=== PATIENT | male | born 1935 | race Caucasian/White ===

== ENCOUNTER 2022-02-05 14:50 | Outpatient (CLI) | payer MEDICARE, SELFPAY ==
--- NOTE | 2022-02-05 16:00 | CRLHL7_ITS ---
For Patients: As a result of the Century Cures Act, medical imaging exams and procedure reports are released immediately into your electronic medical record. You may view this report before your referring provider. If you have questions, please contact your health care provider. INDICATION: Right leg pain. History of DVT. TECHNIQUE: Ultrasound venous duplex lower right extremity. Compression venous exam was performed using tay-scale, color Doppler, and spectral Doppler analysis. COMPARISON: None. FINDINGS: Deep veins: Sonographic imaging demonstrates the right common femoral, deep femoral, superficial femoral, popliteal, posterior tibial and the contralateral right common femoral veins to be fully compressible with normal color Doppler blood flow. Superficial veins: Greater saphenous vein is fully compressible. No popliteal cyst. IMPRESSION: Normal right lower extremity venous ultrasound, no sign of deep venous thrombosis. Dictated by Luis Harvey MD @ 02/05/2022 4:26:30 PM (Electronically Signed)
== END 2022-02-05 14:51 | disposition home or self-care (01) ==
PROVIDERS: PCP Internal Medicine; Visit Provider Family Medicine
DX: M79.651 Pain in right thigh (principal); Z86.718 Personal history of other venous thrombosis and embolism
CPT/HCPCS: 93971

== ENCOUNTER 2022-08-06 09:07 | Outpatient (CLI) | payer MEDICARE, SELFPAY ==
[2022-08-06 10:35] LABS: Albumin* 3.8 g/dL (3.3-5.0); Chloride* 109 mmol/L (96-114)
[2022-08-06 10:36] LABS: Potassium* 4.6 mmol/L (3.6-5.1); Sodium* 141 mmol/L (135-149)
[2022-08-06 10:38] LABS: Alkaline Phosphatase* 66 U/L (40-150); Aspartate Amino Transferase* 21 U/L (12-35); Bilirubin Total* 0.6 mg/dL (0.1-1.5); Blood Urea Nitrogen* 20 mg/dL (7-30); Carbon Dioxide* 29 mmol/L (20-32); Cholesterol* 146 mg/dL (90-199); Estimated Glomerular Filt Rate 74 ml/min; Glucose* 99 mg/dL (60-115); Total Protein* 6.4 g/dL (6.0-8.3); Triglycerides* 72 mg/dL (40-149)
[2022-08-06 10:39] LABS: Alanine Aminotransferase* 16 U/L (4-50); Calcium* 8.8 mg/dL (8.4-10.6); HDL Cholesterol* 65 mg/dL (>=40); LDL Cholesterol Calculated 67 mg/dL (<100)
[2022-08-06 11:09] LABS: PSA Screen* 1.13 ng/mL (0.10-4.00)
== END 2022-08-06 09:08 | disposition home or self-care (01) ==
LOC: NFLDREF 09:08
PROVIDERS: PCP Internal Medicine; Visit Provider Internal Medicine
DX: Z00.00 Encounter for general adult medical examination without abnormal findings (principal); E78.5 Hyperlipidemia, unspecified; N40.0 Benign prostatic hyperplasia without lower urinary tract symptoms; Z12.5 Encounter for screening for malignant neoplasm of prostate
CPT/HCPCS: 80053; 80061; 84153

== ENCOUNTER 2022-10-06 11:00 | Outpatient (RCR) | payer MEDICARE, SELFPAY ==
--- NOTE | 2022-08-18 15:22 | PT.OPEX ---
PT [facility] PT [facility] Outpatient Eval Start: 08/18/22 09:54 Freq: Status: Active Protocol: Document 08/18/22 09:55 ENM (Rec: 08/18/22 15:14 ENM [id number]) E-signed By Florence Holman, DPT Physical Therapy Outpatient Evaluation Insurance Information Recert Due Date 11/10/22 Insurance Name Medicare B Medical Diagnosis degenerative scoliosis other secondary scoliosis, site unspecified Treating Diagnosis deconditioning, decreased core strength, decreased glute strength, impaired gait, impaired balance Referring MD Cecilia RIVERA Subjective Subjective Patient presents to PT for complaint of difficulty walking. 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 Underwent left femur CRPP via cannulated screws. Did have acupuncture and ultrasound at home, tried chiropractor which was not helpful. Used a bone stimulator as well. Has a history for chronic scoliosis with interlaminar injections. For the past 5 years he has not been able to stand very long >5 mins, he then has to find something to lean on. Patient states that he can't walk due to weakness and feels very insecure walking without his cane. Notices burning pain with moping or vacuuming. He has no pain in the knees just discomfort. He feels like he walks well with his 4WW at home, used to use walker at baseline before the fall. Does have a complaint of right thigh pain as well that he notices with hip flexion. His goal is to improve his walking ability. Xray: severe lumbar degenerative disc disease and significant degenerative scoliosis with apex right curvature centered at L3. severe lateral compartment [id number] joint space loss that is slightly more significant on the left than the right knee but both are severe Past exercises: heel cord stretch, heel raises, knee bends, standing marches, hip abduction, backwards kicks, standing HS curls, SLS, mini squats, seated marches, LAQ, HS stretch and hip add iso PMHx: left hip fx closed reduction with percutaneous pinning, arthritis, Pain Comments at its worse: 2-08/28 easing: sitting aggravating: mopping, vacuuming, walking Current Work Status Retired Objective Other/Pertinent Objective ROM: FF mid roland with notable curvature in lumbar spine EXT limited 50% pt flexed forward at baseline hip AROM flexion + for pain on R side IR WFL ER WFL no pain with passive hip flexion strength: 5x STS 28.38s with heavy use of arms and poor eccentric control, flexed posture throughout hip extensors functional weakness with sit to stands, is able to perform a fair supine bridge hip flexors L 3+/5 R 4/5 knee extensors L limited due to pain in the anterior thigh R 4+/5 DF 4/5 B palpation/joint mobility: no significant tenderness to palpation of right proximal adductors or hip flexors gait/balance: Patient ambulating with SEC, moderate limp with right trunk lean, proper sequencing of cane, decreased stance time LLE. SOB after ambulation ~50' Posture: Patient with significant flexed posture, scoliotic curve noted special tests: LLD: L ASIS to med malleolus 94.8 cm R ASIS to inf med malleolus 96 cm navel to L med malleolus 100.4 cm navel to R med malleolus 100.5 cm Functional Test Performed & Score 5x STS 28.38s with heavy use of arms and poor eccentric control, flexed posture throughout Assessment Assessment/Impression Patient is an 87 year old male presenting with difficulties ambulating. They have a complex medical history for chronic significant degenerative scoliosis and left femur fracture April 2021. Since then he has felt off balance and limited in his walking. Primary pains are in right thigh and lower back. Upon assessment patient displays significant flexed posture with ability to achieve neutral posture but unable to hold. Global LE functional weakness noted with MMT and 5x STS. Patient ambulates with antalgic gait pattern and slight right trunk lean using SEC, visibly SOB after ~50'. Noted 1.2 cm LLD with measures which is also likely impacting his ability to ambulate, per imaging patient has a 24 mm difference leg length shortening after fracture. Patient would greatly benefit from skilled PT to address impairments stated above in order to perform all functional mobility with improved stability and household duties without significant discomfort. Primary Functional Limitations walking, mopping, vacuuming Plan of Care Rehabilitation Potential Fair Physical Therapy Goals In 8-10 visits: 1. Patient will be IND with HEP and self management of symptoms 2. Patient will ambulate 100' with LRAD with improved upright posture at least 50% of the time to progress tolerance for community mobility 3. Patient will improve 5x STS from 28.38s with or without use of hands to less than 24. 38s (MDC 4s) to demonstrate improvements in LE functional strength/endurance 4. Patient will perform mopping or vacuuming with 2/10 or less back pain following in order to perform household duties without as much difficulty or discomfort Coordination/Communication With Referral Source Treatment Plan/Direct Interventions Gait Training,Joint Mobilization,Manual Therapy, Neuromuscular Re-ed,Self-Care/ Home Management,Therapeutic Activities,Therapeutic Exercises Frequency/Duration 1x a week for 8 visits, as needed for 3-4 visits Patient Will Be Discharged From Therapy Completion of LTG(s), Independent w/HEP Evaluation Billing Untimed Code Treatment Minutes 41 Complexity Moderate Certification Information Initial Certification Date 08/18/22 Ending Certification Date 11/10/22 Provider Signature Shows Agreement With POC & Medical Necessity Physician Signature & Date Requested Please Sign/Date Here Physician Comment/Change : Physician NPI Number #
== END 2022-12-07 09:18 | disposition home or self-care (01) ==
PROVIDERS: PCP Internal Medicine; Visit Provider Physician Assistant Surgical
DX: M41.50 Other secondary scoliosis, site unspecified (principal); M54.50 Low back pain, unspecified; R53.1 Weakness; R26.9 Unspecified abnormalities of gait and mobility; R26.81 Unsteadiness on feet; Z51.89 Encounter for other specified aftercare
CPT/HCPCS: 97110; 97140; 97162; 97530

== ENCOUNTER 2023-03-29 12:52 | Outpatient (CLI) | payer MEDICARE, SELFPAY | END 2023-03-29 12:53 | disposition home or self-care (01) | LOC: NFLDREF 03-31 09:04 | PROVIDERS: PCP Internal Medicine; Referring Provider Internal Medicine; Visit Provider Internal Medicine | DX: N39.0 Urinary tract infection, site not specified (principal) | CPT/HCPCS: 87086; 87186 ==

== ENCOUNTER 2023-04-05 12:57 | Outpatient (CLI) | payer MEDICARE, SELFPAY | END 2023-04-05 12:58 | disposition home or self-care (01) | LOC: NFLDREF 04-08 11:17 | PROVIDERS: PCP Internal Medicine; Referring Provider Internal Medicine; Visit Provider Internal Medicine | DX: N39.0 Urinary tract infection, site not specified (principal) | CPT/HCPCS: 87086 ==

== ENCOUNTER 2023-09-28 14:41 | Outpatient (CLI) | payer MEDICARE, SELFPAY ==
--- OUTSIDE RECORDS SUMMARY | 2023-09-28 14:44 | XMS_ITS | Clinical Summary ---
Author Name Unknown Organization [facility] Address [place], [place] [address] Care Team Providers Care Canine Service Instructor Trainer Name Role Phone Henok Weller MD Primary Care Provider Allergies No known active allergies Medications Medication Sig Dispensed Refills Start Date End Date Status AZMACORT 100 MCG/ACTUATION AEROSOL INHALER inhale four puffs twice daily 20 0 05/30/2007 Active doxazosin (CARDURA) 8 mg tablet Take 1 tablet by mouth at bedtime. 0 10/12/2011 Active CPAP autoCPAP, heated humidifier, mask, headgear, filters and tubing. Pressure: 4-15cm/H2O Length of Need: 99 1 unit 0 10/12/2011 Active Additional Information Patient not taking.Reported on 09/16/2023 zolpidem (AMBIEN) 10 mg tablet Take 1 tablet by mouth at bedtime if needed for Sleep. 30 tablet 1 10/19/2011 Active Additional Information Patient not taking.Reported on 09/16/2023 Calcium carbonate (OYSTERSHELL CALCIUM) 500 mg tablet Take 1 tablet by mouth 2 times daily with meals. 0 01/11/2012 Active fluorouracil 5% topical (EFUDEX) 5 % cream Apply 1 Applicator topically to affected area(s) 2 times daily. 08/06/2016 Active simvastatin (ZOCOR) 20 mg tablet Take 20 mg by mouth once daily. 07/31/2016 Active ADVAIR DISKUS 250-50 mcg/dose diskus inhaler Take 1 Inhaler by mouth once daily. 08/12/2016 Active diphenhydrAMINE-ac etaminophen 25-500 mg (TYLENOL PM EXTRA STRENGTH) 25-500 mg tablet Take 2 tablets by mouth at bedtime if needed. Max acetaminophen dose: 4000mg in 24 hrs. 0 04/02/2017 Active VENTOLIN HFA 90 mcg/actuation inhaler 1 09/20/2018 Active diclofenac topical (VOLTAREN) 1 % gelIndications:Art hritis of finger of right hand Apply 2 g topically to affected area(s) 4 times daily. As needed 50 g 3 03/08/2020 Active finasteride (PROSCAR) 5 mg tabletIndications: Weak urine stream Take 1 Tablet (5 mg) by mouth every morning. 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 ) 09/16/2023 Travel from Last 3 Months Immunizations Name Administration Dates Next Due COVID-19 Vaccine Spikevax (M oderna 50mcg/0.5mL) 12YO+ 3514-7637 Formula PF 04/09/2023 COVID-19 vaccine (Hipbone-Bio NTech 30mcg/0.3mL) 12YO+ BIVALENT PF, MDV 10/15/2022,03/19/2022 COVID-19 vaccine (Pfizer-Bio NTech 30mcg/0.3mL) 12YO+ VICENTA-SUCROSE PF, MDV 10/08/2021 COVID-19 vaccine (Hipbone-Bio NTech 30mcg/0.3mL) PF, MDV 07/27/2020 Influenza A (H1N1), Inactivated 05/10/2009 Influenza, High-dose Inactivated 018,04/01/2017,04/16/2016,2014,03/21/2014 Influenza, High-dose Quadriv alent Inactivated 03/18/2021 Influenza, IIV3 (Age 6-35 mos) 04/10/2010 Influenza, IIV3 (Age >=3 years) 03/31/20 13,03/24/2012,04/09/2011,2004,04/19/2004 Influenza, IIV4 05/10/2009 Influenza, Inactivated AIIV4 (Age 65+ Years) Preserv Free 04/09/2023,04/10/2020 Influenza, Inactivated IIV3 (Age 65+ Years) Preserv Free 03/09/2019 Pneumococcal Poly,23-Valent (Pneumovax) 04/21/2006 Pneumococcal conj 13-Valent (Prevnar 13) 11/22/2014,07/12/2014 Tdap 06/16/2012 Zoster (Shingrix-RZV, recombinant) 11/30/2018, Zoster (Zostavax-ZVL, live) 06/01/2006 Social History Tobacco Use Types Packs/Day Years Used Date Smoking Tobacco: Never Smokeless Tobacco: Current Chew Tobacco Cessation:Ready to Q uit: No; Counseling Given: Yes Comments:occasional use of chew Alcohol Use Standard Drinks/Week Comments Yes 0 (1 standard drink = 0.6 oz pur e alcohol) 2-3 beers per week Social Connections Answer Date Recorded Frequency of Communication with Friends and Fami ly Not on file 09/16/2023 Financial Resource Strain Answer Date R ecorded Difficulty of Paying Living Expenses Not on file 06/21/2021 Difficulty of Paying Living Expenses Not on file 06/21/2021 Sex and Gender Information Value Date Recorded Sex Assigned at Not on file Gender Identity Not on file Sexual Orientation Not on file Obstetrics History Last Filed Vital Signs Vital Sign Reading Time Taken Comments Blood Pressure 168/87 09/16/2023 9:10 AM CDT recheck blood pressure Pulse 79 09/16/2023 9:10 AM CDT Temperature 36.3 ??C (97.4 ??F) 08/01/2020 1 0:52 AM 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 [address] [place] [phone] Anmol Sorto MD [address] [place] [address] Arrived Health Maintenance Due Date Last Done Comments Depression screening for age 12+ 1949 BMI (ht and wt on same day) for age 18+ 1955 Medicare Wellness for age 65+ 2002 Tetanus booster 06/16/2022 06/16/2012 Influenza for age 65+ 02/20/2024 04/09/2023 , 03/18/2021, 04/10/2020, Additional history exists Tdap Completed 06/16/2012 Pneumococcal series for age 65+ Completed 11/22/2014, 07/12/2014, 04/21/2006 Zoster (shingles) series for age 50+ Completed 11/30/2018, 09/15/2018, 06/01/2006 COVID-19 vaccine series Completed 04/09/20, 10/15/2022, 03/19/2022, Additional history exists Care Teams Canine Service Instructor Trainer Relationship Specialty Start Date End Date Henok Weller MD [address] [place] [address] PCP - General 11/16/12
== END 2023-09-28 14:42 | disposition home or self-care (01) ==
LOC: INJ CL 14:42
PROVIDERS: PCP Internal Medicine; Visit Provider Family Medicine
DX: M17.12 Unilateral primary osteoarthritis, left knee (principal); M25.562 Pain in left knee
CPT/HCPCS: 64454

== ENCOUNTER 2023-10-05 13:10 | Outpatient (CLI) | payer MEDICARE, SELFPAY ==
--- OUTSIDE RECORDS SUMMARY | 2023-10-05 13:12 | XMS_ITS | Clinical Summary ---
Author Name Unknown Organization [facility] Address [place], [place] [address] Care Team Providers Care Clinical Services Professional Name Role Phone Henok Weller MD Primary [...] Encounters Date Type Department Care Team Description 10/01/2023 Orders Only [facility] [address] [place] [address] Anmol Sorto MD <No scans attached> 09/30/2023 Telephone [facility] [address] [place] [address] Anmol Sorto MD Error-please disregard 09/28/2023 3:20 PM CDT Procedure Only [facility] [address] [place] [address] Anmol Sorto MD Procedure (Left knee genicular nerve block ) 09/28/2023 Orders Only [facility] Scanner 1 scan: (1-Ord) [facility], SUPERIOR MEDIAL, SUPERIOR LATERAL AND INFERIOR MEDIAL GENICULAR NERVE BLOCKS UNDER FLUOROS, 09/28/2023 09/16/2023 9:00 AM CDT Office Visit [facility] [address] [place] [address] Anmol Sorto MD Musculoskeletal Problem (Consultation for Bilateral Knee pain and Low Back Pain//Did have a fall in 2020 and fractured LEFT Femur. 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 Respiratory Rate - - Oxygen Saturation 97% 09/16/2023 9:0 7 AM CDT Inhaled Oxygen Concentration - - Weight 99.8 kg (220 lb) 09/16/2023 9:07 AM CDT Height - - Body Mass Index - - Plan of Treatment Upcoming Encounters Date Type Department Care Team (Late st Contact Info) Description 10/05/2023 2:00 PM CDT Procedure Only [facility] [address] [place] [phone] Anmol Sorto MD [address] [place] [address] Arrived Health Maintenance Due Date Last Done [...] 11/30/2018, 09/15/2018, 06/01/2006 COVID-19 vaccine series Completed 04/09/20 23, 10/15/2022, 03/19/2022, Additional history exists Procedures Procedure Name Priority Date/Time Associated Diagnosis Comments SCAN-OPERATIVE/PROC EDURE REPORT 09/28/2023 12:00 AM CDT from Last 3 Months Results * SCAN-OPERATIVE/PROCEDURE REPORT (09/28/2023 12:00 AM CDT) Scanner OTHER from Last 3 Months Care Teams Clinical Services Professional Relationship Specialty Start Date End Date Henok Weller MD [address] [place] [address] PCP - General 11/16/12
== END 2023-10-05 13:11 | disposition home or self-care (01) ==
LOC: INJ CL 13:11
PROVIDERS: PCP Internal Medicine; Visit Provider Family Medicine
DX: M17.12 Unilateral primary osteoarthritis, left knee (principal); M25.562 Pain in left knee
CPT/HCPCS: 64624; J2250; J3010

== ENCOUNTER 2023-10-25 09:12 | Outpatient (CLI) | payer MEDICARE, SELFPAY ==
--- OUTSIDE RECORDS SUMMARY | 2023-10-27 09:41 | XMS_ITS | Clinical Summary ---
Author Name Unknown Organization [facility] Address [place], [place] [address] Care Team Providers Care Electric Razor Mechanic Name Role Phone Henok Weller MD Primary [...] Encounters Date Type Department Care Team Description 10/05/2023 2:00 PM CDT Procedure Only [facility] [address] [place] [address] Anmol Sorto MD Procedure (Left knee Coolief RFA) 10/01/2023 Orders Only [facility] [address] [place] [address] Anmol Sorto MD 1 scan: (1-Ord) [facility], LEFT GENICULAR NERVE RADIOFREQUENCY W/ IMAGING GUIDANCE , 10/05/2023 09/30/2023 Telephone [facility] [address] [place] [address] Anmol Sorto MD Error-please disregard 09/28/2023 3:20 PM CDT Procedure Only [facility] [address] [place] [address] Anmol Sorto MD Procedure (Left knee genicular nerve block ) 09/28/2023 Orders Only [facility] Scanner 1 scan: (1-Ord) [facility], LT SUPERIOR MEDIAL, SUPERIOR LATERAL AND INFERIOR MEDIAL GENICULAR NERVE BLOCKS UNDER FLUOROS, 09/28/2023 09/16/2023 9:00 AM CDT Office Visit [facility] [address] [place] [address] Anmol Sorto MD Musculoskeletal Problem (Consultation for Bilateral Knee pain and Low Back Pain//Did have a fall in 2020 and fractured LEFT Femur. 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 Respiratory Rate - - Oxygen Saturation 97% 09/16/2023 9:0 7 AM CDT Inhaled Oxygen Concentration - - Weight 99.8 kg (220 lb) 09/16/2023 9:07 AM CDT Height - - Body Mass Index - - Plan of Treatment Health Maintenance Due Date Last Done Comments [...] Procedure Name Priority Date/Time Associated Diagnosis Comments AMB CONSULT FOR INJECTION Routine 10/05/2023 12:00 AM CDT Primary osteoarthritis of left knee Chronic pain of left knee SCAN-OPERATIVE/PRO CEDURE REPORT 09/28/2023 12:00 AM CDT from Last 3 Months Results * AMB CONSULT FOR INJECTION (10/05/2023 12:00 AM CDT) Anmol Sorto MD AMB REFERRAL/CONSU LT ORD * SCAN-OPERATIVE/PROCEDURE REPORT (09/28/2023 12:00 AM CDT) Scanner OTHER from Last 3 Months Care Teams Electric Razor Mechanic Relationship Specialty Start Date End Date Henok Weller MD [address] [place], [place] [phone] PCP - General 11/16/12
== END 2023-10-25 09:13 | disposition home or self-care (01) ==
LOC: NFLDREF 10-27 09:40
PROVIDERS: PCP Internal Medicine; Referring Provider Internal Medicine; Visit Provider Internal Medicine
DX: E78.5 Hyperlipidemia, unspecified (principal); N40.0 Benign prostatic hyperplasia without lower urinary tract symptoms; Z13.228 Encounter for screening for other metabolic disorders; Z12.5 Encounter for screening for malignant neoplasm of prostate
CPT/HCPCS: 80053; 80061; G0103

== ENCOUNTER 2023-12-06 19:08 | Outpatient (CLI) | payer MEDICARE, SELFPAY ==
--- OUTSIDE RECORDS SUMMARY | 2023-12-08 00:45 | XMS_ITS | Clinical Summary ---
Author Organization [employer] [facility] Address [place], [place] [address] Care Team Providers Care Assistant County Engineer Name Role Phone Henok Weller MD Primary Care Provider [phone] Allergies No known active allergies Medications Medication [...] Description 10/05/2023 2:00 PM CDT Procedure Only [facility] [address] [place] [address] Anmol Sorto MD Procedure (Left knee Coolief RFA) 10/01/2023 Orders Only [facility] [address] [place] [address] Anmol Sorto MD 1 scan: (1-Ord) [facility], LEFT GENICULAR NERVE RADIOFREQUENCY W/ IMAGING GUIDANCE , 10/05/2023 09/30/2023 Telephone [facility] [address] [place] [address] Anmol Sorto MD Error-please disregard 09/28/2023 3:20 PM CDT Procedure Only [facility] [address] [place] [address] Anmol Sorto MD Procedure (Left knee genicular nerve block ) 09/28/[address] [facility] Scanner 1 scan: (1-Ord) [facility], LT SUPERIOR MEDIAL, SUPERIOR LATERAL AND INFERIOR MEDIAL GENICULAR NERVE BLOCKS UNDER FLUOROS, 09/28/2023 09/16/2023 9:00 AM CDT Office Visit [facility] [address] [place] [address] Anmol Sorto MD Musculoskeletal Problem (Consultation for Bilateral Knee pain and Low Back Pain//Did have a fall in 2020 and fractured LEFT Femur. ) 09/16/2023 Travel from Last 3 Months Immunizations Name Administration Dates Next Due COVID-19 Vaccine Spikevax (M oderna 50mcg/0.5mL) 12YO+ 3134-5941 Formula PF 04/09/2023 COVID-19 vaccine ([employer] 30mcg/0.3mL) 12YO+ BIVALENT PF, MDV 10/15/2022,03/19/2022 [...] ??C (97.4 ??F) 08/01/2020 1 0:52 AM EDGE DYER Respiratory Rate - - Oxygen Saturation 97% 09/16/2023 9:0 7 AM CDT Inhaled Oxygen Concentration - - Weight 99.8 kg (220 lb) 09/16/2023 9:07 AM CDT Height - - Body Mass Index - - Plan of Treatment Upcoming Encounters Date Type Department Care Team (Late st Contact Info) Description 12/08/2023 11:00 AM CDT Ancillary Procedure [facility] [address] [place] [address] Health Maintenance Due Date Last Done Comments [...] OTHER from Last 3 Months Care Teams Assistant County Engineer Relationship Specialty Start Date End Date Henok Weller MD [address] [place] [address] PCP - General 11/16/12
== END 2023-12-06 19:09 | disposition home or self-care (01) ==
LOC: AMB 12-08 00:43
PROVIDERS: PCP Internal Medicine; Visit Provider Student in an Organized Health Care Education/Training Program
DX: R53.1 Weakness (principal)
CPT/HCPCS: A0425; A0427

== ENCOUNTER 2023-12-06 19:47 | Inpatient (IN) | payer MEDICARE, SELFPAY ==
[2023-12-06 19:52] VITALS: BP 143/84; PULSE 120; RESP 18; TEMP 38.1; O2SAT 96; BMI 21.7
[2023-12-06] MEDS: ACETAMINOPHEN 325 MG TABLET 650 MG PO (20:12)
--- NOTE | 2023-12-06 20:14 | CRLHL7_ITS ---
For Patients: As a result of the Century Cures Act, medical imaging exams and procedure reports are released immediately into your electronic medical record. You may view this report before your referring provider. If you have questions, please contact your health care provider. Indication : Altered mental status. Technique : CT of the brain without intravenous contrast. Comparison: None relevant available at the time of interpretation. Findings: No acute blurring of the tay-white differentiation. There is no intracranial hemorrhage. The ventricles are proportionate to the cerebral sulci. The 4th ventricle is midline. Basal cisterns appear patent. No abnormal extra-axial fluid collection identified. Mild parenchymal volume loss. There is mild patchy periventricular hypodensity, favored to represent chronic ischemic microvascular disease. There is no intracranial mass, mass effect or midline shift identified. No depressed calvarial fracture. Moderate sphenoid sinusitis. Impression: 1. No acute intracranial process. 2. Mild chronic ischemic microvascular disease. Please note that all CT scans at this facility use dose modulation, iterative reconstruction, and/or weight-based dosing when appropriate to reduce radiation dose to as low as reasonably achievable. Dictated by Juan Victor MD @ 12/06/2023 9:04:28 PM (Electronically Signed)
[2023-12-06] MEDS: LACTATED RINGERS 1000 ML 1,000 ML IV ×2 (20:18→22:22)
--- NOTE | 2023-12-06 20:22 | ED_ITS ---
HPI - General Adult General Date Seen: 12/06/23 Chief complaint: Fever Stated complaint: Weakness Time Seen by Provider: 12/06/23 19:48 Source: patient, family and EMS Mode of arrival: EMS Limitations: no limitations History of Present Illness HPI narrative: Patient is an 88-year-old male presenting to emergency department via EMS for fever and weakness. Per EMS patient was too weak to get off his toilet so his son's called EMS. He typically lives alone. For EMS he had a fever, tachycardia and they heard some wheezing on exam. I spoke to the patient and I asked him why he is here he states he is not sure why asking about the weakness he does states he is feeling little bit weaker than normal. Does know where he is and the date. Speaking to him he will initially start answering questions appropriately and then start a stutter and seem like he is unable to finish a sentence. I spoke to his son on the phone who states his dad was sounded normal this morning but was complaining about feeling tired. The patient's other son was with him most of the day and he has been progressively getting weaker and having difficulty getting out of chairs until he was unable to get off the toilet. His son also noticed the patient seemed to be slightly more confused than his baseline. As baseline he does live home alone. Was complaining about back pain today also. Denies chest pain, shortness of breath, headache, vision changes, diarrhea, constipation, dysuria. No other concerns noted at this time. Related Data Home Medications ?Medication ?Instructions ?Recorded ?Confirmed acetaminophen 650 mg 650 mg PO Q12H 04/10/22 10/27/23 tablet,extended release (Tylenol Arthritis Pain) finasteride 5 mg PO DAILY 11/19/22 10/27/23 glucosamine 500 cap PO QDAY 10/27/23 10/27/23 lg-[id number] comp 400 mg-D3 667 unit-C-Mn cap Previous Rx's ?Medication ?Instructions ?Recorded albuterol sulfate 90 mcg/actuation 2 puff inhalation Q4H PRN 08/11/22 aerosol inhaler shortness of breath or wheezing #8.5 grams Walker- 4 Wheels #1 ea 09/14/22 ciprofloxacin HCl 250 mg tablet 250 mg PO BID UTI #28 tabs 04/05/23 meloxicam 7.5 mg tablet 7.5 mg PO QDAY Osteoarthritis #20 05/04/23 tabs hydrocodone 5 mg-acetaminophen 325 2 tab PO Q6H PRN pain #30 tabs 07/19/23 mg tablet doxazosin 8 mg tablet 8 mg PO .HS #90 tabs 09/13/23 simvastatin 20 mg tablet 20 mg PO QPM #90 tabs 09/13/23 Allergies Allergy/AdvReac Type Severity Reaction Status Date / Time No Known Drug Allergies Allergy Verified 10/27/23 10:05 Review of Systems Status of ROS: Reports: 10 or more systems reviewed and unremarkable except as noted in History and below [facility] Medical History Sleep apnea, obstructive ?G47.33 - Obstructive sleep apnea (adult) (pediatric) (ICD-10) Skin cancer (06/10/09) ?C44.90 - Unspecified malignant neoplasm of skin, unspecified (ICD-10) Obesity with body mass index greater than 30 ?E66.9 - Obesity, unspecified (ICD-10) Deep vein thrombosis (DVT) of left lower extremity ?I82.402 - Acute embolism and thrombosis of unspecified deep veins of left lower extremity (ICD-10) Asthma (06/10/09) ?J45.909 - Unspecified asthma, uncomplicated (ICD-10) Hyperlipidemia ?E78.5 - Hyperlipidemia, unspecified (ICD-10) Surgical History History of hip surgery (04/21/21) ?Z98.890 - Other specified postprocedural states (ICD-10) Hx of tonsillectomy ?Z90.89 - Acquired absence of other organs (ICD-10) Family History Mother Breast cancer Coronary artery disease Father No problems noted. Paternal Grandfather Coronary artery disease Social History What is your current living situation?: I presently have a place to live Problems where you live: no known problems In the past 12 months, utilities in danger of being shut off: no In past 12 months, lack of transportation kept you from medical appts, meetings, work, or getting things needed for daily living: no In the past 12 mos, have been you worried that your food would run out before you had money to buy more?: never true In the past 12 mos, the food you bought just didn't last and you didn't have money to buy more?: never true Smoking Status: Never smoker Do you use any of these nicotine containing products: None Second hand tobacco smoke exposure: No How often do you have a drink containing alcohol: never How often do you have six or more drinks on one occasion: Never AUDIT-C Alcohol total score: 0 Non-prescribed substance use: denies use How often does anyone, including family, friends and others, physically hurt you : never How often does anyone, including family, friends and others, insult or talk down to you: never How often does anyone, including family, friends and others, threaten you with harm: never How often does anyone, including family, friends and others, scream or curse at you: never Little interest or pleasure in doing things: not at all Feeling down, depressed, or hopeless: not at all service: No Exam Narrative: Exam Narrative: Const: Well-nourished, Well-developed, in mild distress Eyes: PERRL, no conjunctival injection, and symmetrical lids HENT: Atraumatic external nose and ears. Moist mucous membranes. Neck: Symmetric, trachea midline, No thyromegaly. CVS: Tachycardia, No murmurs or gallops. Peripheral pulses 2+ and equal in all extremities RESP: Unlabored respiratory effort. Clear to auscultation bilaterally. GI: Nontender/Nondistended, No rebound or guarding. MSK:Extremities w/o deformity, Normal Active ROM Skin: Warm, Dry. No rashes or lesions. Neuro: Normal Muscle tone, No focal neurological deficits. Psych: Awake, Alert, & Oriented x3 but does seem to trail off when speaking.. Appropriate mood and affect. Const: Vital Signs, click to edit/add: Vital Signs - 24 hr 12/06/23 19:52 12/06/23 20:37 12/06/23 21:20 Temperature 100.5 F H 100.5 F H 99.8 F H Pulse Rate [Pulse Oximeter] 120 H 118 H 104 H Respiratory Rate 18 22 18 Blood Pressure [Ri ght Arm] 142/80 H Blood Pressure [Ri ght Upper Arm] 143/84 H 118/68 Pulse Oximetry 96 95 95 Oxygen Delivery Me thod Room Air Room Air Room Air 12/06/23 23:52 12/06/23 23:52 Temperature 100.8 F H 100.8 F H Pulse Rate [Pulse Oximeter] 128 H Respiratory Rate 26 H Blood Pressure [Ri ght Arm] Blood Pressure [Ri ght Upper Arm] 169/88 H Pulse Oximetry 95 Oxygen Delivery Me thod Room Air Course Vital Signs Vital signs: Initial Vital Signs Temperature 100.5 F H 12/06/23 19:52 Temperature Source Temporal Artery Scan 12/06/23 19:52 Pulse Rate 120 H 12/06/23 19:52 Respiratory Rate 18 12/06/23 19:52 Blood Pressure 143/84 H 12/06/23 19:52 Blood Pressure Mean 103 12/06/23 19:52 Blood Pressure Position Sitting 12/06/23 19:52 Pulse Oximetry 96 12/06/23 19:52 Oxygen Delivery Method Room Air 12/06/23 19:52 Vital Signs Temperature 100.5 F H 12/06/23 19:52 Pulse Rate 120 H 12/06/23 19:52 Respiratory Rate 18 12/06/23 19:52 Blood Pressure 143/84 H 12/06/23 19:52 Pulse Oximetry 96 12/06/23 19:52 Oxygen Delivery Method Room Air 12/06/23 19:52 Temperature 100.8 F H 12/06/23 23:52 Pulse Rate 128 H 12/06/23 23:52 Respiratory Rate 26 H 12/06/23 23:52 Blood Pressure 169/88 H 12/06/23 23:52 Pulse Oximetry 95 12/06/23 23:52 Oxygen Delivery Method Room Air 12/06/23 23:52 Medications Administered Medications: Generic Name Dose Route Start Last Admin Trade Name Freq PRN Reason Stop Dose Admin Acetaminophen 650 mg 12/06/23 20:10 12/06/23 20:12 Acetaminophen 325 Mg Tablet PO 12/06/23 20:11 650 mg ONCE ONE Administration Lactated Ringer's 1,000 mls @ 1,000 mls/hr 12/06/23 20:10 12/06/23 20:18 Lactated Ringers 1000 Ml IV 12/06/23 21:09 1,000 mls/hr .Q1H ONE Administration Lactated Ringer's 1,000 mls @ 1,000 mls/hr 12/06/23 22:16 12/06/23 22:22 Lactated Ringers 1000 Ml IV 12/06/23 23:15 1,000 mls/hr .Q1H ONE Administration Ibuprofen 600 mg 12/06/23 23:39 12/06/23 23:52 Ibuprofen 200 Mg Tablet PO 12/06/23 23:40 600 mg ONCE ONE Administration Medical Decision Making MDM Narrative Medical decision making narrative: Patient is a 8-year-old male presenting to emergency department for weakness, fevers, altered mental status. He is tachycardic and does have a fever so a septic workup will be ordered. Tylenol given for his fever. When I speak to him he seems to be able to understand what him sane and reply appropriately but then started stuttering and trails off. I spoke to his son and this is abnormal for him so head CT will be ordered. Unsure why he has fever and tachycardia but I will give him a L of fluid at this time. Also ordered CBC, CMP, lactate, blood cultures, magnesium, troponin, BNP, EKG, urinalysis, COVID/flu/RSV. Lactate within normal limits. CBC shows no concerning abnormalities. CMP shows no concerning abnormalities. Magnesium within normal limits. BNP slightly elevated at 1060. Urinalysis shows no obvious signs of a UTI. COVID/flu/RSV is negative. After the 1 L of fluid his heart rate came down to roughly 98-104. His fever has also resolved any seems cognitively improved. His son who is at the bedside still states he seems a little bit off compared to baseline but not much. Patient is no longer actively shivering. Initial EKG shows sinus tachycardia with no concerning abnormalities. Lab drawn troponin was 0.05. Likely a demand ischemia from his tachycardia and possible infection. I am unsure where this infection is so I will do a avila scan of his chest, abdomen, pelvis. A 2nd L of fluids was given. Repeat troponin within normal limits. CT scan of the chest abdomen pelvis showed no acute abnormalities. I am still not sure exactly what is causing his symptoms it seems very likely to be viral. I do not believe antibiotics are indicated at this time but we will admit the patient to the hospitalist service. Patient is agreeable to this plan. Lab Data Labs: Lab Results 12/06/23 12/06/23 12/06/23 Range/Units 20:10 20:10 20:37 WBC (4.50-11.00) K/uL RBC (4.30-5.90) m/uL Hgb (13.5-17.5) gm/dL Hct (37.0-53.0) % MCV (80-100) fL MCH (26-34) pg MCHC (32-36) gm/dL RDW Coeff of Mica (11.5-15.5) % Plt Count (140-440) K/uL Neut % (Auto) (42.0-72.0) % Lymph % (Auto) (20-44) % Parke % (Auto) (0.0-11.0) % Eos % (Auto) (0.0-7.0) % Baso % (Auto) (0.0-3.0) % Neut # (Auto) (1.7-7.0) K/uL Lymph # (Auto) (0.90-2.90) K/uL Parke # (Auto) (0.00-0.90) K/UL Eos # (Auto) (0.00-0.50) K/uL Baso # (Auto) (0.00-0.30) K/uL Abs Immat Gran (auto) (0.00-0.30) K/uL Imm/Tot Granulo (auto) % Sodium (135-149) mmol/L Potassium (3.6-5.1) mmol/L Chloride (96-114) mmol/L Carbon Dioxide (20-32) mmol/L Anion Gap (7-15) mEq/L BUN (7-30) mg/dL Creatinine (0.5-1.5) mg/dL Estimated Creat Clear Estimated GFR ml/min Glucose (60-115) mg/dL Lactate (0.5-1.9) mmol/L Calcium (8.4-10.6) mg/dL Magnesium (1.5-2.6) mg/dL Total Bilirubin (0.1-1.5) mg/dL AST (12-35) U/L ALT (4-50) U/L Alkaline Phosphatase (40-150) U/L Troponin I (0.01-0.04) ng/mL NT-Pro-B Natriuret Pep pg/mL Total Protein (6.0-8.3) g/dL Albumin (3.3-5.0) g/dL Urine Color Dark yellow (Yellow) Urine Appearance Clear (Clear) Urine pH 5.5 (5.0-8.5) Ur Specific E[place]on 1.025 (1.000-1.030) Urine Protein Negative (Negative) Urine Glucose (UA) Negative (Negative) Urine Ketones Trace A (Negative) Urine Blood Trace-intact A (Negative) Urine Nitrite Negative (Negative) Urine Bilirubin Negative (Negative) Urine Urobilinogen 0.2 (0.2-1.0) Ur Leukocyte Esterase Negative (Negative) Urine RBC 0-2 (0-2) Urine WBC 0-2 (0-5) Ur Squamous Epith Cells None (None-Few) Urine Bacteria Few A (None) SARS-CoV-2 (PCR) (Negative) Influenza Type A (PCR) (Negative) Influenza Type B (PCR) (Negative) RSV (PCR) (Negative) POC Creatinine 1.4 H (0.6-1.3) mg/dl POC Troponin I Cancelled 0.01 12/06/23 12/06/23 Range/Units 20:38 22:43 WBC 7.25 (4.50-11.00) K/uL RBC 4.03 L (4.30-5.90) m/uL Hgb 12.1 L (13.5-17.5) gm/dL Hct 38.0 (37.0-53.0) % MCV 94 (80-100) fL MCH 30 (26-34) pg MCHC 32 (32-36) gm/dL RDW Coeff of Mica 13.8 (11.5-15.5) % Plt Count 129 L (140-440) K/uL Neut % (Auto) 92.5 H (42.0-72.0) % Lymph % (Auto) 3.2 L (20-44) % Parke % (Auto) 4.1 (0.0-11.0) % Eos % (Auto) 0.0 (0.0-7.0) % Baso % (Auto) 0.1 (0.0-3.0) % Neut # (Auto) 6.70 (1.7-7.0) K/uL Lymph # (Auto) 0.20 L (0.90-2.90) K/uL Parke # (Auto) 0.30 (0.00-0.90) K/UL Eos # (Auto) 0.00 (0.00-0.50) K/uL Baso # (Auto) 0.01 (0.00-0.30) K/uL Abs Immat Gran (auto) 0.01 (0.00-0.30) K/uL Imm/Tot Granulo (auto) 0.1 % Sodium 136 (135-149) mmol/L Potassium 4.4 (3.6-5.1) mmol/L Chloride 108 (96-114) mmol/L Carbon Dioxide 19 L (20-32) mmol/L Anion Gap 9 (7-15) mEq/L BUN 24 (7-30) mg/dL Creatinine 1.1 (0.5-1.5) mg/dL Estimated Creat Clear 49.48 Estimated GFR 65 ml/min Glucose 137 H (60-115) mg/dL Lactate 1.6 (0.5-1.9) mmol/L Calcium 8.7 (8.4-10.6) mg/dL Magnesium 2.0 (1.5-2.6) mg/dL Total Bilirubin 1.0 (0.1-1.5) mg/dL AST 28 (12-35) U/L ALT 15 (4-50) U/L Alkaline Phosphatase 61 (40-150) U/L Troponin I 0.05 H 0.04 (0.01-0.04) ng/mL NT-Pro-B Natriuret Pep 1060 pg/mL Total Protein 7.0 (6.0-8.3) g/dL Albumin 4.4 (3.3-5.0) g/dL Urine Color (Yellow) Urine Appearance (Clear) Urine pH (5.0-8.5) Ur Specific Eglon (1.000-1.030) Urine Protein (Negative) Urine Glucose (UA) (Negative) Urine Ketones (Negative) Urine Blood (Negative) Urine Nitrite (Negative) Urine Bilirubin (Negative) Urine Urobilinogen (0.2-1.0) Ur Leukocyte Esterase (Negative) Urine RBC (0-2) Urine WBC (0-5) Ur Squamous Epith Cells (None-Few) Urine Bacteria (None) SARS-CoV-2 (PCR) Negative SARS-CoV-2 (Negative) Influenza Type A (PCR) Negative PCR FLU A (Negative) Influenza Type B (PCR) Negative PCR FLU B (Negative) RSV (PCR) Negative PCR RSV (Negative) POC Creatinine (0.6-1.3) mg/dl POC Troponin I Imaging Data CT scan - head: Attestation: I have reviewed the pertinent imaging results. Radiologist's impression: 1. No acute intracranial process. 2. Mild chronic ischemic microvascular disease. Please note that all CT scans at this facility use dose modulation, iterative reconstruction, and/or weight-based dosing when appropriate to reduce radiation dose to as low as reasonably achievable. Dictated by Juan Victor MD @ 12/06/2023 9:04:[address] scan chest abdomen pelvis: Attestation: I have reviewed the pertinent imaging results. Radiologist's impression: 1. No acute findings in the chest, abdomen, or pelvis. 2. Few ancillary, nonacute findings, as above. Please note that all CT scans at this facility use dose modulation, iterative reconstruction, and/or weight-based dosing when appropriate to reduce radiation dose to as low as reasonably achievable. Dictated by Pb Duran MD @ 12/06/2023 11:02:20 PM ECG Data Attestation: I personally reviewed and interpreted this ECG as follows: Prior ECG tracings: not available for review Interpretation: Sinus tachycardia at a rate of 113 beats per minute, first-degree AV block, normal QRS and QTC, normal axis, no ST or T-wave abnormalities Discharge Plan Discharge Clinical Impression: Weakness, Fever of unknown origin, SIRS (systemic inflammatory response syndrome) Patient Disposition: Admitted As Observation Condition: Improved
--- OUTSIDE RECORDS SUMMARY | 2023-12-06 20:26 | XMS_ITS | Clinical Summary ---
Author Organization [facility] Address [place], [place] [address] Care Team Providers Care Aluminizer Name Role Phone Henok Weller MD Primary [...] Description 10/05/2023 2:00 PM CDT Procedure Only [facility] [address] [place] [address] Anmol Sorto MD Procedure (Left knee Coolief RFA) 10/01/2023 Orders Only [facility] [address] [place] [address] Anmol Sorto MD 1 scan: (1-Ord) [facility], LEFT GENICULAR NERVE RADIOFREQUENCY W/ IMAGING GUIDANCE , 10/05/2023 09/30/2023 Telephone [facility] [address] [place] [address] Anmol Sorto MD Error-please disregard 09/28/2023 3:20 PM CDT Procedure Only [facility] [address] [facility] [place] [address] Anmol Sorto MD Procedure (Left knee genicular nerve block ) 09/28/2023 Orders Only [facility] Scanner 1 scan: (1-Ord) [facility], LT SUPERIOR MEDIAL, SUPERIOR LATERAL AND INFERIOR MEDIAL GENICULAR NERVE BLOCKS UNDER FLUOROS, 09/28/2023 09/16/2023 9:00 AM CDT Office Visit [facility] [address] [place] [address] Anmol Sorto MD Musculoskeletal Problem (Consultation for Bilateral Knee pain and Low Back Pain//Did have a fall in 2020 and fractured LEFT Femur. 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 Respiratory Rate - - Oxygen Saturation 97% [...] age 65+ 2002 Tetanus booster 06/16/2022 06/16/2012 COVID-19 vaccine series ( season) 2023 04/09/2023, 10/15/2022, 03/19/2022, Additional history exists Influenza for age 65+ 02/20/2024 04/09/2023 , 03/18/2021, 04/10/2020, Additional history exists Tdap Completed 06/16/2012 Pneumococcal series for age 65+ Completed 11/22/2014, 07/12/2014, 04/21/2006 Zoster (shingles) series for age 50+ Completed 11/30/2018, 09/15/2018, 06/01/2006 Procedures Procedure Name Priority Date/Time Associated Diagnosis [...] OTHER from Last 3 Months Care Teams Aluminizer Relationship Specialty Start Date End Date Henok Weller MD [address] [place] [address] PCP - General 11/16/12
[2023-12-06 20:37] VITALS: BP 142/80; PULSE 118; RESP 22; TEMP 38.1; O2SAT 95
--- NOTE | 2023-12-06 20:42 | PC.NURSE ---
Pt presents from home via EMS, states he started running fever today. took tylenol this morning at home. States he feels weak and unsteady, denies pain or discomfort. Pt does state he feels like he is urinating more today than usual. Pt lives alone at home, is living in assisted. Pt states his children were at his home today with him.
[2023-12-06 20:45] LABS: Basophils Absolute Auto 0.01 K/uL (0.00-0.30); Basophils Percent Auto 0.1 % (0.0-3.0); Hemoglobin* 12.1 gm/dL (13.5-17.5); Immature Granulocytes Abs Auto 0.01 K/uL (0.00-0.30); Immature Granulocytes Pct Auto 0.1 %; Lymphocytes Percent Auto 3.2 % (20-44); Mean Corpuscular HGB Conc 32 gm/dL (32-36); Mean Corpuscular Hemoglobin 30 pg (26-34); Mean Corpuscular Volume 94 fL (80-100); Monocytes Percent Auto 4.1 % (0.0-11.0); Neutrophils Percent Auto 92.5 % (42.0-72.0); Platelet Count* 129 K/uL (140-440); RDW Coefficient of Variation % 13.8 % (11.5-15.5); Red Blood Count 4.03 m/uL (4.30-5.90); White Blood Count* 7.25 K/uL (4.50-11.00)
[2023-12-06 20:46] LABS: Lactate Sepsis w/Reflex* 1.6 mmol/L (0.5-1.9)
[2023-12-06 20:56] LABS: Troponin, Point-of-Care* 0.01 ng/ml (0.01-0.04)
[2023-12-06 20:56] LABS: Slide Review Reflex No
[2023-12-06 20:59] LABS: Creatinine, Point-of-Care* 1.4 mg/dl (0.6-1.3)
[2023-12-06 20:59] LABS: Albumin* 4.4 g/dL (3.3-5.0); Chloride* 108 mmol/L (96-114); Potassium* 4.4 mmol/L (3.6-5.1); Sodium* 136 mmol/L (135-149)
[2023-12-06 21:01] LABS: Creatinine* 1.1 mg/dL (0.5-1.5); Est. Creatinine Clearance* 49.48; Estimated Glomerular Filt Rate 65 ml/min
[2023-12-06 21:02] LABS: Alanine Aminotransferase* 15 U/L (4-50); Alkaline Phosphatase* 61 U/L (40-150); Anion Gap 9 mEq/L (7-15); Aspartate Amino Transferase* 28 U/L (12-35); Blood Urea Nitrogen* 24 mg/dL (7-30); Calcium* 8.7 mg/dL (8.4-10.6); Carbon Dioxide* 19 mmol/L (20-32); Glucose* 137 mg/dL (60-115)
[2023-12-06 21:04] LABS: Appearance Urine Clear (Clear); Bilirubin Urine Negative (Negative); Blood Urine Trace-intact (Negative); Color Urine Dark yellow (Yellow); Glucose Urine Negative (Negative); Ketones Urine Trace (Negative); Leukocyte Esterase Urine Negative (Negative); Nitrite Urine Negative (Negative); Protein Urine Negative (Negative); Specific Gravity Urine 1.025 (1.000-1.030); Urobilinogen Urine 0.2 (0.2-1.0); pH Urine 5.5 (5.0-8.5)
[2023-12-06 21:14] LABS: NT Pro B Type NatriureticPept* 1060 pg/mL; Troponin I* 0.05 ng/mL (0.01-0.04)
[2023-12-06 21:20] VITALS: BP 118/68; PULSE 104; RESP 18; TEMP 37.7; O2SAT 95
[2023-12-06 21:25] LABS: PCR FLU A Negative PCR FLU A (Negative); PCR FLU B Negative PCR FLU B (Negative); PCR RSV Negative PCR RSV (Negative); SARS PCR* Negative SARS-CoV-2 (Negative)
--- NOTE | 2023-12-06 21:27 | PC.NURSE ---
Pts son here, in speaking with the physician. Pt seems more alert, no shaking. Just reviewing history with son. Pt lives alone, uses walker to ambulate around his home.
[2023-12-06 21:42] LABS: RBC Urine 0-2 (0-2); WBC Urine 0-2 (0-5)
[2023-12-06 21:43] LABS: Bacteria Urine Few
--- NOTE | 2023-12-06 21:48 | CRLHL7_ITS ---
For Patients: As a result of the Century Cures Act, medical imaging exams and procedure reports are released immediately into your electronic medical record. You may view this report before your referring provider. If you have questions, please contact your health care provider. INDICATION: Fever of unknown origin, tachycardia TECHNIQUE: CT chest, abdomen and pelvis acquired with 79 cc of Omnipaque 350 IV contrast. COMPARISON: None. FINDINGS: CHEST: Cardiovascular structures: Heart size is normal. Thoracic aorta and main pulmonary artery are normal in caliber. Coronary artery calcification. No pericardial effusion. Mediastinum and susan: No mass or adenopathy. Lungs and pleura: Lungs and pleural spaces are clear. No suspicious nodules, infiltrates, or effusions. Chest wall and axilla: No mass or adenopathy. Bones: No suspicious bone lesions. Unremarkable for age. ABDOMEN AND PELVIS: Liver: Unremarkable. Gallbladder and bile ducts: Unremarkable. Pancreas: Unremarkable. Spleen: Unremarkable. Adrenal glands: Unremarkable. Kidneys: 9 cm bilobed left simple renal cyst. No hydronephrosis, stone, or suspicious mass bilaterally. GI tract: Small hiatal hernia. Diverticulosis without pericolonic inflammation. No obstruction. The appendix is not clearly visualized; however, there are no inflammatory changes in the right lower quadrant. Vascular structures: Normal caliber abdominal aorta with moderate atherosclerotic calcification. Lymph nodes: Unremarkable. Miscellaneous: Unremarkable. No free air or significant free fluid. Pelvic Organs: Few small bladder diverticula. No mural thickening or surrounding inflammatory changes Bones: Left femoral neck fixation hardware. Otherwise, unremarkable for age. IMPRESSION: 1. No acute findings in the chest, abdomen, or pelvis. 2. Few ancillary, nonacute findings, as above. Please note that all CT scans at this facility use dose modulation, iterative reconstruction, and/or weight-based dosing when appropriate to reduce radiation dose to as low as reasonably achievable. Dictated by Pb Duran MD @ 12/06/2023 11:02:20 PM (Electronically Signed)
--- NOTE | 2023-12-06 22:43 | PC.NURSE ---
Pt resting, c/o low back pain lying in bed. Readjusted and blankets given.
[2023-12-06 23:18] LABS: Troponin I* 0.04 ng/mL (0.01-0.04)
[2023-12-06 23:52] VITALS: BP 169/88; PULSE 128; RESP 26; TEMP 38.2; O2SAT 95
[2023-12-06] MEDS: IBUPROFEN 200 MG TABLET 600 MG PO (23:52)
--- NOTE | 2023-12-06 23:53 | PC.NURSE ---
Pt up to use urinal, very unsteady and weak. Stank by assist of two, pt incontinent of urine. Bedding changed and settled back for rest. Wheezing increasing with activity.
[2023-12-07] VITALS (13 sets, daily range): BP systolic 95–160; BP diastolic 55–107; PULSE 88–134; RESP 20–28; TEMP 36.5–38.4; O2SAT 91–98; BMI 29.6
--- NOTE | 2023-12-07 01:51 | W.PM.TELEH&P ---
Telehealth- H&P: HPI History of Present Illness Date Seen: 12/07/23 Chief complaint: Weakness with Fever Narrative: Sergio Nichols is seen as an Interactive Telehealth visit. Sergio Nichols is a 88 year old male who presented to the emergency room with increasing weakness and a fever. Sergio has a significant past medical history of reactive airway disease, osteoarthritis, benign prostatic hypertrophy, hypertension and hyperlipidemia. Sergio apparently started having a fever earlier today, but he does not recall having a fever. He does state that he has been feeling weaker throughout the day and eventually was not even able to get up off the toilet. With his increasing weakness and ongoing fever, he was brought into the emergency room where he was evaluated quite extensively without any source of infection being noted, but he was noted to have an elevated temperature as well as tachycardia. He was given some IV fluids and even though his tachycardia did improve, he continued to have a fever and also had some confusion consistent with acute encephalopathy. With his ongoing fever, mild tachycardia and acute encephalopathy, he is currently being admitted to the medical service for further evaluation and treatment. At the time I am seeing Sergio, he does confirm the above history. He denies any shortness of breath or cough. He denies any recent diarrhea or constipation. He denies any abdominal pain or discomfort. He does have some difficulty urinating but this is chronic and has not felt any burning or urgency with urination. He does have some obvious word finding difficulties which is consistent with his acute encephalopathy. He otherwise denies any weakness or numbness in his extremities. He is awake, alert and is oriented x 3 at the time that I am speaking with him. He otherwise denies any other acute complaints or problems currently. Review of Systems Status of ROS: Reports: 10 or more systems reviewed and unremarkable except as noted in History and below Narrative: Please see HPI for full details. Otherwise, extensive review of systems is unremarkable per patient. [facility] Medical History Sleep apnea, obstructive ?G47.33 - Obstructive sleep apnea (adult) (pediatric) (ICD-10) Skin cancer (06/10/09) ?C44.90 - Unspecified malignant neoplasm of skin, unspecified (ICD-10) Obesity with body mass index greater than 30 ?E66.9 - Obesity, unspecified (ICD-10) Deep vein thrombosis (DVT) of left lower extremity ?I82.402 - Acute embolism and thrombosis of unspecified deep veins of left lower extremity (ICD-10) Asthma (06/10/09) ?J45.909 - Unspecified asthma, uncomplicated (ICD-10) Hyperlipidemia ?E78.5 - Hyperlipidemia, unspecified (ICD-10) Surgical History History of hip surgery (04/21/21) ?Z98.890 - Other specified postprocedural states (ICD-10) Hx of tonsillectomy ?Z90.89 - Acquired absence of other organs (ICD-10) Family History Mother Breast cancer Coronary artery disease Father No problems noted. Paternal Grandfather Coronary artery disease Social History What is your current living situation?: I presently have a place to live Problems where you live: no known problems In the past 12 months, utilities in danger of being shut off: no In past 12 months, lack of transportation kept you from medical appts, meetings, work, or getting things needed for daily living: no In the past 12 mos, have been you worried that your food would run out before you had money to buy more?: never true In the past 12 mos, the food you bought just didn't last and you didn't have money to buy more?: never true Smoking Status: Never smoker Do you use any of these nicotine containing products: None Second hand tobacco smoke exposure: No How often do you have a drink containing alcohol: never How often do you have six or more drinks on one occasion: Never AUDIT-C Alcohol total score: 0 Non-prescribed substance use: denies use How often does anyone, including family, friends and others, physically hurt you: never How often does anyone, including family, friends and others, insult or talk down to you: never How often does anyone, including family, friends and others, threaten you with harm: never How often does anyone, including family, friends and others, scream or curse at you: never Little interest or pleasure in doing things: not at all Feeling down, depressed, or hopeless: not at all service: No Meds Home Medications and Allergies Home Medications ?Medication ?Instructions ?Recorded ?Confirmed ?Type acetaminophen 650 mg 650 mg PO Q12H 04/10/22 10/27/23 History tablet,extended release (Tylenol Arthritis Pain) finasteride 5 mg PO DAILY 11/19/22 10/27/23 History glucosamine 500 cap PO QDAY 10/27/23 10/27/23 History yh-gofanhyth-giwzelpd comp 400 mg-D3 667 unit-C-Mn cap Allergies Allergy/AdvReac Type Severity Reaction Status Date / Time No Known Drug Allergies Allergy Verified 10/27/23 10:05 Exam Narrative Exam Narrative: Physical Exam GENERAL: vital signs reviewed, well developed and nourished, in no distress HEENT: pupils are equal round and reactive to light, extraocular movements are grossly within normal limits and oral mucosa is moist. NECK: Supple without lymphadenopathy or thyromegaly according to nursing staff examination observation HEART: Regular rate and rhythm without any rubs, murmurs or gallops. LUNGS: Clear to auscultation bilaterally with good air movement throughout ABDOMEN: Observation from nurse assisted exam, abdomen appears soft with minimal tenderness in the right lower quadrant. His abdomen is otherwise nondistended with Positive bowel sounds noted. EXTREMITIES: Strength seems to be slightly diminished in bilateral lower extremities but is symmetric in the upper and lower extremities. No focal strength deficit is observed. Trace edema is noted. SKIN: Observed warm and dry with color normal NEURO: Alert, awake and oriented ?3. Answers all questions appropriately. He does have some word finding difficulties but eventually does find what he wants to say, otherwise no focal neuro deficits are noted. PSYCH: Affect normal Const Vital Signs, click to edit/add: Vital Signs - 24 hr 12/06/23 19:52 12/06/23 20:37 12/06/23 21:20 Temperature 100.5 F H 100.5 F H 99.8 F H Pulse Rate [Pulse Oximeter] 120 H 118 H 104 H Respiratory Rate 18 22 18 Blood Pressure [Right Arm] 142/80 H Blood Pressure [Right Upper Arm] 143/84 H 118/68 Pulse Oximetry 96 95 95 Oxygen Delivery Method Room Air Room Air Room Air 12/06/23 23:52 12/06/23 23:52 12/07/23 00:11 Temperature 100.8 F H 100.8 F H Pulse Rate [Pulse Oximeter] 128 H 105 H Respiratory Rate 26 H 26 H Blood Pressure [Right Arm] Blood Pressure [Right Upper Arm] 169/88 H 140/70 H Pulse Oximetry 95 94 Oxygen Delivery Method Room Air Room Air 12/07/23 00:51 Temperature 99.5 F Pulse Rate [Pulse Oximeter] 103 H Respiratory Rate 26 H Blood Pressure [Right Arm] 114/67 Blood Pressure [Right Upper Arm] Pulse Oximetry 94 Oxygen Delivery Method Room Air Documenting provider has reviewed patient's vital signs: yes Hospitalist - H&P: Result Labs Labs: Short CBC 12/06/23 Range/Units 20:38 WBC 7.25 (4.50-11.00) K/uL Hgb 12.1 L (13.5-17.5) gm/dL Hct 38.0 (37.0-53.0) % Plt Count 129 L (140-440) K/uL BMP 12/06/23 20:38 Sodium 136 Potassium 4.4 Chloride 108 Carbon Dioxide 19 L BUN 24 Creatinine 1.1 Glucose 137 H Calcium 8.7 Cardiac Enzymes 12/06/23 12/06/23 Range/Units 20:38 22:43 Troponin I 0.05 H 0.04 (0.01-0.04) ng/mL Liver Function 12/06/23 Range/Units 20:38 Total Bilirubin 1.0 (0.1-1.5) mg/dL AST 28 (12-35) U/L ALT 15 (4-50) U/L Alkaline Phosphatase 61 (40-150) U/L Albumin 4.4 (3.3-5.0) g/dL Urine 12/06/23 Range/Units 20:37 Urine Color Dark yellow (Yellow) Urine Appearance Clear (Clear) Urine pH 5.5 (5.0-8.5) Ur Specific [place] 1.025 (1.000-1.030) Urine Protein Negative (Negative) Urine Glucose (UA) Negative (Negative) Imaging CT Chest/Ab/Pelvis: Attestation: I have reviewed the pertinent imaging results. CT scan - head: Attestation: I have reviewed the pertinent imaging results. Assessment and Plan Assessment and plan (1) SIRS (systemic inflammatory response syndrome): Status: Acute (2) Fever of unknown origin: Status: Acute (3) Weakness: Status: Acute Plan Assessment: 1. Fever with tachycardia and progressive weakness 2. Acute metabolic encephalopathy likely from #1 above 3. Reactive airway disease currently quiescent 4. Osteoarthritis 5. BPH 6. Hyperlipidemia Plan: At this time Sergio will be admitted to the medical service. With his worsening weakness and inability to do his ADLs, he will be admitted for ongoing evaluation for possible infection. I will ask for physical therapy and Occupational Therapy to work with Sergio to improve his weakness. I will continue to look for any signs or symptoms of infection. He does have a tachycardia and a fever which is highly suspicious for an underlying infection, but no signs of respiratory infection or urinary tract infection are noted. He may have an early viral illness and I will hold on administering antibiotics until I can identify any bacterial infection. We have drawn blood cultures and will continue to evaluate with chemistries and hematology labs in the a.m. I will ask for some gentle hydration overnight with some IV fluids and will watch his mental status closely with neurochecks. I do believe that his current encephalopathy is likely a combination of the late hour as well as his possible infection. He does not have any meningeal signs or symptoms and I do not believe that this is indicative of a cerebral infection. I have discussed this plan with Sergio and he is agreeable to proceed. Will continue to follow closely from medical standpoint looking for any further signs or symptoms of infectious or neurologic process. I did discuss CODE STATUS with Sergio and he does wish to be a full code. This will be ordered in his chart. Telehealth: Statement Statement Telehealth Visit: Today's History and Physical is provided via interactive telehealth by Wilder Wenistein MD.? Patient is located at [facility].? Provider is located at [facility].? Nursing staff assisted with the patient's exam. The visit being done today meets criteria for a telehealth visit and the patient or patient?s parent/guardian is aware the visit is a telehealth visit. Camera Start Time: 01:15 Camera End Time: 01:31
[2023-12-07] MEDS: 0.9 % SODIUM CHLORIDE 1000 ml 1,000 ML 100 ML IV ×2 (02:35→15:37)
--- NOTE | 2023-12-07 05:27 | PC.NURSE ---
Shift note: Pt arrived at the unit at 0045 on a stretcher. Pt was conscious and alert but confused on arrival. He had difficulty finding words. Temp was 99.5 and denied any pain. Pt complained of weakness and unable steadily stand upright without assistance and tolerated transfer with A2. Patient's confusion got better about an hour after admission and was able to answer simple questions about himself, environment, and situation. IV N/S set up to run at 100ml/hr. Vitally stable. Pt had adequate sleep.
[2023-12-07 06:48] LABS: Basophils Absolute Auto 0.02 K/uL (0.00-0.30); Basophils Percent Auto 0.2 % (0.0-3.0); Hematocrit 33.7 % (37.0-53.0); Hemoglobin* 10.7 gm/dL (13.5-17.5); Immature Granulocytes Abs Auto 0.02 K/uL (0.00-0.30); Immature Granulocytes Pct Auto 0.2 %; Lymphocytes Percent Auto 2.6 % (20-44); Mean Corpuscular HGB Conc 32 gm/dL (32-36); Mean Corpuscular Hemoglobin 30 pg (26-34); Mean Corpuscular Volume 95 fL (80-100); Monocytes Percent Auto 2.9 % (0.0-11.0); Neutrophils Percent Auto 94.1 % (42.0-72.0); Platelet Count* 112 K/uL (140-440); RDW Coefficient of Variation % 14.2 % (11.5-15.5); Red Blood Count 3.56 m/uL (4.30-5.90); White Blood Count* 8.69 K/uL (4.50-11.00)
[2023-12-07 06:50] LABS: Slide Review Reflex No
[2023-12-07 07:05] LABS: Albumin* 3.3 g/dL (3.3-5.0); Chloride* 105 mmol/L (96-114); Sodium* 135 mmol/L (135-149)
[2023-12-07 07:06] LABS: Potassium* 3.6 mmol/L (3.6-5.1)
[2023-12-07 07:08] LABS: Anion Gap 6 mEq/L (7-15); Aspartate Amino Transferase* 27 U/L (12-35); Bilirubin Total* 0.9 mg/dL (0.1-1.5); Carbon Dioxide* 24 mmol/L (20-32); Creatinine* 1.2 mg/dL (0.5-1.5); Estimated Glomerular Filt Rate 59 ml/min
[2023-12-07 07:09] LABS: Alanine Aminotransferase* 16 U/L (4-50); Alkaline Phosphatase* 56 U/L (40-150); Blood Urea Nitrogen* 24 mg/dL (7-30); Calcium* 8.1 mg/dL (8.4-10.6); Glucose* 100 mg/dL (60-115); Total Protein* 5.8 g/dL (6.0-8.3)
[2023-12-07] MEDS: ACETAMINOPHEN 650 MG TABLET ER PO ×2 (09:00→14:21)
--- NOTE | 2023-12-07 10:02 | CRLHL7_ITS ---
For Patients: As a result of the Century Cures Act, medical imaging exams and procedure reports are released immediately into your electronic medical record. You may view this report before your referring provider. If you have questions, please contact your health care provider. INDICATION: Fever. TECHNIQUE: CT thoracic spine without contrast. COMPARISON: CT chest, abdomen, and pelvis 12/06/2023. FINDINGS: Vertebrae: Alignment is normal. No osseous erosions to suggest osteomyelitis. No acute fracture. Diffuse osteopenia. Discs and facet joints: Moderate multilevel degenerative changes of the this with scattered vacuum disc phenomenon. Mild multilevel facet arthropathy. No significant spinal canal narrowing or high grade foraminal stenosis. Extraspinal findings: Prevertebral soft tissues, visualized airway, and visualized lungs are unremarkable. IMPRESSION: 1. No acute fracture of the thoracic spine. 2. No osseous erosions to suggest osteomyelitis. Please note that all CT scans at this facility use dose modulation, iterative reconstruction, and/or weight-based dosing when appropriate to reduce radiation dose to as low as reasonably achievable. Dictated by Jc Rick MD @ 12/07/2023 1:33:19 PM (Electronically Signed)
--- NOTE | 2023-12-07 10:02 | CRLHL7_ITS ---
For Patients: As a result of the Century Cures Act, medical imaging exams and procedure reports are released immediately into your electronic medical record. You may view this report before your referring provider. If you have questions, please contact your health care provider. INDICATION: Fever. TECHNIQUE: CT lumbar spine without contrast. COMPARISON: CT chest, abdomen, and pelvis 12/06/2023. FINDINGS: Vertebrae: Transitional lumbosacral anatomy with lumbarization of S1. Dextroconvex curvature of the lumbar spine. No significant spondylolisthesis. No osseous erosions to suggest osteomyelitis. No acute fracture. Diffuse osteopenia. Discs and facet joints: Severe multilevel degenerative changes of the discs with scattered vacuum disc phenomenon. Associated endplate sclerosis. Moderate multilevel facet arthropathy. Severe spinal canal narrowing at L4-L5. Multilevel foraminal narrowing most prominent at left L4-L5 and right L5-S1 with moderately severe stenosis. Extraspinal findings: Left renal cyst. Scattered colonic diverticula without evidence of diverticulitis. Scattered atherosclerotic calcifications. IMPRESSION: 1. No acute fracture of the lumbar spine. 2. No osseous erosions to suggest osteomyelitis. 3. Severe multilevel lumbar spondylosis with severe spinal canal narrowing at L4-L5. Please note that all CT scans at this facility use dose modulation, iterative reconstruction, and/or weight-based dosing when appropriate to reduce radiation dose to as low as reasonably achievable. Dictated by Jc Rick MD @ 12/07/2023 1:40:01 PM (Electronically Signed)
--- NOTE | 2023-12-07 10:07 | P.IMPN_ITS ---
Progress Note: A&P Assessment and plan (1) Sepsis: Problem details: - as evidenced by T of 100.8, tachycardia, tachypnea, + blood cultures - on Vancomycin and Cefepime (12/06) Status: Acute (2) Fever of unknown origin: Problem details: - source unclear, + blood cultures on 12/06 - Cefepime and Vancomycin (12/06) Status: Acute (3) Weakness: Problem details: - therapies ordered, currently unable to stand unassisted - pending clinical course, may require SNF upon discharge Status: Acute (4) Bacteremia: Problem details: - positive blood culture on 12/06 - Vancomycin and Cefepime (12/06), TTE, CT L and T spine given back pain, TTE Status: Acute Plan - per above - son Karthikeyan updated by phone, questions answered Subjective Date Seen: 12/07/23 Interval history: Sergio was admitted last night for weakness, noted to have a fever in the emergency room. Antibiotics deferred given no source of infection identified on head CT, C/A/P CT. Negative Flu/RSV/COVID swab in ED. This morning, he is still feeling quite weak and endorses some back pain. Blood cultures + for GPC in clusters this morning. Exam Narrative: Exam Narrative: GEN: Alert and sitting in bedside chair HEENT: EOMIs bilaterally, no scleral icterus CV: RRR, distant heart sounds R: LCTA bilaterally without concerning wheezing Back: normal contours, no skin abnormalities Ext: wwp, no concerning edema Skin: No concerning skin lesions or rashes on exposed skin Neuro: No focal deficits, + generalized weakness Psych: Appropriate, seems to have MCI Const: Vital Signs, click to edit/add: Vital Signs - 24 hr 12/06/23 19:52 12/06/23 20:37 12/06/23 21:20 Temperature 100.5 F H 100.5 F H 99.8 F H Pulse Rate [Pulse Oximeter] 120 H 118 H 104 H Respiratory Rate 18 22 18 Blood Pressure [Ri ght Arm] 142/80 H Blood Pressure [Ri ght Upper Arm] 143/84 H 118/68 Pulse Oximetry 96 95 95 Oxygen Delivery Me thod Room Air Room Air Room Air 12/06/23 23:52 12/06/23 23:52 12/07/23 00:11 Temperature 100.8 F H 100.8 F H Pulse Rate [Pulse Oximeter] 128 H 105 H Respiratory Rate 26 H 26 H Blood Pressure [Ri ght Arm] Blood Pressure [Ri ght Upper Arm] 169/88 H 140/70 H Pulse Oximetry 95 94 Oxygen Delivery Me thod Room Air Room Air 12/07/23 00:51 12/07/23 00:51 12/07/23 01:48 Temperature 99.5 F Pulse Rate [Pulse Oximeter] 103 H 105 H Respiratory Rate 26 H 20 Blood Pressure [Ri ght Arm] 114/67 Blood Pressure [Ri ght Upper Arm] Pulse Oximetry 94 98 Oxygen Delivery Me thod Room Air Room Air 12/07/23 03:00 12/07/23 07:00 12/07/23 07:00 Temperature 99 F 97.7 F Pulse Rate [Pulse Oximeter] 105 H 121 H 105 H Respiratory Rate 20 24 20 Blood Pressure [Ri ght Arm] 119/68 116/78 Blood Pressure [Ri ght Upper Arm] Pulse Oximetry 98 96 Oxygen Delivery Me thod Room Air Room Air Labs Labs: Laboratory Results - last 24 hr 12/06/23 12/06/23 12/06/23 20:10 20:10 20:37 WBC RBC Hgb Hct MCV MCH MCHC RDW Coeff of Mica Plt Count Neut % (Auto) Lymph % (Auto) [place] % (Auto) Eos % (Auto) Baso % (Auto) Neut # (Auto) Lymph # (Auto) [place] # (Auto) Eos # (Auto) Baso # (Auto) Abs Immat Gran (auto) Imm/Tot Granulo (auto) Sodium Potassium Chloride Carbon Dioxide Anion Gap BUN Creatinine Estimated Creat Clear Estimated GFR Glucose Lactate Calcium Magnesium Total Bilirubin AST ALT Alkaline Phosphatase Troponin I NT-Pro-B Natriuret Pep Total Protein Albumin Urine Color Dark yellow Urine Appearance Clear Urine pH 5.5 Ur Specific [place] 1.025 Urine Protein Negative Urine Glucose (UA) Negative Urine Ketones Trace A Urine Blood Trace-intact A Urine Nitrite Negative Urine Bilirubin Negative Urine Urobilinogen 0.2 Ur Leukocyte Esterase Negative Urine RBC 0-2 Urine WBC 0-2 Ur Squamous Epith Cells None Urine Bacteria Few A SARS-CoV-2 (PCR) Influenza Type A (PCR) Influenza Type B (PCR) RSV (PCR) POC Creatinine 1.4 H POC Troponin I Cancelled 0.01 12/06/23 12/06/2312/06/24 20:38 22:43 05:56 WBC 7.25 8.69 RBC 4.03 L 3.56 L Hgb 12.1 L 10.7 L Hct 38.0 33.7 L MCV 94 95 MCH 30 30 MCHC 32 32 RDW Coeff of Mica 13.8 14.2 Plt Count 129 L 112 L Neut % (Auto) 92.5 H 94.1 H Lymph % (Auto) 3.2 L 2.6 L [place] % (Auto) 4.1 2.9 Eos % (Auto) 0.0 0.0 Baso % (Auto) 0.1 0.2 Neut # (Auto) 6.70 8.20 H Lymph # (Auto) 0.20 L 0.20 L [place] # (Auto) 0.30 0.30 Eos # (Auto) 0.00 0.00 Baso # (Auto) 0.01 0.02 Abs Immat Gran (auto) 0.01 0.02 Imm/Tot Granulo (auto) 0.1 0.2 Sodium 136 135 Potassium 4.4 3.6 Chloride 108 105 Carbon Dioxide 19 L 24 Anion Gap 9 6 L BUN 24 24 Creatinine 1.1 1.2 Estimated Creat Clear 49.48 48.50 Estimated GFR 65 59 Glucose 137 H 100 Lactate 1.6 Calcium 8.7 8.1 L Magnesium 2.0 Total Bilirubin 1.0 0.9 AST 28 27 ALT 15 16 Alkaline Phosphatase 61 56 Troponin I 0.05 H 0.04 NT-Pro-B Natriuret Pep 1060 Total Protein 7.0 5.8 L Albumin 4.4 3.3 Urine Color Urine Appearance Urine pH Ur Specific [place] Urine Protein Urine Glucose (UA) Urine Ketones Urine Blood Urine Nitrite Urine Bilirubin Urine Urobilinogen Ur Leukocyte Esterase Urine RBC Urine WBC Ur Squamous Epith Cells Urine Bacteria SARS-CoV-2 (PCR) Negative SARS-CoV-2 Influenza Type A (PCR) Negative PCR FLU A Influenza Type B (PCR) Negative PCR FLU B RSV (PCR) Negative PCR RSV POC Creatinine POC Troponin I
[2023-12-07] MEDS: CEFEPIME HCL 2 GM in 0.9 % SODIUM CHLORIDE Mini-bag 100 ML IVPB ×2 (12:16→22:19)
[2023-12-07] MEDS: LIDOCAINE 5% PATCH 1 PATCH TRANSDERMA (12:17)
--- NOTE | 2023-12-07 14:46 | REH.PT ---
Order recieved for PT. PT Evaluation held due to medical status after checking with nursing. Will check on patient readiness tomorrow.
--- NOTE | 2023-12-07 14:58 | W.PM.CROSSCO ---
Subjective Subjective Time Seen by Provider: 14:30 Date Seen: 12/07/23 Principal diagnosis: Fever, bactremia with gram positive cocci in clusters Interval history: Spiking another fever this afternoon, T 100.2 degrees fahrenheit. Salient point about recent history: He had dental work done yesterday... Objective Objective Data Details: Appears comfortable Tachypneic, RR 22, stridor T 100.2 degrees HR 102's, sinus tachycardia. Oliguria with 13 ml post void bladder residual volume. Responds to questions, but speaking in word salad intermittently. Flushed cheeks, very warm back. Skin is assessed without any acute lesions or rashes or wounds, including back, buttock, perineum. TMs not visualized due to dry wax, but what is visualized of external auditory canal appears normal. Dentition in fair repair. Dry buccal mucosa. Neck is supple. Lung sounds difficult to hear due to ronchi - no rales or wheezing. Heart tones distant. Moves all 4 extremities. No focal motor deficits. ECG sinus tachycardia. No evidence of infarct or ischemia. Assessment and Plan Assessment and plan (1) Sepsis: Problem comment: - as evidenced by T of 100.8, tachycardia, tachypnea, + blood cultures - on Vancomycin and Cefepime (12/06) Status: Acute (2) Bacteremia: Problem comment: - positive blood culture on 12/06 - Vancomycin and Cefepime (12/06), TTE, CT L and T spine given back pain, TTE Status: Acute (3) Fever of unknown origin: Problem comment: - source unclear, + blood cultures on 12/06 - Cefepime and Vancomycin (12/06) Status: Acute (4) Delirium: Problem comment: - likely due to fever - continue to treat underlying conditions Status: Acute Plan 1. recheck various labs: CBC, lactate, venous blood gas, trop i, NT pro BNP, blood cultures 2. consider IVF bolus after obtaining lab results 3. continue with cefepime and vancomycin IV 4. antipyretic measures as needed Total Time Spent Total Time Spent: 35 inutes
[2023-12-07 15:12] LABS: HCO3 VBG 22 mmol/L (21-28); Lactate* 1.2 mmol/L (0.5-1.9); PCO2 VBG 36 mmHG (40-50); PO2 VBG 41.9 mmHG (25-47); pH VBG 7.392 (7.32-7.43)
[2023-12-07 15:18] LABS: Hematocrit 34.2 % (37.0-53.0); Hemoglobin* 10.9 gm/dL (13.5-17.5); Mean Corpuscular HGB Conc 32 gm/dL (32-36); Mean Corpuscular Hemoglobin 30 pg (26-34); Mean Corpuscular Volume 95 fL (80-100); Platelet Count* 98 K/uL (140-440); Red Blood Count 3.59 m/uL (4.30-5.90); White Blood Count* 10.71 K/uL (4.50-11.00)
[2023-12-07 15:22] LABS: Slide Review Reflex No
[2023-12-07] MEDS: ACETAMINOPHEN 325 MG TABLET 650 MG PO ×2 (15:35→20:50)
[2023-12-07 16:00] LABS: C Reactive Protein* 17.7 mg/dL (0.5-1.0); NT Pro B Type NatriureticPept* 7860 pg/mL; Troponin I* 2.58 ng/mL (0.01-0.04)
[2023-12-07 16:56] LABS: Troponin I* 0.42 ng/mL (0.01-0.04)
--- NOTE | 2023-12-07 17:05 | PM.EN ---
Chart Event Note Date Seen: 12/07/23 Chart Event Note: Trop I returns elevated at 2..58, was 0.04 in ED yesterday. Add-on from blood draw this AM returns elevated at 0.42. ECG continues to not demonstrated ischemia or infarct pattern. NT pro BNP is nearly 8000, was 1000 in ED. [place] 18[place] [address]. Hg stable at 10.7. WBC 10.7. Likely had NSTEMI due to sepsis. Start metoprolol 12.5 bid, atorvastatin 40 qd, ASA 81 qd, clopidogrel 300 mg once then 75 qd. Check Lipid panel tomorrow. ECHO already ordered. Continue with telemetry. Continue treatment of sepsis.
[2023-12-07] MEDS: ASPIRIN 81 MG TAB.CHEW PO (17:25)
[2023-12-07] MEDS: CLOPIDOGREL 75 MG TABLET 300 MG PO (17:25)
[2023-12-07] MEDS: ATORVASTATIN CALCIUM 40 MG TABLET PO (17:26)
[2023-12-07] MEDS: METOPROLOL TARTRATE 25 MG TABLET 12.5 MG PO (17:26)
[2023-12-07 18:45] LABS: Troponin I* 3.19 ng/mL (0.01-0.04)
[2023-12-07] MEDS: ENOXAPARIN 40 MG/0.4 ML INJ SUBCUT (20:51)
[2023-12-07 21:59] LABS: Troponin I* 3.05 ng/mL (0.01-0.04)
--- NOTE | 2023-12-07 22:12 | PM.EN ---
Chart Event Note Time Seen by Provider: 22:05 Date Seen: 12/07/23 Chart Event Note: He denies chest heaviness, pressure, tightness, or pain. Acknowledges a sense of wheezing which he sometimes feels at home, which he usually treats with BEATRIZ MURRELL. No other symptoms. More coherent now than earlier this afternoon when he was delirious - no longer delirious. Able to carry on meaningful conversation. Able to help with repositioning. CN III-XII in tact. Lungs CTA, except intermittent minimal occasional inspiratory wheeze on right lung field. Heart tones regular. No murmur, gallop, or rub. PMI not laterally displaced. Telemetry demonstrates HR about 100 BPM. Abdomen with active bowel sounds. No focal motor deficits. No tremor or asterixis. No edema in LE's. Trop I @ 2100:3.05. Trop I max was 3.2 at 1800 today. Still no ECG changes. Likely had a NSTEMI/acute myocardial infarction type 2, due to sepsis. Troponin I values have started to plateau. He has no apparent symptoms. Nevertheless this does increase his mortality risk in the setting of sepsis. Acute HF in association with NSTEMI. Stable at this time. Continue to monitor. Will continue to monitor him clinically, on telemetry, repeat Trop i in AM, await ECHO. ECG and CXR in AM. Continue to treat underlying sepsis with IV cefepime and vancomycin - most likely bacteremia due to his dental work on Wednesday. I called and discussed above with his son, Tai Nichols, . I updated him on his father's status and the seriousness of his condition, including increased risk of . He plans on coming in to see his father tomorrow morning, and certainly sooner if warranted.
[2023-12-07] MEDS: ALBUTEROL SULFATE 2.5 MG/3 ML VIAL.NEB NEB (22:24)
[2023-12-08] MEDS: 0.9 % SODIUM CHLORIDE 1000 ml 1,000 ML 100 ML IV ×2 (00:36→17:24)
[2023-12-08 03:00] VITALS: BP 120/64; PULSE 98; RESP 20; TEMP 36.9; O2SAT 91
[2023-12-08] MEDS: ACETAMINOPHEN 325 MG TABLET 650 MG PO ×4 (03:00→20:55)
[2023-12-08 05:25] VITALS: BP 111/69; PULSE 85
[2023-12-08] MEDS: METOPROLOL TARTRATE 25 MG TABLET 12.5 MG PO ×2 (05:28→19:00)
[2023-12-08 06:32] LABS: HCO3 VBG 21 mmol/L (21-28); Lactate* 0.9 mmol/L (0.5-1.9); PCO2 VBG 38 mmHG (40-50); PO2 VBG 49.2 mmHG (25-47); pH VBG 7.363 (7.32-7.43)
[2023-12-08 06:42] LABS: Basophils Absolute Auto 0.02 K/uL (0.00-0.30); Basophils Percent Auto 0.2 % (0.0-3.0); Hematocrit 32.8 % (37.0-53.0); Hemoglobin* 10.5 gm/dL (13.5-17.5); Immature Granulocytes Abs Auto 0.02 K/uL (0.00-0.30); Immature Granulocytes Pct Auto 0.2 %; Lymphocytes Percent Auto 3.2 % (20-44); Mean Corpuscular HGB Conc 32 gm/dL (32-36); Mean Corpuscular Hemoglobin 31 pg (26-34); Mean Corpuscular Volume 96 fL (80-100); Monocytes Percent Auto 2.7 % (0.0-11.0); Neutrophils Percent Auto 93.7 % (42.0-72.0); Platelet Count* 92 K/uL (140-440); RDW Coefficient of Variation % 14.4 % (11.5-15.5); Red Blood Count 3.43 m/uL (4.30-5.90); White Blood Count* 9.83 K/uL (4.50-11.00)
[2023-12-08 06:44] LABS: Slide Review Reflex No
--- NOTE | 2023-12-08 06:51 | PC.NURSE ---
End of shift note [id number]: Pt noted to be alert & oriented to person, place and time though does have intermittent confusion noted. Bed alarm utilized as pt has not been using call light when wanting to get up despite education and reminders. He is noted to be both continent and incontinent of bladder. B/P noted to be 95/55 with 2300 VS. Conduit Helper updated MD regarding B/P and requested parameters be given for pt?s Metoprolol. IV to L upper arm patent with NS running at 100 mL/hr per order. Pt has been afebrile throughout the shift with scheduled Tylenol administered. Pt on telemetry with NSR with first degree AV block noted. Pt started on 1 LPM of oxygen at HS due to wheezing and O2 sat dropping to low 80s (82%) on RA and sustain at 90% despite deep breathing. Evening charge entry clerk updated MD Jacobs. then gave order for PRN Albuterol nebulizer treatment. Pt now on RA with O2 sat 95-96%. Pt requires assist of 2 with EZ stand for transferring in and out of bed.
[2023-12-08 06:54] LABS: Albumin* 2.8 g/dL (3.3-5.0); Chloride* 109 mmol/L (96-114)
[2023-12-08 06:55] LABS: Potassium* 3.7 mmol/L (3.6-5.1); Sodium* 134 mmol/L (135-149)
[2023-12-08 06:57] LABS: Alkaline Phosphatase* 50 U/L (40-150); Anion Gap 5 mEq/L (7-15); Aspartate Amino Transferase* 51 U/L (12-35); Bilirubin Total* 0.5 mg/dL (0.1-1.5); Blood Urea Nitrogen* 30 mg/dL (7-30); Carbon Dioxide* 20 mmol/L (20-32); Cholesterol* 89 mg/dL (90-199); Creatinine* 1.1 mg/dL (0.5-1.5); Est. Creatinine Clearance* 52.91; Estimated Glomerular Filt Rate 65 ml/min; Total Protein* 5.3 g/dL (6.0-8.3)
[2023-12-08 06:58] LABS: Alanine Aminotransferase* 23 U/L (4-50); Calcium* 7.4 mg/dL (8.4-10.6); Glucose* 106 mg/dL (60-115); HDL Cholesterol* 33 mg/dL (>=40); LDL Cholesterol Calculated 39 mg/dL (<100); Magnesium* 1.9 mg/dL (1.5-2.6); Phosphorus* 3.2 mg/dL (2.5-4.5); Triglycerides* 83 mg/dL (40-149)
[2023-12-08 07:00] VITALS: BP 107/65; PULSE 67; PULSE 75; RESP 20; TEMP 36.9; O2SAT 97
--- NOTE | 2023-12-08 07:00 | CRLHL7_ITS ---
For Patients: As a result of the Cures Act, medical imaging exams and procedure reports are released immediately into your electronic medical record. You may view this report before your referring provider. If you have questions, please contact your health care provider. INDICATION: Non STEMI. TECHNIQUE: Chest 1 portable view. COMPARISON: None. FINDINGS: No pneumothorax or pleural effusion. Lungs are clear. Aortic atherosclerosis. Cardiac and mediastinal contours are within normal limits. Upper abdomen and osseous structures as imaged show no acute abnormality. IMPRESSION: No evidence of acute cardiopulmonary disease. Dictated by Bo Toure MD @ 12/08/2023 8:41:51 AM (Electronically Signed)
[2023-12-08 07:19] LABS: C Reactive Protein* 21.9 mg/dL (0.5-1.0); Troponin I* 2.62 ng/mL (0.01-0.04)
[2023-12-08 07:27] LABS: Thyroid Stimulating Hormone* 0.902 uIU/mL (0.270-4.20)
[2023-12-08 08:07] LABS: Procalcitonin* 8.41 ng/mL (<0.50)
[2023-12-08] MEDS: PERFLUTREN LIPID MICROSPHERES 2 ML VIAL IV (08:54)
[2023-12-08] MEDS: SODIUM CHLORIDE 0.9 % (FLUSH) 10 ML SYRINGE 5 ML IVF ×2 (09:13→20:55)
[2023-12-08] MEDS: CLOPIDOGREL 75 MG TABLET PO (09:13)
[2023-12-08] MEDS: ASPIRIN 81 MG TABLET EC PO (09:13)
--- NOTE | 2023-12-08 09:30 | P.IMPN_ITS ---
Progress Note: A&P Assessment and plan (1) Sepsis: Problem details: - as evidenced by T of 100.8, tachycardia, tachypnea, + blood cultures - on Vancomycin and Cefepime (12/06) Status: Acute (2) Bacteremia: Problem details: - positive blood culture on 12/06 - source unclear (negative ct C/A/P, negative L and T spine), reassuring TTE - notable dental visit (routine cleaning) on 12/05 - Vancomycin and Cefepime (12/06) Status: Acute (3) Fever of unknown origin: Problem details: - source unclear, + blood cultures on 12/06 - Cefepime and Vancomycin (12/06) Status: Acute (4) Delirium: Problem details: - likely due to fever/acute illness - continue to treat underlying conditions Status: Acute (5) NSTEMI (non-ST elevated myocardial infarction): Problem details: - tachypnea and confusion on 12/06, no chest pain - continue home dose of statin, added Metoprolol, ASA/Plavix on 12/07 - troponin peak at 3.19 - TTE obtained 12/07 with reassuring?results below: Final Impressions: 1. Technically limited exam. 2. Normal left ventricular size, normal wall thickness, normal global systolic function, calculated EF of 67 %. 3. Echo contrast was administered to enhance visualization of all left ventricular segments. 4. Right ventricular cavity size is normal, global systolic RV function is normal. 5. Moderately enlarged left atrium. 6. The aortic valve is calcified, mild stenosis and trivial regurgitation. 7. The mitral valve is sclerotic, mild mitral regurgitation. 8. Tricuspid valve is not well visualized. 9. Normal estimated pulmonary pressures by tricuspid regurgitation velocity and right atrial pressure (17 mmHg plus RAP). 10. No pericardial effusion. Status: Acute Plan - per above - son updated at bedside, questions answered Subjective Date Seen: 12/08/23 Interval history: Sergio was admitted on 12/05 for weakness, noted to have a fever in the emergency room. Upon admission, antibiotics deferred given no source of infection identified on exam, head CT, or C/A/P CT. Negative Flu/RSV/COVID swab in ED. On hospital day 1, blood cultures noted to be positive for GPC, Vancomycin and Cefepime initiated. Urine culture remains negative. CT L-spine and T-spine obtained, negative for acute findings. Yesterday afternoon, patient noted to be more confused and tachypneic, troponin obtained in elevated. No acute changes on EKG noted. Troponin peaked at 3.19. Patient did not have any chest pain. Echocardiogram obtained this morning and overall reassuring. Telemetry remains normal. Beta-peng, aspirin and Plavix have been initiated. Patient is on his home dose of statin. This morning, Sergio is feeling significantly better. He is no longer confused. He does not remember much of yesterday. Tmax 101.8 yesterday morning. No fevers today. He is tolerating IV antibiotics, p.o. intake, and working with therapy teams. Exam Narrative: Exam Narrative: GEN: Alert and oriented, nontoxic in appearance, sitting comfortably in bedside chair and speaking in full sentences HEENT: EOMIs bilaterally, no scleral icterus CV: RRR, No concerning murmurs R: LCTA bilaterally without concerning wheezing, air movement adequate Ext: wwp, no concerning edema Skin: No concerning skin lesions or rashes on exposed skin Neuro: Nonfocal Psych: Appropriate Const: Vital Signs, click to edit/add: Vital Signs - 24 hr 12/07/23 11:00 12/07/23 13:51 12/07/23 14:08 Temperature 101.2 F H 100.7 F H 100.7 F H Pulse Rate Pulse Rate [Pulse Oximeter] 100 127 H 127 H Respiratory Rate 24 20 28 H Blood Pressure [Ri ght Arm] 116/72 160/98 H 122/107 H Pulse Oximetry 95 91 95 Oxygen Delivery Me thod Room Air Oxygen Flow Rate 12/07/23 14:44 12/07/23 15:00 12/07/23 15:00 Temperature 100.7 F H Pulse Rate 134 H Pulse Rate [Pulse Oximeter] 127 H 127 H Respiratory Rate 20 28 H Blood Pressure [Ri ght Arm] 122/107 H Pulse Oximetry 95 Oxygen Delivery Me thod Room Air Oxygen Flow Rate 12/07/23 19:55 12/07/23 23:00 12/07/23 23:00 Temperature 99.1 F 98.2 F Pulse Rate Pulse Rate [Pulse Oximeter] 88 89 89 Respiratory Rate 20 20 20 Blood Pressure [Ri ght Arm] 112/63 95/55 L Pulse Oximetry 92 94 Oxygen Delivery Me thod Room Air Nasal Cannula Oxygen Flow Rate 1 12/07/23 23:06 12/08/23 03:00 12/08/23 05:25 Temperature 98.4 F Pulse Rate 99 Pulse Rate [Pulse Oximeter] 98 85 Respiratory Rate 20 Blood Pressure [Ri ght Arm] 120/64 111/69 Pulse Oximetry 91 Oxygen Delivery Me thod Nasal Cannula Oxygen Flow Rate 1 12/08/23 07:00 12/08/23 07:00 12/08/23 07:00 Temperature 98.4 F Pulse Rate 75 Pulse Rate [Pulse Oximeter] 67 67 Respiratory Rate 20 20 Blood Pressure [Ri ght Arm] 107/65 Pulse Oximetry 97 Oxygen Delivery Me thod Room Air Oxygen Flow Rate Labs Labs: Laboratory Results - last 24 hr 12/07/23 12/07/23 12/07/23 05:56 15:00 15:00 WBC 10.71 RBC 3.59 L Hgb 10.9 L Hct 34.2 L MCV 95 MCH 30 MCHC 32 RDW Coeff of Mica Plt Count 98 L Neut % (Auto) Lymph % (Auto) [place] % (Auto) Eos % (Auto) Baso % (Auto) Neut # (Auto) Lymph # (Auto) [place] # (Auto) Eos # (Auto) Baso # (Auto) Abs Immat Gran (auto) Imm/Tot Granulo (auto) VBG pH 7.392 VBG pCO2 36 L VBG pO2 41.9 VBG HCO3 22 Sodium Potassium Chloride Carbon Dioxide Anion Gap BUN Creatinine Estimated Creat Clear Estimated GFR Glucose Lactate 1.2 Calcium Phosphorus Magnesium Total Bilirubin AST ALT Alkaline Phosphatase Troponin I 0.42 H* 2.58 H* C-Reactive Protein 17.7 H Cancelled NT-Pro-B Natriuret Pep 7860 Total Protein Albumin Triglycerides Cholesterol LDL Cholesterol, Calc HDL Cholesterol Procalcitonin TSH Lab Acknowledgement 12/07/23 12/07/23 12/07/23 16:14 18:05 21:01 WBC RBC Hgb Hct MCV MCH MCHC RDW Coeff of Mica Plt Count Neut % (Auto) Lymph % (Auto) [place] % (Auto) Eos % (Auto) Baso % (Auto) Neut # (Auto) Lymph # (Auto) [place] # (Auto) Eos # (Auto) Baso # (Auto) Abs Immat Gran (auto) Imm/Tot Granulo (auto) VBG pH VBG pCO2 VBG pO2 VBG HCO3 Sodium Potassium Chloride Carbon Dioxide Anion Gap BUN Creatinine Estimated Creat Clear Estimated GFR Glucose Lactate Calcium Phosphorus Magnesium Total Bilirubin AST ALT Alkaline Phosphatase Troponin I 3.19 H* 3.05 H* C-Reactive Protein NT-Pro-B Natriuret Pep Total Protein Albumin Triglycerides Cholesterol LDL Cholesterol, Calc HDL Cholesterol Procalcitonin TSH Lab Acknowledgement Test Added 12/08/23 05:48 WBC 9.83 RBC 3.43 L Hgb 10.5 L Hct 32.8 L MCV 96 MCH 31 MCHC 32 RDW Coeff of Mica 14.4 Plt Count 92 L Neut % (Auto) 93.7 H Lymph % (Auto) 3.2 L [place] % (Auto) 2.7 Eos % (Auto) 0.0 Baso % (Auto) 0.2 Neut # (Auto) 9.20 H Lymph # (Auto) 0.30 L [place] # (Auto) 0.30 Eos # (Auto) 0.00 Baso # (Auto) 0.02 Abs Immat Gran (auto) 0.02 Imm/Tot Granulo (auto) 0.2 VBG pH 7.363 VBG pCO2 38 L VBG pO2 49.2 H VBG HCO3 21 Sodium 134 L Potassium 3.7 Chloride 109 Carbon Dioxide 20 Anion Gap 5 L BUN 30 Creatinine 1.1 Estimated Creat Clear 52.91 Estimated GFR 65 Glucose 106 Lactate 0.9 Calcium 7.4 L Phosphorus 3.2 Magnesium 1.9 Total Bilirubin 0.5 AST 51 H ALT 23 Alkaline Phosphatase 50 Troponin I 2.62 H* C-Reactive Protein 21.9 H NT-Pro-B Natriuret Pep Total Protein 5.3 L Albumin 2.8 L Triglycerides 83 Cholesterol 89 L LDL Cholesterol, Calc 39 HDL Cholesterol 33 L Procalcitonin 8.41 H TSH 0.902 Lab Acknowledgement
[2023-12-08] MEDS: LIDOCAINE 5% PATCH 1 PATCH TRANSDERMA (10:50)
[2023-12-08 11:00] VITALS: BP 118/71; PULSE 74; RESP 18; TEMP 37.2; O2SAT 97
[2023-12-08] MEDS: CEFEPIME HCL 2 GM in 0.9 % SODIUM CHLORIDE Mini-bag 100 ML IVPB ×2 (11:01→22:26)
--- NOTE | 2023-12-08 12:05 | CRLHL7_ITS ---
For Patients: As a result of the Cures Act, medical imaging exams and procedure reports are released immediately into your electronic medical record. You may view this report before your referring provider. If you have questions, please contact your health care provider. Indication: Pain, bacteremia Technique: Three views left wrist Comparison: None Findings: Soft tissue swelling about the carpus with possible joint effusion. Vascular calcifications. Narrowing and spurring at the 1st carpometacarpal joint. The lunate may be absent although there does appear to be some chronic osseous structures located dorsal to the midcarpal row which could be associated with remote lunate pathology. Ulnar minus variance. Impression: Soft tissue swelling about the wrist with possible joint effusion. Chronic changes associated with the lunate. Dictated by Wagner Weiner MD @ 12/09/2023 11:10:25 AM (Electronically Signed)
[2023-12-08 15:00] VITALS: BP 110/82; PULSE 85; PULSE 87; RESP 20; TEMP 36.7; O2SAT 97
--- NOTE | 2023-12-08 15:04 | PC.SOCIAL ---
Addendum entered by CLIFFORD Jesus 12/08/23 15:19: Received an e-mail from Shobha Moran at [facility] stating they may have a male shared room bed available for Wednesday. Secure e-mailed referral for review. Original Note: Discharge planning- Per therapy, patient will need a SNF rehab stay upon discharge from hospital. Met with patient and patient's sons Ajay and Karthikeyan to discuss discharge plans. Reviewed recommendations and provided family with a SNF area list. Family is aware that patient will likely be placed outside of [place] due to [facility] having limited openings. Patient was initially hesitant to go to SNF, but has decided to think about it and informs he will try it. Per MD, patient will likely be ready to discharge on Wednesday (earliest date) pending progress. Contacted the following SNF's for possible placement. 1. [facility]- Phone call to Shobha Moran in admissions. There are no openings this week. 2. [facility]- Phone call to Merari Mendez in admissions. There are no openings this week. 3. [facility]- Phone call to admissions, left voicemail. Faxed referral to [phone]. 4. [facility]- Faxed referral to [phone] for review. 5. [facility]- faxed referral to [phone] for review. 6. [facility]- Faxed referral for review to [phone]. 7. [facility]- E-mail to Christiana Vieira to inquire on openings. Faxed referral to [phone]. Social Work will continue to follow up as needed.
[2023-12-08] MEDS: ALBUTEROL SULFATE 2.5 MG/3 ML VIAL.NEB NEB (15:39)
--- NOTE | 2023-12-08 16:06 | PC.NURSE ---
End of shift: patient alert and oriented, up with 1-2 assist with walker and GB. Patient tolerating a reg. diet. PRN albuterol administered x1 per pt. request. Patient's VSS, denies N/V/SOB. Patient afebrile this shift. New IV in right FA SL and patent. Patients family at bedside most of the morning.
--- NOTE | 2023-12-08 17:50 | PM.ORCN ---
History of Present Illness HPI Time Seen by Provider: 15:15 Date Seen: 12/08/23 Consult date: 12/08/23 Requesting physician: Sonal Muñiz Chief complaint: Left wrist pain Narrative: Orthopedic consult requested by Sonal Muñiz. Sergio is resting comfortably in bed. He c/o left wrist pain, worse with active wrist range of motion. Pain is mostly localized over his volar wrist. Denies acute injury. Denies: fever. Associated symptoms include: increased warmth, swelling, erythema, fatigue. Denies open wounds near left wrist. Patient has a known history of bilateral wrist osteoarthritis. [facility] Medical History Sleep apnea, obstructive ?G47.33 - Obstructive sleep apnea (adult) (pediatric) (ICD-10) Skin cancer (06/10/09) ?C44.90 - Unspecified malignant neoplasm of skin, unspecified (ICD-10) Obesity with body mass index greater than 30 ?E66.9 - Obesity, unspecified (ICD-10) Deep vein thrombosis (DVT) of left lower extremity ?I82.402 - Acute embolism and thrombosis of unspecified deep veins of left lower extremity (ICD-10) Asthma (06/10/09) ?J45.909 - Unspecified asthma, uncomplicated (ICD-10) Hyperlipidemia ?E78.5 - Hyperlipidemia, unspecified (ICD-10) Surgical History History of hip surgery (04/21/21) ?Z98.890 - Other specified postprocedural states (ICD-10) Hx of tonsillectomy ?Z90.89 - Acquired absence of other organs (ICD-10) Family History Mother Breast cancer Coronary artery disease Father No problems noted. Paternal Grandfather Coronary artery disease Social History What is your current living situation?: I presently have a place to live Problems where you live: no known problems Problems where you live details: N/A In the past 12 months, utilities in danger of being shut off: no In past 12 months, lack of transportation kept you from medical appts, meetings, work, or getting things needed for daily living: no In the past 12 mos, have been you worried that your food would run out before you had money to buy more?: never true In the past 12 mos, the food you bought just didn't last and you didn't have money to buy more?: never true Smoking Status: Never smoker Do you use any of these nicotine containing products: None Second hand tobacco smoke exposure: No How often do you have a drink containing alcohol: never How often do you have six or more drinks on one occasion: Never AUDIT-C Alcohol total score: 0 Non-prescribed substance use: denies use Caffeine: Yes How often does anyone, including family, friends and others, physically hurt you: never How often does anyone, including family, friends and others, insult or talk down to you: never How often does anyone, including family, friends and others, threaten you with harm: never How often does anyone, including family, friends and others, scream or curse at you: never Little interest or pleasure in doing things: not at all Feeling down, depressed, or hopeless: not at all service: No Meds Home Medications and Allergies Home Medications ?Medication ?Instructions ?Recorded ?Confirmed ?Type acetaminophen 650 mg 650 mg PO Q12H 04/10/22 12/07/23 History tablet,extended release (Tylenol Arthritis Pain) finasteride 5 mg PO DAILY 11/19/22 10/27/23 History glucosamine 500 cap PO QDAY 10/27/23 10/27/23 History sd-[id number]-[id number] comp 400 mg-D3 667 unit-C-Mn cap doxazosin 8 mg tablet 8 mg PO HS 12/07/23 12/07/23 History simvastatin 20 mg tablet 20 mg PO HS 12/07/23 12/07/23 History Allergies Allergy/AdvReac Type Severity Reaction Status Date / Time No Known Drug Allergies Allergy Verified 10/27/23 10:05 Ortho Exam Narrative Exam Narrative: Patient is alert and oriented x3. No acute distress. Converses with nonlabored breathing. Patient is resting comfortably in his bed. Left wrist exam: Increased warmth throughout left wrist with moderate effusion. (Right wrist no effusion, appropriate warmth and no erythematous). Mildly erythematous over volar and radial wrist. Severe tenderness to palpation radiocarpal joint. Moderate tenderness with active wrist extension and flexion. Mild pain with passive wrist range of motion. CMS intact with 2+ radial pulse. [place], warm digits with brisk capillary refill. Sensation confirmed distally. Const Vital Signs, click to edit/add: Vital Signs - 24 hr 12/07/23 19:55 12/07/23 23:00 12/07/23 23:00 Temperature 99.1 F 98.2 F Pulse Rate Pulse Rate [Pulse Oximeter] 88 89 89 Respiratory Rate 20 20 20 Blood Pressure [Right Arm] 112/63 95/55 L Pulse Oximetry 92 94 Oxygen Delivery Method Room Air Nasal Cannula Oxygen Flow Rate 1 12/07/23 23:06 12/08/23 03:00 12/08/23 05:25 Temperature 98.4 F Pulse Rate 99 Pulse Rate [Pulse Oximeter] 98 85 Respiratory Rate 20 Blood Pressure [Right Arm] 120/64 111/69 Pulse Oximetry 91 Oxygen Delivery Method Nasal Cannula Oxygen Flow Rate 1 12/08/23 07:00 12/08/23 07:00 12/08/23 07:00 Temperature 98.4 F Pulse Rate 75 Pulse Rate [Pulse Oximeter] 67 67 Respiratory Rate 20 20 Blood Pressure [Right Arm] 107/65 Pulse Oximetry 97 Oxygen Delivery Method Room Air Oxygen Flow Rate 12/08/23 11:00 12/08/23 15:00 12/08/23 15:00 Temperature 98.9 F 98.1 F Pulse Rate Pulse Rate [Pulse Oximeter] 74 87 87 Respiratory Rate 18 20 20 Blood Pressure [Right Arm] 118/71 110/82 Pulse Oximetry 97 97 Oxygen Delivery Method Room Air Room Air Oxygen Flow Rate 12/08/23 15:00 Temperature Pulse Rate 85 Pulse Rate [Pulse Oximeter] Respiratory Rate Blood Pressure [Right Arm] Pulse Oximetry Oxygen Delivery Method Oxygen Flow Rate Results Labs Labs: Laboratory Results - last 48 hr 12/06/23 12/06/23 12/06/23 20:10 20:10 20:37 WBC RBC Hgb Hct MCV MCH MCHC RDW Coeff of Mica Plt Count Neut % (Auto) Lymph % (Auto) [place] % (Auto) Eos % (Auto) Baso % (Auto) Neut # (Auto) Lymph # (Auto) [place] # (Auto) Eos # (Auto) Baso # (Auto) Abs Immat Gran (auto) Imm/Tot Granulo (auto) VBG pH VBG pCO2 VBG pO2 VBG HCO3 Sodium Potassium Chloride Carbon Dioxide Anion Gap BUN Creatinine Estimated Creat Clear Estimated GFR Glucose Lactate Calcium Phosphorus Magnesium Total Bilirubin AST ALT Alkaline Phosphatase Troponin I C-Reactive Protein NT-Pro-B Natriuret Pep Total Protein Albumin Triglycerides Cholesterol LDL Cholesterol, Calc HDL Cholesterol Procalcitonin TSH Urine Color Dark yellow Urine Appearance Clear Urine pH 5.5 Ur Specific Walsh 1.025 Urine Protein Negative Urine Glucose (UA) Negative Urine Ketones Trace A Urine Blood Trace-intact A Urine Nitrite Negative Urine Bilirubin Negative Urine Urobilinogen 0.2 Ur Leukocyte Esterase Negative Urine RBC 0-2 Urine WBC 0-2 Ur Squamous Epith Cells None Urine Bacteria Few A Fluid Volume Fluid Color Fluid Appearance Fluid WBC Fluid RBC Fluid Polynuclear WBCs Fluid Mononuclear WBCs SARS-CoV-2 (PCR) Influenza Type A (PCR) Influenza Type B (PCR) RSV (PCR) Lab Acknowledgement POC Creatinine 1.4 H POC Troponin I Cancelled 0.01 12/06/23 12/06/23 12/07/23 20:38 22:43 05:56 WBC 7.25 8.69 RBC 4.03 L 3.56 L Hgb 12.1 L 10.7 L Hct 38.0 33.7 L MCV 94 95 MCH 30 30 MCHC 32 32 RDW Coeff of Mica 13.8 14.2 Plt Count 129 L 112 L Neut % (Auto) 92.5 H 94.1 H Lymph % (Auto) 3.2 L 2.6 L [place] % (Auto) 4.1 2.9 Eos % (Auto) 0.0 0.0 Baso % (Auto) 0.1 0.2 Neut # (Auto) 6.70 8.20 H Lymph # (Auto) 0.20 L 0.20 L [place] # (Auto) 0.30 0.30 Eos # (Auto) 0.00 0.00 Baso # (Auto) 0.01 0.02 Abs Immat Gran (auto) 0.01 0.02 Imm/Tot Granulo (auto) 0.1 0.2 VBG pH VBG pCO2 VBG pO2 VBG HCO3 Sodium 136 135 Potassium 4.4 3.6 Chloride 108 105 Carbon Dioxide 19 L 24 Anion Gap 9 6 L BUN 24 24 Creatinine 1.1 1.2 Estimated Creat Clear 49.48 48.50 Estimated GFR 65 59 Glucose 137 H 100 Lactate 1.6 Calcium 8.7 8.1 L Phosphorus Magnesium 2.0 Total Bilirubin 1.0 0.9 AST 28 27 ALT 15 16 Alkaline Phosphatase 61 56 Troponin I 0.05 H 0.04 0.42 H* C-Reactive Protein NT-Pro-B Natriuret Pep 1060 Total Protein 7.0 5.8 L Albumin 4.4 3.3 Triglycerides Cholesterol LDL Cholesterol, Calc HDL Cholesterol Procalcitonin TSH Urine Color Urine Appearance Urine pH Ur Specific Walsh Urine Protein Urine Glucose (UA) Urine Ketones Urine Blood Urine Nitrite Urine Bilirubin Urine Urobilinogen Ur Leukocyte Esterase Urine RBC Urine WBC Ur Squamous Epith Cells Urine Bacteria Fluid Volume Fluid Color Fluid Appearance Fluid WBC Fluid RBC Fluid Polynuclear WBCs Fluid Mononuclear WBCs SARS-CoV-2 (PCR) Negative SARS-CoV-2 Influenza Type A (PCR) Negative PCR FLU A Influenza Type B (PCR) Negative PCR FLU B RSV (PCR) Negative PCR RSV Lab Acknowledgement POC Creatinine POC Troponin I 12/07/23 12/07/23 12/07/23 15:00 15:00 16:14 WBC 10.71 RBC 3.59 L Hgb 10.9 L Hct 34.2 L MCV 95 MCH 30 MCHC 32 RDW Coeff of Mica Plt Count 98 L Neut % (Auto) Lymph % (Auto) [place] % (Auto) Eos % (Auto) Baso % (Auto) Neut # (Auto) Lymph # (Auto) [place] # (Auto) Eos # (Auto) Baso # (Auto) Abs Immat Gran (auto) Imm/Tot Granulo (auto) VBG pH 7.392 VBG pCO2 36 L VBG pO2 41.9 VBG HCO3 22 Sodium Potassium Chloride Carbon Dioxide Anion Gap BUN Creatinine Estimated Creat Clear Estimated GFR Glucose Lactate 1.2 Calcium Phosphorus Magnesium Total Bilirubin AST ALT Alkaline Phosphatase Troponin I 2.58 H* C-Reactive Protein 17.7 H Cancelled NT-Pro-B Natriuret Pep 7860 Total Protein Albumin Triglycerides Cholesterol LDL Cholesterol, Calc HDL Cholesterol Procalcitonin TSH Urine Color Urine Appearance Urine pH Ur Specific Walsh Urine Protein Urine Glucose (UA) Urine Ketones Urine Blood Urine Nitrite Urine Bilirubin Urine Urobilinogen Ur Leukocyte Esterase Urine RBC Urine WBC Ur Squamous Epith Cells Urine Bacteria Fluid Volume Fluid Color Fluid Appearance Fluid WBC Fluid RBC Fluid Polynuclear WBCs Fluid Mononuclear WBCs SARS-CoV-2 (PCR) Influenza Type A (PCR) Influenza Type B (PCR) RSV (PCR) Lab Acknowledgement Test Added POC Creatinine POC Troponin I 12/07/23 12/07/23 12/08/23 18:05 21:01 05:48 WBC 9.83 RBC 3.43 L Hgb 10.5 L Hct 32.8 L MCV 96 MCH 31 MCHC 32 RDW Coeff of Mica 14.4 Plt Count 92 L Neut % (Auto) 93.7 H Lymph % (Auto) 3.2 L [place] % (Auto) 2.7 Eos % (Auto) 0.0 Baso % (Auto) 0.2 Neut # (Auto) 9.20 H Lymph # (Auto) 0.30 L [place] # (Auto) 0.30 Eos # (Auto) 0.00 Baso # (Auto) 0.02 Abs Immat Gran (auto) 0.02 Imm/Tot Granulo (auto) 0.2 VBG pH 7.363 VBG pCO2 38 L VBG pO2 49.2 H VBG HCO3 21 Sodium 134 L Potassium 3.7 Chloride 109 Carbon Dioxide 20 Anion Gap 5 L BUN 30 Creatinine 1.1 Estimated Creat Clear 52.91 Estimated GFR 65 Glucose 106 Lactate 0.9 Calcium 7.4 L Phosphorus 3.2 Magnesium 1.9 Total Bilirubin 0.5 AST 51 H ALT 23 Alkaline Phosphatase 50 Troponin I 3.19 H* 3.05 H* 2.62 H* C-Reactive Protein 21.9 H NT-Pro-B Natriuret Pep Total Protein 5.3 L Albumin 2.8 L Triglycerides 83 Cholesterol 89 L LDL Cholesterol, Calc 39 HDL Cholesterol 33 L Procalcitonin 8.41 H TSH 0.902 Urine Color Urine Appearance Urine pH Ur Specific Walsh Urine Protein Urine Glucose (UA) Urine Ketones Urine Blood Urine Nitrite Urine Bilirubin Urine Urobilinogen Ur Leukocyte Esterase Urine RBC Urine WBC Ur Squamous Epith Cells Urine Bacteria Fluid Volume Fluid Color Fluid Appearance Fluid WBC Fluid RBC Fluid Polynuclear WBCs Fluid Mononuclear WBCs SARS-CoV-2 (PCR) Influenza Type A (PCR) Influenza Type B (PCR) RSV (PCR) Lab Acknowledgement POC Creatinine POC Troponin I 12/08/23 14:57 WBC RBC Hgb Hct MCV MCH MCHC RDW Coeff of Mica Plt Count Neut % (Auto) Lymph % (Auto) [place] % (Auto) Eos % (Auto) Baso % (Auto) Neut # (Auto) Lymph # (Auto) [place] # (Auto) Eos # (Auto) Baso # (Auto) Abs Immat Gran (auto) Imm/Tot Granulo (auto) VBG pH VBG pCO2 VBG pO2 VBG HCO3 Sodium Potassium Chloride Carbon Dioxide Anion Gap BUN Creatinine Estimated Creat Clear Estimated GFR Glucose Lactate Calcium Phosphorus Magnesium Total Bilirubin AST ALT Alkaline Phosphatase Troponin I C-Reactive Protein NT-Pro-B Natriuret Pep Total Protein Albumin Triglycerides Cholesterol LDL Cholesterol, Calc HDL Cholesterol Procalcitonin TSH Urine Color Urine Appearance Urine pH Ur Specific Walsh Urine Protein Urine Glucose (UA) Urine Ketones Urine Blood Urine Nitrite Urine Bilirubin Urine Urobilinogen Ur Leukocyte Esterase Urine RBC Urine WBC Ur Squamous Epith Cells Urine Bacteria Fluid Volume Cancelled Fluid Color Cancelled Fluid Appearance Cancelled Fluid WBC Cancelled Fluid RBC Cancelled Fluid Polynuclear WBCs Cancelled Fluid Mononuclear WBCs Cancelled SARS-CoV-2 (PCR) Influenza Type A (PCR) Influenza Type B (PCR) RSV (PCR) Lab Acknowledgement POC Creatinine POC Troponin I Diagnostic results Wrist/Hand MRI: image reviewed (3-view left wrist images were reviewed from [facility] dated 12/08/23. These show: advanced CMC osteoarthrosis with [id number] joint space loss, subchondral sclerosis, osteophyte formation. Subluxation of the base of the first metacarpal radially noted.) and other (Continued: abnormal appearance and positioning of the lunate with scapholunate widening. ) Procedures Joint Aspiration/Injection Joint Asp./Inject. 1: Time out performed: Yes Side of body: left Joint aspirated: wrist/hand Ultrasound guidance: No Skin prep: Chlorhexidine Needle size used: 20G Fluid obtained: purulent (and cloudy) Total fluid obtained (ml): 1 Patient tolerated procedure: well (Moderate pain during procedure) Additional comments: 1/2 cc fluid obtained Assessment and Plan Assessment and plan (1) Acute pain of left wrist: Problem comment: Suspicion for septic arthritis of the radiocarpal joint Status: Acute Assessment and Plan: Based on Sergio's H&P, I have a high suspicion for septic arthritis of the radiocarpal joint. Sergio and I discussed an arthrocentesis to evaluate for an infection within this joint. Sergio is in agreement with this plan. Risks and benefits of this procedure were verbally discussed, which includes: pain at the injection site, injury to blood vessel, nerve, tendon, infection, blood loss. Patient stated understanding. Using sterile technique, left wrist arthrocentesis was performed. Sergio's wrist was cleansed with a Chloraprep. A 20 gauge needle was inserted distal to Harvinder's tubercle avoiding the EPL tendon. Approximately 1/2 cc of purulent, cloudy synovial fluid was aspirated. This procedure was quite painful for Sergio. Band-aid was applied. I recommend he ice near the injection site. This synovial fluid was sent to lab for: cell count with diff, culture and sensitivity, gram stain and crystal analysis. I discussed my suspicion for septic arthritis with Sonal Muñiz and also Dr. Lopez and Dr. Irwin. If this returns positive, our recommendation will be to send Sergio to a hand surgeon for arthroscopic irrigation and drainage. May also consider an MRI to evaluate for osteomyelitis. Total time spent: 30 minutes (2) Sepsis: Problem comment: - as evidenced by T of 100.8, tachycardia, tachypnea, + blood cultures - on Vancomycin and Cefepime (12/06) Status: Acute Total time spent: Total time spent is greater than 50% in coordination of care (as documented) at patient's floor/unit and/or counseling patient: (3) Bacteremia: Problem comment: - positive blood culture on 12/06 - source unclear (negative ct C/A/P, negative L and T spine), reassuring TTE - notable dental visit (routine cleaning) on 12/05 - Vancomycin and Cefepime (12/06) Status: Acute Total time spent: Total time spent is greater than 50% in coordination of care (as documented) at patient's floor/unit and/or counseling patient: (4) Fever of unknown origin: Problem comment: - source unclear, + blood cultures on 12/06 - Cefepime and Vancomycin (12/06) Status: Acute Total time spent: Total time spent is greater than 50% in coordination of care (as documented) at patient's floor/unit and/or counseling patient: (5) Delirium: Problem comment: - likely due to fever/acute illness - continue to treat underlying conditions Status: Acute Total time spent: Total time spent is greater than 50% in coordination of care (as documented) at patient's floor/unit and/or counseling patient: (6) NSTEMI (non-ST elevated myocardial infarction): Problem comment: - tachypnea and confusion on 12/06, no chest pain - continue home dose of statin, added Metoprolol, ASA/Plavix on 12/07 - troponin peak at 3.19 - TTE obtained 12/07 with reassuring?results below: Final Impressions: 1. Technically limited exam. 2. Normal left ventricular size, normal wall thickness, normal global systolic function, calculated EF of 67 %. 3. Echo contrast was administered to enhance visualization of all left ventricular segments. 4. Right ventricular cavity size is normal, global systolic RV function is normal. 5. Moderately enlarged left atrium. 6. The aortic valve is calcified, mild stenosis and trivial regurgitation. 7. The mitral valve is sclerotic, mild mitral regurgitation. 8. Tricuspid valve is not well visualized. 9. Normal estimated pulmonary pressures by tricuspid regurgitation velocity and right atrial pressure (17 mmHg plus RAP). 10. No pericardial effusion. Status: Acute Total time spent: Total time spent is greater than 50% in coordination of care (as documented) at patient's floor/unit and/or counseling patient:
[2023-12-08 19:46] VITALS: BP 109/64; PULSE 86; RESP 20; TEMP 37.2; O2SAT 93
[2023-12-08] MEDS: SIMVASTATIN 20 MG TABLET PO (20:55)
[2023-12-08] MEDS: DOCUSATE SODIUM 100 MG CAPSULE PO (22:07)
--- NOTE | 2023-12-08 23:02 | PC.NURSE ---
End of shift note [id number]: Pt alert & oriented to person, place and time. He is transferring/ambulating in room with assist of 1 using FWW and gait belt. Pt has been denying pain when asked. VSS and pt has been afebrile. IV to posterior R forearm patent with NS running at 100 mL/hr. Bed alarm continues to be utilized as pt does not use his call light when needing assistance. Lungs CTA though also slightly diminished throughout upon auscultation. PRN Colace given to promote BM. Pt remains continent and incontinent of bladder with wrap around brief worn. Pt has been on RA this shift with no complaints of shortness of breath.
[2023-12-09 00:05] VITALS: BP 103/74; PULSE 78; PULSE 81; RESP 18; TEMP 37.1; O2SAT 95
[2023-12-09 02:36] VITALS: BP 136/68; PULSE 82; RESP 18; TEMP 37.2; O2SAT 94
[2023-12-09] MEDS: 0.9 % SODIUM CHLORIDE 1000 ml 1,000 ML 100 ML IV (02:41)
[2023-12-09] MEDS: ACETAMINOPHEN 325 MG TABLET 650 MG PO ×2 (02:45→13:01)
[2023-12-09] MEDS: METOPROLOL TARTRATE 25 MG TABLET 12.5 MG PO (05:43)
[2023-12-09] MEDS: DOCUSATE SODIUM 100 MG CAPSULE PO (05:44)
--- NOTE | 2023-12-09 06:29 | PC.NURSE ---
Pt alert and oriented x3 but forgetful with call light, bed alarm on. Afebrile. Pt is very DIOMEDE. Pt reports 4/10 pain in lower back, pain managed with scheduled Tylenol. Pt is up A1/2 with walker and gait belt, tolerating regular diet and voiding. Pt reports I think it has been 3 days sine I last had a bowel movement but I am not sure. Pt attempted to have one this morning but did not succeed. Gave PRN Colace. ?
[2023-12-09 06:53] LABS: Basophils Absolute Auto 0.01 K/uL (0.00-0.30); Basophils Percent Auto 0.1 % (0.0-3.0); Eosinophils Absolute Auto 0.01 K/uL (0.00-0.50); Eosinophils Percent Auto 0.1 % (0.0-7.0); Hematocrit 31.7 % (37.0-53.0); Hemoglobin* 10.3 gm/dL (13.5-17.5); Immature Granulocytes Abs Auto 0.02 K/uL (0.00-0.30); Immature Granulocytes Pct Auto 0.2 %; Lymphocytes Percent Auto 5.4 % (20-44); Mean Corpuscular HGB Conc 33 gm/dL (32-36); Mean Corpuscular Hemoglobin 31 pg (26-34); Mean Corpuscular Volume 95 fL (80-100); Monocytes Percent Auto 4.4 % (0.0-11.0); Neutrophils Percent Auto 89.8 % (42.0-72.0); Platelet Count* 97 K/uL (140-440); RDW Coefficient of Variation % 14.5 % (11.5-15.5); Red Blood Count 3.35 m/uL (4.30-5.90); White Blood Count* 8.37 K/uL (4.50-11.00)
[2023-12-09 06:56] LABS: Slide Review Reflex No
[2023-12-09 07:00] VITALS: BP 131/73; PULSE 69; PULSE 73; RESP 18; TEMP 36.7; O2SAT 95
[2023-12-09 07:03] LABS: Albumin* 2.9 g/dL (3.3-5.0); Chloride* 111 mmol/L (96-114); Sodium* 136 mmol/L (135-149)
[2023-12-09 07:04] LABS: Potassium* 3.6 mmol/L (3.6-5.1)
[2023-12-09 07:06] LABS: Alanine Aminotransferase* 23 U/L (4-50); Alkaline Phosphatase* 62 U/L (40-150); Anion Gap 8 mEq/L (7-15); Aspartate Amino Transferase* 45 U/L (12-35); Bilirubin Total* 0.4 mg/dL (0.1-1.5); Blood Urea Nitrogen* 29 mg/dL (7-30); Calcium* 7.5 mg/dL (8.4-10.6); Carbon Dioxide* 17 mmol/L (20-32); Creatinine* 1.1 mg/dL (0.5-1.5); Est. Creatinine Clearance* 52.91; Estimated Glomerular Filt Rate 65 ml/min; Glucose* 108 mg/dL (60-115); Total Protein* 5.5 g/dL (6.0-8.3)
[2023-12-09 07:23] LABS: Procalcitonin* 6.04 ng/mL (<0.50)
[2023-12-09 07:28] LABS: Troponin I* 1.57 ng/mL (0.01-0.04)
[2023-12-09 11:00] VITALS: BP 132/92; PULSE 85; RESP 20; TEMP 36.7; O2SAT 96
--- NOTE | 2023-12-09 11:17 | PM.ORPN ---
Subjective Subjective Date Seen: 12/09/23 Principal diagnosis: Fever, bactremia with gram positive cocci in clusters Interval history: Sergio is doing well this morning. Some mild left wrist discomfort with active motion. Feeling coherent and alert. He would like to go home today. Reports that he has a lot of things to do. Denies any fevers or chills. Ortho Exam Narrative Exam Narrative: Left Wrist: Radiocarpal effusion, moderate when compared to contralateral No digit swelling; no mid or proximal forearm swelling. No erythema, or ecchymosis Small scab noted over the volar radial hand 2nd MCP region Notably tender to palpation along the volar aspect of the radioscaphoid joint; moderately tender through the dorsal aspect of the radioscaphoid region, and scapholunate region. Mild discomfort palpation over the ulnar aspect of his wrist. His pain appears to be more focused to the radiocarpal joint verses carpal joints with palpation. Nontender to percussion or palpation over the distal ulna or radius. Wrist motion is overall decreased, with an approximate 45 degree arc AROM. Mild discomfort with this. PROM does not produce any discomfort. 2+ radial pulse, pink, warm, appropriate capillary refill digits; intact dermatomes and myotomes distally (radial, ulnar, and median nerve distributions) Const Vital Signs, click to edit/add: Vital Signs - 24 hr 12/08/23 15:00 12/08/23 15:00 12/08/23 15:00 Temperature 98.1 F Pulse Rate 85 Pulse Rate [Pulse Oximeter] 87 87 Respiratory Rate 20 20 Blood Pressure [Left Arm] Blood Pressure [Right Arm] 110/82 Pulse Oximetry 97 Oxygen Delivery Method Room Air 12/08/23 19:46 12/09/23 00:05 12/09/23 00:05 Temperature 98.9 F 98.7 F Pulse Rate 81 Pulse Rate [Pulse Oximeter] 86 78 Respiratory Rate 20 18 Blood Pressure [Left Arm] 109/64 103/74 Blood Pressure [Right Arm] Pulse Oximetry 93 95 Oxygen Delivery Method Room Air Room Air 12/09/23 02:36 12/09/23 07:00 12/09/23 07:00 Temperature 98.9 F 98.0 F Pulse Rate Pulse Rate [Pulse Oximeter] 82 69 69 Respiratory Rate 18 18 18 Blood Pressure [Left Arm] 136/68 Blood Pressure [Right Arm] 131/73 Pulse Oximetry 94 95 Oxygen Delivery Method Room Air Room Air 12/09/23 07:00 Temperature Pulse Rate 73 Pulse Rate [Pulse Oximeter] Respiratory Rate Blood Pressure [Left Arm] Blood Pressure [Right Arm] Pulse Oximetry Oxygen Delivery Method Assessment and Plan Assessment and plan (1) Acute pain of left wrist: Problem details: Suspicion for septic arthritis of the radiocarpal joint; gram stain showing few gram positive cocci, and many WBCs Status: Acute (2) Sepsis: Problem details: - as evidenced by T of 100.8, tachycardia, tachypnea, + blood cultures - on Vancomycin and Cefepime (12/06) Status: Acute (3) Bacteremia: Problem details: - positive blood culture on 12/06 - source unclear (negative ct C/A/P, negative L and T spine), reassuring TTE - notable dental visit (routine cleaning) on 12/05 - Vancomycin and Cefepime (12/06) Status: Acute (4) Fever of unknown origin: Problem details: - source unclear, + blood cultures on 12/06 - Cefepime and Vancomycin (12/06) Status: Acute (5) Delirium: Problem details: - noted on 12/06, likely due to fever/acute illness - continue to treat underlying conditions - RESOLVED 12/07 Status: Acute (6) NSTEMI (non-ST elevated myocardial infarction): Problem details: - type II - elevated troponin obtained in the setting of fever, tachycardia, tachypnea and confusion on 12/06, no chest pain or EKG changes - continued home dose of statin: added Metoprolol, ASA/Plavix on 12/07 - troponin peaked at 3.19 on 12/06 - reviewed with Cardiology on 12/08 - TTE obtained 12/07 with reassuring?results below: Final Impressions: 1. Technically limited exam. 2. Normal left ventricular size, normal wall thickness, normal global systolic function, calculated EF of 67 %. 3. Echo contrast was administered to enhance visualization of all left ventricular segments. 4. Right ventricular cavity size is normal, global systolic RV function is normal. 5. Moderately enlarged left atrium. 6. The aortic valve is calcified, mild stenosis and trivial regurgitation. 7. The mitral valve is sclerotic, mild mitral regurgitation. 8. Tricuspid valve is not well visualized. 9. Normal estimated pulmonary pressures by tricuspid regurgitation velocity and right atrial pressure (17 mmHg plus RAP). 10. No pericardial effusion. Status: Acute Plan At this point, his Gram stain that showed concern for infection of his left radiocarpal joint. Culture still pending. With this positive Gram stain, treatment should include continued IV antibiotics as well as left wrist arthroscopic I&D. Would recommend hand surgeon to perform the surgery, with infectious disease consult as well. The hospital team will work on scheduling this transfer, likely [facility] via ambulance transportation due to IV antibiotics. Furthermore, we discussed consideration for MRI of the left wrist to rule out osteomyelitis. With pending transfer, we will postpone left wrist MRI at this time. Patient is a course upset by this news. He would like to return home today. I do see him eventually returning home once his infection is under control. In the meantime, gentle wrist motion is okay. No splinting. Ice/heat as needed. Oral medications as needed for pain. Platform walker for ambulation assistance. We are happy to see patient in [place] for follow-up. *of note, on review of patient's left wrist x-ray from 12/08/2023, noted absence of the lunate. 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 Patient has no history of surgery to the left wrist. There are no previous x-rays available to us at this time for comparison.
--- NOTE | 2023-12-09 11:20 | PM.DST ---
Transfer Discharge Sum: Prov Provider Date Seen: 12/22/23 Date of admission: 12/07/23 10:06 Primary care physician: Henok Weller MD Attending physician on admission: Dilma Cheung Consults: OT, PT, Orthopedic Surgery Attending physician on discharge: Dilma Cheung Anticipated date of transfer: 12/09/23 Receiving physician/facility: [facility] DS: Diagnosis Discharge Diagnosis (1) Sepsis: Status: Acute Problem details: - as evidenced by T of 100.8, tachycardia, tachypnea, + blood cultures - LEFT wrist septic arthritis likely source - on Vancomycin and Cefepime (12/06) (2) Bacteremia: Status: Acute Problem details: - first positive blood culture on 12/06, avila-sensitive MSSA - negative ct C/A/P, negative L and T spine, reassuring TTE - notable dental visit (routine cleaning) on 12/05 - L wrist pain and effusion noted 12/07, initial aspirate + for GPCs, likely source of bacteremia - Vancomycin and Cefepime (12/06) (3) Acute pain of left wrist: Status: Acute Problem details: - Suspicion for septic arthritis of the radiocarpal joint - initial gram stain from aspirate 12/07: GPC, many WBCs - Blood cultures + for MSSA (4) NSTEMI (non-ST elevated myocardial infarction): Status: Acute Problem details: - type II - elevated troponin obtained in the setting of fever, tachycardia, tachypnea and confusion on 12/06, no chest pain or EKG changes - continued home dose of statin: added Metoprolol, ASA/Plavix on 12/07 - troponin peaked at 3.19 on 12/06 - reviewed with Cardiology on 12/08 - TTE obtained 12/07 with reassuring?results below: Final Impressions: 1. Technically limited exam. 2. Normal left ventricular size, normal wall thickness, normal global systolic function, calculated EF of 67 %. 3. Echo contrast was administered to enhance visualization of all left ventricular segments. 4. Right ventricular cavity size is normal, global systolic RV function is normal. 5. Moderately enlarged left atrium. 6. The aortic valve is calcified, mild stenosis and trivial regurgitation. 7. The mitral valve is sclerotic, mild mitral regurgitation. 8. Tricuspid valve is not well visualized. 9. Normal estimated pulmonary pressures by tricuspid regurgitation velocity and right atrial pressure (17 mmHg plus RAP). 10. No pericardial effusion. (5) Delirium: Status: Acute Problem details: - noted on 12/06, likely due to fever/acute illness - continue to treat underlying conditions - RESOLVED 12/07 Transfer Discharge Sum: Med Medications Active and Home Medications: Home Medications acetaminophen 650 mg tablet,extended release (Tylenol Arthritis Pain) 650 mg PO Q12H 04/10/22 [History Confirmed 12/07/23] albuterol sulfate 90 mcg/actuation aerosol inhaler 2 puff inhalation Q4H PRN shortness of breath or wheezing #8.5 grams 08/11/22 [Rx Confirmed 12/07/23] Walker- 4 Wheels #1 ea 09/14/22 [Rx Confirmed 10/27/23] finasteride 5 mg PO DAILY 11/19/22 [History Confirmed 10/27/23] glucosamine 500 [id number] comp 400 mg-D3 667 unit-C-Mn cap cap PO QDAY 10/27/23 [History Confirmed 10/27/23] doxazosin 8 mg tablet 8 mg PO HS 12/07/23 [History Confirmed 12/07/23] simvastatin 20 mg tablet 20 mg PO HS 12/07/23 [History Confirmed 12/07/23] Active Medications Acetaminophen (Acetaminophen 325 Mg Tablet) 650 mg PO Q6H GLENDY Stop: 12/09/23 15:14 Last Admin: 12/09/23 02:45 Dose: 650 mg Albuterol (Albuterol Inhaler) 2 puff IH Q4H PRN PRN Reason: shortness of breath or wheezing Albuterol (Albuterol Sulfate 2.5 Mg/3 Ml Vial.Neb) 2.5 mg NEB Q4H PRN Last Admin: 12/08/23 15:39 Dose: 2.5 mg Docusate Sodium (Docusate Sodium 100 Mg Capsule) 100 mg PO BID PRN PRN Reason: Constipation Last Admin: 12/09/23 05:44 Dose: 100 mg Sodium Chloride (0.9 % Sodium Chloride 1000 Ml) 1,000 mls @ 100 mls/hr IV .Q10H GLENDY Last Admin: 12/09/23 02:41 Dose: 100 mls/hr Cefepime HCl 2 gm/ Sodium (Chloride) 100 mls @ 200 mls/hr IVPB Q12H GLENDY Last Infusion: 12/08/23 23:00 Dose: Infused Vancomycin HCl 1,000 mg/ (Sodium Chloride) 260 mls @ 173.333 mls/hr IVPB Q24H [facility] Last Infusion: 12/08/23 17:27 Dose: Infused Lidocaine (Lidocaine 5% Patch) 1 patch TRANSDERMA Q24H [facility]; Protocol Last Admin: 12/08/23 10:50 Dose: 1 patch Metoprolol Tartrate (Metoprolol Tartrate 25 Mg Tablet) 12.5 mg PO Q12H [facility] Last Admin: 12/09/23 05:43 Dose: 12.5 mg Morphine Sulfate (Morphine 2 Mg/Ml Inj) 2 mg IVP Q2H PRN Oxycodone HCl (Oxycodone 5 Mg Tablet) 2.5 - 5 mg PO Q4H PRN PRN Reason: Pain Simvastatin (Simvastatin 20 Mg Tablet) 20 mg PO HS [facility] Last Admin: 12/08/23 20:55 Dose: 20 mg Sodium Chloride (Sodium Chloride 0.9 % (Flush) 10 Ml Syringe) 5 ml IVF .FLUSH PRN Sodium Chloride (Sodium Chloride 0.9 % (Flush) 10 Ml Syringe) 5 ml IVF BID [facility] Last Admin: 12/08/23 20:55 Dose: 5 ml Transfer Discharge Sum: Hosp Hospital Course Hospital course: Sergio Nichols is a 88 year old male who was admitted to the hospital on 12/05 for weakness, noted to have a temperature of 100.8 in the ED Upon admission, antibiotics deferred given no source of infection identified on exam, head CT, or C/A/P CT. Negative Flu/RSV/COVID swab in ED. On hospital day 1 (12/06), blood cultures noted to be positive for GPC, Vancomycin and Cefepime initiated at that time. CT L-spine and T-spine obtained, negative for acute findings. Late afternoon on 12/06, patient had recurrent fever, confusion, tachycardia and tachypnea. Troponin noted to be elevated at >2.5, no associated chest pain or EKG changes. Troponin peaked at 3.19 on 12/06 pm. TTE obtained 12/07 and reassuring, telemetry remained normal. Beta-peng, aspirin and Plavix initiated on 12/06 and patient continued on his home statin dose. On hospital day 2 (12/07), Sergio endorsed some L wrist pain, small effusion noted. Orthopedic Surgery consulted and aspirated joint, GPC noted on initial gram stain. Blood cultures have resulted as MSSA, L wrist concerning for primary source. Patient has been on Vancomycin and Cefepime since 12/06. Reviewed with Dr. De Los Santos of hand surgery at [facility], who agrees that patient needs transfer for definitive surgical care. Hospitalist accepts, Cardiology also consulted and felt that elevated troponin was most likely result of NSTEMI type II/demand ischemia from acute illness. ASA and Plavix were initiated on 12/07, last dose given 0900 on 12/09/23. 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, no other concerning skin lesions noted Neuro: No focal deficits, no resting tremor Psych: Appropriate Const: Vital Signs, click to edit/add: Vital Signs - 24 hr 12/08/23 15:00 12/08/23 15:00 12/08/23 15:00 Temperature 98.1 F Pulse Rate 85 Pulse Rate [Pulse Oximeter] 87 87 Respiratory Rate 20 20 Blood Pressure [Le ft Arm] Blood Pressure [Ri ght Arm] 110/82 Pulse Oximetry 97 Oxygen Delivery Me thod Room Air 12/08/23 19:46 12/09/23 00:05 12/09/23 00:05 Temperature 98.9 F 98.7 F Pulse Rate 81 Pulse Rate [Pulse Oximeter] 86 78 Respiratory Rate 20 18 Blood Pressure [Le ft Arm] 109/64 103/74 Blood Pressure [Ri ght Arm] Pulse Oximetry 93 95 Oxygen Delivery Me thod Room Air Room Air 12/09/23 02:36 12/09/23 07:00 12/09/23 07:00 Temperature 98.9 F 98.0 F Pulse Rate Pulse Rate [Pulse Oximeter] 82 69 69 Respiratory Rate 18 18 18 Blood Pressure [Le ft Arm] 136/68 Blood Pressure [Ri ght Arm] 131/73 Pulse Oximetry 94 95 Oxygen Delivery Me thod Room Air Room Air 12/09/23 07:00 Temperature Pulse Rate 73 Pulse Rate [Pulse Oximeter] Respiratory Rate Blood Pressure [Le ft Arm] Blood Pressure [Ri ght Arm] Pulse Oximetry Oxygen Delivery Me thod Discharge Plan Discharge Disposition: [facility] Date of Admission: 12/07/23 10:06 Attending Provider on Discharge: Dilma Cheung Primary Care Provider: Henok Weller Condition: Stable Discharge Orders: Transfer of Care to Other Hospital (ORDER); Ordered 12/09/23 Ordered By: Dilma Cheung Oxygen: No Urinary Catheter: No Services not available here: Hand surgery, ID
--- NOTE | 2023-12-09 12:23 | PC.SOCIAL ---
Discharge planning- Received a phone call from Karthikeyan at [facility] informing they do not have an available bed for patient. Received a phone call from Diane at [facility] ([facility]) in [place] ([phone]) informing they could accept patient for admission. Per MD, patient is transferring to [facility] for a higher level of care due to medical status. Phone call to Diane at [facility] in [place] to provide update that patient is transferring, left voicemail. Phone call to patient's son Karthikeyan and provided update on acceptance to [facility] in [place]. Informed patient's son that he could provide the information to [facility] when discussing discharge planning, if patient is still requiring a SNF. Informed patient's son if they have any further questions they may reach out to social work at any time.
[2023-12-09] MEDS: LIDOCAINE 5% PATCH 1 PATCH TRANSDERMA (13:09)
[2023-12-09] MEDS: CEFEPIME HCL 2 GM in 0.9 % SODIUM CHLORIDE Mini-bag 100 ML IVPB (13:54)
--- NOTE | 2023-12-09 15:15 | PC.NURSE ---
Patient transferred to [facility] via non emergent transport at 1500. Patient's IV patent and intact. Vanco running, sent with Ambulance personnel. Nurse to Nurse given to LEVI Delarosa at [facility]. Patient will be going to room 3312. Patient's VSS. RA, Alert and oriented. Afebrile this shift. Family notified of transfer.
--- NOTE | 2023-12-10 11:52 | PC.NURSE ---
Critical Value-- Notified by lab of positive blood culture post transfer to [facility]. Notified Lida at [facility] in unit patient was transferred to via telephone. No further questions asked.
== END 2023-12-09 15:00 | disposition short-term general hospital (02) | DRG 871 ==
LOC: ED 23:26 → MEDSURG 12-07 00:38
PROVIDERS: Internal Medicine; Physician Assistant Surgical; Admitting Provider Family Medicine; Emergency Provider Student in an Organized Health Care Education/Training Program; PCP Internal Medicine; Visit Provider Student in an Organized Health Care Education/Training Program
DX: A41.89 Other specified sepsis (principal); G93.41 Metabolic encephalopathy; I21.A1 Myocardial infarction type 2; M00.832 Arthritis due to other bacteria, left wrist; M25.532 Pain in left wrist; R53.1 Weakness; J45.909 Unspecified asthma, uncomplicated; R00.0 Tachycardia, unspecified; I10 Essential (primary) hypertension; B96.89 Other specified bacterial agents as the cause of diseases classified elsewhere; B95.61 Methicillin susceptible Staphylococcus aureus infection as the cause of diseases classified elsewhere; G47.33 Obstructive sleep apnea (adult) (pediatric); E66.9 Obesity, unspecified; I44.0 Atrioventricular block, first degree; N40.0 Benign prostatic hyperplasia without lower urinary tract symptoms; E78.5 Hyperlipidemia, unspecified
CPT/HCPCS: 20605; 36415; 70450; 71045; 71260; 72128; 72131; 73110; 74177; 80053; 80061; 81001; 82565; 82803; 83605; 83735; 83880; 84100; 84145; 84443; 84484; 85025; 85027; 86140; 87040; 87070; 87086; 87186; 87205; 87631; 89051; 89060; 93005; 93306; 94640; 97110; 97116; 97162; 97165; 97530; 97535; 99283; 99285; A9270; G0378; J0692; J1650; J3370; J7030; J7050; J7120; Q9957; Q9967

== ENCOUNTER 2023-12-09 14:53 | Outpatient (CLI) | payer MEDICARE, SELFPAY ==
--- OUTSIDE RECORDS SUMMARY | 2023-12-11 06:29 | XMS_ITS | Clinical Summary ---
Author Organization [facility] Address [place], [place] [address] Care Team Providers Care Production Worker Name Role Phone Henok Weller MD Primary Care Provider Allergies No known active allergies Medications Medication Sig Dispensed Refills Start Date End Date Status AZMACORT 100 MCG/ACTUATION AEROSOL INHALER inhale four puffs twice daily 20 0 05/30/2007 12/09/19 24 Discontinued(P harmacist change per medication history (E-cancel not sent)) doxazosin (CARDURA) 8 mg tablet Take 1 tablet by mouth at bedtime. 0 10/12/2011 Suspended CPAP autoCPAP, heated humidifier, mask, headgear, filters and tubing. Pressure: 4-15cm/H2O Length of Need: 99 1 unit 0 10/12/2011 Suspended Additional Information Patient not taking.Reported on 09/16/2023 zolpidem (AMBIEN) 10 mg tablet Take 1 tablet by mouth at bedtime if needed for Sleep. 30 tablet 1 10/19/2011 12/09/19 24 Discontinued(P harmacist change per medication history (E-cancel not sent)) Calcium carbonate (OYSTERSHELL CALCIUM) 500 mg tablet Take 1 tablet by mouth 2 times daily with meals. 0 01/11/2012 12/09/19 24 Discontinued(P harmacist change per medication history (E-cancel not sent)) fluorouracil 5% topical (EFUDEX) 5 % cream Apply 1 Applicator topically to affected area(s) 2 times daily. 08/06/2016 12/09/19 24 Discontinued(P harmacist change per medication history (E-cancel not sent)) simvastatin (ZOCOR) 20 mg tablet Take 20 mg by mouth once daily. 07/31/2016 Suspended ADVAIR DISKUS 250-50 mcg/dose diskus inhaler Take 1 Inhaler by mouth once daily. 08/12/2016 12/09/19 24 Discontinued(P harmacist change per medication history (E-cancel not sent)) diphenhydrAMINE -acetaminophen 25-500 mg (TYLENOL PM EXTRA STRENGTH) 25-500 mg tablet Take 2 tablets by mouth at bedtime if needed. Max acetaminophen dose: 4000mg in 24 hrs. 0 04/02/2017 12/09/19 24 Discontinued(P harmacist change per medication history (E-cancel not sent)) VENTOLIN HFA 90 mcg/actuation inhaler 1 09/20/2018 12/09/19 24 Discontinued(P harmacist change per medication history (E-cancel not sent)) diclofenac topical (VOLTAREN) 1 % gelIndications: Arthritis of finger of right hand Apply 2 g topically to affected area(s) 4 times daily. As needed 50 g 3 03/08/2020 12/09/19 24 Discontinued(P harmacist change per medication history (E-cancel not sent)) finasteride (PROSCAR) 5 mg tabletIndicatio ns:Weak urine stream Take 1 Tablet (5 mg) by mouth every morning. 30 Tablet 11 12/17/2021 12/09/19 24 Discontinued(P harmacist change per medication history (E-cancel not sent)) albuterol HFA (PRO-AIR; VENTOLIN; PROVENTIL) 90 mcg/actuation inhaler Inhale 2 Puffs by mouth every 6 hours if needed for Shortness Of Breath. Suspended acetaminophen (Tylenol Extra Strength) 500 mg tablet Take 1,000 mg by mouth once daily in the morning. Max acetaminophen dose: 4000mg in 24 hrs. 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 Lumbar facet arthropathy 11/16/2012 ARCELIA 06/30/2010 AHI-27.5 07/27/2011 Spinal stenosis, lumbar 04/20/2011 Moderate persistent asthma without complication Obesity Pure hypercholesterolemia Sleep apnea Encounters Date Type Department Care Team Description 12/10/2023 9:26 AM CDT Anesthesia Event [address] [address] Porsha Tijerina MD Mohammed, Semira Abdulkadir, SANGEETHA 12/10/2023 9:04 AM CDT - 12/10/2023 10:36 AM CDT Surgery [address] [address] Tai De Los Santos MD LEFT WRIST IRRIGATION AND DEBRIDEMENT 12/09/2023 4:43 PM CDT - Present Hospital Encounter [address] [address] [facility] Hospitalist jimmie David, MD Barrington Borja, Naveed Higgins MD Pyogenic arthritis of left wrist, due to unspecified organism (HC) (Primary Dx) 12/09/2023 Travel 12/08/2023 11:00 AM CDT [facility] [address] [place] [address] Arrived 12/08/2023 Lab Requisition [facility] [phone] Dwight Philippe, 10/05/2023 2:00 PM CDT Procedure Only [address] [address] Anmol Sorto MD Procedure (Left knee Coolief RFA) 10/01/2023 Orders Only [facility] [address] [place] [address] Anmol Sorto MD 1 scan: (1-Ord) [facility], LEFT GENICULAR NERVE RADIOFREQUENCY W/ IMAGING GUIDANCE , 10/05/2023 09/30/2023 Telephone [facility] [address] [place] [address] Anmol Sorto MD Error-please disregard 09/28/2023 3:20 PM CDT Procedure Only [address] [address] Anmol Sorto MD Procedure (Left knee genicular nerve block ) 09/28/2023 Orders Only [facility] Scanner 1 scan: (1-Ord) [facility], LT SUPERIOR MEDIAL, SUPERIOR LATERAL AND INFERIOR MEDIAL GENICULAR NERVE BLOCKS UNDER FLUOROS, 09/28/2023 09/16/2023 9:00 AM CDT Office Visit [facility] [address] [place] [address] Anmol Sorto MD Musculoskeletal Problem (Consultation for Bilateral Knee pain and Low Back Pain//Did have a fall in 2020 and fractured LEFT Femur. ) 09/16/2023 Travel from Last 3 Months Immunizations Name Administration Dates Next Due COVID-19 Vaccine Spikevax (M oderna 50mcg/0.5mL) 12YO+ 4536-4056 Formula PF 04/09/2023 COVID-19 vaccine (Pfizer-Bio NTech 30mcg/0.3mL) 12YO+ BIVALENT PF, MDV 10/15/2022,03/19/2022 [...] Used Date Smoking Tobacco: Never Smokeless Tobacco: Never Tobacco Cessation:Counseling Given: Not Answered Comments:occasional use of chew Alcohol Use Standard Drinks/Week Comments Never 0 (1 standard drink = 0.6 oz pur e alcohol) 2-3 beers per week Social Connections Answer Date Recorded Frequency of Communication with Friends and Fami ly 0 12/09/2023 Financial Resource Strain Answer Date R ecorded Difficulty of Paying Living Expenses 3 12/09/2023 Difficulty of Paying Living Expenses Not on file 12/09/2023 Food Insecurity Answer Date Recorded Worried About Running Out of Food in the Last Ye ar 1 12/09/2023 Transportation Needs Answer Date Record ed Lack of Transportation (Medical) 1 12/09/2023 Housing Stability Answer Date Recorded Unable to Pay for Housing in the Last Year 1 12/09/2023 Sex and Gender Information Value Date Recorded Sex Assigned at Not on file Gender Identity Not on file Sexual Orientation Not on file Obstetrics History Last Filed Vital Signs Vital Sign Reading Time Taken Comments Blood Pressure 133/72 12/11/2023 4:05 AM CDT Pulse 64 12/11/2023 4:05 AM CDT Temperature 36.6 ??C (97.9 ??F) 12/10/2023 11:52 PM C DT Respiratory Rate 16 12/10/2023 11:52 PM CDT Oxygen Saturation 96% 12/10/2023 11:52 PM CDT Inhaled Oxygen Concentration - - Weight 96.2 kg (212 lb) 12/10/2023 9:17 AM CDT Height 175.3 cm (5' 9) 12/10/2023 9:17 AM CDT Body Mass Index 31.31 12/10/2023 9:17 AM CDT Plan of Treatment Health Maintenance Due Date [...] age 50+ Completed 11/30/2018, 09/15/2018, 06/01/2006 Procedures The patient is currently admitted. The information in this section might not be complete until the patient is discharged. Procedure Name Priority Date/Time Associated Diagnosis Comments SCAN-CARDIAC STRIP 12/11/2023 12 :32 AM CDT BLOOD CULTURE Today 12/10/2023 5:24 PM CDT SCAN-CARDIAC STRIP 12/10/2023 3: 44 PM CDT XR CHEST 1 VIEW PORTABLE Routine 12/10/2023 1:50 PM CDT EKG 12 LEAD Routine 12/10/2023 11:37 AM CDT AEROBIC BACTERIAL CULTURE, STAIN Today 12/10/2023 10:02 AM CDT AEROBIC BACTERIAL CULTURE, STAIN Today 12/10/2023 10:02 AM CDT PERIPHERAL BLOCK Routine 12/10/2023 9:50 AM CDT BEDSIDE US STUDY ARCHIVE Routine 12/10/2023 9:17 AM CDT BASIC METABOLIC PANEL Today 12/10/2023 8:13 AM CDT CBC W PLT NO DIFF Today 12/10/2023 8:1 3 AM CDT SCAN-CARDIAC STRIP 12/10/2023 4: 26 AM CDT PLATELET COUNT MEGAN 12/09/2023 6:05 PM CDT SCAN-CARDIAC STRIP 12/09/2023 5: 20 PM CDT CRYSTAL ID BODY FLUID NO URINE Routine 12/08/2023 3:00 PM CDT ECHO TTE COMPLETE W CONTRAST Routine 12/08/2023 9:03 AM CDT Bacteremia Fever AMB CONSULT FOR INJECTION Routine 10/05/2023 12:00 AM CDT Primary osteoarthritis of left knee Chronic pain of left knee SCAN-OPERATIVE/PROC EDURE REPORT 09/28/2023 12:00 AM CDT from Last 3 Months Results * SCAN-CARDIAC STRIP (12/11/2023 12:32 AM CDT) Scanner OTHER * SCAN-CARDIAC STRIP (12/10/2023 3:44 PM CDT) Scanner OTHER * XR CHEST 1 VIEW PORTABLE (12/10/2023 1:50 PM CDT) Anatomical Region Laterality Modality HEART, THORAX, CHEST Computed Ra diography 12/10/2023 1:50 PM CDT Impressions 12/10/2023 1:52 PM CDT Normal heart size. Pulmonary venous congestion. Increase in interstitial markings in the lower lungs either some atelectasis or interstitial edema. Upper lungs clear. Narrative 12/10/2023 1:52 PM CDT For Patients: As a result of the Cures Act, medical imaging exams and procedure reports are released immediately into your electronic medical record. You may view this report before your referring provider. If you have questions, please contact your health care provider. EXAM: XR CHEST 1 VIEW PORTABLE LOCATION: [facility] MEDICAL IMAGING DATE: 12/10/2023 INDICATION: SOB COMPARISON: None. Procedure Note Sridhar Low MD - 12/10/2023 For Patients: As a result of the Cures Act, medical imagingexams and procedure reports are released immediately into your electronicmedical record. You may view this report before your referring provider.If you have questions, please contact your health care provider. EXAM: XR CHEST 1 VIEW PORTABLE LOCATION: [facility] MEDICAL IMAGING DATE: 12/10/2023 INDICATION: SOB COMPARISON: None. IMPRESSION: Normal heart size. Pulmonary venous congestion. Increase in interstitialmarkings in the lower lungs either some atelectasis or interstitial edema.Upper lungs clear. Naveed Ferris MD GENERAL IMAGING * EKG 12 LEAD (12/10/2023 11:37 AM CDT) Interpretation Sinus rhythm with 1st degree A-V block Otherwise normal ECG No previous ECGs available [facility] NOW Ventricular Rate 77 BPM [facility] NOW Atrial Rate 77 BPM [facility]OND NOW P-R Interval 222 ms [facility]OND NOW QRS Duration 102 ms [facility] NOW QT 380 ms [facility] NOW QTc 430 ms BEYOND NOW P [place] 49 degrees BEYOND NOW R [place] 50 degrees BEYOND NOW T [place] 42 degrees BEYOND NOW 12/10/2023 11:3 7 AM CDT 12/10/2023 3:48 PM CDT Naveed Ferris MD EKG ORD Performing Organization Address City/State/[facility] Co de Phone Number [facility] NOW [place], [place] * Peripheral Block (12/10/2023 9:50 AM CDT) Narrative Porsha Tijerina MD - 12/10/2023 9:50 AM CDT Porsha Tijerina MD ? 12/10/2023 ??9:51 AM Peripheral Block Patient location during procedure: OR Start time: 12/10/2023 9:35 AM End time: 12/10/2023 9:39 AM Reason for block: at surgeon's request and post-op pain Requesting provider: Tai De Los Santos MD PreProcedure Checklist Completed: patient identified, site marked, risks and benefits discussed, surgical consent, timeout performed and hand hygiene performed. Peripheral Block Patient position: supine Prep: chloraprep Patient monitoring: continuous pulse oximetry, ECG and blood pressure Supplemental O2: yes Neuro Status: mild sedation Block type: infraclavicular and upper extremity , regional analgesia techniques Upper extremity block type: infraclavicular, regional analgesia techniques Laterality: left Injection technique: single injection Injection assessment: incremental Needle Needle type: Stimuplex ?? Needle Details: echogenic Needle gauge: 21 G Needle length: 4 in Unilateral needle localization (ultrasound): live ultrasound guidance, needle and nerve visualized, no pathologic findings, local anesthetic visualized surrounding nerve, nerve appears normal and permanent images obtained. Catheter Catheter used:no Events: no complications. Additional Notes Facile placement, single attempt, single pass. Patient tolerated well [place] [id number] Porsha Tijerina MD ANESTHESIA PX NOTE ORDERABLES * (ABNORMAL) CBC W PLT NO DIFF (12/10/2023 8:13 AM [facility]) WHITE BLOOD COUNT 9.1 4.5 - 11.0 thou/cu mm 12/10/2023 8:22 AM [facility] RED BLOOD COUNT 3.41(L) 4.30 - 5.90 mil/cu mm 12/10/2023 8:22 AM [facility] HEMOGLOBIN 10.5(L) 13.5 - 17.5 g/dL 12/10/2023 8:22 AM [facility] HEMATOCRIT 31.2(L) 37.0 - 53.0 % 12/10/2023 8:22 AM [facility] MCV 92 80 - 100 fL 12/10/2023 8:22 AM [facility] MCH 30.8 26.0 - 34.0 pg 12/10/2023 8:22 AM [facility] MCHC 33.7 32.0 - 36.0 g/dL 12/10/2023 8:22 AM [facility] RDW 14.8 11.5 - 15.5 % 12/10/2023 8:22 AM [facility] PLATELET COUNT 107(L) 140 - 440 thou/cu mm 12/10/2023 8:22 AM [facility] MPV 10.2 6.5 - 11.0 fL 12/10/2023 8:22 AM [facility] NRBC 0.0 % 12/10/2023 8:22 AM [facility] ABS NRBC 0.0 thou /cu mm 12/10/2023 8:22 AM [facility] Blood BLOOD SPECIMEN / Unknown Venipuncture / Unknown 12/10/2023 8:13 AM CDT 12/10/2023 8:17 AM CDT Naveed Ferris MD HEMATOLOGY [facility] SENDOUT INTERNAL ZIP [phone] [place] [address] * (ABNORMAL) BASIC METABOLIC PANEL (12/10/2023 8:13 AM CDT) SODIUM 141 136 - 145 mmol/L 12/10/2023 8:41 AM [facility] POTASSIUM 3.7 3.5 - 5.1 mmol/L 12/10/2023 8:41 AM [facility] CHLORIDE 110(H) 98 - 107 mmol/L 12/10/2023 8:41 AM [facility] CO2,TOTAL 20(L) 22 - 29 mmol/L 12/10/2023 8:41 AM [facility] ANION GAP 11 5 - 18 12/10/2023 8:41 AM [facility] GLUCOSE 115(H) 70 - 99 mg/dL 12/10/2023 8:41 AM [facility] CALCIUM 8.1(L) 8.8 - 10.2 mg/dL 12/10/2023 8:41 AM [facility] BUN 24(H) 8 - 23 mg/dL 12/10/2023 8:41 AM [facility] CREATININE 1.11 0.70 - 1.20 mg/dL 12/10/2023 8:41 AM [facility] BUN/CREAT RATIO 22(H) 10 - 20 8:41 AM [facility] eGFR 65(L) >90 mL/min/1.7 3m2 12/10/2023 8:41 AM [facility] Comment:As of 2021, eG FR is calculated by the CKD-EPI creatinine equation without race adjustment. ??eGFR can be influenced by muscle mass, exercise, and diet. ??The reported eGFR is an estimation only and is only applicable if the renal function is stable. Blood BLOOD SPECIMEN / Unknown Venipuncture / Unknown 12/10/2023 8:13 AM CDT 12/10/2023 8:17 AM CDT Naveed Ferris MD CHEMISTRY Performing Organization Address City/[facility]/ZIP Co de Phone Number [facility] SENDOUT INTERNAL ZIP [phone] [place] [address] * SCAN-CARDIAC STRIP (12/10/2023 4:26 AM CDT) Scanner OTHER * (ABNORMAL) PLATELET COUNT (12/09/2023 6:05 PM CDT) PLATELET COUNT 104(L) 140 - 440 thou/cu mm 12/09/2023 6:13 PM CDT [facility] MPV 10.4 6.5 - 11.0 fL 12/09/2023 6:13 PM CDT [facility] Blood BLOOD SPECIMEN / Unknown Venipuncture / Unknown 12/09/2023 6:05 PM CDT 12/09/2023 6:08 PM CDT Pb David MD HEMATOLOGY [facility] SENDOUT [place] [phone] [place] [address] * SCAN-CARDIAC STRIP (12/09/2023 5:20 PM CDT) Scanner OTHER * CRYSTAL ID BODY FLUID NO URINE (12/08/2023 3:00 PM CDT) MONOSODIUM URATES None Seen None Seen, Present, Not Present 12/09/2023 2:23 PM CDT [facility] CALCIUM PYROPHOSPHATES None Seen None Seen, Present, Not Present 12/09/2023 2:23 PM CDT [facility] OTHER CRYSTALS 12/09/2023 2:23 PM CDT [facility] SPECIMEN SOURCE 2:23 PM CDT [facility] Body Fluid BODY FLUID SPECIMEN / Unknown Client Collect / Unknown 12/08/2023 3:00 PM CDT 12/08/2023 10:21 PM CDT Dwight Philippe DO BODY FLUID [facility] [address] [place] [address], * ECHO TTE COMPLETE W CONTRAST (12/08/2023 9:03 AM CDT) AORTIC VALVE MEAN PG 16 mmHg EJECTION FRACTION 67 % PEAK TR VELOCITY 2.1 m/s LVEDD 4.6 cm Anatomical Region Laterality Modality Ultrasound 12/08/2023 8:28 AM CDT Narrative 12/08/2023 9:48 AM CDT ECHOCARDIOGRAM VONDA WEAVER ? Accession#: ?? [id number] : ?1935 88 years Study Date: ?? 12/08/2023 8:28:38 AM Gender: M ?BP: ? 107/65 mmHg Height: 183.00 cm ?BSA: ?2.21 m? ? ? Weight: 99.00 kg ? Tech: ? MJW ? Referring MD: DILMA EVANS Site: ? [facility] Reading Location: [facility] Patient Location: Inpatient. Procedure: 2D w/ Contrast, Color Doppler and Spectral Doppler. Indication for study: Bacteremia Fever NSTEMI Cardiac Rhythm: Regular.Study quality: Technically limited. Final Impressions: 1. Technically limited exam. 2. Normal left ventricular size, normal wall thickness, normal global systolic function, calculated EF of 67 %. 3. Echo contrast was administered to enhance visualization of all left ventricular segments. 4. Right ventricular cavity size is normal, global systolic RV function is normal. 5. Moderately enlarged left atrium. 6. The aortic valve is calcified, mild stenosis and trivial regurgitation. 7. The mitral valve is sclerotic, mild mitral regurgitation. 8. Tricuspid valve is not well visualized. 9. Normal estimated pulmonary pressures by tricuspid regurgitation velocity and right atrial pressure (17 mmHg plus RAP). 10. No pericardial effusion. Chamber Sizes and Function Normal left ventricular size, normal wall thickness, normal global systolic function, calculated EF of 67 %. Left atrial size is moderately enlarged. Right ventricular cavity size is normal, global systolic RV function is normal. The right atrium is normal. Right atrial volume index is 34 ml/m? ? ?. Right atrial area is 24 cm? ? ?. The pulmonary artery is of normal size and origin. The sinus of Valsalva is normal sized. The ascending aorta is normal sized. Valves, RV Pressures and Diastolic Function The aortic valve is calcified, mild stenosis and trivial regurgitation. The mitral valve is sclerotic, mild mitral regurgitation. Indeterminate pattern of LV diastolic filling. The tricuspid valve is not well visualized. Tricuspid regurgitation is trace regurgitation. The tricuspid regurgitant velocity is 2.1 m/s, the estimated right ventricular systolic pressure is 17 mmHg plus right atrial pressure. There is normal estimated pulmonary pressure by tricuspid regurgitation velocity and right atrial pressure. The pulmonic valve is not well visualized. Unable to determine pulmonary regurgitation. Masses, Effusion, Shunts There is no pericardial effusion. The inferior vena cava is normal sized, respiratory size variation greater than 50%. Interatrial septum is not well visualized. MEASUREMENTS AND CALCULATIONS 2-D Measurements and LV Function: LVID (d) 4.6 cm Planimetered EF 67 % LVID (s) 3.1 cm LV FS% (2D) ? 33 % IVS (d) ??1.0 cm LVOT diameter ?? 2.1 cm LVPW (d) 1.0 cm HR ?76 bpm Ao Sinus 3.5 cm LA Vol index ?48 ml/m2 Asc Ao ?? 3.4 cm RA Vol index ?34 ml/m2 LA ? 4.0 cm RA area ? 24 cm?RV Max 4C (d) ?? 3.1 cm Diastology: Mitral ?Tissue Doppler E Peak 0.8 m/s ??e', Septum ? 0.07 m/s A Peak 0.9 m/s ??e', Lateral ?0.05 m/s E/A ?0.9 ?E/e' Average ?? 12.53 DT ? 250 msec Aortic Valve: Vmax ? 2.6 m/s ??NARCISO (V) ?? 1.26 cm? ? ? VTI ?0.58 m ?? NARCISO (I) ?? 1.21 cm? ? ? LVOT V max 0.9 m/s ??Max PG ?26 mmHg LVOT VTI ?? 0.20 m ?? Mean PG ?? 16 mmHg SV ? 71 ml ?Dim Index 0.35 SV index ?? 32 ml/m? ? ? CO ?5.4 l/min ?CI ?2.4 l/min/m? ? ? Mitral Valve: MVA ?3.0 cm? ? ? MV P 1/2 73 msec Tricuspid Valve and estimated PA pressures: TR Vmax 2.1 m/s TAPSE 2.7 cm TR maxG 17 mmHg Contrast documentation: 2 ml diluted Definity, lot #[id number], [facility]# [id number] was administered peripherally to enhance visualization of all left ventricular segments. . This study was interpreted by an [facility] accredited facility. CC: Med/Surg - IP [facility], HIM (med records) [facility]. ??Final ?? Procedure Note Daphne Kearns, [facility] - 12/08/2023 ECHOCARDIOGRAM VONDA WEAVER : 1935 88 years Study Date: 12/08/2023 8:28:38 AM Gender: M BP: 107/65 mmHg Height: 183.00 cm BSA: 2.21 m? ? ? Weight: 99.00 kg Tech: MONI Referring MD: DILMA EVANS Site: [facility] Reading Location: [facility] Patient Location: Inpatient. Procedure: 2D w/ Contrast, Color Doppler and Spectral Doppler. Indication for study: Bacteremia Fever NSTEMI Cardiac Rhythm: Regular.Study quality: Technically limited. Final Impressions: 1. Technically limited exam. 2. Normal left ventricular size, normal wall thickness, normal globalsystolic function, calculated EF of 67 %. 3. Echo contrast was administered to enhance visualization of all leftventricular segments. 4. Right ventricular cavity size is normal, global systolic RV functionis normal. 5. Moderately enlarged left atrium. 6. The aortic valve is calcified, mild stenosis and trivialregurgitation. 7. The mitral valve is sclerotic, mild mitral regurgitation. 8. Tricuspid valve is not well visualized. 9. Normal estimated pulmonary pressures by tricuspid regurgitationvelocity and right atrial pressure (17 mmHg plus RAP). 10. No pericardial effusion. Chamber Sizes and Function Normal left ventricular size, normal wall thickness, normal globalsystolic function, calculated EF of 67 %. Left atrial size is moderatelyenlarged. Right ventricular cavity size is normal, global systolic RVfunction is normal. The right atrium is normal. Right atrial volume indexis 34 ml/m? ? ?. Right atrial area is 24 cm? ? ?. The pulmonary artery is ofnormal size and origin. The sinus of Valsalva is normal sized. Theascending aorta is normal sized. Valves, RV Pressures and Diastolic Function The aortic valve is calcified, mild stenosis and trivial regurgitation.The mitral valve is sclerotic, mild mitral regurgitation. Indeterminatepattern of LV diastolic filling. The tricuspid valve is not wellvisualized. Tricuspid regurgitation is trace regurgitation. The tricuspidregurgitant velocity is 2.1 m/s, the estimated right ventricular systolicpressure is 17 mmHg plus right atrial pressure. There is normal estimatedpulmonary pressure by tricuspid regurgitation velocity and right atrialpressure. The pulmonic valve is not well visualized. Unable to determinepulmonary regurgitation. Masses, Effusion, Shunts There is no pericardial effusion. The inferior vena cava is normal sized,respiratory size variation greater than 50%. Interatrial septum is notwell visualized. MEASUREMENTS AND CALCULATIONS 2-D Measurements and LV Function: LVID (d) 4.6 cm Planimetered EF 67 % LVID (s) 3.1 cm LV FS% (2D) 33 % IVS (d) 1.0 cm LVOT diameter 2.1 cm LVPW (d) 1.0 cm HR 76 bpm Ao Sinus 3.5 cm LA Vol index 48 ml/m2 Asc Ao 3.4 cm RA Vol index 34 ml/m2 LA 4.0 cm RA area 24 cm? ? ? RV Max 4C (d) 3.1 cm Diastology: Mitral Tissue Doppler E Peak 0.8 m/s e', Septum 0.07 m/s A Peak 0.9 m/s e', Lateral 0.05 m/s E/A 0.9 E/e' Average 12.53 DT 250 msec Aortic Valve: Vmax 2.6 m/s NARCISO (V) 1.26 cm? ? ? VTI 0.58 m NARCISO (I) 1.21 cm? ? ? LVOT V max 0.9 m/s Max PG 26 mmHg LVOT VTI 0.20 m Mean PG 16 mmHg SV 71 ml Dim Index 0.35 SV index 32 ml/m? ? ? CO 5.4 l/min CI 2.4 l/min/m? ? ? Mitral Valve: MVA 3.0 cm? ? ? MV P 1/2 73 msec Tricuspid Valve and estimated PA pressures: TR Vmax 2.1 m/s TAPSE 2.7 cm TR maxG 17 mmHg Contrast documentation: 2 ml diluted Definity, lot #[id number], [facility]#[id number] was administered peripherally to enhance visualization of allleft ventricular segments. . This study was interpreted by an [facility] accredited facility. CC: Med/Surg - IP [facility], [facility] (med [facility]) [facility]. Final Dilma Evans MD ECHO ORD * AMB CONSULT FOR INJECTION (10/05/2023 12:00 AM CDT) Anmol Sorto MD AMB REFERRAL/CONSU LT ORD * SCAN-OPERATIVE/PROCEDURE REPORT (09/28/2023 12:00 AM CDT) Scanner OTHER from Last 3 Months Advance Directives * Full Code (Latest Code Status on File) Date Activated Date Inactivated Comments 12/09/2023 5:10 PM Question Answer Comments Code Status Discussion: Unable to Assess Preferences, Provider to review later Care Teams Production Worker Relationship Specialty Start Date End Date Henok Weller MD [address] [place] [address] PCP - General 11/16/12
== END 2023-12-09 14:54 | disposition home or self-care (01) ==
LOC: AMB 12-11 06:27
PROVIDERS: PCP Internal Medicine; Visit Provider Family Medicine
DX: I21.4 Non-ST elevation (NSTEMI) myocardial infarction (principal)
CPT/HCPCS: A0425; A0434

== ENCOUNTER 2024-02-01 06:50 | Outpatient (CLI) | payer MEDICARE, SELFPAY ==
--- OUTSIDE RECORDS SUMMARY | 2024-02-02 23:47 | XMS_ITS | Clinical Summary ---
Author Organization [facility] Address [place], [place] [address] Care Team Providers Care Planning Official Name Role Phone Henok Weller MD Primary Care Provider [phone] Allergies No known active allergies Medications Medication Sig Dispensed Refills Start Date End Date Status doxazosin (CARDURA) 8 mg tablet Take 1 tablet by mouth at bedtime. 0 10/12/19 12 Active simvastatin (ZOCOR) 20 mg tablet Take 20 mg by mouth once daily. 07/31/19 17 Active albuterol HFA (PRO-AIR; VENTOLIN; PROVENTIL) 90 mcg/actuation inhaler Inhale 2 Puffs by mouth every 6 hours if needed for Shortness Of Breath. Active melatonin 3 mg tablet Take 1 Tablet (3 mg) by mouth once daily if needed for Sleep. 12/27/19 24 Active acetaminophen (TYLENOL EXTRA STRGTH) 500 mg tabletIndications:P yogenic arthritis of left wrist, due to unspecified organism (HC) Take 2 Tablets (1,000 mg) by mouth three times daily. AND QD PRN. Max acetaminophen dose: 4000mg in 24 hrs. 12/30/19 24 Active Walker - 4 wheels As directed. 09/15/19 23 Active lidocaine 4 % topical patch Apply 2 Patches on dry, clean, hairless skin two times daily. Apply to intact skin to cover most painful area for max 12hr per 24hr period. Active potassium chloride (KLOR-CON M10) 10 mEq extended-release tablet (part/cryst) Take 2 Tablets (20 mEq) by mouth once daily with a meal. 01/11/20 Active apixaban (ELIQUIS) 5 mg tabletIndications:p ulmonary thromboembolism Take 1 Tablet (5 mg) by mouth two times daily. 01/12/20 Active sodium chloride (Normal Saline Flush) syrg syringe PICC-Midline: 10 ml injection once daily. Aspirate for blood return and flush with 10 ml normal saline to maintain patency daily. Flush all lumens. AND 10 ml injection as needed. 01/01/20 Active furosemide (LASIX) 20 mg tabletIndications:P ulmonary embolism, bilateral (HC) Take 2 Tablets (40 mg) by mouth two times daily. 01/17/20 Active sennosides-docusate (SENOKOT S) (8.6-50 mg) tablet 1st order- 2 tablets orally once a day 2nd order- 2 tablets once a day PRN 01/17/20 Active cephalexin (KEFLEX) 500 mg capsuleIndications: Psoas muscle abscess (HC) Take 2 Capsules (1,000 mg) by mouth three times daily. 01/30/20 24 Active CPAP autoCPAP, heated humidifier, mask, headgear, filters and tubing. Pressure: 4-15cm/H2O Length of Need: 99 1 unit 0 10/12/19 Discontinued( Pharmacist change per medication history (E-cancel not sent)) ceFAZolin (ANCEF; KEFZOL) 1 gram injection ADD-VANTAGEIndicati ons:bone infection,endocardi tis,skin and skin structure infection Inject 2 g intravenous every 8 hours. 12/18/19 furosemide (LASIX) 20 mg tablet Take 1 Tablet (20 mg) by mouth once daily in the morning. 01/04/20 24 024 Discontinued( Reorder (E-cancel not sent)) lidocaine 4 % topical gel Apply 2 Patches topically to affected area(s). Discontinued( Other - add note to specify (E-cancel not sent)) hydrocodone-acetami nophen, 2.5-162.5 mg, (NORCO) tab Take 2 Tablets by mouth every 6 hours if needed. 01/22/20 024 Discontinued( Pharmacist change per medication history (E-cancel not sent)) simvastatin (ZOCOR) 20 mg tablet Take 20 mg by mouth at bedtime. 08/11/19 23 024 Discontinued( Duplicate therapy (E-cancel not sent)) fluticasone propion-salmeteroL (ADVAIR) 250-50 mcg/Dose diskus inhaler Inhale 1 Puff by mouth. 024 Discontinued( Pharmacist change per medication history (E-cancel not sent)) apixaban (ELIQUIS) 5 mg tabletIndications:p ulmonary thromboembolism Take 2 Tablets (10 mg) by mouth two times daily for 7 days, THEN 1 Tablet (5 mg) two times daily. 208 Tablet 01/05/20 24 024 Discontinued( *Medication adjustment) furosemide (LASIX) 20 mg tablet Take 2 Tablets (40 mg) by mouth once daily in the morning. And 20 mg evvery afternoon 01/11/20 24 024 Discontinued( *Medication adjustment) cephalexin (KEFLEX) 500 mg capsuleIndications: Psoas muscle abscess (HC) Take 2 Capsules (1,000 mg) by mouth three times daily for 10 days. 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 Pure hypercholesterolemia Sleep apnea Encounters Date Type Department Care Team Description 01/29/2024 Refill [facility] [address] [place] [address] Christelle Yip SOIL FERTILITY SPECIALIST Refill Request (Furosemide) 01/27/2024 10:00 AM CDT [facility] [address] [address] Christelle Yip NP Transitional Care Visit (TCU DC SUMMARY ) 01/26/2024 Nurse Triage [address] [address] Christelle Yip NP Abnormal Lab Results 01/25/2024 9:30 AM CDT [facility] [address] [address] Elba Dias MD Transitional Care Visit (Follow up ) 01/25/2024 Orders Only [facility] Scanner 1 scan: (1-Ord) HEALTH, CBC W/ PLATELETS and DIFFERENTIAL, 01/25/2024 01/25/2024 Orders Only [facility] Scanner 1 scan: (1-Ord) [facility], RESULTS, 01/25/2024 01/25/2024 Orders Only [address] [address] Elba Dais MD <No scans attached> 01/25/2024 Nurse Triage [address] [address] Christelle Yip NP Abnormal Lab Results 01/23/2024 Nurse Triage [address] [address] Christelle Yip, SOIL FERTILITY SPECIALIST Weight 01/20/2024 11:45 AM CDT [facility] [address] [address] Christelle Yip NP Transitional Care Visit (SOIL FERTILITY SPECIALIST Follow Up) 01/19/2024 2:20 PM CDT Phone Office Visit [facility] [address] [facility] [address] [place] [address] Yoko Stewart MD 01/19/2024 Travel 01/18/2024 Orders Only [facility] Scanner 1 scan: (1-Ord) [facility], N TERMINAL PRO BNP INPATIENT LAB RESULT, 01/18/2024 01/18/2024 Orders Only [facility] Scanner 1 scan: (1-Ord) M [facility]ALTH, RESULTS, 01/18/2024 01/18/2024 Orders Only [facility] Scanner 1 scan: (1-Ord) [facility], LAB RESULTS, 01/18/2024 01/18/2024 Nurse Triage [address] [address] Christelle Yip, SOIL FERTILITY SPECIALIST Abnormal Lab Results (CBC w/ platelets & differential, pro bnp, bmp, glucose, Erthrocyte sedimentation rage, crp inflammation) 01/17/2024 9:45 AM CDT [facility] [address] [address] Christelle Yip, SOIL FERTILITY SPECIALIST Transitional Care Visit (SOIL FERTILITY SPECIALIST follow up ) 01/17/2024 Travel 01/13/2024 8:45 AM CDT [facility] [address] Christelle Yip, SOIL FERTILITY SPECIALIST Transitional Care Visit (Follow up) 01/13/2024 Nurse Triage [address] [address] Christelle Yip, SOIL FERTILITY SPECIALIST Imaging 01/11/2024 9:00 AM T [address] [address] Elba Dias MD Transitional Care Visit (Initial ) 01/11/2024 Orders Only [facility] Scanner 1 scan: (1-Ord) [facility], ECHOCARDIOGRAPHY TRANSTHORACIC, 01/11/2024 01/11/2024 Orders Only [facility] Scanner 1 scan: (1-Ord) [facility], MULTIPLE RESULTS, 01/11/2024 01/11/2024 Orders Only [address] [address] Elba Dias MD <No scans attached> 01/11/2024 Nurse Triage [address] [address] Christelle Yip, SOIL FERTILITY SPECIALIST Abnormal Lab Results 01/08/2024 Nurse Triage [address] [address] Elba Dias MD Error-please disregard 01/06/2024 8:30 AM CDT [facility] [address] [address] Christelle Yip, SOIL FERTILITY SPECIALIST Transitional Care Visit (Readmit ) 01/06/2024 Orders Only [facility] Scanner 1 scan: (1-Ord) [facility], MULTIPLE LABS, 01/06/2024 01/06/2024 Nurse Triage [address] [address] Christelle Yip, SOIL FERTILITY SPECIALIST Infusion Therapy 01/06/2024 Nurse Triage [address] [address] Christelle Yip, SOIL FERTILITY SPECIALIST Abnormal Lab Results 01/04/2024 4:24 PM CDT - 01/05/2024 4:33 PM CDT Emergency [address] [address] Ancelmo Ann MD Fuchs, Tato Mittal MD Pulmonary embolism, unspecified chronicity, unspecified pulmonary embolism type, unspecified whether acute cor pulmonale present (HC) (Primary Dx) Discharge Disposition: Shelter Facility 01/04/2024 9:45 AM CDT [facility] [address] [address] Elba Dias MD Transitional Care Visit (Initial ) 01/04/2024 Orders Only [facility] Scanner 1 scan: (1-Ord) [facility], UA W/MICROSCOPIC REFLEX TO CULTURE, 01/04/2024 01/04/2024 Orders Only [facility] Scanner 1 scan: (1-Ord) [facility], LAB RESULTS, 01/04/2024 01/04/2024 Travel 01/04/2024 Nurse Triage [address] [address] Christelle Yip, SOIL FERTILITY SPECIALIST Abnormal Lab Results 01/04/2024 Orders Only [address] [address] Elba Dias MD 1 scan: (1-Ord) CT PE study 01/03/2024 9:45 AM CDT Office Visit [facility] [place] [address] [facility] [address] [place] [address] Kamlesh Moran PA Follow Up 01/03/2024 Travel 12/31/2023 Orders Only [facility] Scanner 1 scan: (1-Ord) [facility], MULTIPLE LABS, 12/31/2023 12/31/2023 Nurse Triage [address] [address] Christelle Yip, SOIL FERTILITY SPECIALIST Abnormal Lab Results 12/30/2023 8:15 AM CDT [facility] [address] [address] Christelle Yip, SOIL FERTILITY SPECIALIST Transitional Care Visit (Follow up ) 12/30/2023 Orders Only [facility] Scanner 1 scan: (1-Ord) [facility], CBC WITH PLATELETS, 12/30/2023 12/30/2023 Orders Only [facility] Scanner 1 scan: (1-Ord) [facility], CHEST 2 VIEWS, 12/30/2023 12/30/2023 Nurse Triage [address] [address] Christelle Yip, SOIL FERTILITY SPECIALIST Abnormal Lab Results 12/30/2023 Nurse Triage [address] [address] Christelle Yip NP Imaging (chest x ray results) 12/29/2023 Nurse Triage [address] [address] Christelle Yip, SOIL FERTILITY SPECIALIST Imaging (CXR) 12/28/2023 Orders Only [facility] Scanner 1 scan: (1-Ord) [facility] - [facility] , CHEST, SINGLE VIEW , 12/28/2023 12/28/2023 Orders Only [facility] Scanner 1 scan: (1-Ord) [facility], COMPREHENSIVE METABOLIC PANEL, 12/28/2023 12/28/2023 Nurse Triage [address] [address] Christelle Yip, SOIL FERTILITY SPECIALIST Results 12/28/2023 Nurse Triage [address] [address] Christelle Yip, SOIL FERTILITY SPECIALIST Medication Management 12/27/2023 8:00 AM CDT [facility] [address] [address] Christelle Yip, KISHA Transitional Care Visit (Admit ) 12/27/2023 Nurse Triage [address] [address] Christelle Yip, SOIL FERTILITY SPECIALIST Concerns 12/24/2023 Nurse Triage [address] [address] Elba Dias MD Medication Management 12/10/2023 9:26 AM CDT Anesthesia Event [address] [address] Porsha Tijerina MD Mohammed, Terri Tamayo, TOP LIFTER 12/10/2023 9:04 AM CDT - 12/10/2023 10:36 AM CDT Surgery [address] [address] Tai De Los Santos MD LEFT WRIST IRRIGATION AND DEBRIDEMENT 12/09/2023 4:43 PM CDT - 12/22/2023 3:00 PM CDT Hospital Encounter [address] [address] [facility], Hospitalist jimmie David, MD Barrington Borja, MD Alida Keating, MD Phani Kelley Nishant, MBBS Pyogenic arthritis of left wrist, due to unspecified organism (HC) (Primary Dx); Staphylococcal arthritis of left wrist (HC); Bacterial endocarditis; MSSA bacteremia Discharge Disposition: Shelter Facility 12/09/2023 Travel 12/08/2023 11:00 AM CDT Ancillary Procedure [facility] & [address] [address] 12/08/2023 Lab Requisition [facility] [phone] Dwight Philippe DO from Last 3 Months Immunizations Name Administration Dates Next Due COVID-19 Vaccine Spikevax (M oderna 50mcg/0.5mL) 12YO+ 8566-7028 Formula PF 04/09/2023 COVID-19 vaccine (Pfizer-Bio NTech 30mcg/0.3mL) 12YO+ BIVALENT PF, MDV 10/15/2022,03/19/2022 COVID-19 vaccine (Pfizer-Bio NTech 30mcg/0.3mL) 12YO+ VICENTA-SUCROSE PF, MDV 10/08/2021 COVID-19 vaccine (Pfizer-Bio NTech 30mcg/0.3mL) PF, MDV 10/08/2021,07/27/2020 Influenza A (H1N1), Inactivated 05/10/2009 Influenza Virus, Unspecified 03/18/2021, 04/10/2020,04/09/2020,03/09,04/23/2018,04/01/2017,04/16/2016 ,03/27/2015,03/22/2014,03/21/2014,03/21,03/31/2013,03/24/2012, 1,04/04/2011,04/10/2010,02/28/2009,12/2004,04/19/2004 Influenza, High-dose Inactivated 018,04/01/2017,04/16/2016,03/27,03/21/2014 Influenza, High-dose Quadriv alent Inactivated 04/20/2022,03/18/2021 Influenza, IIV3 (Age 6-35 mos) 04/10/2010 Influenza, IIV3 (Age >=3 years) 03/31/20 13,03/24/2012,04/09/2011,04/27,04/19/2004 Influenza, IIV4 05/10/2009 Influenza, Inactivated AIIV4 (Age 65+ Years) Preserv Free 04/09/2023,04/10/2020 Influenza, Inactivated IIV3 (Age 65+ Years) Preserv Free 03/09/2019 Pneumococcal Poly,23-Valent (Pneumovax) 04/21/2006 Pneumococcal conj 13-Valent (Prevnar 13) 11/22/2014,07/12/2014 RSV, Bivalent Vaccine Recons tituted (Abrysvo 120MCG/0.5mL) 10/27/2023 Td, Preservative Free (age >= 7 Years) 3 Tdap 03/26/2022,06/16/2012 Zoster (Shingrix-RZV, recombinant) 11/30/2018, Zoster (Zostavax-ZVL, live) 06/01/2006, 6 Family History Medical History Relation Name Comments No Known Problems Father No Known Problems Mother Relation Name Status Comments Father Mother Social History Tobacco Use Types Packs/Day Years [...] Sign Reading Time Taken Comments Blood Pressure 154/62 01/05/2024 12:26 PM CDT Pulse 89 01/05/2024 12:26 PM CDT Temperature 36.6 ??C (97.8 ??F) 01/05/2024 12:26 PM C DT Respiratory Rate 16 01/05/2024 12:26 PM CDT Oxygen Saturation 91% 01/05/2024 12:26 PM CDT Inhaled Oxygen Concentration - - Weight 102.4 kg (225 lb 12 oz) 01/05/2024 4:00 A M CDT Height 177.8 cm (5' 10) 01/04/2024 4:36 PM CDT Body Mass Index 32.39 01/04/2024 4:36 PM CDT Plan of Treatment Upcoming Encounters Date Type Department Care Team (Late st Contact Info) Description 03/01/2024 2:00 PM CDT Phone Office Visit [facility] [address] [facility] [address] [place] [address] Yoko Stewart MD [address] [facility] [address] [place] [address] 03/02/2024 3:30 PM CDT Office Visit [facility] [place] [facility] [address] [facility] [address] [place] [id number] Vonda Orta MD [address] [place] [address] Health Maintenance Due Date Last Done Comments Depression screening for age 12+ 1949 BMI (ht and wt on same day) for age 18+ 1953 Medicare Wellness for age 65+ 2002 COVID-19 vaccine series (2022- season) 2023 04/09/2023, 10/15/2022, 03/19/2022, Additional history exists Influenza for age 65+ 02/20/2024 04/09/2023 , 04/20/2022, 03/18/2021, Additional history exists Tetanus booster 03/26/2032 03/26/2022, 05/22, 09/15/2002 Pneumococcal series for age 65+ Completed 11/22/2014, 07/12/2014, 04/21/2006 Zoster (shingles) series for age 50+ Completed 11/30/2018, 09/15/2018, 06/01/2006, Additional history exists Tdap Completed 03/26/2022, 06/16/2012 Procedures Procedure Name Priority Date/Time Associated Diagnosis Comments SCAN-LABORATORY REPORT 01/25/2024 12:00 AM CDT SCAN-LABORATORY REPORT 01/25/2024 12:00 AM CDT SCAN-LABORATORY REPORT 01/18/2024 12:00 AM CDT SCAN-LABORATORY REPORT 01/18/2024 12:00 AM CDT SCAN-LABORATORY REPORT 01/18/2024 12:00 AM CDT SCAN-ECHOCARDIOGRAM INTERPRETATION 01/11/2024 12:00 AM CDT SCAN-LABORATORY REPORT 01/11/2024 12:00 AM CDT SCAN-LABORATORY REPORT 01/06/2024 12:00 AM CDT ECHO TTE COMPLETE WO CONTRAST Routine 01/05/2024 12:30 PM CDT APTT Timed 01/05/2024 6:35 AM CDT HEMATOCRIT Early AM 01/05/2024 6:35 AM CDT PLATELET COUNT Early AM 01/05/2024 6:35 AM CDT HEMOGLOBIN Early AM 01/05/2024 6:35 AM CDT WHITE BLOOD COUNT Early AM 01/05/2024 6:3 5 AM CDT MAGNESIUM Early AM 01/05/2024 6:35 AM CDT CREATININE Early AM 01/05/2024 6:35 AM CDT POTASSIUM Early AM 01/05/2024 6:35 AM CDT SODIUM Early AM 01/05/2024 6:35 AM CDT CREATININE MEGAN 01/04/2024 10:08 PM CDT BUN MEGAN 01/04/2024 10:08 PM CDT HEMATOCRIT MEGAN 01/04/2024 10:08 PM CDT HEMOGLOBIN MEGAN 01/04/2024 10:08 PM CDT PLATELET COUNT MEGAN 01/04/2024 10:08 PM CDT APTT MEGAN 01/04/2024 10:08 PM CDT PROTIME-INR MEGAN 01/04/2024 10:08 PM CDT APTT MEGAN 01/04/2024 5:[address] CHEST PE STUDY STAT 01/04/2024 5:1 8 PM CDT SCAN-PATHOLOGY REPORT 01/04/2024 12:00 AM CDT SCAN-LABORATORY REPORT 01/04/2024 12:00 AM CDT SCAN-CARDIAC STRIP 01/04/2024 12 :00 AM CDT SCAN-LABORATORY REPORT 12/31/2023 12:00 AM CDT SCAN-LABORATORY REPORT 12/30/2023 12:00 AM CDT SCAN-RADIOLOGY REPORT 12/30/2023 12:00 AM CDT SCAN-LABORATORY REPORT 12/28/2023 12:00 AM CDT SCAN-RADIOLOGY REPORT 12/28/2023 12:00 AM CDT SCAN-CARDIAC STRIP 12/22/2023 8: 18 AM CDT SCAN-CARDIAC STRIP 12/22/2023 5: 13 AM CDT SCAN-CARDIAC STRIP 12/21/2023 3: 57 PM CDT SCAN-CARDIAC STRIP 12/21/2023 10 :59 AM CDT PLATELET COUNT Early AM 12/21/2023 5:46 AM CDT SCAN-CARDIAC STRIP 12/21/2023 12 :00 AM CDT SCAN-CARDIAC STRIP 12/20/2023 4: 33 PM CDT SCAN-CARDIAC STRIP 12/20/2023 7: 54 AM CDT SCAN-CARDIAC STRIP 12/20/2023 4: 00 AM CDT SCAN-ELECTROCARDIOGRA M EKG 12/20/2023 12:00 AM CDT SCAN-CARDIAC STRIP 12/19/2023 8: 00 PM CDT MR SPINE LUMBAR WWO Routine 12/19/2023 6 :40 PM CDT SCAN-CARDIAC STRIP 12/19/2023 4: 23 PM CDT SCAN-CARDIAC STRIP 12/19/2023 8: 13 AM CDT SCAN-CARDIAC STRIP 12/19/2023 4: 05 AM CDT SCAN-CARDIAC STRIP 12/19/2023 4: 05 AM CDT GLUCOSE METER Timed 12/19/2023 2:17 AM CDT SCAN-CARDIAC STRIP 12/18/2023 8: 00 PM CDT SCAN-CARDIAC STRIP 12/18/2023 8: 49 AM CDT CBC WITH AUTO DIFFERENTIAL Early AM 12/18/2023 6:31 AM CDT BASIC METABOLIC PANEL Early AM 12/18/2023 6:31 AM CDT CBC WITH AUTO DIFFERENTIAL Early AM 12/18/2023 6:31 AM CDT SCAN-CARDIAC STRIP 12/18/2023 1: 37 AM CDT SCAN-CARDIAC STRIP 12/17/2023 8: 29 PM CDT SCAN-CARDIAC STRIP 12/17/2023 4: 11 PM CDT ECHO TTE COMPLETE WO CONTRAST Routine 12/17/2023 11:05 AM CDT SCAN-CARDIAC STRIP 12/17/2023 8: 20 AM CDT SCAN-CARDIAC STRIP 12/17/2023 1: 55 AM CDT SCAN-CARDIAC STRIP 12/16/2023 9: 35 PM CDT SCAN-CARDIAC STRIP 12/16/2023 4: 05 PM CDT SCAN CORRESP-EKG RESULTS 12/16/2023 8:47 AM CDT SCAN CORRESP-LABORATORY RESULTS 12/16/2023 8:43 AM CDT SCAN CORRESP-IMAGING 12/16/2023 8:43 AM CDT SCAN-CARDIAC STRIP 12/16/2023 7: 43 AM CDT SCAN-CARDIAC STRIP 12/16/2023 12 :38 AM CDT SCAN-ELECTROCARDIOGRA M EKG 12/16/2023 12:00 AM CDT SCAN-CARDIAC STRIP 12/15/2023 4: 43 PM CDT SCAN CORRESP-DIAGNOSTICS 12/15/2023 9:37 AM CDT SCAN-CARDIAC STRIP 12/15/2023 9: 03 AM CDT CBC WITH AUTO DIFFERENTIAL Early AM 12/15/2023 6:31 AM CDT COMP METABOLIC PANEL Early AM 12/15/2023 6:31 AM CDT CBC WITH AUTO DIFFERENTIAL Early AM 12/15/2023 6:31 AM CDT GLUCOSE METER Timed 12/15/2023 5:04 AM CDT SCAN-CARDIAC STRIP 12/15/2023 3: 33 AM CDT SCAN-CARDIAC STRIP 12/15/2023 3: 33 AM CDT SCAN-CARDIAC STRIP 12/14/2023 8: 20 PM CDT CBC WITH AUTO DIFFERENTIAL Early AM 12/14/2023 6:05 PM CDT COMP METABOLIC PANEL Early AM 12/14/2023 6:05 PM CDT CBC WITH AUTO DIFFERENTIAL Early AM 12/14/2023 6:05 PM CDT XR FOOT 3 VIEWS LEFT PORTABLE Routine 12/14/2023 3:55 PM CDT XR ANKLE 3 VIEWS LEFT PORTABLE Routine 12/14/2023 3:55 PM CDT SCAN-CARDIAC STRIP 12/14/2023 10 :[address] CARDIAC MORPHOLOGY W DUAL READ Routine 12/14/2023 10:19 AM CDT SCAN-CARDIAC STRIP 12/14/2023 12 :32 AM CDT SCAN-CARDIAC STRIP 12/13/2023 8: 36 PM CDT SCAN-CARDIAC STRIP 12/13/2023 3: 39 PM CDT ECHO MATTHEW WO CONTRAST W COLOR W LTD DOPPLER Routine 12/13/2023 1:28 PM CDT SCAN-CARDIAC STRIP 12/13/2023 12 :27 PM CDT CK TOTAL MEGAN 12/13/2023 6:37 AM CDT URIC ACID MEGAN 12/13/2023 6:37 AM CDT WHITE BLOOD COUNT Early AM 12/13/2023 6:3 7 AM CDT HEMOGLOBIN Early AM 12/13/2023 6:37 AM CDT PLATELET COUNT Early AM 12/13/2023 6:37 AM CDT SODIUM Early AM 12/13/2023 6:37 AM CDT CREATININE Early AM 12/13/2023 6:37 AM CDT CO2,TOTAL Early AM 12/13/2023 6:37 AM CDT GLUCOSE, RANDOM Early AM 12/13/2023 6:37 AM CDT MAGNESIUM Early AM 12/13/2023 6:37 AM CDT CALCIUM Early AM 12/13/2023 6:37 AM CDT SCAN-CARDIAC STRIP 12/13/2023 12 :47 AM CDT SCAN-CARDIAC STRIP 12/12/2023 5: 16 PM CDT SCAN-CARDIAC STRIP 12/12/2023 2: 31 PM CDT BLOOD CULTURE Today 12/12/2023 11:23 AM CDT SCAN-CARDIAC STRIP 12/12/2023 10 :36 AM CDT SCAN-CARDIAC STRIP 12/12/2023 12 :55 AM CDT C-REACTIVE PROTEIN Timed 12/11/2023 6: 09 PM CDT SCAN-CARDIAC STRIP 12/11/2023 3: 39 PM CDT BLOOD CULTURE Today 12/11/2023 8:38 AM CDT HEMOGLOBIN Early AM 12/11/2023 8:38 AM CDT SCAN-CARDIAC STRIP 12/11/2023 6: 25 AM CDT SCAN-CARDIAC STRIP 12/11/2023 12 :32 AM CDT BLOOD CULTURE Today 12/10/2023 5:24 PM CDT SCAN-CARDIAC STRIP 12/10/2023 3: 44 PM CDT XR CHEST 1 VIEW PORTABLE Routine 12/10/2023 1:50 PM CDT EKG 12 LEAD Routine 12/10/2023 11:37 AM CDT AEROBIC BACTERIAL CULTURE, STAIN Today 12/10/2023 10:02 AM CDT AEROBIC BACTERIAL CULTURE, STAIN Today 12/10/2023 10:02 AM CDT ANAEROBIC CULTURE Today 12/10/2023 10: 02 AM CDT ANAEROBIC CULTURE Today 12/10/2023 10: 02 AM CDT PERIPHERAL BLOCK Routine 12/10/2023 9:50 AM CDT BEDSIDE US STUDY ARCHIVE Routine 12/10/2023 9:17 AM CDT INCISION DRAINAGE HAND 12/10/2023 9:11 AM CDT Left septic wrist Case Notes HAND TABLE BASIC METABOLIC PANEL Today 12/10/2023 8:13 AM CDT CBC W PLT NO DIFF Today 12/10/2023 8:1 3 AM CDT SCAN-CARDIAC STRIP 12/10/2023 4: 26 AM CDT PLATELET COUNT MEGAN 12/09/2023 6:05 PM CDT SCAN-CARDIAC STRIP 12/09/2023 5: 20 PM CDT CRYSTAL ID BODY FLUID NO URINE Routine 12/08/2023 3:00 PM CDT ECHO TTE COMPLETE W CONTRAST Routine 12/08/2023 9:03 AM CDT Bacteremia Fever from Last 3 Months Results * SCAN-LABORATORY REPORT (01/25/2024 12:00 AM CDT) Only the most recent of11 resultswithin the time period is included. Scanner OTHER * SCAN-ECHOCARDIOGRAM INTERPRETATION (01/11/2024 12:00 AM CDT) Anatomical Region Laterality Modality Other Scanner OTHER * ECHO TTE COMPLETE WO CONTRAST (01/05/2024 12:30 PM CDT) Only the most recent of3 resultswithin the time period is included. EJECTION FRACTION 50-55% PROSOLV Anatomical Region Laterality Modality Ultrasound 01/05/2024 11:2 2 AM CDT Narrative 01/05/2024 2:36 PM [address]T [address], [place] [address] Main: ? 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 BP: 150 / 60 Weight: 225 lbs BMI: 32.3 kg/m?? HR: 89 Location: [facility] Rhythm: Normal Sinus Rhythm Procedure Components: ??2D imaging, Color Doppler, Spectral Doppler Indications: Pulmonary embolism Technical Quality: Technically difficult study Contrast: None Final Conclusion Previous Study: 12-17-23 1. Low-normal left ventricular systolic function.Estimated left ventricular ejection fraction is ??50-55%. 2. Abnormal ventricular septal motion. 3. Mild right ventricular chamber enlargement.Abnormal TAPSE (< 17 mm) suggestive of right ventricular systolic dysfunction. Right ventricular systolic pressure cannot be estimated due to inability to detect peak tricuspid regurgitation Doppler velocity. 4. Thickened aortic valve with reduced leaflet excursion. Possibly mild/moderate aortic stenosis ??though may be underestimated due to image quality. Aortic valve systolic mean gradient is 13 mmHg. Aortic valve area by Doppler is 1.7 cm??.Mild-moderate aortic valve regurgitation. 5. Calcified mitral annulus.Mild mitral valve regurgitation. 6. When compared to the previous echocardiographic images of 12-17-23, no significant change in aortic root /aortic valve mophology ( see comments on prior echo). Mild-moderate aortic valve regurgitation noted . ??If there is clinical concern for endocarditis/ aortic abscess recommend MATTHEW or cardiac CT. Technically challenging echocardiogram. Estimated EF: 50-55% FINDINGS Left Ventricle Normal left ventricular chamber size. Normal left ventricular wall thickness. Low-normal left ventricular systolic function. Estimated left ventricular ejection fraction is ??50-55%. Abnormal ventricular septal motion. ??regional wall motion assessment has reduced accuracy due to suboptimal endocardial border definition. Diastolic Function Indeterminate left ventricular diastolic function due to fused mitral E and A waves. Right Ventricle Mild right ventricular chamber enlargement. Abnormal TAPSE (< 17 mm) suggestive of right ventricular systolic dysfunction. Right ventricular systolic pressure cannot be estimated due to inability to detect peak tricuspid regurgitation Doppler velocity. Left Atrium Moderate left atrial enlargement. Left atrial volume index is 48 ml/m??. Right Atrium Right atrial enlargement. Atrial Septum Atrial septum was not well visualized. Aortic Valve Aortic valve was not well visualized. Thickened aortic valve with reduced leaflet excursion. Aortic valve systolic mean gradient is 13 mmHg. Aortic valve area by Doppler is 1.7 cm??. Aortic valve dimensionless index is 0.45. Mild-moderate aortic valve regurgitation. Mitral Valve calcified mitral annulus. Mildly thickened mitral valve. No mitral valve stenosis. Mild mitral valve regurgitation. Tricuspid Valve Tricuspid valve was not well visualized. Mild tricuspid valve regurgitation. Pulmonic Valve Pulmonary valve was not well visualized. Pericardium No pericardial effusion. Aorta Aortic sinus of Valsalva was not well visualized. Ascending aorta was not well visualized. Inferior Vena Cava Dilated inferior vena cava with decreased inspiratory collapse. MEASUREMENTS ??(Male / Female) Normal Values 2D MEASUREMENTS AND LV FUNCTION IVS Diastolic Thickness ? 1 cm ?< 1.1 cm / < 1.0 cm LV Diastolic Diameter PLAX ?4.9 cm ?4.2 - 5.9 / 3.9 - 5.3 cm LV Diastolic Diameter Index ? 2.23 cm/m?? LVPW Diastolic Thickness ?0.9 cm ?< 1.1 cm / < 1.0 cm LV Systolic Diameter PLAX ? 3.6 cm LV Systolic Diameter Index ?1.64 cm/m?? LVOT Diameter ? 2.2 cm LVOT Cardiac Output ? 7.87 l/min LVOT Cardiac Index ?3.46 l/min??m?? LVOT Stroke Volume ?88.4 ml Stroke Volume Index ? 38.8 ml/m?? LA Volume MOD BP ?106 ml LA Volume Index MOD BP ?48.3 ml/m?16 - 34 ml/m?? LV Mass ? 164 g LV Mass Index ? 73.2 g/m?? M MODE TAPSE MM ?1.58 cm DIASTOLOGY Mitral E Point Velocity ? 1.3 m/sec ? 0.70 - 1.02 m/sec AORTIC VALVE AV Peak Velocity ?2.47 m/sec ?< 2.0 m/sec AV Peak Gradient ?24.4 mmHg AV Mean Gradient ?13 mmHg AV Velocity Time Integral ? 51.2 cm LVOT Peak Velocity ?1.11 m/sec LVOT Velocity Time Integral ? 23.3 cm AV Area Cont Eq vti ? 1.73 cm?? AV Area Cont Eq pk ?1.71 cm?? AV Dimensionless Index ?0.454 TRICUSPID VALVE AND ESTIMATED PRESSURES Right Atrial Pressure ? 15 mmHg HCM DATA LVOT YARON (r) ?4.93 mmHg Tanisha Taylor MD [facility] Accredited Site (Electronically Signed) Final Date: 05 January 2024 14:36 ICD-10 Codes: Procedure Note Tanisha Taylor MBBS - 01/05/2024 [facility] 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 BP: 150 / 60 Weight: 225 lbs BMI: 32.3 kg/m?? HR: 89 Location: [facility] - Inpatient Rhythm: Normal Sinus Rhythm Procedure Components: 2D imaging, Color Doppler, Spectral Doppler Indications: Pulmonary embolism Technical Quality: Technically difficult study Contrast: None Final Conclusion Previous Study: 12-17-23 1. Low-normal left ventricular systolic function.Estimated leftventricular ejection fraction is 50-55%. 2. Abnormal ventricular septal motion. 3. Mild right ventricular chamber enlargement.Abnormal TAPSE (< 17 mm)suggestive of right ventricular systolic dysfunction. Right ventricular systolic pressure cannot be estimated due to inabilityto detect peak tricuspid regurgitation Doppler velocity. 4. Thickened aortic valve with reduced leaflet excursion. Possiblymild/moderate aortic stenosis though may be underestimated due to image quality. Aortic valve systolic mean gradient is 13 mmHg. Aortic valve area by Doppler is 1.7 cm??.Mild-moderate aortic valveregurgitation. 5. Calcified mitral annulus.Mild mitral valve regurgitation. 6. When compared to the previous echocardiographic images of 12-17-23, nosignificant change in aortic root /aortic valve mophology ( see comments on prior echo). Mild-moderate aortic valve regurgitationnoted . If there is clinical concern for endocarditis/ aortic abscess recommend MATTHEW or cardiac CT. Technically challenging echocardiogram. Estimated EF: 50-55% FINDINGS Left Ventricle Normal left ventricular chamber size. Normal leftventricular wall thickness. Low-normal left ventricular systolic function. Estimated left ventricular ejection fraction is 50-55%.Abnormal ventricular septal motion. regional wall motion assessment has reduced accuracy due to suboptimal endocardialborder definition. Diastolic Function Indeterminate left ventricular diastolic function dueto fused mitral E and A waves. Right Ventricle Mild right ventricular chamber enlargement. AbnormalTAPSE (< 17 mm) suggestive of right ventricular systolic dysfunction. Right ventricular systolic pressure cannot be estimated dueto inability to detect peak tricuspid regurgitation Doppler velocity. Left Atrium Moderate left atrial enlargement. Left atrial volume index is48 ml/m??. Right Atrium Right atrial enlargement. Atrial Septum Atrial septum was not well visualized. Aortic Valve Aortic valve was not well visualized. Thickened aortic valvewith reduced leaflet excursion. Aortic valve systolic mean gradient is 13 mmHg. Aortic valve area by Doppler is 1.7 cm??. Aorticvalve dimensionless index is 0.45. Mild-moderate aortic valve regurgitation. Mitral Valve calcified mitral annulus. Mildly thickened mitral valve. Nomitral valve stenosis. Mild mitral valve regurgitation. Tricuspid Valve Tricuspid valve was not well visualized. Mild tricuspidvalve regurgitation. Pulmonic Valve Pulmonary valve was not well visualized. Pericardium No pericardial effusion. Aorta Aortic sinus of Valsalva was not well visualized. Ascending aortawas not well visualized. Inferior Vena Cava Dilated inferior vena cava with decreased inspiratorycollapse. MEASUREMENTS (Male / Female) Normal Values 2D MEASUREMENTS AND LV FUNCTION IVS Diastolic Thickness 1 cm < 1.1 cm / < 1.0cm LV Diastolic Diameter PLAX 4.9 cm 4.2 - 5.9 / 3.9 -5.3 cm LV Diastolic Diameter Index 2.23 cm/m?? LVPW Diastolic Thickness 0.9 cm < 1.1 cm / < 1.0cm LV Systolic Diameter PLAX 3.6 cm LV Systolic Diameter Index 1.64 cm/m?? LVOT Diameter 2.2 cm LVOT Cardiac Output 7.87 l/min LVOT Cardiac Index 3.46 l/min??m?? LVOT Stroke Volume 88.4 ml Stroke Volume Index 38.8 ml/m?? LA Volume MOD BP 106 ml LA Volume Index MOD BP 48.3 ml/m?? 16 - 34 ml/m?? LV Mass 164 g LV Mass Index 73.2 g/m?? M MODE TAPSE MM 1.58 cm DIASTOLOGY Mitral E Point Velocity 1.3 m/sec 0.70 - 1.02m/sec AORTIC VALVE AV Peak Velocity 2.47 m/sec < 2.0 m/sec AV Peak Gradient 24.4 mmHg AV Mean Gradient 13 mmHg AV Velocity Time Integral 51.2 cm LVOT Peak Velocity 1.11 m/sec LVOT Velocity Time Integral 23.3 cm AV Area Cont Eq vti 1.73 cm?? AV Area Cont Eq pk 1.71 cm?? AV Dimensionless Index 0.454 TRICUSPID VALVE AND ESTIMATED PRESSURES Right Atrial Pressure 15 mmHg HCM DATA LVOT YARON (r) 4.93 mmHg Tanisha Taylor MD [facility] Accredited Site (Electronically Signed) Final Date: 05 January 2024 14:36 ICD-10 Codes: Tato Boyer MD ECHO ORD * (ABNORMAL) PLATELET COUNT (01/05/2024 6:35 AM CDT) Only the most recent of5 resultswithin the time period is included. PLATELET COUNT 137(L) 140 - 440 thou/cu mm 01/05/2024 6:41 AM CDT [facility] MPV 9.6 6.5 - 11.0 fL 01/05/2024 6:41 AM CDT [facility] Blood BLOOD SPECIMEN / Unknown Line/Port / Unknown 01/05/2024 6:35 AM CDT 01/05/2024 6:38 AM CDT Tato Boyer MD HEMATOLOGY [facility] [place] [address], * WHITE BLOOD COUNT (01/05/2024 6:35 AM CDT) Only the most recent of2 resultswithin the time period is included. WHITE BLOOD COUNT 5.3 4.5 - 11.0 thou/cu mm 01/05/2024 6:41 AM CDT [facility] NRBC 0.0 % 01/05/2024 6:41 AM CDT [facility] ABS NRBC 0.0 thou /cu mm 01/05/2024 6:41 AM CDT [facility] Blood BLOOD SPECIMEN / Unknown Line/Port / Unknown 01/05/2024 6:35 AM CDT 01/05/2024 6:38 AM CDT Tato Boyer MD HEMATOLOGY Performing Organization Address City/[facility]/ZIP Co de Phone Number [facility] [address] [place] [address], * (ABNORMAL) HEMOGLOBIN (01/05/2024 6:35 AM CDT) Only the most recent of4 resultswithin the time period is included. HEMOGLOBIN 8.0(L) 13.5 - 17.5 g/dL 01/05/2024 6:41 AM CDT [facility] MCV 95 80 - 100 fL 01/05/2024 6:41 AM CDT [facility] Blood BLOOD SPECIMEN / Unknown Line/Port / Unknown 01/05/2024 6:35 AM CDT 01/05/2024 6:38 AM CDT Tato Boyer MD HEMATOLOGY Performing Organization Address City/[facility]/ZIP Co de Phone Number [address] [address], * (ABNORMAL) HEMATOCRIT (01/05/2024 6:35 AM CDT) Only the most recent of2 resultswithin the time period is included. HEMATOCRIT 25.7(L) 37.0 - 53.0 % 01/05/2024 6:41 AM CDT [facility] Blood BLOOD SPECIMEN / Unknown Line/Port / Unknown 01/05/2024 6:35 AM CDT 01/05/2024 6:38 AM CDT Tato Boyer MD HEMATOLOGY Performing Organization Address [facility] Co de Phone Number [facility] [address] [place] [address], * (ABNORMAL) SODIUM (01/05/2024 6:35 AM CDT) Only the most recent of2 resultswithin the time period is included. SODIUM 146(H) 136 - 145 mmol/L 01/05/2024 7:00 AM CDT [facility] Blood BLOOD SPECIMEN / Unknown Line/Port / Unknown 01/05/2024 6:35 AM CDT 01/05/2024 6:38 AM CDT Tato Boyer MD CHEMISTRY Performing Organization Address [facility] Co de Phone Number [facility] [address] [place] [address], * POTASSIUM (01/05/2024 6:35 AM CDT) POTASSIUM 3.8 3.5 - 5.1 mmol/L 01/05/2024 7:00 AM CDT [facility] Blood BLOOD SPECIMEN / Unknown Line/Port / Unknown 01/05/2024 6:35 AM CDT 01/05/2024 6:38 AM CDT Tato Boyer MD CHEMISTRY Performing Organization Address City/[facility] Co de Phone Number [facility] [address] [place] [address], * (ABNORMAL) CREATININE (01/05/2024 6:35 AM CDT) Only the most recent of3 resultswithin the time period is included. eGFR 67(L) >90 mL/min/1.7 3m2 01/05/2024 7:00 AM CDT [facility] Comment:As of 2021, eG FR is calculated by the CKD-EPI creatinine equation without race adjustment. ??eGFR can be influenced by muscle mass, exercise, and diet. ??The reported eGFR is an estimation only and is only applicable if the renal function is stable. CREATININE 1.08 0.70 - 1.20 mg/dL 01/05/2024 7:00 AM CDT [facility] Blood BLOOD SPECIMEN / Unknown Line/Port / Unknown 01/05/2024 6:35 AM CDT 01/05/2024 6:38 AM CDT Tato Boyer MD CHEMISTRY Performing Organization Address City/[facility] Co de Phone Number [facility] [address] [place] [address], [place] [phone] * (ABNORMAL) APTT (01/05/2024 6:35 AM CDT) Only the most recent of3 resultswithin the time period is included. APTT 108(H) 28 - 36 sec 01/05/2024 6:50 AM CDT [facility] Blood BLOOD SPECIMEN / Unknown Line/Port / Unknown 01/05/2024 6:35 AM CDT 01/05/2024 6:38 AM CDT Narrative [facility] - 01/05/2024 6:50 AM CDT Therapeutic Range: 57-87 seconds Tato Boyer MD HEMATOLOGY Performing Organization Address City/[facility]/ZIP Co de Phone Number [facility] [address] [place] [address], [place] [phone] * MAGNESIUM (01/05/2024 6:35 AM CDT) Only the most recent of2 resultswithin the time period is included. MAGNESIUM 1.9 1.6 - 2.4 mg/dL 01/05/2024 7:00 AM CDT [facility] Blood BLOOD SPECIMEN / Unknown Line/Port / Unknown 01/05/2024 6:35 AM CDT 01/05/2024 6:38 AM CDT Tato Boyer MD CHEMISTRY Performing Organization Address [facility]/ZIP Co de Phone Number [facility] [address] [place] [address], * (ABNORMAL) BUN (01/04/2024 10:08 PM CDT) BUN 28(H) 8 - 23 mg/dL 01/04/2024 10:36 PM CDT [facility] Blood BLOOD SPECIMEN / Unknown Venipuncture / Unknown 01/04/2024 10:08 PM CDT 01/04/2024 10:12 PM CDT Tato Boyer MD CHEMISTRY Performing Organization Address City/[facility]/ZIP Co de Phone Number [facility] [address] [place] [address], * (ABNORMAL) PROTIME-INR (01/04/2024 10:08 PM CDT) INR 1.4(H) <1.3 01/04/2024 10:33 PM CDT [facility] PROTIME 15.9(H) 10.3 - 12.3 sec 01/04/2024 10:33 PM CDT [facility] Blood BLOOD SPECIMEN / Unknown Venipuncture / Unknown 01/04/2024 10:08 PM CDT 01/04/2024 10:12 PM CDT Narrative [facility] - 01/04/2024 10:33 PM CDT ?Therapeutic Range 2.0-3.0 for most anticoagulated patients 2.5-3.5 or 4.0 for high risk patients The INR is only used for patients on stable oral anticoagulant therapy. It makes no significant contribution to the diagnosis or treatment of patients whose Protime is prolonged for other reasons. INR results are increased when heparin levels exceed 1.0 U/mL, which corresponds to an aPTT >125 seconds if the patient is on UFH. Tato Boyer MD HEMATOLOGY [facility] [address] [place] [address], * CT CHEST PE STUDY (01/04/2024 5:18 PM CDT) Anatomical Region Laterality Modality CHEST, THORAX, HEART Computed To mography 01/04/2024 5:18 PM CDT Impressions 01/04/2024 5:26 PM CDT 1. ??Pulmonary embolism is noted in the distal right main pulmonary artery extending into the lobar and segmental branches of all lobes. Small pulmonary embolism noted in the subsegmental branches left lower lobe. No evidence of right heart strain. Findings were discussed with Dr. Ann 5:23 pm on 01/04/2024. Narrative 01/04/2024 5:26 PM CDT For Patients: As a result of the Cures Act, medical imaging exams and procedure reports are released immediately into your electronic medical record. You may view this report before your referring provider. If you have questions, please contact your health care provider. EXAM: CT CHEST PE STUDY LOCATION: [facility] DATE: 01/04/2024 INDICATION: Pulmonary embolism (PE) suspected, high prob, sob COMPARISON: None. TECHNIQUE: CT chest pulmonary angiogram during arterial phase injection of IV contrast. Multiplanar reformats and MIP reconstructions were performed. Dose reduction techniques were used. CONTRAST: Omnipaque 350 75 ml FINDINGS: ANGIOGRAM CHEST: Pulmonary embolism is noted in the distal right main pulmonary artery extending into the lobar and segmental branches of all lobes. Small pulmonary embolism noted in the subsegmental branches left lower lobe. Thoracic aorta is negative for dissection. No CT evidence of right heart strain. LUNGS AND PLEURA: Bibasilar atelectasis. No focal consolidation or effusion. MEDIASTINUM/AXILLAE: Heart is normal in size. No mediastinal, axillary, or hilar adenopathy. CORONARY ARTERY CALCIFICATION: Mild. UPPER ABDOMEN: Bilateral renal cysts are noted. MUSCULOSKELETAL: Degenerative changes of the spine. Procedure Note Azam Jin MD - 01/04/2024 For Patients: As a result of the Cures Act, medical imagingexams and procedure reports are released immediately into your electronicmedical record. You may view this report before your referring provider.If you have questions, please contact your health care provider. EXAM: CT CHEST PE STUDY LOCATION: [facility] DATE: 01/04/2024 INDICATION: Pulmonary embolism (PE) suspected, high prob, sob COMPARISON: None. TECHNIQUE: CT chest pulmonary angiogram during arterial phase injection ofIV contrast. Multiplanar reformats and MIP reconstructions were performed.Dose reduction techniques were used. CONTRAST: Omnipaque 350 75 ml FINDINGS: ANGIOGRAM CHEST: Pulmonary embolism is noted in the distal right mainpulmonary artery extending into the lobar and segmental branches of alllobes. Small pulmonary embolism noted in the subsegmental branches leftlower lobe. Thoracic aorta is negative for dissection. No CT evidence ofright heart strain. LUNGS AND PLEURA: Bibasilar atelectasis. No focal consolidation oreffusion. MEDIASTINUM/AXILLAE: Heart is normal in size. No mediastinal, axillary, orhilar adenopathy. CORONARY ARTERY CALCIFICATION: Mild. UPPER ABDOMEN: Bilateral renal cysts are noted. MUSCULOSKELETAL: Degenerative changes of the spine. IMPRESSION: 1. Pulmonary embolism is noted in the distal right main pulmonary arteryextending into the lobar and segmental branches of all lobes. Smallpulmonary embolism noted in the subsegmental branches left lower lobe. Noevidence of right heart strain. Findings were discussed with Dr. Ann 5:23 pm on 01/04/2024. Ancelmo Ann MD CT * SCAN-CARDIAC STRIP (01/04/2024 12:00 AM CDT) Narrative 01/04/2024 12:00 AM CDT Ordered by an unspecified provider. Other Clinical Staff OTHER * SCAN-PATHOLOGY REPORT (01/04/2024 12:00 AM CDT) Scanner OTHER * SCAN-RADIOLOGY REPORT (12/30/2023 12:00 AM CDT) Only the most recent of2 resultswithin the time period is included. Anatomical Region Laterality Modality Other Scanner OTHER * SCAN-CARDIAC STRIP (12/22/2023 8:18 AM CDT) Scanner OTHER * SCAN-CARDIAC STRIP (12/22/2023 5:13 AM CDT) Scanner OTHER * SCAN-CARDIAC STRIP (12/21/2023 3:57 PM CDT) Scanner OTHER * SCAN-CARDIAC STRIP (12/21/2023 10:59 AM CDT) Scanner OTHER * SCAN-CARDIAC STRIP (12/21/2023 12:00 AM CDT) Scanner OTHER * SCAN-CARDIAC STRIP (12/20/2023 4:33 PM CDT) Scanner OTHER * SCAN-CARDIAC STRIP (12/20/2023 7:54 AM CDT) Scanner OTHER * SCAN-CARDIAC STRIP (12/20/2023 4:00 AM CDT) Scanner OTHER * SCAN-ELECTROCARDIOGRAM EKG (12/20/2023 12:00 AM CDT) Only the most recent of2 resultswithin the time period is included. Narrative 12/20/2023 12:00 AM CDT Ordered by an unspecified provider. Other Clinical Staff OTHER * SCAN-CARDIAC STRIP (12/19/2023 8:00 PM CDT) Scanner OTHER * MR SPINE LUMBAR WWO (12/19/2023 6:40 PM CDT) Anatomical Region Laterality Modality Spine, LUMBAR SPINE Magnetic Res onance 12/19/2023 6:40 PM CDT Impressions 12/19/2023 11:16 PM CDT 1. 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 No definite epidural abscess or phlegmon identified at this time. There are paraspinal inflammatory changes at this level is suggestion of an early or developing abscess within the left psoas muscle. 2. ??Advanced multilevel degenerative changes are noted. 3. ??At the L3-4 level, there is severe central canal stenosis, severe right foraminal stenosis and moderate to left foraminal stenosis. 4. ??At the L2-3 level, there is moderate central canal and left foraminal stenosis. 5. ??Severe right L4-5 foraminal stenosis with compression of the right L4 dorsal root ganglion. 6. ??Degenerative changes at additional levels as above. NOTE: ABNORMAL REPORT THE DICTATION ABOVE DESCRIBES AN ABNORMALITY FOR WHICH FOLLOW-UP IS NEEDED. Narrative 12/19/2023 11:16 PM CDT For Patients: As a result of the Century Cures Act, medical imaging exams and procedure reports are released immediately into your electronic medical record. You may view this report before your referring provider. If you have questions, please contact your health care provider. EXAM: MR SPINE LUMBAR WWO LOCATION: [facility] DATE: 12/19/2023 INDICATION: Lumbar radiculopathy, symptoms persist with > 6 wks treatment COMPARISON: Head CT 12/15/2023 CT of the lumbar spine 12/07/2023 CONTRAST: GADOTERATE MEGLUMINE 0.5 MMOL/ML IV SOLN 20 ML VIAL: 18mL TECHNIQUE: Routine Lumbar Spine MRI without and with IV contrast. FINDINGS: Nomenclature is based on 5 lumbar type vertebral bodies. Lumbar vertebra are grossly normal in height. There are alterations in the lateral alignment likely relating to degenerative changes and/or a rightward curvature of the spine with an apex at L2-3. The bone marrow pattern is within normal limits. Normal distal spinal cord and cauda equina with conus medullaris at L1. Paraspinal inflammatory changes at the L3-4 level to be discussed below. Unremarkable visualized bony pelvis. T12-L1: Loss of disc signal and severe loss of disc height to the right of midline. Minimal disc bulging or spurring. Moderate facet arthropathy. No central canal stenosis. There is mild right foraminal stenosis. L1-L2: Loss of disc signal and severe loss of disc height with a vnal-uw-rpdv appearance. There are mixed Modic type I and II degenerative endplate changes. 1 mm of retrolisthesis. Posterior disc osteophyte ridging. Moderate facet arthropathy. Mild central canal stenosis. [id number]-fr-hdueeunw right and moderate left foraminal stenosis. L2-L3: Loss of disc signal and severe loss of disc height. Linear T2 signal within the left aspect of the disc space likely corresponds to recently demonstrated vacuum phenomenon. There is minimal disc bulging. Advanced facet arthropathy with a small left facet joint effusion. There is moderate central canal stenosis. Mild right and moderate left foraminal stenosis. L3-L4: Diffuse abnormal T2 signal within the disc space. There is diffuse bone marrow edema within the L3 and L4 vertebral bodies. On the T1 weighted imaging, indistinctness of the endplates is noted. There are paravertebral inflammatory changes involving the psoas muscles. On the left, there is the suggestion of an early or developing abscess measuring approximately 15 x 10 mm in cross-sectional dimensions (see image 34 of series 10). No convincing epidural abscess or phlegmon. There is posterior disc osteophyte ridging. There is advanced bilateral facet arthropathy and thickening of ligamenta flava. There is a small left facet joint effusion. There is severe central canal stenosis. There is severe right and moderate to severe left foraminal stenosis. L4-L5: Loss of disc signal and severe loss of disc height. There are Modic type II degenerative endplate changes. Slight anterolisthesis with unroofing of the disc. Superimposed disc bulging is noted. Advanced facet arthropathy. Severe narrowing of the right lateral recess. No central canal stenosis. There is moderate to severe right foraminal stenosis with evidence of compression of the right L4 dorsal root ganglion. L5-S1: Normal disc signal with mild loss of disc height. No herniation. Moderate to advanced facet arthropathy. No central canal or foraminal stenosis. Procedure Note Wagner Jimenez MD - 12/19/2023 For Patients: As a result of the Century Cures Act, medical imagingexams and procedure reports are released immediately into your electronicmedical record. You may view this report before your referring provider.If you have questions, please contact your health care provider. EXAM: MR SPINE LUMBAR WWO LOCATION: [facility] DATE: 12/19/2023 INDICATION: Lumbar radiculopathy, symptoms persist with > 6 wkstreatment COMPARISON: Head CT 12/15/2023 CT of the lumbar spine 12/07/2023 CONTRAST: GADOTERATE MEGLUMINE 0.5 MMOL/ML IV SOLN 20 ML VIAL: 18mL TECHNIQUE: Routine Lumbar Spine MRI without and with IV contrast. FINDINGS: Nomenclature is based on 5 lumbar type vertebral bodies. Lumbar vertebraare grossly normal in height. There are alterations in the lateralalignment likely relating to degenerative changes and/or a rightwardcurvature of the spine with an apex at L2-3. The bone marrow pattern iswithin normal limits. Normal distal spinal cord and cauda equina withconus medullaris at L1. Paraspinal inflammatory changes at the L3-4 levelto be discussed below. Unremarkable visualized bony pelvis. T12-L1: Loss of disc signal and severe loss of disc height to the right ofmidline. Minimal disc bulging or spurring. Moderate facet arthropathy. Nocentral canal stenosis. There is mild right foraminal stenosis. L1-L2: Loss of disc signal and severe loss of disc height with wizai-ur-qnas appearance. There are mixed Modic type I and II degenerativeendplate changes. 1 mm of retrolisthesis. Posterior disc osteophyteridging. Moderate facet arthropathy. Mild central canal stenosis.Jtfw-nq-aorvqwwj right and moderate left foraminal stenosis. L2-L3: Loss of disc signal and severe loss of disc height. Linear [id number] within the left aspect of the disc space likely corresponds torecently demonstrated vacuum phenomenon. There is minimal disc bulging.Advanced facet arthropathy with a small left facet joint effusion. Thereis moderate central canal stenosis. Mild right and moderate left foraminalstenosis. L3-L4: Diffuse abnormal T2 signal within the disc space. There is diffusebone marrow edema within the L3 and L4 vertebral bodies. On the [id number] imaging, indistinctness of the endplates is noted. There areparavertebral inflammatory changes involving the psoas muscles. On theleft, there is the suggestion of an early or developing abscess measuringapproximately 15 x 10 mm in cross-sectional dimensions (see image 34 ofseries 10). No convincing epidural abscess or phlegmon. There is posteriordisc osteophyte ridging. There is advanced bilateral facet arthropathy andthickening of ligamenta flava. There is a small left facet joint effusion.There is severe central canal stenosis. There is severe right and moderateto severe left foraminal stenosis. L4-L5: Loss of disc signal and severe loss of disc height. There are Modictype II degenerative endplate changes. Slight anterolisthesis withunroofing of the disc. Superimposed disc bulging is noted. Advanced facetarthropathy. Severe narrowing of the right lateral recess. No centralcanal stenosis. There is moderate to severe right foraminal stenosis withevidence of compression of the right L4 dorsal root ganglion. L5-S1: Normal disc signal with mild loss of disc height. No herniation.Moderate to advanced facet arthropathy. No central canal or foraminalstenosis. IMPRESSION: 1. 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 No definite epiduralabscess or phlegmon identified at this time. There are paraspinalinflammatory changes at this level is suggestion of an early or developingabscess within the left psoas muscle. 2. Advanced multilevel degenerative changes are noted. 3. At the L3-4 level, there is severe central canal stenosis, severeright foraminal stenosis and moderate to left foraminal stenosis. 4. At the L2-3 level, there is moderate central canal and left foraminalstenosis. 5. Severe right L4-5 foraminal stenosis with compression of the right F7ddaefl root ganglion. 6. Degenerative changes at additional levels as above. NOTE: ABNORMAL REPORT THE DICTATION ABOVE DESCRIBES AN ABNORMALITY FOR WHICH FOLLOW-UP ISNEEDED. Madelyn PRAKASH MR * SCAN-CARDIAC STRIP (12/19/2023 4:23 PM CDT) Scanner OTHER * SCAN-CARDIAC STRIP (12/19/2023 8:13 AM CDT) Scanner OTHER * SCAN-CARDIAC STRIP (12/19/2023 4:05 AM CDT) Scanner OTHER * SCAN-CARDIAC STRIP (12/19/2023 4:05 AM CDT) Scanner OTHER * (ABNORMAL) GLUCOSE METER (12/19/2023 2:17 AM CDT) Only the most recent of2 resultswithin the time period is included. GLUCOSE METER 177(H) 65 - 100 mg/dL 12/19/2023 2:22 AM CDT [facility] Blood BLOOD SPECIMEN / Unknown 12/19/2023 2:17 AM CDT 12/19/2023 2:22 AM CDT Homero PRAKASH CHEMISTRY [facility] SENDOUT INTERNAL ZIP [phone] [place] [address] * SCAN-CARDIAC STRIP (12/18/2023 8:00 PM CDT) Scanner OTHER * SCAN-CARDIAC STRIP (12/18/2023 8:49 AM CDT) Scanner OTHER * (ABNORMAL) CBC WITH AUTO DIFFERENTIAL (12/18/2023 6:31 AM CDT) Only the most recent of3 resultswithin the time period is included. WHITE BLOOD COUNT 10.7 4.5 - 11.0 thou/cu mm 12/18/2023 6:51 AM CDT [facility] RED BLOOD COUNT 2.92(L) 4.30 - 5.90 mil/cu mm 12/18/2023 6:51 AM CDT [facility] HEMOGLOBIN 8.5(L) 13.5 - 17.5 g/dL 12/18/2023 6:51 AM CDT [facility] HEMATOCRIT 27.1(L) 37.0 - 53.0 % 12/18/2023 6:51 AM CDT [facility] MCV 93 80 - 100 fL 12/18/2023 6:51 AM CDT [facility] MCH 29.1 26.0 - 34.0 pg 12/18/2023 6:51 AM CDT [facility] MCHC 31.4(L) 32.0 - 36.0 g/dL 12/18/2023 6:51 AM CDT [facility] RDW 14.7 11.5 - 15.5 % 12/18/2023 6:51 AM CDT [facility] PLATELET COUNT 229 140 - 440 thou/cu mm 12/18/2023 6:51 AM CDT [facility] MPV 9.4 6.5 - 11.0 fL 12/18/2023 6:51 AM CDT [facility] NRBC 0.0 % 12/18/2023 6:51 AM CDT [facility] ABS NRBC 0.0 thou /cu mm 12/18/2023 6:51 AM CDT [facility] % NEUT 84.3 % 12/18/2023 6:51 AM CDT [facility] % LYMPH 7.7 % 12/18/2023 6:51 AM CDT [facility] % MONO 5.1 % 12/18/2023 6:51 AM CDT [facility] % EOS 0.7 % 12/18/2023 6:51 AM CDT [facility] % BASO 0.4 % 12/18/2023 6:51 AM T [facility] % IMMATURE GRAN (METAS,MYELOS,AK OS) 1.8 % 12/18/2023 6:51 AM CDT [facility] ABSOLUTE NEUTROPHILS 9.0(H) 1.7 - 7.0 thou/cu mm 12/18/2023 6:51 AM CDT [facility] ABSOLUTE LYMPHOCYTES 0.8(L) 0.9 - 2.9 thou/cu mm 12/18/2023 6:51 AM CDT [facility] ABSOLUTE MONOCYTES 0.6 <0.9 thou/cu mm 12/18/2023 6:51 AM CDT [facility] ABSOLUTE EOSINOPHILS 0.1 <0.5 thou/cu mm 12/18/2023 6:51 AM CDT [facility] ABSOLUTE BASOPHILS 0.0 <0.3 thou/cu mm 12/18/2023 6:51 AM T [facility] ABSOLUTE IMMATURE GRANULOCYTES(MET ,MYELOS,PROS) 0.2 <0.3 thou/cu mm 12/18/2023 6:51 AM T [facility] Blood BLOOD SPECIMEN / Unknown Butterfly / Unknown 12/18/2023 6:31 AM CDT 12/18/2023 6:44 AM CDT Lupe Irwin MD HEMATOLOG Y [facility] SENDOUT INTERNAL ZIP [phone] [place] [address] * (ABNORMAL) BASIC METABOLIC PANEL (12/18/2023 6:31 AM CDT) Only the most recent of2 resultswithin the time period is included. SODIUM 141 136 - 145 mmol/L 12/18/2023 7:08 AM [facility] POTASSIUM 3.6 3.5 - 5.1 mmol/L 12/18/2023 7:08 AM [facility] CHLORIDE 104 98 - 107 mmol/L 12/18/2023 7:08 AM [facility] CO2,TOTAL 28 22 - 29 mmol/L 12/18/2023 7:08 AM [facility] ANION GAP 9 5 - 18 12/18/2023 7:08 AM [facility] GLUCOSE 109(H) 70 - 99 mg/dL 12/18/2023 7:08 AM [facility] CALCIUM 7.9(L) 8.8 - 10.2 mg/dL 12/18/2023 7:08 AM [facility] BUN 23 8 - 23 mg/dL 12/18/2023 7:08 AM [facility] CREATININE 0.96 0.70 - 1.20 mg/dL 12/18/2023 7:08 AM [facility] BUN/CREAT RATIO 24(H) 10 - 20 7:08 AM [facility] eGFR 77(L) >90 mL/min/1.7 3m2 12/18/2023 7:08 AM [facility] Comment:As of 2021, eG FR is calculated by the CKD-EPI creatinine equation without race adjustment. ??eGFR can be influenced by muscle mass, exercise, and diet. ??The reported eGFR is an estimation only and is only applicable if the renal function is stable. Blood BLOOD SPECIMEN / Unknown Butterfly / Unknown 12/18/2023 6:31 AM CDT 12/18/2023 6:44 AM CDT Lupe Irwin MD CHEMISTRY [facility] SENDOUT INTERNAL ZIP [phone] [place] [address] * SCAN-CARDIAC STRIP (12/18/2023 1:37 AM CDT) Scanner OTHER * SCAN-CARDIAC STRIP (12/17/2023 8:29 PM CDT) Scanner OTHER * SCAN-CARDIAC STRIP (12/17/2023 4:11 PM CDT) Scanner OTHER * SCAN-CARDIAC STRIP (12/17/2023 8:20 AM CDT) Scanner OTHER * SCAN-CARDIAC STRIP (12/17/2023 1:55 AM CDT) Scanner OTHER * SCAN-CARDIAC STRIP (12/16/2023 9:35 PM CDT) Scanner OTHER * SCAN-CARDIAC STRIP (12/16/2023 4:05 PM CDT) Scanner OTHER * SCAN CORRESP-EKG RESULTS (12/16/2023 8:47 AM CDT) Narrative 12/16/2023 8:47 AM CDT Ordered by an unspecified provider. Other Clinical Staff OTHER * SCAN CORRESP-LABORATORY RESULTS (12/16/2023 8:43 AM CDT) Narrative 12/16/2023 8:43 AM CDT Ordered by an unspecified provider. Other Clinical Staff OTHER * SCAN CORRESP-IMAGING (12/16/2023 8:43 AM CDT) Anatomical Region Laterality Modality Other Narrative 12/16/2023 8:43 AM CDT Ordered by an unspecified provider. Other Clinical Staff OTHER * SCAN-CARDIAC STRIP (12/16/2023 7:43 AM CDT) Scanner OTHER * SCAN-CARDIAC STRIP (12/16/2023 12:38 AM CDT) Scanner OTHER * SCAN-CARDIAC STRIP (12/15/2023 4:43 PM CDT) Scanner OTHER * SCAN CORRESP-DIAGNOSTICS (12/15/2023 9:37 AM CDT) Narrative 12/15/2023 9:37 AM CDT Ordered by an unspecified provider. Other Clinical Staff OTHER * SCAN-CARDIAC STRIP (12/15/2023 9:03 AM CDT) Scanner OTHER * (ABNORMAL) COMP METABOLIC PANEL (12/15/2023 6:31 AM CDT) Only the most recent of2 resultswithin the time period is included. SODIUM 140 136 - 145 mmol/L 12/15/2023 7:22 AM T [facility] POTASSIUM 3.8 3.5 - 5.1 mmol/L 12/15/2023 7:22 AM T [facility] CHLORIDE 105 98 - 107 mmol/L 12/15/2023 7:22 AM T [facility] CO2,TOTAL 25 22 - 29 mmol/L 12/15/2023 7:22 AM T [facility] ANION GAP 10 5 - 18 12/15/2023 7:22 AM T [facility] GLUCOSE 112(H) 70 - 99 mg/dL 12/15/2023 7:22 AM T [facility] CALCIUM 8.0(L) 8.8 - 10.2 mg/dL 12/15/2023 7:22 AM T [facility] BUN 29(H) 8 - 23 mg/dL 12/15/2023 7:22 AM [facility] CREATININE 1.16 0.70 - 1.20 mg/dL 12/15/2023 7:22 AM T [facility] BUN/CREAT RATIO 25(H) 10 - 20 7:22 AM [facility] eGFR 61(L) >90 mL/min/1.7 3m2 12/15/2023 7:22 AM [facility] Comment:As of 2021, eG FR is calculated by the CKD-EPI creatinine equation without race adjustment. ??eGFR can be influenced by muscle mass, exercise, and diet. ??The reported eGFR is an estimation only and is only applicable if the renal function is stable. ALBUMIN 2.5(L) 4.0 - 4.9 g/dL 12/15/2023 7:22 AM [facility] PROTEIN,TOTAL 5.2(L) 6.0 - 8.0 g/dL 12/15/2023 7:22 AM [facility] BILIRUBIN,TOTAL 0.4 0.0 - 1.2 mg/dL 12/15/2023 7:22 AM [facility] ALK PHOSPHATASE 79 40 - 129 IU/L 12/15/2023 7:22 AM T [facility] ALT (SGPT) <5(L) 10 - 50 IU/L 12/15/2023 7:22 AM [facility] AST (SGOT) 33 10 - 50 IU/L 12/15/2023 7:22 AM T [facility] Blood BLOOD SPECIMEN / Unknown Venipuncture / Unknown 12/15/2023 6:31 AM CDT 12/15/2023 6:36 AM CDT Madelyn PRAKASH CHEMISTRY [facility] SENDOUT INTERNAL ZIP [phone] [place] [address] * SCAN-CARDIAC STRIP (12/15/2023 3:33 AM CDT) Scanner OTHER * SCAN-CARDIAC STRIP (12/15/2023 3:33 AM CDT) Scanner OTHER * SCAN-CARDIAC STRIP (12/14/2023 8:20 PM CDT) Scanner OTHER * XR FOOT 3 VIEWS LEFT PORTABLE (12/14/2023 3:55 PM CDT) Anatomical Region Laterality Modality FEET, FOOT L Computed Radiogr aphy 12/14/2023 3:55 PM CDT Impressions 12/15/2023 8:21 AM CDT Normal joint spaces and alignment. No fracture. Narrative 12/15/2023 8:21 AM CDT For Patients: As a result of the Cures Act, medical imaging exams and procedure reports are released immediately into your electronic medical record. You may view this report before your referring provider. If you have questions, please contact your health care provider. EXAM: XR FOOT 3 VIEWS LEFT PORTABLE LOCATION: [facility] MEDICAL IMAG[facility] DATE: 12/14/2023 INDICATION: Pain Swelling COMPARISON: None. Procedure Note Sridhar Low MD - 12/15/2023 For Patients: As a result of the Cures Act, medical imagingexams and procedure reports are released immediately into your electronicmedical record. You may view this report before your referring provider.If you have questions, please contact your health care provider. EXAM: XR FOOT 3 VIEWS LEFT PORTABLE LOCATION: [facility] DATE: 12/14/2023 INDICATION: Pain Swelling COMPARISON: None. IMPRESSION: Normal joint spaces and alignment. No fracture. Madelyn PRAKASH GENERAL IMAGING * XR ANKLE 3 VIEWS LEFT PORTABLE (12/14/2023 3:55 PM CDT) Anatomical Region Laterality Modality ANKLES, ANKLE L Computed Radiogr aphy 12/14/2023 3:55 PM CDT Impressions 12/14/2023 9:27 PM CDT No fracture or dislocation. Ankle mortise intact. Moderate soft tissue swelling. Peripheral vascular calcification. Narrative 12/14/2023 9:27 PM CDT For Patients: As a result of the Cures Act, medical imaging exams and procedure reports are released immediately into your electronic medical record. You may view this report before your referring provider. If you have questions, please contact your health care provider. EXAM: XR ANKLE 3 VIEWS LEFT PORTABLE LOCATION: [facility] DATE: 12/14/2023 INDICATION: Pain Swelling COMPARISON: None. Procedure Note Azam Jin MD - 12/14/2023 For Patients: As a result of the Cures Act, medical imagingexams and procedure reports are released immediately into your electronicmedical record. You may view this report before your referring provider.If you have questions, please contact your health care provider. EXAM: XR ANKLE 3 VIEWS LEFT PORTABLE LOCATION: [facility] DATE: 12/14/2023 INDICATION: Pain Swelling COMPARISON: None. IMPRESSION: No fracture or dislocation. Ankle mortise intact. Moderate soft tissueswelling. Peripheral vascular calcification. Madelyn PRAKASH GENERAL IMAGING * SCAN-CARDIAC STRIP (12/14/2023 10:25 AM CDT) Scanner OTHER * CT CARDIAC MORPHOLOGY W DUAL READ (12/14/2023 10:19 AM CDT) Anatomical Region Laterality Modality HEART Computed Tomogra phy, Other Impressions 12/24/2023 7:19 AM CDT ?? Small bilateral pleural effusions. Please refer to script worker's dictation for the cardiac CT report. Narrative 12/24/2023 7:19 AM CDT Results are automatically released to your [employer]) account once available, in compliance with federal regulations. ??This means that you may see your results before your provider has had a chance to review them. ??Please allow 2-3 business days for your provider to comment on the results. 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 CONCLUSION: This is a dual read study - please review [facility] over-read below for incidental non cardiac findings. There is thickening of the intervalvular fibrosa in the left ventricular outflow tract and in the aortic root surrounding the non and left coronary cusps, suggestive of perivalvular abscess. No obvious evidence of fistula formation is appreciated. No marked thickening of the ascending aorta to suggest significant aortitis. No significant pericardial effusion. Moderate calcification of a trileaflet aortic valve is noted. No obvious CT evidence of valvular vegetations appreciated. Severe motion artifact compromises coronary artery assessment. The left main is patent. Beyond the left main, no meaningful conclusions regarding coronary artery disease can be made. No other intracardiac mass or thrombus appreciated. TECHNIQUE: ECG-gated CT angiogram of the heart with intravenous contrast Omnipaque 350, 90 cc, injected at 5 cc/sec, was performed on a Siemens SOMATOM Force CT scanner. The imaging protocol was individualized to minimize radiation exposure. The following ECG-gated acquisition protocol was used: Retrospective protocol. Pulse range 67-72. Tube potential: 110 kV. Tube current: 3574 mAs. Total DLP: 680 mGy*cm. CTDI: 36.6. mSv: 9.5. Image post processing was performed on a [employer] Workstation. Images were reconstructed at a slice thickness of 0.6 mm with 0.6 mm overlap. No medications administered. Average heart rate during the study was 88 BPM. There were no apparent complications. TECHNICAL QUALITY: Adequate. ?? FINDINGS: AORTIC VALVE, MITRAL VALVE: The aortic valve is trileaflet and moderate to severely calcified. The mitral valve has no obvious thickening or calcification. Secondary to motion artifact, vegetation cannot be excluded on either valvular surface. There is prominent thickening of the intervalvular fibrosa in the left ventricular outflow tract and in the aortic root surrounding the non and left coronary cusps. This thickening has low attenuation, approximately 40-50 Hounsfield units. There is no obvious evidence of fistula formation between the aortic root and any cardiac chambers. CARDIAC: The left atrium is grossly normal in size. The left atrial appendage has no definite thrombus. No obvious LV mass or thrombus. LV wall thicknesses are grossly normal. Grossly normal RV size and thickness. Interatrial septum appears grossly intact. No significant pericardial effusion. CORONARY ARTERIES: Normal origins of the left main and the right coronary artery. Moderate calcification at the ostium of the left main is noted. Moderate calcifications in the LAD and proximal to mid RCA are noted. Severe motion artifact precludes any meaningful assessment regarding coronary artery stenosis beyond patency of the left main. VESSELS: Normal size aortic root and visualized portions of the ascending aorta. Beyond the thickening surrounding the aortic root, no marked thickening or significant fluid is noted surrounding the ascending aorta. Grossly normal pulmonary artery size. Normal pulmonary venous anatomy. Single normal right-sided SVC. NON-CARDIAC: Please review radiology report below for incidental non-cardiovascular findings. Shane Mathews MD [facility] AB/car For Patients: As a result of the Cures Act, medical imaging exams and procedure reports are released immediately into your electronic medical record. You may view this report before your referring provider. If you have questions, please contact your health care provider. EXAM: OVERREAD: DETAILED [facility] EXTRACARDIAC OVERREAD OF CARDIAC CT LOCATION: [facility] MEDICAL IMAG[facility] DATE: 12/14/2023 INDICATION: Endocarditis, clinical status change Aortic root abscess. TECHNIQUE: Dose reduction techniques were used. COMPARISON: None. FINDINGS: ?? LIMITED CHEST: Small bilateral pleural effusions. Bibasilar atelectasis. No actionable pulmonary nodules. LIMITED MEDIASTINUM: Negative. LIMITED UPPER ABDOMEN: Negative. Arben Sargent MD CT * SCAN-CARDIAC STRIP (12/14/2023 12:32 AM CDT) Scanner OTHER * SCAN-CARDIAC STRIP (12/13/2023 8:36 PM CDT) Scanner OTHER * SCAN-CARDIAC STRIP (12/13/2023 3:39 PM CDT) Scanner OTHER * ECHO MATTHEW WO CONTRAST W COLOR W LTD DOPPLER (12/13/2023 1:28 PM CDT) EJECTION FRACTION 60-65% PROSOLV Anatomical Region Laterality Modality Ultrasound, Ultr asound, Other 12/13/2023 12:4 3 PM CDT Narrative 12/13/2023 1:53 [place] [address] Main: [email or web address] ?Transesophageal Echo Report DAYVONDA ID: [id number] Age: 88 : 1935 Ordering Provider: YOKO STEWART Exam Date: 12/13/2023 12:43 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 BP: 162 / 69 Weight: 212 lbs BMI: 31.3 kg/m?? HR: 92 Location: Inpatient (Portable) Rhythm: Normal Sinus Rhythm Procedure Components: 2D imaging, Color Doppler, Spectral Doppler, 3-D imaging and reconstruction with acquisition workstation review Indications: Acute/Subacute Infective Endocarditis Technical Quality: Adequate Contrast: None Final Conclusion 1. 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 2. Mobile echodensity extending from aorto/mitral continuity measures 0.6 cm x 0.9 cm consistent with bacterial vegetation. 3. Sclerotic aortic valve leaflets with reduced mobility. Trivial aortic valve regurgitation. 4. Normal aortic sinus of Valsalva dimension. 5. Normal left ventricular chamber size and systolic function. Estimated left ventricular ejection fraction is 60-65%. 6. No pericardial effusion. Findings communicated to medicine team. Estimated EF: 60-65% Level of Sedation: Moderate Physician sedation service time (mins): 22 Procedure Indications, goals, risks, benefits, and alternatives pertaining to the procedure were discussed with the patient and informed consent was obtained See procedural record for anesthesia details. Prior to the performance of procedure, time out was called to accurately identify the patient and procedure. Successful esophageal intubation was performed with a Ayde 3-D transesophageal probe after obtaining adequate retropharyngeal anesthesia. 3-D imaging of cardiac structures was performed. Complications There were no apparent complications. Medications Prior to the procedure the patient was alert and oriented. Versed 3 mg and Fentanyl 100 mcg were administered by the nurse with continuous monitoring of vital signs under my direct supervision. Total moderate sedation face to face monitoring time: 22 minutes. The patient's posterior pharynx was anesthetized with 4% Lidocaine spray. FINDINGS Left Ventricle Normal left ventricular chamber size. Normal left ventricular wall thickness. Normal left ventricular systolic function. Estimated left ventricular ejection fraction is 60-65%. Right Ventricle Normal right ventricular chamber size. Normal right ventricular systolic function. Left Atrium Left atrial enlargement. Left Atrial Normal left atrial appendage. No evidence of left atrial appendage thrombus or mass. Appendage Right Atrium Right atrial enlargement. Atrial Septum Intact atrial septum. No evidence of inter-atrial shunt by color flow Doppler. Aortic Valve Trileaflet aortic valve. Sclerotic aortic valve leaflets with reduced mobility. Trivial aortic valve regurgitation. Possible gabriella-aortic abcess/thickening above/below aortic valve extending into left atrium. Mitral Valve Thickened mitral valve leaflets. No mitral valve stenosis. Trivial mitral valve regurgitation. Tricuspid Valve Normal tricuspid valve. No tricuspid valve regurgitation. Pulmonic Valve Normal pulmonary valve. No pulmonary valve regurgitation. 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 Mobile echodense extension measures 0.6 cm x 0.9 cm. Normal aortic sinus of Valsalva dimension. Aortic Arch and Moderate immobile atherosclerosis of the descending thoracic aorta. Descending Aorta Pericardium No pericardial effusion. MEASUREMENTS ??(Male / Female) Normal Values 2D MEASUREMENTS AND LV FUNCTION Sinuses of Valsalva Diameter(d) ?? 3.61 cm MITRAL VALVE MV Peak Gradient ?4.24 mmHg MV Mean Gradient ?1 mmHg MV Velocity Time Integral ? 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 BP: 162 / 69 Weight: 212 lbs BMI: 31.3 kg/m?? HR: 92 Location: Inpatient (Portable) Rhythm: Normal Sinus Rhythm Procedure Components: 2D imaging, Color Doppler, Spectral Doppler, 3-Dimaging and reconstruction with acquisition workstation review Indications: Acute/Subacute Infective Endocarditis Technical Quality: Adequate Contrast: None Final Conclusion 1. Possible gabriella-aortic abcess/thickening above/below aortic valveextending into left atrial wall. 2. Mobile echodensity extending from aorto/mitral continuity measures 0.6cm x 0.9 cm consistent with bacterial vegetation. 3. Sclerotic aortic valve leaflets with reduced mobility. Trivial aorticvalve regurgitation. 4. Normal aortic sinus of Valsalva dimension. 5. Normal left ventricular chamber size and systolic function. Estimatedleft ventricular ejection fraction is 60-65%. 6. No pericardial effusion. Findings communicated to medicine team. Estimated EF: 60-65% Level of Sedation: Moderate Physician sedation service time (mins): 22 Procedure Indications, goals, risks, benefits, and alternativespertaining to the procedure were discussed with the patient and informed consent was obtained See procedural record for anesthesiadetails. Prior to the performance of procedure, time out was called to accurately identify the patient andprocedure. Successful esophageal intubation was performed with a Ayde 3-D transesophageal probe afterobtaining adequate retropharyngeal anesthesia. 3-D imaging of cardiac structures was performed. Complications There were no apparent complications. Medications Prior to the procedure the patient was alert and oriented.Versed 3 mg and Fentanyl 100 mcg were administered by the nurse with continuous monitoring of vital signs under my directsupervision. Total moderate sedation face to face monitoring time: 22 minutes. The patient's posterior pharynxwas anesthetized with 4% Lidocaine spray. FINDINGS Left Ventricle Normal left ventricular chamber size. Normal leftventricular wall thickness. Normal left ventricular systolic function. Estimated left ventricular ejection fraction is 60-65%. Right Ventricle Normal right ventricular chamber size. Normal rightventricular systolic function. Left Atrium Left atrial enlargement. Left Atrial Normal left atrial appendage. No evidence of left atrialappendage thrombus or mass. Appendage Right Atrium Right atrial enlargement. Atrial Septum Intact atrial septum. No evidence of inter-atrial shunt bycolor flow Doppler. Aortic Valve Trileaflet aortic valve. Sclerotic aortic valve leafletswith reduced mobility. Trivial aortic valve regurgitation. Possible gabriella-aortic abcess/thickening above/below aortic valve extendinginto left atrium. Mitral Valve Thickened mitral valve leaflets. No mitral valve stenosis.Trivial mitral valve regurgitation. Tricuspid Valve Normal tricuspid valve. No tricuspid valveregurgitation. Pulmonic Valve Normal pulmonary valve. No pulmonary valveregurgitation. 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 Mobile echodense extension measures 0.6 cm x 0.9 cm. Normal aortic sinus of Valsalva dimension. Aortic Arch and Moderate immobile atherosclerosis of the descendingthoracic aorta. Descending Aorta Pericardium No pericardial effusion. MEASUREMENTS (Male / Female) Normal Values 2D MEASUREMENTS AND LV FUNCTION Sinuses of Valsalva Diameter(d) 3.61 cm MITRAL VALVE MV Peak Gradient 4.24 mmHg MV Mean Gradient 1 mmHg MV Velocity Time Integral 17.1 cm Aortic Root ZScore: -1.14 Eben Gregory MD (Electronically Signed) [facility] Accredited Site Final Date: 13 December 2023 13:52 ICD-10 Codes: 421.1 Yoko Stewart MD ECHO ORD * SCAN-CARDIAC STRIP (12/13/2023 12:27 PM CDT) Scanner OTHER * GLUCOSE, RANDOM (12/13/2023 6:37 AM CDT) GLUCOSE,RANDOM 107 70 - 139 mg/dL 12/13/2023 7:20 AM CDT [facility] Blood BLOOD SPECIMEN / Unknown Venipuncture / Unknown 12/13/2023 6:37 AM CDT 12/13/2023 6:52 AM CDT Naveed Ferris MD CHEMISTRY [facility] SENDOUT INTERNAL ZIP [id number] [address] [place] [address] * CO2,TOTAL (12/13/2023 6:37 AM CDT) CO2,TOTAL 25 22 - 29 mmol/L 12/13/2023 7:20 AM CDT [facility] Blood BLOOD SPECIMEN / Unknown Venipuncture / Unknown 12/13/2023 6:37 AM CDT 12/13/2023 6:52 AM CDT Naveed Ferris MD CHEMISTRY [facility] SENDOUT INTERNAL ZIP [id number] [place] [id number] * (ABNORMAL) URIC ACID (12/13/2023 6:37 AM CDT) URIC ACID 8.0(H) 3.4 - 7.0 mg/dL 12/14/2023 3:46 PM CDT [facility] Blood BLOOD SPECIMEN / Unknown Venipuncture / Unknown 12/13/2023 6:37 AM CDT 12/13/2023 6:52 AM CDT Madelyn PRAKASH CHEMISTRY [facility] SENDOUT INTERNAL ZIP [address] [place] [id number] * CK TOTAL (12/13/2023 6:37 AM CDT) CK,TOTAL 67 39 - 308 IU/L 12/14/2023 3:49 PM CDT [facility] Blood BLOOD SPECIMEN / Unknown Venipuncture / Unknown 12/13/2023 6:37 AM CDT 12/13/2023 6:52 AM CDT Madelyn PRAKASH CHEMISTRY [facility] SENDOUT INTERNAL ZIP [id number] [place] [address] * (ABNORMAL) CALCIUM (12/13/2023 6:37 AM CDT) CALCIUM 7.9(L) 8.8 - 10.2 mg/dL 12/13/2023 7:20 AM CDT [facility] Blood BLOOD SPECIMEN / Unknown Venipuncture / Unknown 12/13/2023 6:37 AM CDT 12/13/2023 6:52 AM CDT Naveed Ferris MD CHEMISTRY [facility] SENDOUT INTERNAL ZIP [id number] [address] [place] [address] * SCAN-CARDIAC STRIP (12/13/2023 12:47 AM CDT) Scanner OTHER * SCAN-CARDIAC STRIP (12/12/2023 5:16 PM CDT) Scanner OTHER * SCAN-CARDIAC STRIP (12/12/2023 2:31 PM CDT) Scanner OTHER * BLOOD CULTURE DAILY (12/12/2023 11:23 AM CDT) Only the most recent of3 resultswithin the time period is included. Pathologist [facility] CULTURE No Growth. 12/16/2023 3:05 PM CDT [facility] Blood BLOOD SPECIMEN / Unknown Venipuncture / Unknown 12/12/2023 11:23 AM CDT 12/12/2023 11:55 AM CDT Yoko Stewart MD [facility] [address] [place] [address], * SCAN-CARDIAC STRIP (12/12/2023 10:36 AM CDT) Scanner OTHER * SCAN-CARDIAC STRIP (12/12/2023 12:55 AM CDT) Scanner OTHER * (ABNORMAL) C-REACTIVE PROTEIN (12/11/2023 6:09 PM CDT) C-REACTIVE PROTEIN 11.0(H) <0.5 mg/dL 12/11/2023 7:13 PM CDT [facility] Blood BLOOD SPECIMEN / Unknown Butterfly / Unknown 12/11/2023 6:09 PM CDT 12/11/2023 6:50 PM CDT Kyle Owens MD CHEMISTRY [facility] SENDOUT INTERNAL ZIP [phone] [place] [address] * SCAN-CARDIAC STRIP (12/11/2023 3:39 PM CDT) Scanner OTHER * SCAN-CARDIAC STRIP (12/11/2023 6:25 AM CDT) Scanner OTHER * SCAN-CARDIAC STRIP (12/11/2023 12:32 AM CDT) [...] EXAM: XR CHEST 1 VIEW PORTABLE LOCATION: [facility] MEDICAL IMAGING DATE: 12/10/2023 INDICATION: SOB COMPARISON: None. Procedure Note Sridhar Low MD - 12/10/2023 For Patients: As a result of the Cures Act, medical imagingexams and procedure reports are released immediately into your electronicmedical record. You may view this report before your referring provider.If you have questions, please contact your health care provider. EXAM: XR CHEST 1 VIEW PORTABLE LOCATION: [facility] MEDICAL IMAGING DATE: 12/10/2023 INDICATION: SOB COMPARISON: [...] NOW QTc 430 ms BEYOND NOW P [place] 49 degrees BEYOND NOW R [place] 50 degrees BEYOND NOW T [place] 42 degrees BEYOND NOW 12/10/2023 11:3 7 AM CDT 12/10/2023 3:48 PM CDT Naveed Ferris MD EKG ORD BEYOND NOW [place], [place] * AEROBIC BACTERIAL CULTURE, STAIN (12/10/2023 10:02 AM CDT) Only the most recent of2 resultswithin the time period is included. CULTURE No Growth. 12/14/2023 10:23 AM CDT [facility] GRAM STAIN 3+ PMNs 12/14/2023 10:23 AM CDT [facility] GRAM STAIN 1+ Epithelial cells 12/14/2023 10:23 AM CDT [facility] GRAM STAIN 1+ RBCs 12/14/2023 10:23 AM CDT [facility] GRAM STAIN No organisms seen 12/14/2023 10:23 AM CDT [facility] GRAM STAIN Gram stain performed by [employer], [place] 12/14/2023 10:23 AM CDT [facility] Swab (Left wrist) Non-Blood / Unknown 12/10/2023 10:02 AM CDT 12/10/2023 10:51 AM CDT Narrative [facility] - 12/14/2023 10:23 AM CDT Tai De Los Santos MD MICROBIOLOGY [facility] [address] LABORATORY SENDOUT INTERNAL ZIP [id number] [place] [address] * ANAEROBIC CULTURE (12/10/2023 10:02 AM CDT) Only the most recent of2 resultswithin the time period is included. CULTURE No anaerobes isolated 12/15/2023 8:58 AM CDT [facility] Swab (Left wrist) Non-Blood / Unknown 12/10/2023 10:02 AM CDT 12/10/2023 10:51 AM CDT Tai De Los Santos MD MICROBIOLOGY [facility] [address] [place] [address] * Peripheral Block (12/10/2023 9:50 AM CDT) [...] well [place] [id number] Porsha Tijerina MD ANESTHESIA PX NOTE ORDERABLES * (ABNORMAL) CBC W PLT NO DIFF (12/10/2023 8:13 AM T) WHITE BLOOD COUNT 9.1 4.5 - 11.0 thou/cu mm 12/10/2023 8:22 AM [facility] RED BLOOD COUNT 3.41(L) 4.30 - 5.90 mil/cu mm 12/10/2023 8:22 AM [facility] HEMOGLOBIN 10.5(L) 13.5 - 17.5 g/dL 12/10/2023 8:22 AM [facility] HEMATOCRIT 31.2(L) 37.0 - 53.0 % 12/10/2023 8:22 AM [facility] MCV 92 80 - 100 fL 12/10/2023 8:22 AM [facility] MCH 30.8 26.0 - 34.0 pg 12/10/2023 8:22 AM [facility] MCHC 33.7 32.0 - 36.0 g/dL 12/10/2023 8:22 AM [facility] RDW 14.8 11.5 - 15.5 % 12/10/2023 8:22 AM [facility] PLATELET COUNT 107(L) 140 - 440 thou/cu mm 12/10/2023 8:22 AM [facility] MPV 10.2 6.5 - 11.0 fL 12/10/2023 8:22 AM [facility] NRBC 0.0 % 12/10/2023 8:22 AM [facility] ABS NRBC 0.0 thou /cu mm 12/10/2023 8:22 AM [facility] Blood BLOOD SPECIMEN / Unknown Venipuncture / Unknown 12/10/2023 8:13 AM CDT 12/10/2023 8:17 AM CDT Naveed Ferris MD HEMATOLOGY [facility] SENDOUT INTERNAL ZIP [phone] [place] [address] * SCAN-CARDIAC STRIP (12/10/2023 4:26 AM CDT) Scanner OTHER * SCAN-CARDIAC STRIP (12/09/2023 5:20 PM CDT) Scanner OTHER * CRYSTAL ID BODY FLUID NO URINE (12/08/2023 3:00 PM CDT) MONOSODIUM URATES None Seen None Seen, Present, Not Present 12/09/2023 2:[address] [facility]-CE NTRAL LABORATORY CALCIUM PYROPHOSPHATES None Seen None Seen, Present, Not Present 12/09/2023 2:23 PM CDT [facility] LABORAT[facility]-CE NTRAL LABORATORY OTHER CRYSTALS 12/09/2023 2:23 PM CDT [facility]- NTRAL LAB[facility]ATORY SPECIMEN SOURCE 2:23 PM CDT [facility]- N[facility]AL LAB[facility]ATORY Body Fluid BODY FLUID SPECIMEN / Unknown Client Collect / Unknown 12/08/2023 3:00 PM CDT 12/08/2023 10:21 PM CDT Dwight Philippe DO BODY FLUID [facility] [address] [place] [address], from Last 3 Months Advance Directives * DNR (Latest Code Status on File) Date Activated Date Inactivated Comments 01/04/2024 9:32 PM 01/05/2024 6:38 PM Question Answer Comments Code Status Discussion: Reviewed Preferences * DNR Date Activated Date Inactivated Comments 12/17/2023 2:20 PM 12/22/2023 6:22 PM Question Answer Comments Code Status Discussion: Reviewed Preferences * Full Code Date Activated Date Inactivated Comments 12/14/2023 9:14 AM 12/17/2023 2:20 PM Question Answer Comments Code Status Discussion: Reviewed Preferences * Full Code Date Activated Date Inactivated Comments 12/09/2023 5:10 PM 12/14/2023 9:14 AM Question Answer Comments Code Status Discussion: Unable to Assess Preferences, Provider to review later Care Teams Planning Official Relationship Specialty Start Date End Date Henok Weller MD [address] [place] [id number] PCP - General 11/16/12
== END 2024-02-01 06:51 | disposition home or self-care (01) ==
LOC: AMB 02-02 23:45
PROVIDERS: PCP Internal Medicine; Visit Provider Family Medicine
DX: R53.1 Weakness (principal)
CPT/HCPCS: A0998

== ENCOUNTER 2024-04-17 11:42 | Emergency (ER) | payer MEDICARE, SELFPAY ==
[2024-04-17 11:51] VITALS: BP 100/56; PULSE 104; RESP 18; TEMP 36.4; O2SAT 97; BMI 32.6
--- NOTE | 2024-04-17 12:12 | ED_ITS ---
HPI - General Adult General Chief complaint: Lower Extremity Swelling Stated complaint: Drainage on legs Time Seen by Provider: 04/17/24 11:59 History of Present Illness HPI narrative: Patient presents to the emergency department complaining of weeping leg rash/openings. Patient states his leg started weeping about 5 days ago. Patient has a homecare nurse who wanted him to come in and be seen. Patient has multiple small openings on his lower left leg . 89-year-old man presenting to the emergency department with weeping legs. Apparently these began weeping about 5 days ago. Has once a week visits from home health. He denies a history of heart failure. He does endorse a history of diuretic with regularly dosed furosemide. Does not recall any changes to this. Does have a pair of compression stockings says ?I could use another pair?. He only apparently has 1 pair. He is not wearing them here today I see him seated on the edge of the bed this feet down in a puddle of liquid. Is not complaining of leg pain. I note him also though to be wet in boxer's. Groin erythema clearly evident. Says he began nystatin powder last week. Does not have attends currently but says he did wear them when he was in an adult assisted living of some sort. Does not note any fevers. I understand him to be currently anticoagulated with apixaban Related Data Home Medications ?Medication ?Instructions ?Recorded ?Confirmed acetaminophen 650 mg 650 mg PO Q12H PRN 02/03/24 04/11/24 tablet,extended release (Tylenol Arthritis Pain) lidocaine 4 % topical patch 1 patch topical Q12H PRN 02/03/24 04/11/24 Previous Rx's ?Medication ?Instructions ?Recorded Walker- 4 Wheels #1 ea 09/14/22 simvastatin 20 mg tablet 20 mg PO HS #90 tabs 12/13/23 hydrocodone 5 mg-acetaminophen 325 1 tab PO Q8H PRN pain #30 tabs 02/03/24 mg tablet doxazosin 8 mg tablet 8 mg PO HS #30 tabs 02/22/24 apixaban 5 mg tablet (Eliquis) 5 mg PO BID #60 tabs 03/06/24 potassium chloride 20 mEq 20 meq PO DAILY #90 tabs 03/06/24 tablet,extended release albuterol sulfate 90 mcg/actuation 2 puff inhalation Q4H PRN 03/20/24 aerosol inhaler shortness of breath or wheezing #8.5 grams furosemide 40 mg tablet 40 mg PO BID #90 tabs 03/22/24 nystatin 100,000 unit/gram topical 1 applic topical TID #60 grams 04/11/24 powder Allergies Allergy/AdvReac Type Severity Reaction Status Date / Time house dust Allergy Verified 04/17/24 11:59 Review of Systems Status of ROS: Reports: 6 or more systems reviewed and unremarkable except as noted in History and below [facility] Medical History Pulmonary embolism ?I26.99 - Other pulmonary embolism without acute cor pulmonale (ICD-10) Diskitis ?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 - Discitis, unspecified, site unspecified (ICD-10) 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 - Endocarditis, valve unspecified (ICD-10) NSTEMI (non-ST elevated myocardial infarction) ?I21.4 - Non-ST elevation (NSTEMI) myocardial infarction (ICD-10) SIRS (systemic inflammatory response syndrome) ?R65.10 - Systemic inflammatory response syndrome (SIRS) of non-infectious origin without acute organ dysfunction (ICD-10) Fever of unknown origin ?R50.9 - Fever, unspecified (ICD-10) Weakness ?R53.1 - Weakness (ICD-10) Sleep apnea, obstructive ?G47.33 - Obstructive sleep apnea (adult) (pediatric) (ICD-10) Skin cancer (06/10/09) ?C44.90 - Unspecified malignant neoplasm of skin, unspecified (ICD-10) Obesity with body mass index greater than 30 ?E66.9 - Obesity, unspecified (ICD-10) Deep vein thrombosis (DVT) of left lower extremity ?I82.402 - Acute embolism and thrombosis of unspecified deep veins of left lower extremity (ICD-10) Asthma (06/10/09) ?J45.909 - Unspecified asthma, uncomplicated (ICD-10) Hyperlipidemia ?E78.5 - Hyperlipidemia, unspecified (ICD-10) Surgical History History of hip surgery (04/21/21) ?Z98.890 - Other specified postprocedural states (ICD-10) Hx of tonsillectomy ?Z90.89 - Acquired absence of other organs (ICD-10) Family History Mother Breast cancer Coronary artery disease Father No problems noted. Paternal Grandfather Coronary artery disease Social History What is your current living situation?: I presently have a place to live Problems where you live: no known problems Problems where you live details: N/A In the past 12 months, utilities in danger of being shut off: no In past 12 months, lack of transportation kept you from medical appts, meetings, work, or getting things needed for daily living: no In the past 12 mos, have been you worried that your food would run out before you had money to buy more?: never true In the past 12 mos, the food you bought just didn't last and you didn't have money to buy more?: never true Smoking Status: Never smoker Do you use any of these nicotine containing products: None Second hand tobacco smoke exposure: No How often do you have a drink containing alcohol: never How often do you have six or more drinks on one occasion: Never AUDIT-C Alcohol total score: 0 Non-prescribed substance use: denies use Caffeine: Yes How often does anyone, including family, friends and others, physically hurt you : never How often does anyone, including family, friends and others, insult or talk down to you: never How often does anyone, including family, friends and others, threaten you with harm: never How often does anyone, including family, friends and others, scream or curse at you: never Little interest or pleasure in doing things: not at all Feeling down, depressed, or hopeless: not at all service: No Exam Narrative: Exam Narrative: Pleasant. Hard of hearing. Heart in elevated rate. Is breathing easily until semi recumbent in bed and then has some upper airway trace wheeze. Sitting on the edge of the bed. Clear liquid is pouring out of his legs. I do not see any inflammatory changes in his legs least in the lower aspect. They are bilaterally tense with pitting edema. Upper legs though into the uppermost thigh starts to show increasing erythema moisture. Extensive inflammatory changes throughout the groin. Thicker moisture here. Raw skin. Const: Vital Signs, click to edit/add: Vital Signs - 24 hr 04/17/24 11:51 04/17/24 14:17 Temperature 97.6 F 97.5 F L Pulse Rate [Right Pulse Oximeter] 104 H 103 H Respiratory Rate 18 20 Blood Pressure [Le ft Upper Arm] 100/56 L 112/62 Pulse Oximetry 97 97 Oxygen Delivery Me thod Room Air Room Air Documenting provider has reviewed patient's vital signs: yes Course Vital Signs Vital signs: Initial Vital Signs Temperature 97.6 F 04/17/24 11:51 Temperature Source Temporal Artery Scan 04/17/24 11:51 Pulse Rate 104 H 04/17/24 11:51 Pulse Rhythm Regular 04/17/24 11:51 Pulse Strength 3+ Normal 04/17/24 11:51 Respiratory Rate 18 04/17/24 11:51 Blood Pressure 100/56 L 04/17/24 11:51 Blood Pressure Mean 70 04/17/24 11:51 Blood Pressure Position Sitting 04/17/24 11:51 Pulse Oximetry 97 04/17/24 11:51 Oxygen Delivery Method Room Air 04/17/24 11:51 Vital Signs Temperature 97.6 F 04/17/24 11:51 Pulse Rate 104 H 04/17/24 11:51 Respiratory Rate 18 04/17/24 11:51 Blood Pressure 100/56 L 04/17/24 11:51 Pulse Oximetry 97 04/17/24 11:51 Oxygen Delivery Method Room Air 04/17/24 11:51 Temperature 97.5 F L 04/17/24 14:17 Pulse Rate 103 H 04/17/24 14:17 Respiratory Rate 20 04/17/24 14:17 Blood Pressure 112/62 04/17/24 14:17 Pulse Oximetry 97 04/17/24 14:17 Oxygen Delivery Method Room Air 04/17/24 14:17 Medical Decision Making MDM Narrative Medical decision making narrative: Elevated legs in bed. Like to discuss with home health available cares. Needs more regular care for this what appears to be tinea cruris and his urinary incontinence. Compression to the lower legs would be optimal treatment. Did manage to reach home health finishing area supervisor. Apparently he had reported discontinuing furosemide as of 04/04 which he denies here today. Would try to get better compression system. Home health anticipating seeing more regularly. Will be placing adult diaper here in the emergency department. Needs to be able to stay dry. Stable vitals during time in the emergency department. He is anxious to leave. Prescribing for a Attends/Depends and ProFare compression. Placed Werner wraps as temporary compression here before departure. Medical Records Medical records reviewed: Yes I reviewed the patient's medical records Discharge Plan Discharge Clinical Impression: Peripheral edema, Tinea cruris, Urinary incontinence Additional Instructions: Be sure you are taking your furosemide at 40 mg twice daily as prescribed. Your home health care team appears to think that you have not been taking it. Elevate your legs at or above the level of your heart whenever your at rest. In the short term while we try to get you this fancy compression system called ProFare as recommended by your home health care, can use these Werner wraps for lower leg compressio of course n. Course you are going to need to wash these regularly. It is also imperative that you stay dry in the groin area. Continue to use the nystatin powder as prescribed. 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 Locally [facility] might be a good place to look for these supplies Your home health in the short term are going to try to increase their visits to 3 times a week. A please call today or tomorrow to make a follow-up appointment with your primary care provider within a week as recommended by the ER. Prescriptions: No Action acetaminophen [Tylenol Arthritis Pain] 650 mg tablet extended release 650 mg PO Q12H PRN lidocaine 4 % adhesive patch,medicated 1 patch topical Q12H PRN hydrocodone-acetaminophen 5-325 mg tablet 1 tab PO Q8H PRN (Reason: pain) Qty: 30 0RF furosemide 40 mg tablet 40 mg PO BID Qty: 90 3RF nystatin 100,000 unit/gram powder 1 applic topical TID Qty: 60 2RF (DME) Walker- 4 Wheels Misc See Rx Instructions .Route Qty: 1 0RF Rx Instructions: As directed simvastatin 20 mg tablet 20 mg PO HS Qty: 90 3RF doxazosin 8 mg tablet 8 mg PO HS Qty: 30 3RF potassium chloride 20 mEq tablet extended release 20 meq PO DAILY Qty: 90 3RF Eliquis 5 mg tablet 5 mg PO BID Qty: 60 3RF albuterol sulfate 90 mcg/actuation HFA aerosol inhaler 2 puff inhalation Q4H PRN (Reason: shortness of breath or wheezing) Qty: 8.5 2RF Follow Up/Referrals: Henok Weller MD [Primary Care Provider] - Stand Alone Forms: [email or web address] Info Instructions
--- OUTSIDE RECORDS SUMMARY | 2024-04-17 12:56 | XMS_ITS | Clinical Summary ---
Author Organization [employer] [facility] Address [place], [place] [address] Care Team Providers Care Kick Press Setter Name Role Phone Henok Weller MD Primary Care Provider Allergies No known active allergies Medications Medication Sig Dispensed Refills Start Date End Date Status doxazosin (CARDURA) 8 mg tablet Take 1 tablet by mouth at bedtime. 0 10/12/2011 Active simvastatin (ZOCOR) 20 mg tablet Take 20 mg by mouth once daily. 07/31/2016 Active albuterol HFA (PRO-AIR; VENTOLIN; PROVENTIL) 90 mcg/actuation inhaler Inhale 2 Puffs by mouth every 6 hours if needed for Shortness Of Breath. Active melatonin 3 mg tablet Take 1 Tablet (3 mg) by mouth once daily if needed for Sleep. 12/27/2023 Active acetaminophen (TYLENOL EXTRA STRGTH) 500 mg tabletIndications:Pyo genic arthritis of left wrist, due to unspecified organism (HC) Take 2 Tablets (1,000 mg) by mouth three times daily. AND QD PRN. Max acetaminophen dose: 4000mg in 24 hrs. 12/30/2023 Active Walker - 4 wheels As directed. 09/14/2022 Activ e lidocaine 4 % topical patch Apply 2 Patches on dry, clean, hairless skin two times daily. Apply to intact skin to cover most painful area for max 12hr per 24hr period. Active potassium chloride (KLOR-CON M10) 10 mEq extended-release tablet (part/cryst) Take 2 Tablets (20 mEq) by mouth once daily with a meal. 01/11/2024 Active apixaban (ELIQUIS) 5 mg tabletIndications:pul monary thromboembolism Take 1 Tablet (5 mg) by mouth two times daily. 01/12/2024 Active sodium chloride (Normal Saline Flush) syrg syringe PICC-Midline: 10 ml injection once daily. Aspirate for blood return and flush with 10 ml normal saline to maintain patency daily. Flush all lumens. AND 10 ml injection as needed. 01/01/2024 Active furosemide (LASIX) 20 mg tabletIndications:Pul monary embolism, bilateral (HC) Take 2 Tablets (40 mg) by mouth two times daily. 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 Pure hypercholesterolemia Sleep apnea Encounters Date Type Department Care Team Description 03/27/2024 Telephone [facility] [address] [place] [address] Salomon Herzog MD Results 03/13/2024 Refill [facility] [address] [place], [place] [id number] Christelle Yip NP Refill Request (Furosemide) 03/10/2024 3:00 PM CDT Orders Only [facility] [address] [place] [address] Lab, [place] [facility] 03/10/2024 Travel 03/09/2024 10:30 AM CDT Office Visit [facility] [address] [place] [address] Salomon Herzog MD 2024 Refill [facility] [address] [place] [id number] Christelle Yip, KISHA Refill Request (Potassium Chloride) 03/01/2024 2:00 PM CDT Phone Office Visit [facility] [address] [facility] [address] [facility] [address] [place] [address] Eric Stewart MD 03/01/2024 Travel 01/29/[address] [address] Christelle Yip NP Refill Request (Furosemide) 01/27/2024 10:00 AM CDT [facility] [address] [address] Christelle Yip NP Transitional Care Visit (TCU DC SUMMARY ) 01/26/2024 Nurse Triage [address] [address] Christelle Yip NP Abnormal Lab Results 01/25/2024 9:30 AM CDT [facility] [address] [address] Elba Dias MD Transitional Care Visit (Follow up ) 01/25/2024 Orders Only [facility] Scanner 1 scan: (1-Ord) HEALTH, CBC W/ PLATELETS and DIFFERENTIAL, 01/25/2024 01/25/2024 Orders Only [facility] Scanner 1 scan: (1-Ord) [facility], RESULTS, 01/25/2024 01/25/2024 Orders Only [address] [address] Elba Dias MD <No scans attached> 01/25/2024 Nurse Triage [address] [address] Yip, Christelle M, DIE PRESS OPERATOR Abnormal Lab Results 01/23/2024 Nurse Triage [address] [address] Christelle Yip, DIE PRESS OPERATOR Weight 01/20/2024 11:45 AM CDT [facility] [address] [address] Christelle Yip, KISHA Transitional Care Visit (DIE PRESS OPERATOR Follow Up) 01/19/2024 2:20 PM CDT Phone Office Visit [facility] [address] [facility] [address] [place] [address] Eric Stewart MD 01/19/2024 Travel 01/18/2024 Orders Only [facility] Scanner 1 scan: (1-Ord) [facility], N TERMINAL PRO BNP INPATIENT LAB RESULT, 01/18/2024 01/18/2024 Orders Only [facility] Scanner 1 scan: (1-Ord) [facility], RESULTS, 01/18/2024 01/18/2024 Orders Only [facility] Scanner 1 scan: (1-Ord) [facility] [employer] [facility], LAB RESULTS, 01/18/2024 01/18/2024 Nurse Triage [address] [address] Christelle Yip, DIE PRESS OPERATOR Abnormal Lab Results (CBC w/ platelets & differential, pro bnp, bmp, glucose, Erthrocyte sedimentation rage, crp inflammation) 01/17/2024 9:45 AM CDT [facility] [address] [address] Christelle Yip, KISHA Transitional Care Visit (DIE PRESS OPERATOR follow up ) 01/17/2024 Travel from Last 3 Months Immunizations Name Administration Dates Next Due COVID-19 VACCINE SPIKEVAX (M ODERNA 50MCG/0.5ML) 12YO+ PFS 04/09/2023 COVID-19 vaccine (Kairos4Bio NTech 30mcg/0.3mL) 12YO+ BIVALENT PF, MDV 10/15/2022,03/19/2022 COVID-19 vaccine (Glaukos-Bio NTech 30mcg/0.3mL) 12YO+ VICENTA-SUCROSE PF, MDV 10/08/2021 COVID-19 vaccine (Glaukos-Bio NTech 30mcg/0.3mL) PF, MDV 10/08/2021,07/27/2020 Influenza A [...] per week Social Connections Answer Date Recorded Do you often feel lonely or isolated from those around you? 0 01/04/2024 Financial Resource Strain Answer Date R ecorded Difficulty of Paying Living Expenses 3 12/09/2023 Difficulty of Paying Living Expenses Not on file 12/09/2023 Food Insecurity Answer Date Recorded Do you worry your food will run out before you are able to buy more? 1 01/04/2024 Transportation Needs Answer Date Record ed Does lack of transportation keep you from medica l appointments? 1 01/04/2024 Does lack of transportation keep you from work, meetings or getting things that you need? 1 01/04/2024 Housing Stability Answer Date Recorded What is your housing situation today? 1 01/04/2024 Sex and Gender Information Value Date Recorded [...] 01/04/2024 4:36 PM CDT Plan of Treatment Health Maintenance Due Date Last Done Comments Depression screening for age 12+ 1949 BMI (ht and wt on same day) for age 18+ 1955 Medicare Wellness for age 65+ 2002 COVID-19 vaccine series ( season) 2024 04/09/2023, 10/15/2022, 03/19/2022, Additional history exists Influenza for age 65+ 02/20/2024 04/09/2023 , 04/20/2022, 03/18/2021, Additional history exists Tetanus booster 03/26/2032 03/26/2022, 05/22, 09/15/2002 Pneumococcal series for age 65+ Completed 11/22/2014, 07/12/2014, 04/21/2006 Zoster (shingles) series for age 50+ Completed 11/30/2018, 09/15/2018, 06/01/2006, Additional history exists Tdap Completed 03/26/2022, 06/16/2012 RSV vaccine for adults or Completed 10/27/2023 Procedures Procedure Name Priority Date/Time Associated Diagnosis Comments BLOOD CULTURE Routine 03/10/2024 2:58 PM CDT Psoas muscle abscess (HC) BLOOD CULTURE Routine 03/10/2024 2:50 PM CDT Psoas muscle abscess (HC) SCAN-LABORATORY REPORT 01/25/2024 12:00 AM CDT SCAN-LABORATORY REPORT 01/25/2024 12:00 AM CDT SCAN-LABORATORY REPORT 01/18/2024 12:00 AM CDT SCAN-LABORATORY REPORT 01/18/2024 12:00 AM CDT SCAN-LABORATORY REPORT 01/18/2024 12:00 AM CDT from Last 3 Months Results * BLOOD CULTURE (03/10/2024 2:58 PM CDT) Only the most recent of2 resultswithin the time period is included. BLOOD CULTURE SEE NOTE [facility] Comment: ??CULTURE, BLOOD ?Micro Number: ?[id number] ??Test Status: ? Final ??Specimen Source: ?? Blood, right arm ??Specimen Quality: ??Adequate ??Result: ?No growth after 5 days ??TRANSPORT MEDIA: ?? Aerobic and anaerobic bottle received. Blood BLOOD SPECIMEN / Unknown 03/10/2024 2:58 PM CDT 03/10/2024 2:59 PM CDT Eric Stewart MD MICROBIOLOGY [employer] [facility] [address] [place] [address], [employer] [facility] [address] [place] [address] * SCAN-LABORATORY REPORT (01/25/2024 12:00 AM CDT) Only the most recent of5 resultswithin the time period is included. Scanner OTHER from Last 3 Months Advance [...] Preferences, Provider to review later Care Teams Kick Press Setter Relationship Specialty Start Date End Date Henok Weller MD [address] [place], [place] [id number] PCP - General 11/16/12
[2024-04-17 14:17] VITALS: BP 112/62; PULSE 103; RESP 20; TEMP 36.4; O2SAT 97
== END 2024-04-17 14:47 | disposition home or self-care (01) ==
PROVIDERS: Emergency Provider Family Medicine; PCP Internal Medicine
DX: R60.9 Edema, unspecified (principal); B35.6 Tinea cruris; R32 Unspecified urinary incontinence
CPT/HCPCS: 99283; 99284

== ENCOUNTER 2024-04-20 13:45 | Inpatient (IN) | payer MEDICARE, SELFPAY ==
[2024-04-20 13:53] VITALS: BP 110/59; PULSE 102; RESP 18; TEMP 36.4; O2SAT 97; BMI 17.9
--- NOTE | 2024-04-20 14:11 | ED_ITS ---
HPI - General Adult General Chief complaint: Lower Extremity Swelling Stated complaint: Bilateral leg swelling Time Seen by Provider: 04/20/24 14:02 History of Present Illness HPI narrative: This 89-year-old male is [facility] here [facility] because of large bilateral pedal edema with skin breakdown and clear fluid draining from his legs. The patient is taking Lasix and states that he takes it twice a day. He has been up at night using the bathroom because he takes an evening dose. He presented to clinic today and was sent here to have labs done and recommendation for admission. The patient lives at home with his son and his is in an advanced care facility. He does not report any fevers but states that he did have sepsis back last summer and was in the hospital for an extended amount of time. He is not reporting any pain. He does have skin breakdown on both legs with large pedal edema. The legs were wrapped with an Werner bandage in a previous visit to urgent care or clinic several days ago. Today when he arrived these bandages were soaked and there was fluid on the floor draining from his legs. Related Data Home Medications ?Medication ?Instructions ?Recorded ?Confirmed acetaminophen 650 mg 650 mg PO Q12H PRN 02/03/24 04/20/24 tablet,extended release (Tylenol Arthritis Pain) lidocaine 4 % topical patch 1 patch topical Q12H PRN 02/03/24 04/20/24 Previous Rx's ?Medication ?Instructions ?Recorded Walker- 4 Wheels #1 ea 09/14/22 simvastatin 20 mg tablet 20 mg PO HS #90 tabs 12/13/23 hydrocodone 5 mg-acetaminophen 325 1 tab PO Q8H PRN pain #30 tabs 02/03/24 mg tablet doxazosin 8 mg tablet 8 mg PO HS #30 tabs 02/22/24 apixaban 5 mg tablet (Eliquis) 5 mg PO BID #60 tabs 03/06/24 potassium chloride 20 mEq 20 meq PO DAILY #90 tabs 03/06/24 tablet,extended release albuterol sulfate 90 mcg/actuation 2 puff inhalation Q4H PRN 03/20/24 aerosol inhaler shortness of breath or wheezing #8.5 grams furosemide 40 mg tablet 40 mg PO BID #90 tabs 03/22/24 nystatin 100,000 unit/gram topical 1 applic topical TID #60 grams 04/11/24 powder Allergies Allergy/AdvReac Type Severity Reaction Status Date / Time house dust Allergy Verified 04/20/24 13:10 Review of Systems Status of ROS: Reports: 10 or more systems reviewed and unremarkable except as noted in History and below Narrative: Constitutional: No fevers, no weight gain or loss. Eyes: No discharge. No vision changes. HENT: No congestion, no sore throat, no ear pain. Cardiovascular: No chest pain, no palpitations. Respiratory: No shortness of breath, no wheezes, no cough. Gastrointestinal: No abdominal pain, no vomiting, no diarrhea. Genitourinary: No dysuria, no hematuria. Musculoskeletal: Normal range of motion. Skin: No rashes, no pruritis. Neurological: No dizziness, weakness, sensory change, speech change. Endo/Heme/Allergies: No bruising or bleeding. No polydipsia. Pysch: no suicidality, no anxiety, no insomnia. All other systems reviewed and are negative. [facility] Medical History Pulmonary embolism ?I26.99 - Other pulmonary embolism without acute cor pulmonale (ICD-10) Diskitis ?M46.40 - Discitis, unspecified, site unspecified (ICD-10) 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 - Endocarditis, valve unspecified (ICD-10) NSTEMI (non-ST elevated myocardial infarction) ?I21.4 - Non-ST elevation (NSTEMI) myocardial infarction (ICD-10) SIRS (systemic inflammatory response syndrome) ?R65.10 - Systemic inflammatory response syndrome (SIRS) of non-infectious origin without acute organ dysfunction (ICD-10) Fever of unknown origin ?R50.9 - Fever, unspecified (ICD-10) Weakness ?R53.1 - Weakness (ICD-10) Sleep apnea, obstructive ?G47.33 - Obstructive sleep apnea (adult) (pediatric) (ICD-10) Skin cancer (06/10/09) ?C44.90 - Unspecified malignant neoplasm of skin, unspecified (ICD-10) Obesity with body mass index greater than 30 ?E66.9 - Obesity, unspecified (ICD-10) Deep vein thrombosis (DVT) of left lower extremity ?I82.402 - Acute embolism and thrombosis of unspecified deep veins of left lower extremity (ICD-10) Asthma (06/10/09) ?J45.909 - Unspecified asthma, uncomplicated (ICD-10) Hyperlipidemia ?E78.5 - Hyperlipidemia, unspecified (ICD-10) Surgical History History of hip surgery (04/21/21) ?Z98.890 - Other specified postprocedural states (ICD-10) Hx of tonsillectomy ?Z90.89 - Acquired absence of other organs (ICD-10) Family History Mother Breast cancer Coronary artery disease Father No problems noted. Paternal Grandfather Coronary artery disease Social History What is your current living situation?: I presently have a place to live Problems where you live: no known problems Problems where you live details: N/A In the past 12 months, utilities in danger of being shut off: no In past 12 months, lack of transportation kept you from medical appts, meetings, work, or getting things needed for daily living: no In the past 12 mos, have been you worried that your food would run out before you had money to buy more?: never true In the past 12 mos, the food you bought just didn't last and you didn't have money to buy more?: never true Smoking Status: Never smoker Do you use any of these nicotine containing products: None Second hand tobacco smoke exposure: No How often do you have a drink containing alcohol: never How often do you have six or more drinks on one occasion: Never AUDIT-C Alcohol total score: 0 Non-prescribed substance use: denies use Caffeine: Yes How often does anyone, including family, friends and others, physically hurt you : never How often does anyone, including family, friends and others, insult or talk down to you: never How often does anyone, including family, friends and others, threaten you with harm: never How often does anyone, including family, friends and others, scream or curse at you: never Little interest or pleasure in doing things: not at all Feeling down, depressed, or hopeless: not at all service: No Exam Narrative: Exam Narrative: Constitutional: Well-developed, well-nourished, no acute distress. HEENT: Normocephalic, atraumatic. Neck: Normal range of motion. Nontender. Supple. Heart: Regular. No murmurs. Normal rate. Intact distal pulses. Lungs: Clear to auscultation. No chest discomfort. No wheezes, rhonchi, or rales. Abdomen: Normal bowel sounds. Nontender. No rebound tenderness. Genitalia: Deferred. Back: No midline tenderness. Normal range of motion. Extremities: Normal range of motion. Skin: No rash. Warm. No erythema or pallor. A large bilateral pedal edema with skin breakdown and fluid oozing through the skin. Neurologic: No altered sensation. No weakness. Alert and oriented. Psychiatric: No suicidality. No anxiety or depression. No insomnia. Nursing notes and vitals signs are reviewed. Const: Vital Signs, click to edit/add: Vital Signs - 24 hr 04/20/24 13:53 04/20/24 15:05 04/20/24 15:06 Temperature 97.6 F Pulse Rate 97 97 Pulse Rate [Pulse Oximeter] 102 H Respiratory Rate 18 Blood Pressure 116/80 Blood Pressure [Ri ght Upper Arm] 110/59 L Pulse Oximetry 97 92 93 Oxygen Delivery Me thod Room Air Course Vital Signs Vital signs: Initial Vital Signs Temperature 97.6 F 04/20/24 13:53 Temperature Source Temporal Artery Scan 04/20/24 13:53 Pulse Rate 102 H 04/20/24 13:53 Pulse Rhythm Regular 04/20/24 13:53 Respiratory Rate 18 04/20/24 13:53 Blood Pressure 110/59 L 04/20/24 13:53 Blood Pressure Mean 76 04/20/24 13:53 Pulse Oximetry 97 04/20/24 13:53 Oxygen Delivery Method Room Air 04/20/24 13:53 Vital Signs Temperature 97.6 F 04/20/24 13:53 Pulse Rate 102 H 04/20/24 13:53 Respiratory Rate 18 04/20/24 13:53 Blood Pressure 110/59 L 04/20/24 13:53 Pulse Oximetry 97 04/20/24 13:53 Oxygen Delivery Method Room Air 04/20/24 13:53 Temperature 97.6 F 04/20/24 13:53 Pulse Rate 97 04/20/24 15:06 Respiratory Rate 18 04/20/24 13:53 Blood Pressure 116/80 04/20/24 15:05 Pulse Oximetry 93 04/20/24 15:06 Oxygen Delivery Method Room Air 04/20/24 13:53 Medical Decision Making MDM Narrative Medical decision making narrative: This 89-year-old male comes from clinic for further evaluation of large pedal edema with skin breakdown and fluid draining from his legs. He had stated in clinic that he did not want to be admitted into the hospital but is agreeable now when I talk with him to coming in. He is currently taking Lasix but yet retaining fluid. He does sleep in a recliner at night and states that he does not typically have orthopnea. He probably is not elevating his leg sufficiently in this becomes part of the problem. He is agreeable to admission and I did speak with Dr. Jacobs who agrees to this plan. The patient does have a normal white blood cell count and his hemoglobin is slightly decreased from previous studies today it is at 9.8. His creatinine has increased from 1.1-1.8 and he has BUN that is almost 60. Dr. Jacobs will arrange for admission and ongoing management. Lab Data Labs: Lab Results 04/20/24 Range/Units 14:26 WBC 5.95 (4.50-11.00) K/uL RBC 3.53 L (4.30-5.90) m/uL Hgb 9.8 L (13.5-17.5) gm/dL Hct 33.0 L (37.0-53.0) % MCV 94 (80-100) fL MCH 28 (26-34) pg MCHC 30 L (32-36) gm/dL RDW Coeff of Mica 16.7 H (11.5-15.5) % Plt Count 133 L (140-440) K/uL Neut % (Auto) 86.4 H (42.0-72.0) % Lymph % (Auto) 7.2 L (20-44) % Cowley % (Auto) 4.7 (0.0-11.0) % Eos % (Auto) 1.2 (0.0-7.0) % Baso % (Auto) 0.3 (0.0-3.0) % Neut # (Auto) 5.10 (1.7-7.0) K/uL Lymph # (Auto) 0.40 L (0.90-2.90) K/uL Cowley # (Auto) 0.30 (0.00-0.90) K/UL Eos # (Auto) 0.07 (0.00-0.50) K/uL Baso # (Auto) 0.02 (0.00-0.30) K/uL Abs Immat Gran (auto) 0.01 (0.00-0.30) K/uL Imm/Tot Granulo (auto) 0.2 % Sodium 137 (135-149) mmol/L Potassium 4.2 (3.6-5.1) mmol/L Chloride 104 (96-114) mmol/L Carbon Dioxide 25 (20-32) mmol/L Anion Gap 8 (7-15) mEq/L BUN 58 H (7-30) mg/dL Creatinine 1.8 H (0.5-1.5) mg/dL Estimated Creat Clear 23.19 Estimated GFR 36 ml/min Glucose 101 (60-115) mg/dL Calcium 8.4 (8.4-10.6) mg/dL Total Bilirubin 0.4 (0.1-1.5) mg/dL Direct Bilirubin 0.2 (0.0-0.5) mg/dL AST 16 (12-35) U/L ALT 13 (4-50) U/L Alkaline Phosphatase 76 (40-150) U/L NT-Pro-B Natriuret Pep 79508 pg/mL Total Protein 6.1 (6.0-8.3) g/dL Albumin 3.4 (3.3-5.0) g/dL Discharge Plan Discharge Clinical Impression: Peripheral edema, Congestive heart failure Prescriptions: No Action acetaminophen [Tylenol Arthritis Pain] 650 mg tablet extended release 650 mg PO Q12H PRN lidocaine 4 % adhesive patch,medicated 1 patch topical Q12H PRN hydrocodone-acetaminophen 5-325 mg tablet 1 tab PO Q8H PRN (Reason: pain) Qty: 30 0RF furosemide 40 mg tablet 40 mg PO BID Qty: 90 3RF nystatin 100,000 unit/gram powder 1 applic topical TID Qty: 60 2RF (DME) Walker- 4 Wheels Misc See Rx Instructions .Route Qty: 1 0RF Rx Instructions: As directed simvastatin 20 mg tablet 20 mg PO HS Qty: 90 3RF doxazosin 8 mg tablet 8 mg PO HS Qty: 30 3RF potassium chloride 20 mEq tablet extended release 20 meq PO DAILY Qty: 90 3RF Eliquis 5 mg tablet 5 mg PO BID Qty: 60 3RF albuterol sulfate 90 mcg/actuation HFA aerosol inhaler 2 puff inhalation Q4H PRN (Reason: shortness of breath or wheezing) Qty: 8.5 2RF Follow Up/Referrals: Henok Weller MD [Primary Care Provider] -
--- OUTSIDE RECORDS SUMMARY | 2024-04-20 14:17 | XMS_ITS | Clinical Summary ---
Author Organization [employer] [facility] Address [place], [place] [address] Care Team Providers Care [employer] Registrar Name Role Phone Henok Weller MD Primary [...] Type Department Care Team Description 03/27/2024 Telephone [facility] [address] [place] [address] Salomon Herzog MD Results 03/13/2024 Refill [facility] [address] [place], [place] [id number] Christelle Yip NP Refill Request (Furosemide) 03/10/2024 3:00 PM CDT Orders Only [facility] [address] [place] [address] Lab, [place] [facility] 03/10/2024 Travel 03/09/2024 10:30 AM CDT Office Visit [facility] [address] [place] [address] Salomon Herzog MD 2024 Refill [facility] [address] [place] [id number] Christelle Yip, KISHA Refill Request (Potassium Chloride) 03/01/2024 2:00 PM CDT Phone Office Visit [facility] [address] [facility] [address] [facility] [address] [place] [address] Eric Stewart MD 03/01/2024 Travel 01/29/[address] [address] Christelle Yip NP Refill Request (Furosemide) 01/27/2024 10:00 AM CDT [facility] [address] [address] Christelle Yip NP Transitional Care Visit (TCU DC SUMMARY ) 01/26/2024 Nurse Triage [address] [address] Christelle Yip NP Abnormal Lab Results 01/25/2024 9:30 AM CDT [facility] [address] [address] Elba Dias MD Transitional Care Visit (Follow up ) 01/25/2024 Orders Only [facility] Scanner 1 scan: (1-Ord) HEALTH, CBC W/ PLATELETS and DIFFERENTIAL, 01/25/2024 01/25/2024 Orders Only [facility] Scanner 1 scan: (1-Ord) [facility], RESULTS, 01/25/2024 01/25/2024 Orders Only [address] [address] Elba Dias MD <No scans attached> 01/25/2024 Nurse Triage [address] [address] Yip, Christelle M, MSW Abnormal Lab Results 01/23/2024 Nurse Triage [facility] [address] [place] [address] Christelle Yip, MSW Weight 01/20/2024 11:45 AM CDT [facility] [address] [place] [address] Christelle Ypi, KISHA Transitional Care Visit (MSW Follow Up) 01/19/2024 2:20 PM CDT Phone Office Visit [facility] [address] [facility] [address] [place] [address] Eric Stewart MD 01/19/2024 Travel from Last 3 Months Immunizations Name Administration Dates Next Due COVID-19 VACCINE SPIKEVAX (M ODERNA 50MCG/0.5ML) 12YO+ PFS 04/09/2023 COVID-19 vaccine (Pfizer-Bio NTech 30mcg/0.3mL) 12YO+ [...] CDT SCAN-LABORATORY REPORT 01/25/2024 12:00 AM CDT from Last 3 Months Results * BLOOD CULTURE (03/10/2024 2:58 PM CDT) Only the most recent of2 resultswithin the time period is included. BLOOD CULTURE SEE NOTE [facility] Comment: ??CULTURE, BLOOD ?Micro Number: ?[id number] ??Test Status: ? Final ??Specimen Source: ?? Blood, right arm ??Specimen Quality: ??Adequate ??Result: ?No growth after 5 days ??TRANSPORT MEDIA: ?? Aerobic and anaerobic bottle received. Blood BLOOD SPECIMEN / Unknown 03/10/2024 2:58 PM CDT 03/10/2024 2:59 PM CDT Eric Stewart MD MICROBIOLOGY Performing Organization Address City/State/[facility] Co de Phone Number [facility] [address] [place] [address], [facility] [id number] [place] [address] * SCAN-LABORATORY REPORT (01/25/2024 12:00 AM CDT) Only the most recent of2 resultswithin the time period is included. Scanner [...] Preferences, Provider to review later Care Teams Secondary School Registrar Relationship Specialty Start Date End Date Henok Weller MD [address] [place] [address] PCP - General 11/16/12
[2024-04-20 14:31] LABS: Basophils Absolute Auto 0.02 K/uL (0.00-0.30); Basophils Percent Auto 0.3 % (0.0-3.0); Eosinophils Absolute Auto 0.07 K/uL (0.00-0.50); Eosinophils Percent Auto 1.2 % (0.0-7.0); Hemoglobin* 9.8 gm/dL (13.5-17.5); Immature Granulocytes Abs Auto 0.01 K/uL (0.00-0.30); Immature Granulocytes Pct Auto 0.2 %; Lymphocytes Percent Auto 7.2 % (20-44); Mean Corpuscular HGB Conc 30 gm/dL (32-36); Mean Corpuscular Hemoglobin 28 pg (26-34); Mean Corpuscular Volume 94 fL (80-100); Monocytes Percent Auto 4.7 % (0.0-11.0); Neutrophils Percent Auto 86.4 % (42.0-72.0); Platelet Count* 133 K/uL (140-440); RDW Coefficient of Variation % 16.7 % (11.5-15.5); Red Blood Count 3.53 m/uL (4.30-5.90); White Blood Count* 5.95 K/uL (4.50-11.00)
[2024-04-20 14:33] LABS: Slide Review Reflex No
[2024-04-20 14:49] LABS: Albumin* 3.4 g/dL (3.3-5.0)
[2024-04-20 14:50] LABS: Chloride* 104 mmol/L (96-114); Potassium* 4.2 mmol/L (3.6-5.1); Sodium* 137 mmol/L (135-149)
[2024-04-20 14:52] LABS: Alanine Aminotransferase* 13 U/L (4-50); Alkaline Phosphatase* 76 U/L (40-150); Aspartate Amino Transferase* 16 U/L (12-35); Bilirubin Direct* 0.2 mg/dL (0.0-0.5); Bilirubin Total* 0.4 mg/dL (0.1-1.5); Total Protein* 6.1 g/dL (6.0-8.3)
[2024-04-20 14:53] LABS: Anion Gap 8 mEq/L (7-15); Blood Urea Nitrogen* 58 mg/dL (7-30); Carbon Dioxide* 25 mmol/L (20-32); Creatinine* 1.8 mg/dL (0.5-1.5); Est. Creatinine Clearance* 23.19; Estimated Glomerular Filt Rate 36 ml/min; Glucose* 101 mg/dL (60-115)
[2024-04-20 14:54] LABS: Calcium* 8.4 mg/dL (8.4-10.6)
[2024-04-20 15:05] VITALS: BP 116/80; PULSE 97; O2SAT 92
[2024-04-20 15:06] VITALS: PULSE 97; O2SAT 93
[2024-04-20 15:20] LABS: NT Pro B Type NatriureticPept* 75400 pg/mL
--- NOTE | 2024-04-20 15:54 | ED.NURSE ---
Gave report to Veda RN, pt going to room 255 on Med-surg Care provided from [id number]. Vitally stable. Denies pain.
[2024-04-20 16:36] VITALS: BP 106/57; PULSE 104; RESP 22; TEMP 36.4; O2SAT 98
--- NOTE | 2024-04-20 17:28 | P.IMHP_ITS ---
Hospitalist- H&P: HPI History of Present Illness Date Seen: 04/20/24 Chief complaint: Bilateral leg swelling Narrative: Sergio Nichols is a 89 year old man who presents to the emergency department today after initial assessment in the Internal Medicine Clinic for additional evaluation of bilateral lower extremity edema and weeping of fluid. Known to have diastolic heart failure in association with hypertensive heart disease. Takes oral furosemide 40 mg twice daily. The last 2 days he states the weeping from his lower extremities has been tremendous and he has not been able to keep his legs dry because of the weeping. Lives home with his son. His lives in an advanced care center. He and his son have not been able to keep up with weeping from the lower extremities despite their efforts. Denies pain, fever, rigors, diaphoresis. Acknowledges urinary incontinence with urine at times streaming down his legs. Legs had been wrapped with compression wraps for a while. He has not been attending to these wraps. He states that when he removed these wraps that were soaking wet. Notes a sense of dyspnea at rest now which is unusual for him. Dyspnea increases with minimal exertion. Usually he does not have dyspnea with minimal exertion. Denies chest, back, arm heaviness, pressure, tightness, or pain. Denies syncope or near-syncope. Denies orthostasis. Denies nausea vomiting. Denies palpitations. Once again has had marked increased bilateral lower extremity edema as specified above. Review of Systems Status of ROS: Reports: 10 or more systems reviewed and unremarkable except as noted in History and below Narrative: Hospitalized earlier this year with concern about possible endocarditis. Underwent extensive workup for the same at [facility] in the [facility]. In course of workup a trans thoracic echocardiogram demonstrated aortic stenosis with a mean gradient of 13 mmHg. Subsequently underwent transesophageal echocardiogram and eventually a PET scan with no clear evidence of endocarditis or root abscess. Cardiac CT was indeterminate and demonstrated only thickening around the aortic root. Has never smoked or used other nicotine products of any kind. Remote history of chewing tobacco. Rarely consumes alcoholic beverages, perhaps 2 beers per week at the most. Denies use of street or recreational drugs. Primary care physician is Dr. Dre Weller. 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 - Endocarditis, valve unspecified (ICD-10) NSTEMI (non-ST elevated myocardial infarction) ?I21.4 - Non-ST elevation (NSTEMI) myocardial infarction (ICD-10) SIRS (systemic inflammatory response syndrome) ?R65.10 - Systemic inflammatory response syndrome (SIRS) of non-infectious origin without acute organ dysfunction (ICD-10) Fever of unknown origin ?R50.9 - Fever, unspecified (ICD-10) Weakness ?R53.1 - Weakness (ICD-10) Sleep apnea, obstructive ?G47.33 - Obstructive sleep apnea (adult) (pediatric) (ICD-10) Skin cancer (06/10/09) ?C44.90 - Unspecified malignant neoplasm of skin, unspecified (ICD-10) Obesity with body mass index greater than 30 ?E66.9 - Obesity, unspecified (ICD-10) Deep vein thrombosis (DVT) of left lower extremity ?I82.402 - Acute embolism and thrombosis of unspecified deep veins of left lower extremity (ICD-10) Asthma (06/10/09) ?J45.909 - Unspecified asthma, uncomplicated (ICD-10) Hyperlipidemia ?E78.5 - Hyperlipidemia, unspecified (ICD-10) Surgical History History of hip surgery (04/21/21) ?Z98.890 - Other specified postprocedural states (ICD-10) Hx of tonsillectomy ?Z90.89 - Acquired absence of other organs (ICD-10) Family History Mother Breast cancer Coronary artery disease Father No problems noted. Paternal Grandfather Coronary artery disease Social History What is your current living situation?: I presently have a place to live Problems where you live: no known problems Problems where you live details: none In the past 12 months, utilities in danger of being shut off: no In past 12 months, lack of transportation kept you from medical appts, meetings, work, or getting things needed for daily living: no In the past 12 mos, have been you worried that your food would run out before you had money to buy more?: never true In the past 12 mos, the food you bought just didn't last and you didn't have money to buy more?: never true Smoking Status: Never smoker Do you use any of these nicotine containing products: None Second hand tobacco smoke exposure: No How often do you have a drink containing alcohol: monthly or less How often do you have six or more drinks on one occasion: Never AUDIT-C Alcohol total score: 1 Non-prescribed substance use: denies use Caffeine: Yes How often does anyone, including family, friends and others, physically hurt you : never How often does anyone, including family, friends and others, insult or talk down to you: never How often does anyone, including family, friends and others, threaten you with harm: never How often does anyone, including family, friends and others, scream or curse at you: never Little interest or pleasure in doing things: not at all Feeling down, depressed, or hopeless: not at all service: No Meds Home Medications and Allergies Home Medications ?Medication ?Instructions ?Recorded ?Confirmed ?Type acetaminophen 650 mg 650 mg PO Q12H PRN 02/03/24 04/20/24 History tablet,extended release (Tylenol Arthritis Pain) lidocaine 4 % topical patch 1 patch topical Q12H PRN 02/03/24 04/20/24 History Home Medication Comments: Furosemide 40 mg p.o. b.i.d. Allergies Allergy/AdvReac Type Severity Reaction Status Date / Time house dust Allergy Verified 04/20/24 16:36 Exam Narrative: Exam Narrative: I examine him 1st in the emergency department and then secondly in his hospital room. Appears comfortable in no acute distress. Moderate hearing deficit with vision adequate. Alert and oriented x4. Friendly, articulate, cooperative. Sitting upright he does have jugular venous distention at the base of the neck with hepatojugular reflux long term up the neck. No carotid bruits. Neck otherwise supple. Midline nasal septum. Dentition in fair repair. Dry buccal mucosa. Oropharynx unremarkable. No icterus or conjunctival injection. Conjugate gaze. Pupils equally round and reactive to light and accommodation. Lungs with bibasilar rales. No wheezing or rhonchi. Kyphotic posture. Chest wall excursions are full. No CVA tenderness to thumping. Heart tones with regular rhythm, normal S1-S2. Systolic murmur including on right upper sternal border. PMI not laterally displaced. Abdomen with active bowel sounds, soft, nontender. Remarkable intertriginous candidiasis in abdominal folds and groin, scrotum and buttock. Weeping of clear fluid through small open wounds bilateral lower extremities left much more so than the right. Erythema around some of these very small wounds, particularly on the left. No focal motor neurologic deficits. Able to transfer from supine to sitting to standing and then take a few steps from emergency department exam table to his hospital bed. Remarkably the NT proBNP is 75,000 today. Const: Vital Signs, click to edit/add: Vital Signs - 24 hr 04/20/24 13:53 04/20/24 15:05 04/20/24 15:06 Temperature 97.6 F Pulse Rate 97 97 Pulse Rate [Pulse Oximeter] 102 H Pulse Rate [Right Radial] Respiratory Rate 18 Blood Pressure 116/80 Blood Pressure [Ri ght Arm] Blood Pressure [Ri ght Upper Arm] 110/59 L Pulse Oximetry 97 92 93 Oxygen Delivery Me thod Room Air 04/20/24 16:36 Temperature 97.6 F Pulse Rate Pulse Rate [Pulse Oximeter] Pulse Rate [Right Radial] 104 H Respiratory Rate 22 Blood Pressure Blood Pressure [Ri ght Arm] 106/57 L Blood Pressure [Ri ght Upper Arm] Pulse Oximetry 98 Oxygen Delivery Me thod Room Air Hospitalist - H&P: Result Labs Labs: Short CBC 04/20/24 Range/Units 14:26 WBC 5.95 (4.50-11.00) K/uL Hgb 9.8 L (13.5-17.5) gm/dL Hct 33.0 L (37.0-53.0) % Plt Count 133 L (140-440) K/uL BMP 04/20/24 14:26 Sodium 137 Potassium 4.2 Chloride 104 Carbon Dioxide 25 BUN 58 H Creatinine 1.8 H Glucose 101 Calcium 8.4 Liver Function 04/20/24 Range/Units 14:26 Total Bilirubin 0.4 (0.1-1.5) mg/dL Direct Bilirubin 0.2 (0.0-0.5) mg/dL AST 16 (12-35) U/L ALT 13 (4-50) U/L Alkaline Phosphatase 76 (40-150) U/L Albumin 3.4 (3.3-5.0) g/dL ECG ECG interpretation date: 04/20/24 Interpretation: Normal sinus rhythm with first-degree AV block. Imaging Echo: Radiologist's impression: Transthoracic echocardiogram from 01/05/2024 demonstrated normal ejection fraction of 50-55% with [id number] aortic stenosis and mitral annular calcification. Assessment and Plan Assessment and plan (1) Acute on chronic diastolic heart failure with preserved ejection fraction: Problem comment: -admit to hospital -IV diuresis with furosemide 40 mg twice daily -consider IV albumin depending on his response -monitor labs, including potassium and magnesium plus creatinine and BUN and albumin -will not necessarily repeat echocardiogram which was last done on 01/05/2024 -monitor troponin I and ECG -try to keep legs dry. Will use Betadine topically to wounds. Will obtain wound culture. Will place on empiric doxycycline. Status: Acute (2) Hypertensive heart disease: Problem comment: -monitor blood pressure response to intervention efforts and consider adding antihypertensive if appropriate Status: Acute (3) Essential hypertension: Status: Acute (4) Mild aortic stenosis by prior echocardiogram: Status: Acute (5) Mitral annular calcification: Status: Acute (6) Dermatitis associated with moisture from urinary incontinence: Problem comment: -given his urinary incontinence and associated dermatitis will collect urine for now. -try to keep skin dry Status: Acute (7) Intertriginous candidiasis: Problem comment: -fluconazole 100 mg daily plus nystatin topically Status: Acute (8) Acute kidney injury superimposed on chronic kidney disease: Problem comment: - 04/20/2024: Creatinine 1.8 and normally 1.1. BUN 58 and normally 29. Monitor labs closely. - orthostatic blood pressures and pulses Status: Acute Plan 1. Reviewed impression and recommendations with patient 2. Answered patient's questions to satisfaction 3. Patient agreeable to above stated plans and recommendations Total Time Spent Total Time Spent: 70 minutes
--- NOTE | 2024-04-20 17:54 | PC.NURSE ---
End of Shift Note: Patient was admitted from the ER today for his bilat edema and weeping legs. Upon arrival noted his weeping legs and on his left roland is a small area that a wound culture was sent under the directions of Dr. Jacobs. Washed his legs wound culture was then sent and applied Betadine to see if this helps with the drainage. Have disposable pads under both leg and over them to protect the drainage from getting on the bedding. Appears alert and orientated. Did give report to Noemi SIMS
[2024-04-20] MEDS: FUROSEMIDE 10 MG/ML inj 40 MG IVP (18:57)
[2024-04-20 19:38] VITALS: BP 102/54; PULSE 107; RESP 18; TEMP 36.4; O2SAT 98
[2024-04-20] MEDS: DOXAZOSIN 4 MG TABLET 8 MG PO (20:54)
[2024-04-20] MEDS: SODIUM CHLORIDE 0.9 % (FLUSH) 10 ML SYRINGE 5 ML IVF (20:54)
[2024-04-20] MEDS: DOXYCYCLINE HYCLATE 100 MG PO (20:54)
[2024-04-20] MEDS: NYSTATIN POWDER 1 APPLIC TOPICAL (20:54)
[2024-04-20] MEDS: APIXABAN 5 MG TABLET PO (20:54)
[2024-04-20] MEDS: SIMVASTATIN 20 MG TABLET PO (20:54)
[2024-04-20 23:00] VITALS: BP 104/58; PULSE 96; PULSE 98; RESP 18; RESP 22; TEMP 36.3; O2SAT 98
[2024-04-21] VITALS (9 sets, daily range): BP systolic 101–118; BP diastolic 53–71; PULSE 88–104; RESP 14–22; TEMP 36.5–36.8; O2SAT 96–99
[2024-04-21 06:19] LABS: Lactate* 0.9 mmol/L (0.5-1.9)
[2024-04-21 06:21] LABS: Hemoglobin* 9.1 gm/dL (13.5-17.5); Mean Corpuscular HGB Conc 29 gm/dL (32-36); Mean Corpuscular Hemoglobin 28 pg (26-34); Mean Corpuscular Volume 94 fL (80-100); Platelet Count* 132 K/uL (140-440); White Blood Count* 5.19 K/uL (4.50-11.00)
[2024-04-21 06:24] LABS: Slide Review Reflex No
[2024-04-21 06:34] LABS: Chloride* 105 mmol/L (96-114); Potassium* 4.2 mmol/L (3.6-5.1); Sodium* 138 mmol/L (135-149)
--- NOTE | 2024-04-21 06:36 | PC.NURSE ---
[id number] Pt slept well between cares during the night. 3+ weeping pitting edema to bilateral lower extremities with open sores, present on left leg more than right, open to air. patient denies pain unless touched. ambulating to br with walker, GB, SBA. tolerating activity well. denies SOB or difficulty breathing with activity, expiratory wheezing noted, declined prn albuterol inhaler.
[2024-04-21 06:37] LABS: Creatinine* 1.8 mg/dL (0.5-1.5); Est. Creatinine Clearance* 29.85; Estimated Glomerular Filt Rate 36 ml/min
[2024-04-21 06:38] LABS: Anion Gap 7 mEq/L (7-15); Blood Urea Nitrogen* 63 mg/dL (7-30); Calcium* 8.1 mg/dL (8.4-10.6); Carbon Dioxide* 26 mmol/L (20-32); Glucose* 103 mg/dL (60-115); Magnesium* 2.1 mg/dL (1.5-2.6); Phosphorus* 4.6 mg/dL (2.5-4.5)
[2024-04-21 06:41] LABS: C Reactive Protein* 1.8 mg/dL (0.5-1.0)
[2024-04-21] MEDS: FUROSEMIDE 10 MG/ML inj 40 MG IVP ×2 (08:06→20:47)
[2024-04-21] MEDS: NYSTATIN POWDER 1 APPLIC TOPICAL ×3 (08:07→20:48)
[2024-04-21 08:11] LABS: NT Pro B Type NatriureticPept* 69000 pg/mL; Troponin I* 0.08 ng/mL (0.01-0.04)
[2024-04-21] MEDS: DOXYCYCLINE HYCLATE 100 MG PO ×2 (09:43→20:47)
[2024-04-21] MEDS: APIXABAN 5 MG TABLET PO ×2 (09:43→20:48)
[2024-04-21] MEDS: POTASSIUM CHLORIDE 10 MEQ CAPSULE ER 20 MEQ PO (09:43)
[2024-04-21] MEDS: SODIUM CHLORIDE 0.9 % (FLUSH) 10 ML SYRINGE 5 ML IVF ×2 (09:44→20:48)
--- NOTE | 2024-04-21 10:46 | P.IMPN_ITS ---
Progress Note: A&P Assessment and plan (1) Acute on chronic diastolic heart failure with preserved ejection fraction: Problem details: -IV diuresis with furosemide 40 mg twice daily, holding home dose. May be able to increase IV dose for short term. Strict I&Os, daily weights -BNP down trending 69,000 from 75,400 -consider IV albumin depending on his response -monitor labs, including potassium and magnesium plus creatinine and BUN and albumin -will not necessarily repeat echocardiogram which was last done on 01/05/2024 -monitor troponin I and ECG - repeat troponin improved 0.08 from 1.57 -try to keep legs dry. Will use Betadine topically to wounds. Will obtain wound culture. Will place on empiric doxycycline. Status: Acute (2) Peripheral edema: Problem details: -acute on chronic -management as above with IV diuresis -compression wraps, elevation -wound culture pending given open skin, weeping -continue empiric doxycycline and wound cares Status: Acute (3) Acute kidney injury superimposed on chronic kidney disease: Problem details: - Creatinine 1.8 on admission and normally 1.1. BUN 58 and normally 29. Monitor labs closely in setting of IV diuresis - orthostatic blood pressures and pulses Status: Acute (4) Hypertensive heart disease: Problem details: -monitor blood pressure response to intervention efforts and consider adding antihypertensive if appropriate Status: Acute (5) Dermatitis associated with moisture from urinary incontinence: Problem details: -given his urinary incontinence and associated dermatitis will collect urine for now -try to keep skin dry Status: Acute (6) Intertriginous candidiasis: Problem details: -fluconazole 100 mg daily plus nystatin topically Status: Acute (7) BPH (benign prostatic hyperplasia): Problem details: -continue doxazosin Status: Acute (8) Hyperlipidemia: Problem details: -continue statin Status: Acute (9) Anemia: Problem details: - Hemoglobin 9.1, 9.8 on admission. Baseline 12.1-10.3 this summer - no evidence for acute bleed. Retic, ferritin, iron, TIBC, B12, Folic acid ordered Status: Acute Time Spent With Patient Total time spent: Total time spent caring for the patient today was 45 minutes. This includes time spent for the visit reviewing the chart, time spent during the visit, time spent after the visit and documentation and planning in coordination of care. Subjective Date Seen: 04/21/24 Interval history: Patient is seen today sitting reclined in a chair. Reports feeling better than on admission. Has noticed the swelling in his legs has improved. While he appears to be somewhat short of breath this morning he tells me his breathing has improved. He blames it on the big breakfast he just ate. He is also in a reclined position. Otherwise, denies headache or dizziness. Denies chest pain. Has no pain in his legs. Remains afebrile. Exam Narrative: Exam Narrative: PHYSICAL EXAM General: Pleasant, conversant, NAD HEENT: Normocephalic, atraumatic, sclera white, EOMI, oral mucosa moist Cardiovascular: RRR, S1S2 Pulmonary: CTA bilaterally without rhonchi, rales, expiratory wheezes. Mild dyspnea on room air, reclined Abdominal: Soft, nondistended, NTTP Neurological: Alert, answering questions appropriately, cranial nerves intact, no focal findings Extremities: Bilateral lower extremities with +3 pitting edema, scattered areas of erythema with sanguinous weeping, nontender Skin: Warm, dry. Const: Vital Signs, click to edit/add: Vital Signs - 24 hr 04/20/24 13:53 04/20/24 15:05 04/20/24 15:06 Temperature 97.6 F Pulse Rate 97 97 Pulse Rate [Pulse Oximeter] 102 H Pulse Rate [Right Radial] Respiratory Rate 18 Blood Pressure 116/80 Blood Pressure [Ri ght Arm] Blood Pressure [Ri ght Upper Arm] 110/59 L Pulse Oximetry 97 92 93 Oxygen Delivery Ut thod Room Air 04/20/24 16:36 04/20/24 19:38 04/20/24 23:00 Temperature 97.6 F 97.6 F Pulse Rate Pulse Rate [Pulse Oximeter] Pulse Rate [Right Radial] 104 H 107 H 98 Respiratory Rate 22 18 18 Blood Pressure Blood Pressure [Ri ght Arm] 106/57 L 102/54 L Blood Pressure [Ri ght Upper Arm] Pulse Oximetry 98 98 Oxygen Delivery Ut thod Room Air Room Air 04/20/24 23:00 04/20/24 23:00 04/20/24 23:00 Temperature 97.3 F L Pulse Rate 96 Pulse Rate [Pulse Oximeter] Pulse Rate [Right Radial] 98 Respiratory Rate 18 22 Blood Pressure Blood Pressure [Ri ght Arm] 104/58 L Blood Pressure [Ri ght Upper Arm] Pulse Oximetry 98 98 Oxygen Delivery Me thod Room Air Room Air 04/21/24 03:00 04/21/24 08:14 04/21/24 08:14 Temperature 97.8 F Pulse Rate Pulse Rate [Pulse Oximeter] Pulse Rate [Right Radial] 96 98 98 Respiratory Rate 22 14 14 Blood Pressure Blood Pressure [Ri ght Arm] 113/71 101/66 Blood Pressure [Ri ght Upper Arm] Pulse Oximetry 96 96 Oxygen Delivery Me thod Room Air Room Air 04/21/24 08:14 Temperature Pulse Rate Pulse Rate [Pulse Oximeter] Pulse Rate [Right Radial] Respiratory Rate 14 Blood Pressure Blood Pressure [Ri ght Arm] Blood Pressure [Ri ght Upper Arm] Pulse Oximetry 96 Oxygen Delivery Me thod Room Air Labs Labs: Laboratory Results - last 24 hr 04/20/24 04/21/24 14:26 06:12 WBC 5.95 5.19 RBC 3.53 L 3.30 L Hgb 9.8 L 9.1 L Hct 33.0 L 31.0 L MCV 94 94 MCH 28 28 MCHC 30 L 29 L RDW Coeff of Mica 16.7 H Plt Count 133 L 132 L Neut % (Auto) 86.4 H Lymph % (Auto) 7.2 L Caswell % (Auto) 4.7 Eos % (Auto) 1.2 Baso % (Auto) 0.3 Neut # (Auto) 5.10 Lymph # (Auto) 0.40 L Caswell # (Auto) 0.30 Eos # (Auto) 0.07 Baso # (Auto) 0.02 Abs Immat Gran (auto) 0.01 Imm/Tot Granulo (auto) 0.2 Sodium 137 138 Potassium 4.2 4.2 Chloride 104 105 Carbon Dioxide 25 26 Anion Gap 8 7 BUN 58 H 63 H Creatinine 1.8 H 1.8 H Estimated Creat Clear 23.19 29.85 Estimated GFR 36 36 Glucose 101 103 Lactate 0.9 Calcium 8.4 8.1 L Phosphorus 4.6 H Magnesium 2.1 Total Bilirubin 0.4 Direct Bilirubin 0.2 AST 16 ALT 13 Alkaline Phosphatase 76 Troponin I 0.08 H* C-Reactive Protein 1.8 H NT-Pro-B Natriuret Pep [id number] Total Protein 6.1 Albumin 3.4 3.0 L
[2024-04-21 11:24] LABS: Immature Reticulocyte Fraction 18.5 % (2.3-13.4); Reticulocyte Hemoglobin Equivi 22.2 pg (29.0-35.0); Reticulocyte Percent 0.9 % (0.5-2.0); Reticulocytes Absolute 0.03 # (0.03-0.08)
[2024-04-21 11:31] LABS: Iron* 28 ug/dL (49-181)
[2024-04-21 11:38] LABS: Appearance Urine Clear (Clear); Bilirubin Urine Negative (Negative); Blood Urine Negative (Negative); Color Urine Yellow (Yellow); Glucose Urine Negative (Negative); Ketones Urine Negative (Negative); Leukocyte Esterase Urine Negative (Negative); Nitrite Urine Negative (Negative); Protein Urine Negative (Negative); Specific Gravity Urine 1.015 (1.000-1.030); Urobilinogen Urine 0.2 (0.2-1.0)
[2024-04-21 11:40] LABS: Percent Iron Saturation 11 % (20-50); Total Iron Binding Capacity 260 ug/dL (261-462)
[2024-04-21 11:56] LABS: RBC Urine 0-2 (0-2); WBC Urine 0-2 (0-5)
[2024-04-21 12:07] LABS: Ferritin* 36.8 ng/mL (17.9-464.0)
[2024-04-21 12:21] LABS: Vitamin B12* 500 pg/mL (243-894)
--- NOTE | 2024-04-21 13:06 | NUTR.NU ---
RDN with MD consult related to diet education for heart healthy diet. Patient admitted for heart failure and peripheral edema. Past medical history includes but not limited to mild aortic stenosis, Essential hypertension, Endocarditis, SIRS (systemic inflammatory response syndrome), Obesity with BMI greater than 30, Deep vein thrombosis (DVT), and Hyperlipidemia. Current weight 220lb; height 5ft 10in; BMI 31.6 kg/m2. Weight has been stable within the last 180 days. Current diet is Heart Healthy. RDN visited with patient whom reports a good appetite recently. He declines recent weight loss. He is currently living at home and his son lives with him whom helps around the house. Patient makes a lot of food himself, which includes a lot of pre-made frozen meats and deli sandwiches. Patient also likes condiments such as beltre. RDN offered diet education related to Heart Healthy diet. Patient agreed to diet education. Heart healthy diet education provided. Discussed following a Mediterranean-style diet using the plate method that includes ? plate non-starchy vegetables and fruit, ? plate whole grains/starch, ? plate healthy protein (fish, poultry, legumes, nuts/seeds), and healthy fats. Discussed limiting saturated fat and sodium intake. Handouts provided to support discussion. Patient reports he will share this information with his son. RDN contact information provided and encouraged patient to call with questions. RDN to follow up as needed.
--- NOTE | 2024-04-21 16:06 | PC.SOCIAL ---
Social work international logistics analyst met with pt and pt's son to discuss discharge planning. Pt lives with his son and would like to return home with him. Pt's other son was in the room and inquiring about more services for the pt. Social work international logistics analyst told them about homemaker services, but that it would be private pay. Pt currently receives PT/OT, nursing and home health aide services with [facility]. [employer] to follow up on Wednesday.
[2024-04-21] MEDS: ALBUTEROL INHALER 2 PUFF IH ×2 (16:20→20:48)
[2024-04-21] MEDS: FLUCONAZOLE 100 MG TABLET PO (17:48)
--- NOTE | 2024-04-21 18:58 | PC.NURSE ---
End of Shift: Patient pleasant and cooperative, alert and oriented. Patient vitally stable, lungs with expiratory wheezes, BS WNL, IV SL and intact. Patient denies pain. Bilateral LE weeping clear drainage with +2 pitting edema. Groin/gabriella area cleaned and interdry applied. Patient 1 assist/walker. Patient has slept majority of the day and lacks motivation for activity. Patient was up in chair x2 today.
[2024-04-21] MEDS: DOXAZOSIN 4 MG TABLET 8 MG PO (20:48)
[2024-04-21] MEDS: SIMVASTATIN 20 MG TABLET PO (20:48)
[2024-04-22] VITALS (9 sets, daily range): BP systolic 101–116; BP diastolic 51–72; PULSE 92–102; RESP 18–24; TEMP 36.4–36.6; O2SAT 96–98
[2024-04-22] MEDS: ALBUTEROL INHALER 2 PUFF IH ×2 (02:44→18:57)
[2024-04-22 06:22] LABS: Hematocrit 31.3 % (37.0-53.0); Hemoglobin* 9.2 gm/dL (13.5-17.5); Mean Corpuscular HGB Conc 29 gm/dL (32-36); Mean Corpuscular Hemoglobin 27 pg (26-34); Mean Corpuscular Volume 93 fL (80-100); Platelet Count* 134 K/uL (140-440); Red Blood Count 3.37 m/uL (4.30-5.90); White Blood Count* 5.85 K/uL (4.50-11.00)
[2024-04-22 06:25] LABS: Slide Review Reflex No
[2024-04-22 06:39] LABS: Albumin* 2.9 g/dL (3.3-5.0); Chloride* 106 mmol/L (96-114); Sodium* 139 mmol/L (135-149)
[2024-04-22 06:41] LABS: Phosphorus* 4.7 mg/dL (2.5-4.5)
[2024-04-22 06:42] LABS: Anion Gap 7 mEq/L (7-15); Blood Urea Nitrogen* 71 mg/dL (7-30); Calcium* 8.3 mg/dL (8.4-10.6); Carbon Dioxide* 26 mmol/L (20-32); Creatinine* 1.8 mg/dL (0.5-1.5); Est. Creatinine Clearance* 29.85; Estimated Glomerular Filt Rate 36 ml/min; Glucose* 99 mg/dL (60-115); Phosphorus* 4.7 mg/dL (2.5-4.5)
[2024-04-22] MEDS: FUROSEMIDE 10 MG/ML inj 40 MG IVP ×2 (08:14→13:52)
[2024-04-22] MEDS: SODIUM CHLORIDE 0.9 % (FLUSH) 10 ML SYRINGE 5 ML IVF ×2 (08:14→20:39)
[2024-04-22] MEDS: POTASSIUM CHLORIDE 10 MEQ CAPSULE ER 20 MEQ PO (08:59)
[2024-04-22] MEDS: APIXABAN 5 MG TABLET PO ×2 (09:00→20:38)
[2024-04-22] MEDS: NYSTATIN POWDER 1 APPLIC TOPICAL ×3 (09:00→20:38)
[2024-04-22] MEDS: DOXYCYCLINE HYCLATE 100 MG PO ×2 (09:00→20:38)
--- NOTE | 2024-04-22 13:46 | XR_ITS ---
Patient: VONDA WEAVER Facility:?[facility] Patient ID:?[id number] Site Patient ID:?[id number]. Site :?[id number] Study:?XRay-Chest 1V PORTABLE-04/22/2024 3:46:09 PM Ordering Physician:Aden Ross Final Report: HISTORY: Shortness of breath. TECHNIQUE: One view of the chest. COMPARISON: 04/20/2021. FINDINGS: There are increased interstitial opacities within the lower lung zones which could relate to fibrosis, interstitial infiltrates or mild interstitial edema. No lung consolidation. No pneumothorax. Small pleural effusions not excluded. Cardiac size is upper limits of normal accounting for technique. IMPRESSION: 1. Increased interstitial prominence within the lung bases with considerations including fibrosis, interstitial infiltrates or interstitial edema. Dictated by Meño Cardoza MD @ 04/22/2024 4:42:07 PM Dictated by: Meño Cardoza MD @ 04/22/2024 16:42:13 Signed by:?Meño Cardoza MD @04/22/2024 4:42:13 PM (Electronic Signature)
--- NOTE | 2024-04-22 13:46 | CRLHL7_ITS ---
For Patients: As a result of the Cures Act, medical imaging exams and procedure reports are released immediately into your electronic medical record. You may view this report before your referring provider. If you have questions, please contact your health care provider. INDICATION: Pain and swelling. COMPARISON: No recent prior comparison study. Radiographs of the right foot dated 01/14/2016 TECHNIQUE: Views: 2 FINDINGS: Mineralization: Diffuse osteopenia. Alignment: Normal. Bones and Joints: No fracture is identified. Tarsometatarsal osteoarthrosis. Soft Tissues: Diffuse periarticular soft tissue swelling extending to the lower leg and dorsal midfoot. Diffuse atherosclerotic calcification of the crural arteries. IMPRESSION: Diffuse periarticular soft tissue swelling extending to the lower leg and dorsal midfoot. Incidental findings described in the body of the report. Dictated by Rey Cuellar MD @ 04/23/2024 2:01:20 PM (Electronically Signed)
--- NOTE | 2024-04-22 13:53 | PM.IMPN1 ---
Progress Note: A&P Assessment and plan (1) Acute on chronic diastolic heart failure with preserved ejection fraction: Problem details: -IV diuresis with furosemide 40 mg twice daily, holding home dose. May be able to increase IV dose for short term. Strict I&Os, daily weights -BNP down trending 69,000 from 75,400 -consider IV albumin depending on his response -monitor labs, including potassium and magnesium plus creatinine and BUN and albumin -will not necessarily repeat echocardiogram which was last done on 01/05/2024 -monitor troponin I and ECG - repeat troponin improved 0.08 from 1.57 -try to keep legs dry. Will use Betadine topically to wounds. Will obtain wound culture. Will place on empiric doxycycline. -order chest x-ray Status: Acute (2) Right ankle pain: Problem details: -right ankle pain that started around 3:00 a.m. in the morning. On examination there is tenderness mostly on the right malleolus area and swelling (note that both lower extremities are swollen). -P/E: Patient is unable to bear weight on his right foot -Patient has a suspected episode of gout previously that was not confirmed. -ordered a right ankle x-ray -ordered uric acid Status: Acute (3) ROBERTO (acute kidney injury): Status: Acute Assessment and Plan: - Creatinine 1.8 on admission and normally 1.1. BUN 58 and normally 29. Monitor labs closely in setting of IV diuresis - orthostatic blood pressures and pulses (4) Peripheral edema: Problem details: -acute on chronic -management as above with IV diuresis -compression wraps, elevation -wound culture pending given open skin, weeping -continue empiric doxycycline and wound cares Status: Acute (5) Hypertensive heart disease: Problem details: -monitor blood pressure response to intervention efforts and consider adding antihypertensive if appropriate Status: Acute (6) Dermatitis associated with moisture from urinary incontinence: Problem details: -given his urinary incontinence and associated dermatitis will collect urine for now -try to keep skin dry Status: Acute (7) Intertriginous candidiasis: Problem details: -fluconazole 100 mg daily plus nystatin topically Status: Acute (8) BPH (benign prostatic hyperplasia): Problem details: -continue doxazosin Status: Acute (9) Hyperlipidemia: Problem details: -continue statin Status: Acute (10) Anemia: Problem details: - Hemoglobin 9.1, 9.8 on admission. Baseline 12.1-10.3 this summer - no evidence for acute bleed. Retic, ferritin, iron, TIBC, B12, Folic acid ordered Status: Acute Plan As above Time Spent With Patient Total time spent: Today I spent 50 minutes seeing the patient, reviewing Expanse and EPIC notes/diagnostics, discussing the care plan with our care time that includes social work, PT/OT, pharmacy, RT, correction and documenting my impressions and plan in the medical record. Subjective Date Seen: 04/22/24 Interval history: Patient is seen today. Reports feeling better than on admission. The patient is complaining of right ankle pain that started around 3:00 a.m. in the morning. On examination there is tenderness mostly on the right malleolus area and swelling (note that both lower extremities are swollen). Patient has a suspected episode of gout previously that was not confirmed. Exam Narrative: Exam Narrative: Physical exam GENERAL: Comfortable, no acute distress. HEAD AND NECK: Atraumatic, normocephalic CARDIOVASCULAR: RRR. Normal S1, S2. No murmurs. RESPIRATORY: Clear to auscultation B/L. Good air entry B/L. No wheezes or rhonchi. GASTROINTESTINAL: Not distended, not tender to palpation. NEUROLOGY: Alert, awake, oriented X 3. Normal speech. MSK: Right ankle pain, most tender on the right malleolar area, swollen, unable to bear weight on right foot. Bilateral lower extremity swelling, pitting edema. Redness distally left lower extremity. PSYCH: Normal mood, normal affect. Const: Vital Signs, click to edit/add: Vital Signs - 24 hr 04/21/24 15:20 04/21/24 15:20 04/21/24 15:20 Temperature 98 F Pulse Rate Pulse Rate [Right Radial] 104 H 104 H Respiratory Rate 22 22 22 Blood Pressure [Ri ght Arm] 114/53 L Pulse Oximetry 98 98 Oxygen Delivery Me thod Room Air Room Air 04/21/24 17:20 04/21/24 19:00 04/21/24 22:58 Temperature Pulse Rate 104 H Pulse Rate [Right Radial] 100 Respiratory Rate 22 22 Blood Pressure [Ri ght Arm] 104/65 Pulse Oximetry 98 Oxygen Delivery Me thod Room Air 04/21/24 22:58 04/21/24 22:58 04/21/24 23:49 Temperature 98.2 F Pulse Rate 88 Pulse Rate [Right Radial] 99 Respiratory Rate 22 20 Blood Pressure [Ri ght Arm] 104/53 L Pulse Oximetry 97 97 Oxygen Delivery Me thod Room Air Room Air 04/22/24 03:00 04/22/24 07:00 04/22/24 07:00 Temperature 97.5 F L Pulse Rate Pulse Rate [Right Radial] 96 95 Respiratory Rate 22 22 22 Blood Pressure [Ri ght Arm] 107/72 111/52 L Pulse Oximetry 96 96 96 Oxygen Delivery Wy thod Room Air Room Air Room Air 04/22/24 07:00 04/22/24 07:00 04/22/24 11:00 Temperature 97.7 F Pulse Rate 99 Pulse Rate [Right Radial] 95 97 Respiratory Rate 22 24 Blood Pressure [Ri ght Arm] 101/57 L Pulse Oximetry 96 Oxygen Delivery Me thod Room Air 04/22/24 13:48 Temperature 97.6 F Pulse Rate Pulse Rate [Right Radial] 100 Respiratory Rate 20 Blood Pressure [Ri ght Arm] 106/60 Pulse Oximetry 97 Oxygen Delivery Wy thod Room Air Labs Labs: Laboratory Results - last 24 hr 04/22/24 04/22/24 05:55 05:55 WBC 5.85 RBC 3.37 L Hgb 9.2 L Hct 31.3 L MCV 93 MCH 27 MCHC 29 L Plt Count 134 L Sodium 139 Potassium 4.0 Chloride 106 Carbon Dioxide 26 Anion Gap 7 BUN 71 H Creatinine 1.8 H Estimated Creat Clear 29.85 Estimated GFR 36 Glucose 99 Calcium 8.3 L Phosphorus 4.7 H 4.7 H Magnesium 2.0 Albumin 2.9 L
[2024-04-22] MEDS: FUROSEMIDE 10 MG/ML inj 20 MG IVP (16:48)
[2024-04-22] MEDS: FLUCONAZOLE 100 MG TABLET PO (17:50)
--- NOTE | 2024-04-22 18:19 | PC.NURSE ---
End of Shift [id number]: Pt AxOx4, pleasant, and cooperative. Lungs with expiratory wheezes. Patient denies pain during inactivity, but was having severe pain to the R ankle. Pt was unable to put weight on the R ankle during transfer. Pt pivoted to chair. Pt was in chair for the majority of the day. Bilateral LE weeping clear drainage with +3 pitting edema. Groin/gabriella area cleaned, nystatin and interdry applied. Pt continent of the bladder, using the urinal. Pt tolerating diet/fluids well. Pt appears resting with call light in reach. ?
[2024-04-22] MEDS: DOXAZOSIN 4 MG TABLET 8 MG PO (20:38)
[2024-04-22] MEDS: SIMVASTATIN 20 MG TABLET PO (20:38)
[2024-04-23] VITALS (7 sets, daily range): BP systolic 98–118; BP diastolic 54–66; PULSE 78–101; RESP 18–22; TEMP 36.4–37; O2SAT 94–97
--- NOTE | 2024-04-23 05:52 | PC.NURSE ---
Pt incontinent of both urine and stool. Groin area warm and red. Legs weeping. States he handles Bathroom duties by himself at home (May need further assistance).
[2024-04-23 06:22] LABS: Basophils Absolute Auto 0.03 K/uL (0.00-0.30); Basophils Percent Auto 0.5 % (0.0-3.0); Eosinophils Absolute Auto 0.19 K/uL (0.00-0.50); Eosinophils Percent Auto 3.3 % (0.0-7.0); Hematocrit 31.3 % (37.0-53.0); Hemoglobin* 9.5 gm/dL (13.5-17.5); Immature Granulocytes Abs Auto 0.01 K/uL (0.00-0.30); Immature Granulocytes Pct Auto 0.2 %; Lymphocytes Percent Auto 12.1 % (20-44); Mean Corpuscular HGB Conc 30 gm/dL (32-36); Mean Corpuscular Hemoglobin 28 pg (26-34); Mean Corpuscular Volume 92 fL (80-100); Monocytes Percent Auto 6.6 % (0.0-11.0); Neutrophils Percent Auto 77.3 % (42.0-72.0); Platelet Count* 126 K/uL (140-440); RDW Coefficient of Variation % 16.7 % (11.5-15.5)
[2024-04-23 06:23] LABS: Slide Review Reflex No
[2024-04-23 06:35] LABS: Albumin* 2.9 g/dL (3.3-5.0); Chloride* 104 mmol/L (96-114); Potassium* 3.9 mmol/L (3.6-5.1); Sodium* 138 mmol/L (135-149)
[2024-04-23 06:38] LABS: Anion Gap 7 mEq/L (7-15); Blood Urea Nitrogen* 75 mg/dL (7-30); Carbon Dioxide* 27 mmol/L (20-32); Creatinine* 1.7 mg/dL (0.5-1.5); Est. Creatinine Clearance* 31.61; Estimated Glomerular Filt Rate 39 ml/min; Glucose* 95 mg/dL (60-115)
[2024-04-23 06:39] LABS: Calcium* 8.2 mg/dL (8.4-10.6); Magnesium* 1.9 mg/dL (1.5-2.6); Phosphorus* 4.6 mg/dL (2.5-4.5); Uric Acid* 13.4 mg/dL (2.2-8.4)
[2024-04-23 06:41] LABS: C Reactive Protein* 1.4 mg/dL (0.5-1.0)
[2024-04-23 06:53] LABS: Folate, Serum 7.1 ng/mL (>=5.9)
[2024-04-23 07:26] LABS: Erythrocyte SedimentationRate* 11 mm/hr (2-15)
--- NOTE | 2024-04-23 08:21 | P.ORCN_ITS ---
History of Present Illness HPI Time Seen by Provider: 08:00 Date Seen: 04/23/24 Consult date: 04/22/24 Requesting physician: Vandana Chiang Consult reason: joint pain Chief complaint: Right ankle pain Narrative: Sergio c/o right ankle pain that began 0300 yesterday (04/22/24). Denies injury/fall. Pain is localized primarily over his medial right ankle, but also anterior and lateral. Pain worsens with weightbearing (moderate pain) and also active motion while seated (mild pain). Denies pain with passive motion. Denies numbness/tingling distally. Patient has numerous abrasions bilateral lower legs with surrounding erythema. The cause and timing of these abrasions is unknown. No fever, chills. Presence of mild clear drainage right anterior leg wound. 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 - Endocarditis, valve unspecified (ICD-10) NSTEMI (non-ST elevated myocardial infarction) ?I21.4 - Non-ST elevation (NSTEMI) myocardial infarction (ICD-10) SIRS (systemic inflammatory response syndrome) ?R65.10 - Systemic inflammatory response syndrome (SIRS) of non-infectious origin without acute organ dysfunction (ICD-10) Fever of unknown origin ?R50.9 - Fever, unspecified (ICD-10) Weakness ?R53.1 - Weakness (ICD-10) Sleep apnea, obstructive ?G47.33 - Obstructive sleep apnea (adult) (pediatric) (ICD-10) Skin cancer (06/10/09) ?C44.90 - Unspecified malignant neoplasm of skin, unspecified (ICD-10) Obesity with body mass index greater than 30 ?E66.9 - Obesity, unspecified (ICD-10) Deep vein thrombosis (DVT) of left lower extremity ?I82.402 - Acute embolism and thrombosis of unspecified deep veins of left lower extremity (ICD-10) Asthma (06/10/09) ?J45.909 - Unspecified asthma, uncomplicated (ICD-10) Hyperlipidemia ?E78.5 - Hyperlipidemia, unspecified (ICD-10) Surgical History History of hip surgery (04/21/21) ?Z98.890 - Other specified postprocedural states (ICD-10) Hx of tonsillectomy ?Z90.89 - Acquired absence of other organs (ICD-10) Family History Mother Breast cancer Coronary artery disease Father No problems noted. Paternal Grandfather Coronary artery disease Social History What is your current living situation?: I presently have a place to live Problems where you live: no known problems Problems where you live details: none In the past 12 months, utilities in danger of being shut off: no In past 12 months, lack of transportation kept you from medical appts, meetings, work, or getting things needed for daily living: no In the past 12 mos, have been you worried that your food would run out before you had money to buy more?: never true In the past 12 mos, the food you bought just didn't last and you didn't have money to buy more?: never true Smoking Status: Never smoker Do you use any of these nicotine containing products: None Second hand tobacco smoke exposure: No How often do you have a drink containing alcohol: monthly or less How often do you have six or more drinks on one occasion: Never AUDIT-C Alcohol total score: 1 Non-prescribed substance use: denies use Caffeine: Yes How often does anyone, including family, friends and others, physically hurt you : never How often does anyone, including family, friends and others, insult or talk down to you: never How often does anyone, including family, friends and others, threaten you with harm: never How often does anyone, including family, friends and others, scream or curse at you: never Little interest or pleasure in doing things: not at all Feeling down, depressed, or hopeless: not at all service: No Meds Home Medications and Allergies Home Medications ?Medication ?Instructions ?Recorded ?Confirmed ?Type acetaminophen 650 mg 650 mg PO Q12H PRN 02/03/24 04/21/24 History tablet,extended release (Tylenol Arthritis Pain) lidocaine 4 % topical patch 1 patch topical Q12H PRN 02/03/24 04/21/24 History Allergies Allergy/AdvReac Type Severity Reaction Status Date / Time house dust Allergy Verified 04/20/24 16:36 Ortho Exam Narrative Exam Narrative: Patient is alert and oriented x3. No acute distress. Converses with nonlabored breathing. Right ankle exam: Diffuse swelling. No areas of induration, abscess/superficial fluid collection. Warmth appropriate. No ecchymosis. Numerous abrasions bilateral lower legs with small clear drainage. Surrounding periwound erythema present. No open wounds near right ankle joint. Nearest wound is 10+ cm proximal over anterior tibia. No erythematous streaking. Moderate tenderness diffusely medial, anterior and lateral joint line. Denies posterior ankle pain. Mild/moderate pain with AROM: DF/PF: 20/20 degrees. No pain with PROM: DF/PF: 30/30 degrees. CMS intact with 2+ DP and PT pulses. Dierks, warm digits with brisk capillary refill. Sensation confirmed distally. Const Vital Signs, click to edit/add: Vital Signs - 24 hr 04/22/24 11:00 04/22/24 13:48 04/22/24 15:00 Temperature 97.7 F 97.6 F Pulse Rate Pulse Rate [Right Radial] 97 100 Respiratory Rate 24 20 20 Blood Pressure [Right Arm] 101/57 L 106/60 Pulse Oximetry 96 97 97 Oxygen Delivery Method Room Air Room Air Room Air 04/22/24 15:00 04/22/24 18:54 04/22/24 22:07 Temperature 97.7 F 97.9 F Pulse Rate 99 Pulse Rate [Right Radial] 102 H 97 Respiratory Rate 18 18 Blood Pressure [Right Arm] 116/51 L 102/52 L Pulse Oximetry 98 96 Oxygen Delivery Method Room Air Room Air 04/22/24 22:22 04/22/24 22:23 04/22/24 22:23 Temperature Pulse Rate 92 Pulse Rate [Right Radial] 97 Respiratory Rate 18 18 Blood Pressure [Right Arm] Pulse Oximetry 96 Oxygen Delivery Method Room Air 04/23/24 01:43 [employer] Temperature 98 F Pulse Rate Pulse Rate [Right Radial] 97 Respiratory Rate 20 Blood Pressure [Right Arm] 114/58 L Pulse Oximetry 95 Oxygen Delivery Method Room Air Results Labs Labs: Laboratory Results - last 48 hr 04/21/24 04/21/24 04/21/24 06:12 11:01 11:14 WBC RBC Hgb Hct MCV MCH MCHC RDW Coeff of Mica Plt Count Neut % (Auto) Lymph % (Auto) [place] % (Auto) Eos % (Auto) Baso % (Auto) Neut # (Auto) Lymph # (Auto) [place] # (Auto) Eos # (Auto) Baso # (Auto) Abs Immat Gran (auto) Imm/Tot Granulo (auto) ESR Absolute Retic 0.03 Percent Retic 0.9 Immature Retic Fraction 18.5 H Retic Hgb Equivalent 22.2 L Sodium Potassium Chloride Carbon Dioxide Anion Gap BUN Creatinine Estimated Creat Clear Estimated GFR Glucose Uric Acid Calcium Phosphorus Magnesium Iron 28 L TIBC 260 L % Saturation 11 L Ferritin 36.8 C-Reactive Protein Albumin Vitamin B12 500 RBC Fol Selin for Serum 7.1 Urine Color Yellow Urine Appearance Clear Urine pH 5.0 Ur Specific [place] 1.015 Urine Protein Negative Urine Glucose (UA) Negative Urine Ketones Negative Urine Blood Negative Urine Nitrite Negative Urine Bilirubin Negative Urine Urobilinogen 0.2 Ur Leukocyte Esterase Negative Urine RBC 0-2 Urine WBC 0-2 Ur Squamous Epith Cells None Urine Bacteria None Lab Acknowledgement Test Added 04/22/24 04/22/24 04/23/24 05:55 05:55 05:54 WBC 5.85 5.80 RBC 3.37 L 3.40 L Hgb 9.2 L 9.5 L Hct 31.3 L 31.3 L MCV 93 92 MCH 27 28 MCHC 29 L 30 L RDW Coeff of Mica 16.7 H Plt Count 134 L 126 L Neut % (Auto) 77.3 H Lymph % (Auto) 12.1 L [place] % (Auto) 6.6 Eos % (Auto) 3.3 Baso % (Auto) 0.5 Neut # (Auto) 4.50 Lymph # (Auto) 0.70 L [place] # (Auto) 0.40 Eos # (Auto) 0.19 Baso # (Auto) 0.03 Abs Immat Gran (auto) 0.01 Imm/Tot Granulo (auto) 0.2 ESR 11 Absolute Retic Percent Retic Immature Retic Fraction Retic Hgb Equivalent Sodium 139 138 Potassium 4.0 3.9 Chloride 106 104 Carbon Dioxide 26 27 Anion Gap 7 7 BUN 71 H 75 H Creatinine 1.8 H 1.7 H Estimated Creat Clear 29.85 31.61 Estimated GFR 36 39 Glucose 99 95 Uric Acid 13.4 H Calcium 8.3 L 8.2 L Phosphorus 4.7 H 4.7 H 4.6 H Magnesium 2.0 1.9 Iron TIBC % Saturation Ferritin C-Reactive Protein 1.4 H Albumin 2.9 L 2.9 L Vitamin B12 RBC Fol Selin for Serum Urine Color Urine Appearance Urine pH Ur Specific [place] Urine Protein Urine Glucose (UA) Urine Ketones Urine Blood Urine Nitrite Urine Bilirubin Urine Urobilinogen Ur Leukocyte Esterase Urine RBC Urine WBC Ur Squamous Epith Cells Urine Bacteria Lab Acknowledgement Diagnostic results Ankle/Foot x-ray: image reviewed (2-view right ankle images were reviewed from [facility] dated 04/22/24. These show: no acute fractures, dislocations nor osseous abnormalities. Significant calcifications present within dorsal pedis and posterior tibialis arteries. Ankle joint space appropriate. ) Additional Comments: 04/23/24: Uric acid level 13.4 (normal 2.2 to 8.4). Concerning for gout. Assessment and Plan Assessment and plan (1) Right ankle pain: Problem comment: Suspect gout. Status: Acute Assessment and Plan: Sergio and I reviewed his right ankle images together this morning, which show no acute osseous abnormalities. His right ankle pain is likely an acute gout flare. His uric acid level this morning was high (13.4). Right ankle arthrocentesis recommended to confirm gout diagnosis and rule out septic joint. I explained to Sergio that I have a low suspicion for a septic joint - he denies pain with passive movement. Informed consent was obtained from the patient. Risks with arthrocentesis include: risk of infection, blood loss, injury to blood vessel/nerve/tendon and pain at injection site. Patient stated understanding. Anterior ankle was cleaned with alcohol swab. Using a 22 gauge needle, 5cc grossly bloody fluid was aspirated from Sergio's right ankle. Fluid also seems slightly cloudy. Sample sent to lab for: cell count with diff, culture and sensitivity, gram stain and crystal analysis. In the meantime, I recommend partial weightbearing as tolerated and frequent icing. If results return showing gout, I recommend colchicine. If results, inconclusive, may consider right ankle MRI to evaluate for abscess/infectious fluid collection. All questions were answered. Total time spent: Total time spent is greater than 50% in coordination of care (as documented) at patient's floor/unit and/or counseling patient:
[2024-04-23 09:05] LABS: Mononuclear WBC Body Fluid* 16 %; Polynuclear WBC Body Fluid* 84 %; WBC, Body Fluid* 4556 Cells/uL
[2024-04-23 09:06] LABS: BF Clarity* Cloudy; BF Color Grossly Bloody
[2024-04-23] MEDS: FUROSEMIDE 10 MG/ML inj 60 MG IVP ×2 (09:14→15:55)
[2024-04-23] MEDS: DOXYCYCLINE HYCLATE 100 MG PO ×2 (09:14→20:51)
[2024-04-23] MEDS: SODIUM CHLORIDE 0.9 % (FLUSH) 10 ML SYRINGE 5 ML IVF ×2 (09:14→20:52)
[2024-04-23] MEDS: APIXABAN 5 MG TABLET PO ×2 (09:14→20:51)
[2024-04-23] MEDS: NYSTATIN POWDER 1 APPLIC TOPICAL ×2 (09:14→20:52)
[2024-04-23] MEDS: POTASSIUM CHLORIDE 10 MEQ CAPSULE ER 20 MEQ PO (09:14)
[2024-04-23] MEDS: ACETAMINOPHEN 650 MG TABLET ER PO (09:15)
--- NOTE | 2024-04-23 10:04 | P.IMPN_ITS ---
Progress Note: A&P Assessment and plan (1) Acute on chronic diastolic heart failure with preserved ejection fraction: Problem details: -IV diuresis with furosemide 60 IV BID (was 40 mg twice daily till 04/22 evening), holding home dose. - Strict I&Os, daily weights -BNP down trending 69,000 from 75,400 -monitor labs, including potassium and magnesium plus creatinine and BUN and albumin -will not necessarily repeat echocardiogram which was last done on 01/05/2024 -monitor troponin I and ECG - repeat troponin improved 0.08 from 1.57. ACS ruled out. -try to keep legs dry. Will use Betadine topically to wounds. Will obtain wound culture. Will place on empiric doxycycline. -ordered chest x-ray. Status: Acute (2) Right ankle pain: Problem details: -right ankle pain that started around 3:00 a.m. in the morning. On examination there is tenderness mostly on the right malleolus area and swelling (note that both lower extremities are swollen). -P/E: Patient is unable to bear weight on his right foot -Patient has a suspected episode of gout previously that was not confirmed. -ordered a right ankle x-ray -ordered uric acid, was elevated at 13.4 -consulted Orthopedics for right ankle arthrocentesis that was done this morning April 23 and specimen was sent to lab to check for Gram stain and crystals. Open Status: Acute (3) ROBERTO (acute kidney injury): Problem details: - Creatinine 1.8 on admission and normally 1.1. BUN 58 and normally 29. Monitor labs closely in setting of IV diuresis - Cr trending down : 1,8 to 1.7 after increasing his furosemide IV does from 40 b.i.d. to 60 b.i.d. IV. - orthostatic blood pressures and pulses Status: Acute (4) Peripheral edema: Problem details: -acute on chronic -management as above with IV diuresis -compression wraps, elevation -wound culture pending given open skin, weeping -continue empiric doxycycline and wound cares Status: Acute (5) Hypertensive heart disease: Problem details: -monitor blood pressure response to intervention efforts and consider adding antihypertensive if appropriate Status: Acute (6) Dermatitis associated with moisture from urinary incontinence: Problem details: -given his urinary incontinence and associated dermatitis will collect urine for now -try to keep skin dry Status: Acute (7) Intertriginous candidiasis: Problem details: -fluconazole 100 mg daily plus nystatin topically Status: Acute (8) BPH (benign prostatic hyperplasia): Problem details: -continue doxazosin Status: Acute (9) Hyperlipidemia: Problem details: -continue statin Status: Acute (10) Anemia: Problem details: - Hemoglobin 9.1, 9.8 on admission. Baseline 12.1-10.3 this summer - no evidence for acute bleed. Retic, ferritin, iron, TIBC, B12, Folic acid ordered Status: Acute Plan As above Time Spent With Patient Total time spent: Today I spent 50 minutes seeing the patient, reviewing Expanse and EPIC notes/diagnostics, discussing the care plan with our care time that includes social work, PT/OT, pharmacy, RT, custodial and documenting my impressions and plan in the medical record. Subjective Date Seen: 04/23/24 Interval history: Patient is seen today. He states that he is feeling better. Patient is still complaining of right ankle pain, arthrocentesis done this AM. He is having improved diuresis w/ lasix 60 IV dosing, Creatinine improved. Purewick inserted for better I&Os. Exam Narrative: Exam Narrative: GENERAL: Comfortable, no acute distress. HEAD AND NECK: Atraumatic, normocephalic CARDIOVASCULAR: RRR. Normal S1, S2. No murmurs. RESPIRATORY: Clear to auscultation B/L. Good air entry B/L. No wheezes or rhonchi. GASTROINTESTINAL: obese, not tender to palpation. NEUROLOGY: Alert, awake, oriented X 3. Normal speech. MSK: Right ankle pain, most tender on the right malleolar area, swollen, unable to bear weight on right foot. Bilateral lower extremity swelling, pitting edema. Redness distally left lower extremity. PSYCH: Normal mood, normal affect. Const: Vital Signs, click to edit/add: Vital Signs - 24 hr 04/22/24 13:48 04/22/24 15:00 04/22/24 15:00 Temperature 97.6 F Pulse Rate 99 Pulse Rate [Right Radial] 100 Respiratory Rate 20 20 Blood Pressure [Ri ght Arm] 106/60 Pulse Oximetry 97 97 Oxygen Delivery Me thod Room Air Room Air 04/22/24 18:54 04/22/24 22:07 04/22/24 22:22 Temperature 97.7 F 97.9 F Pulse Rate 92 Pulse Rate [Right Radial] 102 H 97 Respiratory Rate 18 18 Blood Pressure [Ri ght Arm] 116/51 L 102/52 L Pulse Oximetry 98 96 Oxygen Delivery Me thod Room Air Room Air 04/22/24 22:23 04/22/24 22:23 04/23/24 01:43 TELEVISION [employer] PHOTOGR[employer]HER Temperature 98 F Pulse Rate Pulse Rate [Right Radial] 97 97 Respiratory Rate 18 18 20 Blood Pressure [Ri ght Arm] 114/58 L Pulse Oximetry 96 95 Oxygen Delivery Me thod Room Air Room Air 04/23/24 07:00 Temperature 97.6 F Pulse Rate Pulse Rate [Right Radial] 101 H Respiratory Rate 22 Blood Pressure [Ri ght Arm] 112/59 L Pulse Oximetry 95 Oxygen Delivery Me thod Room Air Labs Labs: Laboratory Results - last 24 hr 04/21/24 04/23/24 04/23/24 06:12 05:54 Unknown WBC 5.80 RBC 3.40 L Hgb 9.5 L Hct 31.3 L MCV 92 MCH 28 MCHC 30 L RDW Coeff of Mica 16.7 H Plt Count 126 L Neut % (Auto) 77.3 H Lymph % (Auto) 12.1 L Tama % (Auto) 6.6 Eos % (Auto) 3.3 Baso % (Auto) 0.5 Neut # (Auto) 4.50 Lymph # (Auto) 0.70 L Tama # (Auto) 0.40 Eos # (Auto) 0.19 Baso # (Auto) 0.03 Abs Immat Gran (auto) 0.01 Imm/Tot Granulo (auto) 0.2 ESR 11 Sodium 138 Potassium 3.9 Chloride 104 Carbon Dioxide 27 Anion Gap 7 BUN 75 H Creatinine 1.7 H Estimated Creat Clear 31.61 Estimated GFR 39 Glucose 95 Uric Acid 13.4 H Calcium 8.2 L Phosphorus 4.6 H Magnesium 1.9 C-Reactive Protein 1.4 H Albumin 2.9 L RBC Fol Selin for Serum 7.1 Fluid Volume 2.0 Fluid Color Grossly Bloody A Fluid Appearance Cloudy A Fluid WBC 4556 Fluid RBC [id number] Fluid Polynuclear WBCs 84 Fluid Mononuclear WBCs 16
[2024-04-23] MEDS: FLUCONAZOLE 100 MG TABLET PO (18:56)
--- NOTE | 2024-04-23 19:24 | PC.NURSE ---
End of Shift: The patient is alert and orientated... Male purewick was placed this AM to track accurate Output as well as help with the patients urgency and frequency due to diuresis. Reported moderate pain in his R ankle this AM PRN tylenol was given with adequate relief. Transferring via pivot heavy Ax2. Pt is aware of this change. Recommended Mandy steady for transfers. Fold skin care was provided.. inner dry intact as well. Po intake is great. Calls appropriately. Laila SIMS bsn
[2024-04-23] MEDS: DOXAZOSIN 4 MG TABLET 8 MG PO (20:51)
[2024-04-23] MEDS: SIMVASTATIN 20 MG TABLET PO (20:52)
[2024-04-24 01:54] VITALS: BP 103/56; PULSE 94; RESP 18; TEMP 37; O2SAT 94
[2024-04-24] MEDS: ALBUTEROL INHALER 2 PUFF IH ×2 (06:07→15:52)
[2024-04-24 06:34] LABS: Hemoglobin* 9.1 gm/dL (13.5-17.5); Mean Corpuscular HGB Conc 30 gm/dL (32-36); Mean Corpuscular Hemoglobin 28 pg (26-34); Mean Corpuscular Volume 91 fL (80-100); Platelet Count* 130 K/uL (140-440); Red Blood Count 3.29 m/uL (4.30-5.90); White Blood Count* 6.21 K/uL (4.50-11.00)
[2024-04-24 06:36] LABS: Slide Review Reflex No
[2024-04-24 06:41] LABS: Chloride* 104 mmol/L (96-114); Potassium* 3.6 mmol/L (3.6-5.1); Sodium* 137 mmol/L (135-149)
[2024-04-24 06:44] LABS: Anion Gap 7 mEq/L (7-15); Blood Urea Nitrogen* 79 mg/dL (7-30); Carbon Dioxide* 26 mmol/L (20-32); Creatinine* 1.6 mg/dL (0.5-1.5); Est. Creatinine Clearance* 33.59; Estimated Glomerular Filt Rate 41 ml/min; Glucose* 93 mg/dL (60-115)
[2024-04-24 06:45] LABS: Calcium* 8.3 mg/dL (8.4-10.6)
--- NOTE | 2024-04-24 07:13 | CRLHL7_ITS ---
For Patients: As a result of the Century Cures Act, medical imaging exams and procedure reports are released immediately into your electronic medical record. You may view this report before your referring provider. If you have questions, please contact your health care provider. INDICATION: Shortness of breath TECHNIQUE: Chest 1 views. COMPARISON: Chest radiograph 04/22/2024 FINDINGS: Cardiovasculature and mediastinum: Heart size is normal. Unremarkable mediastinum. Lungs and pleural spaces: Similar interstitial prominence compared to prior. Trace bilateral pleural effusions. No pneumothorax. Bones and soft tissues: No significant findings. IMPRESSION: Similar mild interstitial prominence, likely mild pulmonary edema or atypical infection. Trace bilateral pleural effusions. Dictated by Luann Rowley MD @ 04/24/2024 8:00:04 AM (Electronically Signed)
[2024-04-24 07:41] VITALS: BP 101/55; PULSE 97; RESP 18; TEMP 36.5; O2SAT 94
[2024-04-24] MEDS: FUROSEMIDE 10 MG/ML inj 60 MG IVP ×2 (07:51→13:57)
--- NOTE | 2024-04-24 08:15 | PM.IMPN1 ---
Progress Note: A&P Assessment and plan (1) Acute on chronic diastolic heart failure with preserved ejection fraction: Problem details: - Continue IV diuresis with furosemide 60 IV BID (was 40 mg twice daily till 04/22 evening), holding home dose. - Strict I&Os, daily weights -BNP down trending 69,000 from 75,400 -monitor labs, including potassium and magnesium plus creatinine and BUN and albumin -will not necessarily repeat echocardiogram which was last done on 01/05/2024 -monitor troponin I and ECG - repeat troponin improved 0.08 from 1.57. ACS ruled out. -try to keep legs dry. Will use Betadine topically to wounds. Will obtain wound culture. Will place on empiric doxycycline. -ordered chest x-ray which is showing congestion, pulmonary edema. Status: Acute (2) Right ankle pain: Problem details: -suspect gout, elevated uric acid at 13.4. Pending often ceases fluid results for crystals. -right ankle pain that started around 3:00 a.m. in the morning. On examination there is tenderness mostly on the right malleolus area and swelling (note that both lower extremities are swollen). -P/E: Patient is unable to bear weight on his right foot -Patient has a suspected episode of gout previously that was not confirmed. -ordered a right ankle x-ray, no bony abnormalities. -ordered uric acid, which was elevated at 13.4 -consulted Orthopedics for right ankle arthrocentesis that was done this morning April 23 and specimen was sent to lab to check for Gram stain and crystals. Status: Acute (3) ROBERTO (acute kidney injury): Problem details: - Creatinine 1.8 on admission, his baseline is 1.1. - Cr trending down: 1.8 -> 1.7 -> 1.6 after increasing his furosemide IV does from 40 b.i.d. to 60 b.i.d. IV. - orthostatic blood pressures and pulses. - Monitor labs closely in setting of IV diuresis Status: Acute (4) Peripheral edema: Problem details: -acute on chronic -management as above with IV diuresis -compression wraps, elevation -wound culture pending given open skin, weeping -continue empiric doxycycline and wound cares Status: Acute (5) Hypertensive heart disease: Problem details: -monitor blood pressure response to intervention efforts and consider adding antihypertensive if appropriate Status: Acute (6) Dermatitis associated with moisture from urinary incontinence: Problem details: -given his urinary incontinence and associated dermatitis will collect urine for now -try to keep skin dry Status: Acute (7) Intertriginous candidiasis: Problem details: -fluconazole 100 mg daily plus nystatin topically Status: Acute (8) BPH (benign prostatic hyperplasia): Problem details: -continue doxazosin Status: Acute (9) Hyperlipidemia: Problem details: -continue statin Status: Acute (10) Anemia: Problem details: - Hemoglobin 9.1, 9.8 on admission. Baseline 12.1-10.3 this summer - no evidence for acute bleed. Retic, ferritin, iron, TIBC, B12, Folic acid ordered Status: Acute Plan As above Time Spent With Patient Total time spent: Today I spent 50 minutes seeing the patient, reviewing Expanse and EPIC notes/diagnostics, discussing the care plan with our care time that includes social work, PT/OT, pharmacy, RT, assisted and documenting my impressions and plan in the medical record. Subjective Date Seen: 04/24/24 Interval history: Patient is seen and examined today at bedside. He states that he is feeling much aaliyah today. Patient is still complaining of bilateral feet pain, specially right ankle pain, pending arthrocentesis fluid results for crystals. Purewick inserted for better I&Os. Creatinine continues to improve with higher dose IV Lasix. Exam Narrative: Exam Narrative: GENERAL: Comfortable, no acute distress. HEAD AND NECK: Atraumatic, normocephalic CARDIOVASCULAR: RRR. Normal S1, S2. No murmurs. RESPIRATORY: Clear to auscultation B/L. Good air entry B/L. No wheezes or rhonchi. GASTROINTESTINAL: obese, not tender to palpation. NEUROLOGY: Alert, awake, oriented X 3. Normal speech. MSK: Right ankle pain, most tender on the right malleolar area, swollen, unable to bear weight on right foot. Bilateral lower extremity swelling, pitting edema. Redness distally left lower extremity. PSYCH: Normal mood, normal affect. Const: Vital Signs, click to edit/add: Vital Signs - 24 hr 04/23/24 11:00 04/23/24 15:00 04/23/24 15:00 Temperature 97.8 F 98.1 F Pulse Rate [Right Radial] 78 100 Respiratory Rate 18 20 Blood Pressure [Ri ght Arm] 107/60 113/66 Pulse Oximetry 95 96 96 Oxygen Delivery Me thod Room Air Room Air Room Air 04/23/24 19:28 04/23/24 22:31 04/23/24 23:37 Temperature 98.1 F 98.6 F Pulse Rate [Right Radial] 98 98 98 Respiratory Rate 20 18 18 Blood Pressure [Ri ght Arm] 118/66 98/54 L Pulse Oximetry 97 94 Oxygen Delivery Me thod Room Air Room Air 04/23/24 23:37 04/24/24 01:54 04/24/24 07:41 Temperature 98.6 F Pulse Rate [Right Radial] 94 97 Respiratory Rate 18 18 18 Blood Pressure [Ri ght Arm] 103/56 L Pulse Oximetry 94 94 Oxygen Delivery Me thod Room Air Room Air 04/24/24 07:41 04/24/24 07:41 Temperature 97.7 F Pulse Rate [Right Radial] 97 Respiratory Rate 18 18 Blood Pressure [Ri ght Arm] 101/55 L Pulse Oximetry 94 94 Oxygen Delivery Me thod Room Air Room Air Labs Labs: Laboratory Results - last 24 hr 04/23/24 04/24/24 Unknown 05:48 WBC 6.21 RBC 3.29 L Hgb 9.1 L Hct 30.0 L MCV 91 MCH 28 MCHC 30 L Plt Count 130 L Sodium 137 Potassium 3.6 Chloride 104 Carbon Dioxide 26 Anion Gap 7 BUN 79 H Creatinine 1.6 H Estimated Creat Clear 33.59 Estimated GFR 41 Glucose 93 Calcium 8.3 L Fluid Volume 2.0 Fluid Color Grossly Bloody A Fluid Appearance Cloudy A Fluid WBC 4556 Fluid RBC [id number] Fluid Polynuclear WBCs 84 Fluid Mononuclear WBCs 16 Imaging Chest x-ray: Attestation: I have reviewed the pertinent imaging results. Radiologist's impression: Chest 1 views. COMPARISON: Chest radiograph 04/22/2024 FINDINGS: Cardiovasculature and mediastinum: Heart size is normal. Unremarkable mediastinum. Lungs and pleural spaces: Similar interstitial prominence compared to prior. Trace bilateral pleural effusions. No pneumothorax. Bones and soft tissues: No significant findings. IMPRESSION: Similar mild interstitial prominence, likely mild pulmonary edema or atypical infection. Trace bilateral pleural effusions. XR ankle RT 2V: Attestation: I have reviewed the pertinent imaging results. Radiologist's impression: TECHNIQUE: Views: 2 FINDINGS: Mineralization: Diffuse osteopenia. Alignment: Normal. Bones and Joints: No fracture is identified. Tarsometatarsal osteoarthrosis. Soft Tissues: Diffuse periarticular soft tissue swelling extending to the lower leg and dorsal midfoot. Diffuse atherosclerotic calcification of the crural arteries. IMPRESSION: Diffuse periarticular soft tissue swelling extending to the lower leg and dorsal midfoot. Incidental findings described in the body of the report. Dictated by Rey Cuellar MD @ 04/23/2024 2:01:20 PM
[2024-04-24] MEDS: APIXABAN 5 MG TABLET PO ×2 (09:29→21:21)
[2024-04-24] MEDS: POTASSIUM CHLORIDE 10 MEQ CAPSULE ER 20 MEQ PO (09:29)
[2024-04-24] MEDS: SODIUM CHLORIDE 0.9 % (FLUSH) 10 ML SYRINGE 5 ML IVF ×3 (09:30→21:22)
[2024-04-24] MEDS: NYSTATIN POWDER 1 APPLIC TOPICAL ×3 (09:30→21:22)
[2024-04-24] MEDS: DOXYCYCLINE HYCLATE 100 MG PO ×2 (09:30→21:21)
[2024-04-24 11:00] VITALS: BP 97/56; PULSE 97; RESP 24; O2SAT 94
[2024-04-24 15:00] VITALS: BP 101/50; PULSE 103; RESP 24; TEMP 36.4; O2SAT 97
[2024-04-24] MEDS: predniSONE 20 MG TABLET 40 MG PO (16:08)
--- NOTE | 2024-04-24 16:25 | PC.SOCIAL ---
Discharge planning: Social work validation intern met with pt to discuss short-term rehab options. Pt would like social work to look at [facility] and [facility]. Social work validation intern faxed referral to Shobha at [facility]. Social work to follow up.
--- NOTE | 2024-04-24 19:58 | PC.NURSE ---
Nursing Care Hours: [id number] Pt this shift calm and cooperative, alert and oriented. Intermittent pain in soles of bilat feet. Minimal pain to R ankle, more pronounced when palpated. Slight redness to groin still. Area cleaned x2. Purewick used during the day prevent moisture irritation while diuresing. Journeyman Molder soaked bilat LE with wet towels and then gently exfoliated peeling skin. Lotion applied. VSS. Mandy steady used in the AM. After PT, staff ok to use walker. Pt tolerating short distance transfers from chair to bed with Ax1.
[2024-04-24] MEDS: FLUCONAZOLE 100 MG TABLET PO (20:00)
[2024-04-24 20:17] VITALS: BP 112/62; PULSE 97; RESP 20; TEMP 36.4; O2SAT 96
[2024-04-24] MEDS: SIMVASTATIN 20 MG TABLET PO (21:21)
[2024-04-24] MEDS: DOXAZOSIN 4 MG TABLET 8 MG PO (21:22)
[2024-04-25] VITALS (7 sets, daily range): BP systolic 102–114; BP diastolic 59–71; PULSE 82–97; RESP 18–20; TEMP 36.4–36.8; O2SAT 93–98
--- NOTE | 2024-04-25 05:20 | PC.NURSE ---
Pt pleasnat and cooperative. VSS. he is inc. Had been using external male catheter it was not working well. pt has been incontinent several times. Abdominal fold is sl pink. THis has improved. Cont with Nystatin powder. VSS are stable.
[2024-04-25 06:40] LABS: Hematocrit 30.8 % (37.0-53.0); Hemoglobin* 9.4 gm/dL (13.5-17.5); Mean Corpuscular HGB Conc 31 gm/dL (32-36); Mean Corpuscular Hemoglobin 28 pg (26-34); Mean Corpuscular Volume 92 fL (80-100); Platelet Count* 131 K/uL (140-440); Red Blood Count 3.36 m/uL (4.30-5.90); White Blood Count* 4.69 K/uL (4.50-11.00)
[2024-04-25 06:42] LABS: Slide Review Reflex No
[2024-04-25 06:58] LABS: Chloride* 102 mmol/L (96-114); Sodium* 137 mmol/L (135-149)
[2024-04-25 07:01] LABS: Anion Gap 6 mEq/L (7-15); Carbon Dioxide* 29 mmol/L (20-32); Creatinine* 1.7 mg/dL (0.5-1.5); Est. Creatinine Clearance* 31.61; Estimated Glomerular Filt Rate 39 ml/min
[2024-04-25 07:02] LABS: Blood Urea Nitrogen* 81 mg/dL (7-30); Calcium* 8.3 mg/dL (8.4-10.6); Glucose* 140 mg/dL (60-115)
--- NOTE | 2024-04-25 08:11 | PM.IMPN1 ---
Progress Note: A&P Assessment and plan (1) Acute on chronic diastolic heart failure with preserved ejection fraction: Problem details: - Continue IV diuresis with furosemide 60 IV BID (was 40 mg twice daily till 04/22 evening), holding home dose. - Strict I&Os, daily weights -BNP down trending 69,000 from 75,400 -monitor labs, including potassium and magnesium plus creatinine and BUN and albumin -will not necessarily repeat echocardiogram which was last done on 01/05/2024 -monitor troponin I and ECG - repeat troponin improved 0.08 from 1.57. ACS ruled out. -try to keep legs dry. Will use Betadine topically to wounds. Will obtain wound culture. Will place on empiric doxycycline. -ordered chest x-ray which is showing congestion, pulmonary edema. Status: Acute (2) Right ankle pain: Problem details: -suspect gout, elevated uric acid at 13.4. Pending often ceases fluid results for crystals. -right ankle pain that started around 3:00 a.m. in the morning. On examination there is tenderness mostly on the right malleolus area and swelling (note that both lower extremities are swollen). -P/E: Patient is unable to bear weight on his right foot -Patient has a suspected episode of gout previously that was not confirmed. -ordered a right ankle x-ray, no bony abnormalities. -ordered uric acid, which was elevated at 13.4 -consulted Orthopedics for right ankle arthrocentesis that was done this morning April 23 and specimen was sent to lab to check for Gram stain and crystals. Status: Acute (3) ROBERTO (acute kidney injury): Problem details: - Creatinine 1.8 on admission, his baseline is 1.1. - Cr trending down: 1.8 -> 1.7 -> 1.6 after increasing his furosemide IV does from 40 b.i.d. to 60 b.i.d. IV. - orthostatic blood pressures and pulses. - Monitor labs closely in setting of IV diuresis Status: Acute (4) Peripheral edema: Problem details: -acute on chronic -management as above with IV diuresis -compression wraps, elevation -wound culture pending given open skin, weeping -continue empiric doxycycline and wound cares Status: Acute (5) Hypertensive heart disease: Problem details: -monitor blood pressure response to intervention efforts and consider adding antihypertensive if appropriate Status: Acute (6) Dermatitis associated with moisture from urinary incontinence: Problem details: -given his urinary incontinence and associated dermatitis will collect urine for now -try to keep skin dry Status: Acute (7) Intertriginous candidiasis: Problem details: -fluconazole 100 mg daily plus nystatin topically Status: Acute (8) BPH (benign prostatic hyperplasia): Problem details: -continue doxazosin Status: Acute (9) Hyperlipidemia: Problem details: -continue statin Status: Acute (10) Anemia: Problem details: - Hemoglobin 9.1, 9.8 on admission. Baseline 12.1-10.3 this summer - no evidence for acute bleed. Retic, ferritin, iron, TIBC, B12, Folic acid ordered Status: Acute Subjective Interval history: Patient is seen and examined today at bedside. He states that he is feeling much aaliyah today. Patient is still complaining of bilateral feet pain, specially right ankle pain, pending arthrocentesis fluid results for crystals. Purewick inserted for better I&Os. Creatinine continues to improve with higher dose IV Lasix. Exam Const: Vital Signs, click to edit/add: Vital Signs - 24 hr 04/24/24 11:00 04/24/24 15:00 04/24/24 15:00 Temperature Pulse Rate [Right Pulse Oximeter] Pulse Rate [Right Radial] 97 103 H Respiratory Rate 24 24 24 Blood Pressure [Le ft Arm] 97/56 L Blood Pressure [Ri ght Arm] Pulse Oximetry 94 97 Oxygen Delivery Me thod Room Air Room Air 04/24/24 15:00 04/24/24 20:17 04/25/24 00:08 Temperature 97.5 F L 97.6 F Pulse Rate [Right Pulse Oximeter] 103 H 97 Pulse Rate [Right Radial] Respiratory Rate 24 20 Blood Pressure [Le ft Arm] 101/50 L 112/62 Blood Pressure [Ri ght Arm] 112/62 Pulse Oximetry 97 96 Oxygen Delivery Me thod Room Air Room Air Room Air 04/25/24 00:10 04/25/24 03:00 Temperature 98.2 F Pulse Rate [Right Pulse Oximeter] 97 82 Pulse Rate [Right Radial] Respiratory Rate 18 Blood Pressure [Le ft Arm] Blood Pressure [Ri ght Arm] 106/71 Pulse Oximetry 93 Oxygen Delivery Me thod Room Air Labs Labs: Laboratory Results - last 24 hr 04/25/24 06:09 WBC 4.69 RBC 3.36 L Hgb 9.4 L Hct 30.8 L MCV 92 MCH 28 MCHC 31 L Plt Count 131 L Sodium 137 Potassium 4.0 Chloride 102 Carbon Dioxide 29 Anion Gap 6 L BUN 81 H Creatinine 1.7 H Estimated Creat Clear 31.61 Estimated GFR 39 Glucose 140 H Calcium 8.3 L
[2024-04-25] MEDS: DOXYCYCLINE HYCLATE 100 MG PO (08:18)
[2024-04-25] MEDS: FUROSEMIDE 10 MG/ML inj 60 MG IVP (08:18)
[2024-04-25] MEDS: POTASSIUM CHLORIDE 10 MEQ CAPSULE ER 20 MEQ PO (08:18)
[2024-04-25] MEDS: APIXABAN 5 MG TABLET PO (08:19)
[2024-04-25] MEDS: NYSTATIN POWDER 1 APPLIC TOPICAL ×2 (08:19→13:40)
[2024-04-25] MEDS: SODIUM CHLORIDE 0.9 % (FLUSH) 10 ML SYRINGE 5 ML IVF (08:20)
[2024-04-25] MEDS: ALBUTEROL INHALER 2 PUFF IH (08:23)
--- NOTE | 2024-04-25 09:33 | RESP.RT ---
Patient given Spacer and instruction of use with MDI inhaler. Discussed the advantages of using a Spacer, and demonstration. Patient return demonstration with good inhalation and breath hold.
[2024-04-25] MEDS: FUROSEMIDE 10 MG/ML inj 40 MG IVP (13:40)
[2024-04-25] MEDS: predniSONE 20 MG TABLET 40 MG PO (13:40)
--- NOTE | 2024-04-25 13:45 | PC.SOCIAL ---
Addendum entered and electronically signed by MYRON Santillan Student [employer] 04/25/24 14:17: Pre-admission screening completed: [id number] Original Note: Patient has been accepted to [facility] in a private room for short-term rehab. Pt's son will pick him up at 17:00 to transport. Facility is requesting pt arrives before 18:00. Pt is pleased with the discharge plans. [email or web address] is the contact at [facility].
--- NOTE | 2024-04-25 13:58 | PM.DS1 ---
DS: Providers Provider Date Seen: 04/25/24 Date of admission: 04/20/24 16:52 Primary care physician: Henok Weller MD Admitting Clinician: Elder Jacobs MD Consults: 04/20/24 16:52 Consult to Nutrition [CONS] Routine Comment: Reason for consult:: Miscellaneous Comment: heart failure Consult to Occupational Therapy [CONS] Routine Comment: Reason(s) for OT Consult:: Evaluate and Treat Any Restrictions?:: No Restrictions Consult to Physical Therapy [CONS] Routine Comment: Reason(s) for PT Consult:: Evaluate and Treat Any Restrictions?:: No Restrictions 04/22/24 14:21 Consult to Physician [CONS] Routine Comment: suspect right ankle gout for arthrsentesis,for lab Consulting Provider: Orthopedics, [facility] Has provider been notified: Yes 04/24/24 14:36 Consult to Wound Care [CONS] Routine Comment: Consulting Provider: [facility] Attending Physician on discharge: Vandana Chiang MD DS: Diagnosis Discharge Diagnosis (1) Acute on chronic diastolic heart failure with preserved ejection fraction: Status: Acute Problem details: - Continue IV diuresis with furosemide 60 IV BID (was 40 mg twice daily till 04/22 evening), will resume home dose on discharge - Strict I&Os, daily weights -BNP down trending 69,000 from 75,400 -monitor labs, including potassium and magnesium plus creatinine and BUN and albumin -will not necessarily repeat echocardiogram which was last done on 01/05/2024 -monitor troponin I and ECG - repeat troponin improved 0.08 from 1.57. ACS ruled out. -try to keep legs dry. Will use Betadine topically to wounds. Will obtain wound culture. Will place on empiric doxycycline. -ordered chest x-ray which is showing congestion, pulmonary edema. (2) Right ankle pain: Status: Acute Problem details: -suspect gout, elevated uric acid at 13.4. Pending often ceases fluid results for crystals. -right ankle pain that started around 3:00 a.m. in the morning. On examination there is tenderness mostly on the right malleolus area and swelling (note that both lower extremities are swollen). -P/E: Patient is unable to bear weight on his right foot -Patient has a suspected episode of gout previously that was not confirmed. -ordered a right ankle x-ray, no bony abnormalities. -ordered uric acid, which was elevated at 13.4 -consulted Orthopedics for right ankle arthrocentesis that was done this morning April 23 and specimen was sent to lab to check for Gram stain and crystals. -empirical treatment with prednisone for few days until we get the arthrocentesis fluid crystal results to confirm gout, patient improved immensely on steroids. (3) ROBERTO (acute kidney injury): Status: Acute Problem details: - Creatinine 1.8 on admission, his baseline is 1.1. - Cr trending down: 1.8 -> 1.7 -> 1.6 after increasing his furosemide IV does from 40 b.i.d. to 60 b.i.d. IV. - orthostatic blood pressures and pulses. - Monitor labs closely in setting of IV diuresis (4) Peripheral edema: Status: Acute Problem details: -acute on chronic -management as above with IV diuresis -compression wraps, elevation -wound culture pending given open skin, weeping -continue empiric doxycycline and wound cares (5) Hypertensive heart disease: Status: Acute Problem details: -monitor blood pressure response to intervention efforts and consider adding antihypertensive if appropriate (6) Dermatitis associated with moisture from urinary incontinence: Status: Acute Problem details: -given his urinary incontinence and associated dermatitis will collect urine for now -try to keep skin dry (7) Intertriginous candidiasis: Status: Acute Problem details: -fluconazole 100 mg daily plus nystatin topically (8) BPH (benign prostatic hyperplasia): Status: Acute Problem details: -continue doxazosin (9) Hyperlipidemia: Status: Acute Problem details: -continue statin (10) Anemia: Status: Acute Problem details: - Hemoglobin 9.1, 9.8 on admission. Baseline 12.1-10.3 this summer - no evidence for acute bleed. Retic, ferritin, iron, TIBC, B12, Folic acid ordered DS: Summary Hospital Course Hospital Course: Sergio Nichols is a 89 year old man who presents to the emergency department today after initial assessment in the Internal Medicine Clinic for additional evaluation of bilateral lower extremity edema and weeping of fluid. Known to have diastolic heart failure in association with hypertensive heart disease. Patient should be on oral furosemide 40 mg twice daily, but has not been taking it recently that is why he presented with decompensated heart failure. Chest x-ray with congestion and severe elevation and BMP, in addition to shortness of breath and bilateral lower extremity edema. Patient had been started on IV diuresis and improved. He had once on his legs from scratching a swap from the discharge coming out of that fluid grew MSSA susceptible to doxycycline, patient was started on doxycycline. During his stay patient developed an episode of right ankle pain, history and physical exam suggest gout. Patient has not been diagnosed with gout before. Uric acid ordered and it was elevated at 13.4. Orthopedics were consulted for a thoracentesis, pending results. Patient was started on empiric treatment for gout with prednisone and improved immensely, cannot give NSAIDs or colchicine due to his Roberto. ROBERTO improved on diuresis. Pt need to follow with primary care physician to repeat kidney function labs as patient presented with an ROBERTO. Suspect gout, pending fluid analysis/crystal results from right ankle arthrocentesis. Status at Discharge Functional status at discharge: uses cane/walker Time Spent with Patient Time attestation: Total time spent providing and/or coordinating discharge services: 50 min Exam Narrative: Exam Narrative: GENERAL: Comfortable, no acute distress. HEAD AND NECK: Atraumatic, normocephalic CARDIOVASCULAR: RRR. Normal S1, S2. No murmurs. RESPIRATORY: Clear to auscultation B/L. Good air entry B/L. No wheezes or rhonchi. GASTROINTESTINAL: obese, not tender to palpation. NEUROLOGY: Alert, awake, oriented X 3. Normal speech. MSK: Right ankle pain, most tender on the right malleolar area, swollen, unable to bear weight on right foot. Bilateral lower extremity swelling, pitting edema. Redness distally left lower extremity. PSYCH: Normal mood, normal affect. Const: Vital Signs, click to edit/add: Vital Signs - 24 hr 04/24/24 15:00 04/24/24 15:00 04/24/24 15:00 Temperature 97.5 F L Pulse Rate [Right Pulse Oximeter] 103 H Pulse Rate [Right Radial] 103 H Respiratory Rate 24 Blood Pressure [Le ft Arm] 101/50 L Blood Pressure [Ri ght Arm] Pulse Oximetry 97 97 Oxygen Delivery Me thod Room Air Room Air 04/24/24 20:17 04/25/24 00:08 04/25/24 00:10 Temperature 97.6 F Pulse Rate [Right Pulse Oximeter] 97 97 Pulse Rate [Right Radial] Respiratory Rate 20 Blood Pressure [Le ft Arm] 112/62 Blood Pressure [Ri ght Arm] 112/62 Pulse Oximetry 96 Oxygen Delivery Me thod Room Air Room Air 04/25/24 03:00 04/25/24 07:00 04/25/24 07:00 Temperature 98.2 F 97.7 F Pulse Rate [Right Pulse Oximeter] 82 91 Pulse Rate [Right Radial] Respiratory Rate 18 20 Blood Pressure [Le ft Arm] 114/59 L Blood Pressure [Ri ght Arm] 106/71 Pulse Oximetry 93 95 95 Oxygen Delivery Me thod Room Air Room Air Room Air 04/25/24 11:30 Temperature 97.6 F Pulse Rate [Right Pulse Oximeter] 93 Pulse Rate [Right Radial] Respiratory Rate 18 Blood Pressure [Le ft Arm] 102/64 Blood Pressure [Ri ght Arm] Pulse Oximetry 95 Oxygen Delivery Me thod DS: Data Data Completed and Pending Completed studies during hospitalization: Procedures Drainage of Left Wrist Joint, Percutaneous Approach, Diagnostic (12/07/23) Pending studies at discharge: Arthrocentesis fluid analysis/crystals pending. Labs on day of discharge: Labs from last 24 hours 04/25/24 06:09 WBC 4.69 RBC 3.36 L Hgb 9.4 L Hct 30.8 L MCV 92 MCH 28 MCHC 31 L Plt Count 131 L Sodium 137 Potassium 4.0 Chloride 102 Carbon Dioxide 29 Anion Gap 6 L BUN 81 H Creatinine 1.7 H Estimated Creat Clear 31.61 Estimated GFR 39 Glucose 140 H Calcium 8.3 L Preliminary micro results at discharge 04/23/24 Unknown Aerobic Culture - Preliminary Ankle Right NO GROWTH AFTER 48 HOURS Discharge Plan Discharge Disposition: [facility] Date of Admission: 04/20/24 16:52 Attending Provider on Discharge: Vandana Chiang Consulting Providers: Michele Petit; Karen Dos Santos; Chon Irwin; Amy An; Norman Cartwright; Tristan Lopez; Dwight Brooks; Rachel Shukla; Sienna Huang Primary Care Provider: Henok Weller Condition: Improved Anticipated Discharge Date/Time: 04/25/24 13:46 Discharge Medications: New fluconazole [Diflucan] 100 mg Tablet 100 mg PO Q24H 2 Days Qty: 2 0RF doxycycline hyclate 100 mg Tablet 100 mg PO BID 5 Days Qty: 10 0RF prednisone 20 mg tablet 20 mg PO DAILY 2 Days Qty: 2 0RF famotidine [Pepcid] 20 mg tablet 20 mg PO DAILY 2 Days Qty: 2 2RF Continued acetaminophen [Tylenol Arthritis Pain] 650 mg tablet extended release 650 mg PO Q12H PRN lidocaine 4 % adhesive patch,medicated 1 patch topical Q12H PRN furosemide 40 mg tablet 40 mg PO BID Qty: 90 3RF nystatin 100,000 unit/gram powder 1 applic topical TID Qty: 60 2RF (DME) Walker- 4 Wheels Misc See Rx Instructions .Route Qty: 1 0RF Rx Instructions: As directed simvastatin 20 mg tablet 20 mg PO HS Qty: 90 3RF doxazosin 8 mg tablet 8 mg PO HS Qty: 30 3RF potassium chloride 20 mEq tablet extended release 20 meq PO DAILY Qty: 90 3RF Eliquis 5 mg tablet 5 mg PO BID Qty: 60 3RF albuterol sulfate 90 mcg/actuation HFA aerosol inhaler 2 puff inhalation Q4H PRN (Reason: shortness of breath or wheezing) Qty: 8.5 2RF Discharge Orders: Discharge Order (Routine); Ordered 04/25/24 Ordered By: Vandana Chiang Additional Instructions: -need to follow with primary care physician to repeat kidney function labs as patient presented with an ROBERTO. -suspect gout, pending fluid analysis/crystal results from right ankle arthrocentesis. Activity Level: Activity as Tolerated Discharge Diet: Heart Healthy (2 gm sodium, low fat) Follow Up Appointments: Henok Weller MD [Primary Care Provider] - Forms: [facility] Info Instructions Admit to: SNF Therapy: Physical Therapy and Occupational Therapy Oxygen: No
--- NOTE | 2024-04-25 15:20 | P.IMCN_ITS ---
Date of Consult Consult date: 04/25/24 Requesting Physician: Hospitalist Primary Care Provider: Henok Weller MD Consult Narrative Narrative: Sergio Nichols is a 89 year old man who presented to the ER on 04/20/2024, after being seen by internal medicine clinic for evaluation of increased bilateral lower extremity weeping edema. Known to have diastolic heart failure in association with hypertensive heart disease. Patient should be on oral furosemide 40 mg twice daily, but has not been taking it recently that is why he presented with decompensated heart failure. Chest x-ray with congestion and severe elevation and BMP, in addition to shortness of breath and bilateral lower extremity edema. Patient had been started on IV diuresis and improved. He had once on his legs from scratching a swap from the discharge coming out of that fluid grew MSSA susceptible to doxycycline, patient was started on doxycycline. Plan for discharge to SNF and [facility] later this evening. Being seen today by Wound Services for BLE wounds. Patient reports that his legs have improved significantly since his hospitalization 6 days ago. Today no notable drainage noted from wounds. Patient was sitting comfortably in recliner with legs in dependent position. Patient reports he has a history of lower extremity edema for which he was taking Lasix on the outpatient side. He is familiar with utilizing compression, but does endorse in consistent use of compression. Has known venous insufficiency. Review of Systems Status of ROS: Reports: 6 or more systems reviewed and unremarkable except as noted in History and below [facility] Medical History Anemia ?D64.9 - Anemia, unspecified (ICD-10) Mitral annular calcification ?I34.81 - Nonrheumatic mitral (valve) annulus calcification (ICD-10) Mild aortic stenosis by prior echocardiogram ?I35.0 - Nonrheumatic aortic (valve) stenosis (ICD-10) Essential hypertension ?I10 - Essential (primary) hypertension (ICD-10) Pulmonary embolism ?I26.99 - Other pulmonary embolism without acute cor pulmonale (ICD-10) Diskitis ?M46.40 - Discitis, unspecified, site unspecified (ICD-10) 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 - Endocarditis, valve unspecified (ICD-10) NSTEMI (non-ST elevated myocardial infarction) ?I21.4 - Non-ST elevation (NSTEMI) myocardial infarction (ICD-10) SIRS (systemic inflammatory response syndrome) ?R65.10 - Systemic inflammatory response syndrome (SIRS) of non-infectious origin without acute organ dysfunction (ICD-10) Fever of unknown origin ?R50.9 - Fever, unspecified (ICD-10) Weakness ?R53.1 - Weakness (ICD-10) Sleep apnea, obstructive ?G47.33 - Obstructive sleep apnea (adult) (pediatric) (ICD-10) Skin cancer (06/10/09) ?C44.90 - Unspecified malignant neoplasm of skin, unspecified (ICD-10) Obesity with body mass index greater than 30 ?E66.9 - Obesity, unspecified (ICD-10) Deep vein thrombosis (DVT) of left lower extremity ?I82.402 - Acute embolism and thrombosis of unspecified deep veins of left lower extremity (ICD-10) Asthma (06/10/09) ?J45.909 - Unspecified asthma, uncomplicated (ICD-10) Hyperlipidemia ?E78.5 - Hyperlipidemia, unspecified (ICD-10) Surgical History History of hip surgery (04/21/21) ?Z98.890 - Other specified postprocedural states (ICD-10) Hx of tonsillectomy ?Z90.89 - Acquired absence of other organs (ICD-10) Family History Mother Breast cancer Coronary artery disease Father No problems noted. Paternal Grandfather Coronary artery disease Social History What is your current living situation?: I presently have a place to live Problems where you live: no known problems Problems where you live details: none In the past 12 months, utilities in danger of being shut off: no In past 12 months, lack of transportation kept you from medical appts, meetings, work, or getting things needed for daily living: no In the past 12 mos, have been you worried that your food would run out before you had money to buy more?: never true In the past 12 mos, the food you bought just didn't last and you didn't have money to buy more?: never true Smoking Status: Never smoker Do you use any of these nicotine containing products: None Second hand tobacco smoke exposure: No How often do you have a drink containing alcohol: monthly or less How often do you have six or more drinks on one occasion: Never AUDIT-C Alcohol total score: 1 Non-prescribed substance use: denies use Caffeine: Yes How often does anyone, including family, friends and others, physically hurt you : never How often does anyone, including family, friends and others, insult or talk down to you: never How often does anyone, including family, friends and others, threaten you with harm: never How often does anyone, including family, friends and others, scream or curse at you: never Little interest or pleasure in doing things: not at all Feeling down, depressed, or hopeless: not at all service: No Meds Home Medications and Allergies Home Medications ?Medication ?Instructions ?Recorded ?Confirmed ?Type acetaminophen 650 mg 650 mg PO Q12H PRN 02/03/24 04/21/24 History tablet,extended release (Tylenol Arthritis Pain) lidocaine 4 % topical patch 1 patch topical Q12H PRN 02/03/24 04/21/24 History Allergies Allergy/AdvReac Type Severity Reaction Status Date / Time house dust Allergy Verified 04/20/24 16:36 Exam Narrative: Exam Narrative: General: Sitting comfortably in recliner with legs in dependent position, no compression noted to legs. eyes: wearing glasses, conjunctiva clear without drainage BLE: Hemosiderin staining, 2+ nonpitting edema, Scattered, superficial wounds, of varying sizes to bilateral lower extremities. largest to right pre-tibal measuring [id number] and left posterior ankle measuring [id number]. drainage scant. No concern for infection to wounds. Wounds are nontender. CMS intact with 2+ DP and PT pulses. [place], warm digits with brisk capillary refill. Sensation decreased, confirmed distally. Psych: Normal affect, makes good eye contact Const: Vital Signs, click to edit/add: Vital Signs - 24 hr 04/24/24 20:17 04/25/24 00:08 04/25/24 00:10 Temperature 97.6 F Pulse Rate [Right Pulse Oximeter] 97 97 Respiratory Rate 20 Blood Pressure [Le ft Arm] 112/62 Blood Pressure [Ri ght Arm] 112/62 Pulse Oximetry 96 Oxygen Delivery Me thod Room Air Room Air 04/25/24 03:00 04/25/24 07:00 04/25/24 07:00 Temperature 98.2 F 97.7 F Pulse Rate [Right Pulse Oximeter] 82 91 Respiratory Rate 18 20 Blood Pressure [Le ft Arm] 114/59 L Blood Pressure [Ri ght Arm] 106/71 Pulse Oximetry 93 95 95 Oxygen Delivery Me thod Room Air Room Air Room Air 04/25/24 11:30 04/25/24 14:45 04/25/24 14:46 Temperature 97.6 F 97.7 F Pulse Rate [Right Pulse Oximeter] 93 97 Respiratory Rate 18 20 20 Blood Pressure [Le ft Arm] 102/64 107/59 L Blood Pressure [Ri ght Arm] Pulse Oximetry 95 98 98 Oxygen Delivery Me thod Room Air Room Air Documenting provider has reviewed patient's vital signs: yes Labs Labs: Short CBC 04/25/24 Range/Units 06:09 WBC 4.69 (4.50-11.00) K/uL Hgb 9.4 L (13.5-17.5) gm/dL Hct 30.8 L (37.0-53.0) % Plt Count 131 L (140-440) K/uL BMP 04/25/24 06:09 Sodium 137 Potassium 4.0 Chloride 102 Carbon Dioxide 29 BUN 81 H Creatinine 1.7 H Glucose 140 H Calcium 8.3 L Assessment and Plan Assessment and plan (1) Venous stasis ulcer of right calf with fat layer exposed: Status: Acute (2) Venous stasis ulcer of left ankle with fat layer exposed: Status: Acute (3) Peripheral edema: Problem comment: -acute on chronic -management as above with IV diuresis -compression wraps, elevation -wound culture pending given open skin, weeping -continue empiric doxycycline and wound cares Status: Acute (4) Acute on chronic diastolic heart failure with preserved ejection fraction: Problem comment: - Continue IV diuresis with furosemide 60 IV BID (was 40 mg twice daily till 04/22 evening), will resume home dose on discharge - Strict I&Os, daily weights -BNP down trending 69,000 from 75,400 -monitor labs, including potassium and magnesium plus creatinine and BUN and albumin -will not necessarily repeat echocardiogram which was last done on 01/05/2024 -monitor troponin I and ECG - repeat troponin improved 0.08 from 1.57. ACS ruled out. -try to keep legs dry. Will use Betadine topically to wounds. Will obtain wound culture. Will place on empiric doxycycline. -ordered chest x-ray which is showing congestion, pulmonary edema. Status: Acute Plan This automatic typewriter inspector completed the dressing change for patient. skin barrier per check div cream applied to closed dry scaly portions of bilateral calf. Wounds covered with a layer of Xeroform ABD and a 2 layer of size F Tubigrip. Patient provided education on proper elevation and the importance of consistent use of compression and elevation. Wound care orders include cleanse wound with unit approved wound cleanser, cover with a layer of Xeroform, ABD and compression of choice her the facility policy, dressing change occurrence every other day and p.r.n. Total Time Spent Total Time Spent: 45
--- NOTE | 2024-04-25 16:56 | PC.NURSE ---
Pt discharged to rehab in [place] [id number] via wheelchair, accompanied by friend. IV removed. Discharge forms signed. Belongings form signed.
== END 2024-04-25 16:40 | DRG 291 ==
LOC: ED 14:14 → MEDSURG 15:54
PROVIDERS: Physician Assistant; Student in an Organized Health Care Education/Training Program; Admitting Provider Internal Medicine; Emergency Provider Emergency Medicine Emergency Medical Services; PCP Internal Medicine; Visit Provider Internal Medicine
DX: I13.0 Hypertensive heart and chronic kidney disease with heart failure and stage 1 through stage 4 chronic kidney disease, or unspecified chronic kidney disease (principal); I50.33 Acute on chronic diastolic (congestive) heart failure; L97.212 Non-pressure chronic ulcer of right calf with fat layer exposed; L97.322 Non-pressure chronic ulcer of left ankle with fat layer exposed; I87.2 Venous insufficiency (chronic) (peripheral); N18.9 Chronic kidney disease, unspecified; S80.922A Unspecified superficial injury of left lower leg, initial encounter; S80.921A Unspecified superficial injury of right lower leg, initial encounter; B95.61 Methicillin susceptible Staphylococcus aureus infection as the cause of diseases classified elsewhere; M10.9 Gout, unspecified; M25.571 Pain in right ankle and joints of right foot; G47.33 Obstructive sleep apnea (adult) (pediatric); D64.9 Anemia, unspecified; R60.0 Localized edema; E66.9 Obesity, unspecified; Z68.30 Body mass index [BMI] 30.0-30.9, adult; Z79.01 Long term (current) use of anticoagulants; B37.2 Candidiasis of skin and nail; R32 Unspecified urinary incontinence; L24.A2 Irritant contact dermatitis due to fecal, urinary or dual incontinence; I35.0 Nonrheumatic aortic (valve) stenosis; I34.81 Nonrheumatic mitral (valve) annulus calcification; I25.2 Old myocardial infarction; J45.909 Unspecified asthma, uncomplicated; Z86.718 Personal history of other venous thrombosis and embolism; N40.0 Benign prostatic hyperplasia without lower urinary tract symptoms; E78.5 Hyperlipidemia, unspecified; Z85.828 Personal history of other malignant neoplasm of skin; B35.6 Tinea cruris
CPT/HCPCS: 36415; 71045; 73600; 80048; 80069; 80076; 81001; 82607; 82728; 82746; 83540; 83550; 83605; 83735; 83880; 84100; 84484; 84550; 85025; 85027; 85045; 85651; 86140; 87070; 87075; 87186; 87205; 89051; 89060; 97110; 97116; 97162; 97165; 97530; 97535; 99284; 99285; A9270; J1940; J7512

== ENCOUNTER 2024-05-22 17:45 | Inpatient (IN) | payer MEDICARE, SELFPAY ==
[2024-05-22] VITALS (18 sets, daily range): BP systolic 93–119; BP diastolic 51–94; PULSE 95–104; RESP 20–24; TEMP 36.4–36.6; O2SAT 95–99; BMI 32.3; BMI 34.7
--- OUTSIDE RECORDS SUMMARY | 2024-05-22 17:48 | XMS_ITS | Clinical Summary ---
Author Organization [facility] Address [place], [place] [address] Care Team Providers Care Medical Collections Name Role Phone Henok Weller MD Primary Care Provider Allergies No known active allergies Medications Medication Sig Dispensed Refills Start Date End Date Status doxazosin (CARDURA) 8 mg tablet Take 1 tablet by mouth at bedtime. 0 2 Active Walker - 4 wheels As directed. 3 Active apixaban (ELIQUIS) 5 mg tabletIndications:pu lmonary thromboembolism Take 1 Tablet (5 mg) by mouth two times daily. 4 Active acetaminophen (TYLENOL) 325 mg tablet Take 2 Tablets (650 mg) by mouth every 12 hours if needed for Pain. Max acetaminophen dose: 4000mg in 24 hrs. 4 Active albuterol HFA (PRO-AIR; VENTOLIN; PROVENTIL) 90 mcg/actuation inhaler Inhale 2 Puffs by mouth every 4 hours if needed (Asthma). 4 Active furosemide (LASIX) 40 mg tablet Take 1 Tablet (40 mg) by mouth two times daily. 4 Active lidocaine 4 % topical patch Apply 1 Patch on dry, clean, hairless skin every 12 hours if needed for Pain. Apply to intact skin to cover most painful area for max 12hr per 24hr period. 4 Active nystatin powder (MYCOSTATIN) powder Apply topically to affected area(s) three times daily. 4 Active potassium chloride (KLOR-CON M20) 20 mEq extended-release tablet (part/cryst) Take 1 Tablet (20 mEq) by mouth once daily in the morning. 4 Active simvastatin (ZOCOR) 20 mg tablet Take 1 Tablet (20 mg) by mouth at bedtime. 90 Tablet 3 4 Active simvastatin (ZOCOR) 20 mg tablet Take 20 mg by mouth once daily. 7 04/27/20 24 Discontinue d(*Medicati on adjustment) albuterol HFA (PRO-AIR; VENTOLIN; PROVENTIL) 90 mcg/actuation inhaler Inhale 2 Puffs by mouth every 6 hours if needed for Shortness Of Breath. 04/27/20 24 Discontinue d(*Medicati on adjustment) melatonin 3 mg tablet Take 1 Tablet (3 mg) by mouth once daily if needed for Sleep. 4 04/27/20 24 Discontinue d(*Med complete/Re gimen complete/Le sven of care change) acetaminophen (TYLENOL EXTRA STRGTH) 500 mg tabletIndications:Py ogenic arthritis of left wrist, due to unspecified organism (HC) Take 2 Tablets (1,000 mg) by mouth three times daily. AND QD PRN. Max acetaminophen dose: 4000mg in 24 hrs. 4 04/27/20 24 Discontinue d(*Medicati on adjustment) lidocaine 4 % topical patch Apply 2 Patches on dry, clean, hairless skin two times daily. Apply to intact skin to cover most painful area for max 12hr per 24hr period. 04/27/20 24 Discontinue d(*Medicati on adjustment) potassium chloride (KLOR-CON M10) 10 mEq extended-release tablet (part/cryst) Take 2 Tablets (20 mEq) by mouth once daily with a meal. 4 04/27/20 24 Discontinue d(*Medicati on adjustment) sodium chloride (Normal Saline Flush) syrg syringe PICC-Midline: 10 ml injection once daily. Aspirate for blood return and flush with 10 ml normal saline to maintain patency daily. Flush all lumens. AND 10 ml injection as needed. 4 04/27/20 24 Discontinue d(*Med complete/Re gimen complete/Le sven of care change) furosemide (LASIX) 20 mg tabletIndications:Pu lmonary embolism, bilateral (HC) Take 2 Tablets (40 mg) by mouth two times daily. 4 04/27/20 24 Discontinue d(*Medicati on adjustment) sennosides-docusate (SENOKOT S) (8.6-50 mg) tablet 1st order- 2 tablets orally once a day 2nd order- 2 tablets once a day PRN 4 04/27/20 24 Discontinue d(*Med complete/Re gimen complete/Le sven of care change) doxycycline 100 mg tablet Take 1 Tablet (100 mg) by mouth two times daily. 4 04/30/20 24 Active Problems Problem Noted Date Diagnosed Date [...] Overview (01/04/2024): Body mass index is 32 kg/m . Pure hypercholesterolemia Sleep apnea Encounters Date Type Department Care Team Description 05/10/2024 8:30 AM [facility] [address] [address] Christelle Yip NP Transitional Care Visit (PLASTIC SURGERY NURSE dc visit) 05/10/2024 Travel 05/09/2024 Orders Only [facility] Scanner 1 scan: (1-Ord) [facility], MULTPLE LABS, 05/09/2024 05/09/2024 Nurse Triage [address] [address] Christelle Yip NP Lab (BMP & glucose) 05/09/2024 Nurse Triage [address] [address] Christelle Yip, PLASTIC SURGERY NURSE Weight (Tending up since admit 04/25 SOB with exertion, Lung's CL, 2+ pitting edema Bilt LE's and 1+ pitting edema left hand ) 05/05/2024 11:30 AM [facility] [address] [address] Elba Dias MD Transitional Care Visit (Initial Visit-MD) 05/05/2024 Orders Only [address] [address] Elba Dias MD <No scans attached> 05/04/2024 Orders Only [facility] Scanner 1 scan: (1-Ord) [facility], MULTIPLE RESULTS, 05/04/2024 05/04/2024 Nurse Triage [address] [address] Christelle Yip, PLASTIC SURGERY NURSE Abnormal Lab Results 05/02/2024 Orders Only [facility] Scanner 1 scan: (1-Ord) [facility], MULTIPLE RESULTS, 05/02/2024 05/02/2024 Orders Only [facility] Scanner 1 scan: (1-Ord) [facility], BMP, 05/02/2024 05/02/2024 Nurse Triage [address] [address] Christelle Yip, PLASTIC SURGERY NURSE Abnormal Lab Results 05/01/2024 8:[address] [address] Christelle Yip NP Transitional Care Visit (PLASTIC SURGERY NURSE follow up) 05/01/2024 Travel 04/27/2024 8:[address] [address] Christelle Yip NP Transitional Care Visit (PLASTIC SURGERY NURSE initial visit) 04/27/2024 Travel 03/27/[address] [place] [address] Salomon Herzog MD Results 03/13/[address] [place] [address] Christelle Yip, PLASTIC SURGERY NURSE Refill Request (Furosemide) 03/10/2024 3:00 PM CDT Orders Only [facility] [address] [place] [address] Lab, [facility] 03/10/2024 Travel 03/09/2024 10:30 AM CDT Office Visit [facility] [address] [place] [address] Salomon Herzog MD 2024 Refill [facility] [address] [place] [address] Christelle Yip, PLASTIC SURGERY NURSE Refill Request (Potassium Chloride) 03/01/2024 2:00 PM CDT Phone Office Visit [facility] [address] [facility] [address] [facility] [address] [place] [address] Eric Stewart MD 03/01/2024 Travel from Last 3 Months Immunizations Name Administration Dates Next Due COVID-19 VACCINE SPIKEVAX (M ODERNA 50MCG/0.5ML) 12YO+ PFS 04/09/2023 COVID-19 vaccine (Pfizer-Bio NTech 30mcg/0.3mL) 12YO+ BIVALENT PF, MDV 10/15/2022,03/19/2022 COVID-19 vaccine (Pfizer-Bio NTech 30mcg/0.3mL) 12YO+ VICENTA-SUCROSE PF, MDV 10/08/2021 COVID-19 vaccine (Pfizer-Bio NTech 30mcg/0.3mL) PF, MDV 10/08/2021,07/27/2020 Influenza A (H1N1), Inactivated 05/10/2009 Influenza Virus, Unspecified 03/18/2021, 04/10/2020,04/09/2020,03/09,04/23/2018,04/01/2017,04/16/2016 ,03/27/2015,03/22/2014,03/21/2014,03/21,03/31/2013,03/24/2012, 1,04/04/2011,04/10/2010,02/28/2009,12/2004,04/19/2004 Influenza, High-dose Inactivated 024,04/23/2018,04/01/2017,04/16,03/27/2015,03/21/2014 Influenza, High-dose Quadriv alent Inactivated 04/20/2022,03/18/2021 Influenza, [...] History Relation Name Comments No Known Problems Brother No Known Problems Father Cancer-breast Mother Coronary artery disease Paternal Grandfather No Known Problems Sister Relation Name Status Comments Brother Father Mother Paternal Grandfather Sister Social History Tobacco Use Types Packs/Day Years [...] 89 01/05/2024 12:26 PM CDT Temperature 36.6 C (97.8 F) 01/05/2024 12:26 PM CDT Respiratory Rate 16 01/05/2024 12:26 PM CDT [...] Wellness for age 65+ 2002 Tetanus booster 03/26/2032 03/26/2022, 05/22, 09/15/2002 Pneumococcal series for age 65+ Completed 11/22/2014, 07/12/2014, 04/21/2006 Zoster (shingles) series for age 50+ Completed 11/30/2018, 09/15/2018, 06/01/2006, Additional history exists Tdap Completed 03/26/2022, 06/16/2012 RSV vaccine for adults or Completed 10/27/2023 COVID-19 vaccine series Completed 03/22/20 24, 04/09/2023, 10/15/2022, Additional history exists Influenza for age 65+ Completed 03/22/2024 , 04/09/2023, 04/20/2022, Additional history exists Procedures Procedure Name Priority Date/Time Associated Diagnosis Comments SCAN-LABORATORY REPORT 05/09/2024 12:00 AM EMERGENCY ROOM TECH SCAN-LABORATORY REPORT 05/04/2024 12:00 AM EMERGENCY ROOM TECH SCAN-LABORATORY REPORT 05/02/2024 12:00 AM EMERGENCY ROOM TECH SCAN-LABORATORY REPORT 05/02/2024 12:00 AM EMERGENCY ROOM TECH BLOOD CULTURE Routine 03/10/2024 2:58 PM CDT Psoas muscle abscess (HC) BLOOD CULTURE Routine 03/10/2024 2:50 PM CDT Psoas muscle abscess (HC) from Last 3 Months Results * SCAN-LABORATORY REPORT (05/09/2024 12:00 AM EMERGENCY ROOM TECH) Only the most recent of4 resultswithin the time period is included. Scanner OTHER * BLOOD CULTURE (03/10/2024 2:58 PM CDT) Only the most recent of2 resultswithin the time period is included. BLOOD CULTURE SEE NOTE [employer] Comment: CULTURE, BLOOD Micro Number: [id number] Test Status: Final Specimen Source: Blood, right arm Specimen Quality: Adequate Result: No growth after 5 days TRANSPORT MEDIA: Aerobic and anaerobic bottle received. Blood BLOOD SPECIMEN / Unknown 03/10/2024 2:58 PM CDT 03/10/2024 2:59 PM CDT Eric Stewart MD MICROBIOLOGY [email or web address] [facility] [address] [place] [address], [facility] [address] [place] [address] from Last 3 Months Advance Directives * [...] Preferences, Provider to review later Care Teams Medical Collections Relationship Specialty Start Date End Date Henok Weller MD [address] [place] [id number] PCP - General 11/16/12
--- NOTE | 2024-05-22 18:28 | ED.GENADULT ---
HPI - General Adult General Time Seen by Provider: 18:28 Date Seen: 05/22/24 Chief complaint: Edema Stated complaint: Heart Congestion Time Seen by Provider: 05/22/24 18:26 Source: patient, RN notes reviewed and old records reviewed Mode of arrival: ambulatory Limitations: no limitations History of Present Illness HPI narrative: Patient is an 89-year-old male with history of CHF coming in at the request of the clinic with concern of worsening symptoms. He just got out of [facility] about 10 days ago per his report. He thinks he has maybe up about 15-20 lb. He called the clinic today and they advised him to come to the ER. He has noticed seen increased leg edema, dyspnea on exertion. He does state that he feels some chest heaviness or discomfort. He notes his belly might feel bloated but states his appetite is good. He has had a history endocarditis reportedly but does not note any fevers or chills, does not feel his symptoms are consistent with that type of illness. He notes he was told that he might have some heart disease when he was diagnosed with endocarditis, he states that was the 1st time he was told this. 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 He also has had chronic diastolic heart failure with preserved ejection fraction. His echo from 12/07/2023 was a technically limited exam, normal left ventricular size, normal wall thickness, normal global systolic function, calculated EF of 67%. Echo contrast was administered. Right ventricular cavity size was normal, global systolic RV function normal. Moderately enlarged left atrium. Aortic valve is calcified, mild stenosis and trivial regurgitation. The mitral valve is sclerotic, mild mitral regurgitation. Tricuspid valve is not well visualized. Normal estimated pulmonary pressures by tricuspid velocity and right atrial pressure. No pericardial effusion. Patient notes he took his Lasix this morning but does not remember if he took it this afternoon. Patient is chronically anticoagulated with Eliquis, does have a history of pulmonary embolus. Patient was hospitalized April 20 through April 25 here. For patient does have chronic leg edema, did have a wound consult during that hospitalization. Of note his Cardiology out reach records from February of this year do document that they did not find evidence of endocarditis at his hospitalization this summer. Related Data Home Medications ?Medication ?Instructions ?Recorded ?Confirmed acetaminophen 650 mg 650 mg PO Q12H PRN 02/03/24 04/21/24 tablet,extended release (Tylenol Arthritis Pain) lidocaine 4 % topical patch 1 patch topical Q12H PRN 02/03/24 04/21/24 Previous Rx's ?Medication ?Instructions ?Recorded Walker- 4 Wheels #1 ea 09/14/22 simvastatin 20 mg tablet 20 mg PO HS #90 tabs 12/13/23 doxazosin 8 mg tablet 8 mg PO HS #30 tabs 02/22/24 apixaban 5 mg tablet (Eliquis) 5 mg PO BID #60 tabs 03/06/24 potassium chloride 20 mEq 20 meq PO DAILY #90 tabs 03/06/24 tablet,extended release albuterol sulfate 90 mcg/actuation 2 puff inhalation Q4H PRN 03/20/24 aerosol inhaler shortness of breath or wheezing #8.5 grams furosemide 40 mg tablet 40 mg PO BID #90 tabs 03/22/24 nystatin 100,000 unit/gram topical 1 applic topical TID #60 grams 04/11/24 powder doxycycline hyclate 100 mg tablet 100 mg PO BID 5 days #10 tabs 04/25/24 famotidine 20 mg tablet (Pepcid) 20 mg PO DAILY 2 days #2 tabs 04/25/24 fluconazole 100 mg tablet 100 mg PO Q24H 2 days #2 tabs 04/25/24 (Diflucan) prednisone 20 mg tablet 20 mg PO DAILY 2 days #2 tabs 04/25/24 Allergies Allergy/AdvReac Type Severity Reaction Status Date / Time house dust Allergy Verified 04/20/24 16:36 Review of Systems Status of ROS: Reports: 6 or more systems reviewed and unremarkable except as noted in History and below [facility] Medical History Intertriginous candidiasis ?B37.2 - Candidiasis of skin and nail (ICD-10) Dermatitis associated with moisture from urinary incontinence ?L25.8 - Unspecified contact dermatitis due to other agents (ICD-10) ?R32 - Unspecified urinary incontinence (ICD-10) Hypertensive heart disease ?I11.9 - Hypertensive heart disease without heart failure (ICD-10) Anemia ?D64.9 - Anemia, unspecified (ICD-10) Mitral annular calcification ?I34.81 - Nonrheumatic mitral (valve) annulus calcification (ICD-10) Mild aortic stenosis by prior echocardiogram ?I35.0 - Nonrheumatic aortic (valve) stenosis (ICD-10) Essential hypertension ?I10 - Essential (primary) hypertension (ICD-10) Pulmonary embolism ?I26.99 - Other pulmonary embolism without acute cor pulmonale (ICD-10) Diskitis ?M46.40 - Discitis, unspecified, site unspecified (ICD-10) 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 - Endocarditis, valve unspecified (ICD-10) NSTEMI (non-ST elevated myocardial infarction) ?I21.4 - Non-ST elevation (NSTEMI) myocardial infarction (ICD-10) SIRS (systemic inflammatory response syndrome) ?R65.10 - Systemic inflammatory response syndrome (SIRS) of non-infectious origin without acute organ dysfunction (ICD-10) Fever of unknown origin ?R50.9 - Fever, unspecified (ICD-10) Weakness ?R53.1 - Weakness (ICD-10) Sleep apnea, obstructive ?G47.33 - Obstructive sleep apnea (adult) (pediatric) (ICD-10) Skin cancer (06/10/09) ?C44.90 - Unspecified malignant neoplasm of skin, unspecified (ICD-10) Obesity with body mass index greater than 30 ?E66.9 - Obesity, unspecified (ICD-10) Deep vein thrombosis (DVT) of left lower extremity ?I82.402 - Acute embolism and thrombosis of unspecified deep veins of left lower extremity (ICD-10) Asthma (06/10/09) ?J45.909 - Unspecified asthma, uncomplicated (ICD-10) Hyperlipidemia ?E78.5 - Hyperlipidemia, unspecified (ICD-10) Surgical History History of hip surgery (04/21/21) ?Z98.890 - Other specified postprocedural states (ICD-10) Hx of tonsillectomy ?Z90.89 - Acquired absence of other organs (ICD-10) Family History Mother Breast cancer Coronary artery disease Father No problems noted. Paternal Grandfather Coronary artery disease Social History What is your current living situation?: I presently have a place to live Problems where you live: no known problems Problems where you live details: none In the past 12 months, utilities in danger of being shut off: no In the past 12 mos, have been you worried that your food would run out before you had money to buy more?: never true In the past 12 mos, the food you bought just didn't last and you didn't have money to buy more?: never true Smoking Status: Never smoker Do you use any of these nicotine containing products: None Second hand tobacco smoke exposure: No How often do you have a drink containing alcohol: monthly or less How often do you have six or more drinks on one occasion: Never AUDIT-C Alcohol total score: 1 Non-prescribed substance use: denies use Caffeine: Yes How often does anyone, including family, friends and others, physically hurt you: never How often does anyone, including family, friends and others, insult or talk down to you: never How often does anyone, including family, friends and others, threaten you with harm: never How often does anyone, including family, friends and others, scream or curse at you: never service: No Exam Const: Vital Signs, click to edit/add: Vital Signs - 24 hr 05/22/24 18:04 05/22/24 18:32 05/22/24 19:01 Temperature 97.6 F Pulse Rate 100 Pulse Rate [Pulse Oximeter] 102 H Respiratory Rate 24 Blood Pressure 93/54 L Blood Pressure [Ri ght Upper Arm] 114/56 L Pulse Oximetry 97 96 98 Oxygen Delivery Me thod Room Air 05/22/24 19:02 Temperature Pulse Rate 104 H Pulse Rate [Pulse Oximeter] Respiratory Rate Blood Pressure Blood Pressure [Ri ght Upper Arm] Pulse Oximetry 98 Oxygen Delivery Me thod This 89-year-old male is alert, interactive, no apparent distress. Does seem baseline tachypneic when I am talking to him. Speech is normal. Sclera clear, conjugate gaze. Symmetrical facial function. Is able to sit up, has somewhat poor effort with breathing but do not hear any wheezing or crackles, overall breath sounds do seem somewhat distant but maybe effort. CV regular rate and rhythm, do not hear any significant murmur, normal S1-S2, no S3-S4. Abdomen seems to be soft, nondistended, nontender, do not appreciate any organomegaly or masses. He has the stocking at on both of his lower extremities, has significant underlying pitting edema of both of his legs. Documenting provider has reviewed patient's vital signs: yes Course Course ED Course: This 89-year-old male certainly is presenting with potential fluid overload/CHF. Have him on cardiac monitoring, pulse oximetry. He complains of some chest discomfort which could come from CHF but also will consider ischemic disease or demand ischemia. Will have EKG and troponin obtained. Will get portable chest x-ray and appropriate labs. He is chronically anticoagulated. Reevaluation(s) Time of Reevaluation #1: 20:39 Reevaluation #1: Updated patient on admission. Did answers questions. We did review of his worsening kidney function, all the more reason for him to be monitored to ensure that he can have labs rechecked. We did discuss that it can be difficult with worsening kidney function with congestive heart failure. He did want to know basically if his heart failure essentially had a cure. We discussed that heart failure is managed, not cured. We also did review that people can worsen, he will have to see how he does in the hospital. Consultations Consultation #1: Have spoken with the hospitalist, she does agree for admission. Will update the patient. Had given him 40 mg IV Lasix after chest x-ray was back. He does have some mild worsening of his kidney function, blood pressures do look to be in the same ranges where he was last hospitalization. She does accept. Time: 20:24 Vital Signs Vital signs: Initial Vital Signs Temperature 97.6 F 05/22/24 18:04 Temperature Source Temporal Artery Scan 05/22/24 18:04 Pulse Rate 102 H 05/22/24 18:04 Respiratory Rate 24 05/22/24 18:04 Blood Pressure 114/56 L 05/22/24 18:04 Blood Pressure Mean 75 05/22/24 18:04 Blood Pressure Position Supine 05/22/24 18:04 Pulse Oximetry 97 05/22/24 18:04 Oxygen Delivery Method Room Air 05/22/24 18:04 Vital Signs Temperature 97.6 F 05/22/24 18:04 Pulse Rate 102 H 05/22/24 18:04 Respiratory Rate 24 05/22/24 18:04 Blood Pressure 114/56 L 05/22/24 18:04 Pulse Oximetry 97 05/22/24 18:04 Oxygen Delivery Method Room Air 05/22/24 18:04 Temperature 97.6 F 05/22/24 18:04 Pulse Rate 104 H 05/22/24 19:02 Respiratory Rate 24 05/22/24 18:04 Blood Pressure 93/54 L 05/22/24 19:01 Pulse Oximetry 98 05/22/24 19:02 Oxygen Delivery Method Room Air 05/22/24 18:04 Medications Administered Medications: Generic Name Dose Route Start Last Admin Trade Name Freq PRN Reason Stop Dose Admin Furosemide 40 mg 05/22/24 19:54 05/22/24 20:22 Furosemide 10 Mg/Ml Inj IVP 05/22/24 19:55 40 mg ONCE ONE Administration Medical Decision Making Lab Data Lab results reviewed: Yes I reviewed the patient's lab results Labs: Lab Results 05/22/24 05/22/24 Range/Units 18:39 19:00 WBC 5.00 (4.50-11.00) K/uL RBC 3.70 L (4.30-5.90) m/uL Hgb 9.9 L (13.5-17.5) gm/dL Hct 33.8 L (37.0-53.0) % MCV 91 (80-100) fL MCH 27 (26-34) pg MCHC 29 L (32-36) gm/dL RDW Coeff of Mica 17.4 H (11.5-15.5) % Plt Count 140 (140-440) K/uL Neut % (Auto) 80.8 H (42.0-72.0) % Lymph % (Auto) 10.8 L (20-44) % [place] % (Auto) 5.8 (0.0-11.0) % Eos % (Auto) 1.0 (0.0-7.0) % Baso % (Auto) 0.6 (0.0-3.0) % Neut # (Auto) 4.00 (1.7-7.0) K/uL Lymph # (Auto) 0.50 L (0.90-2.90) K/uL [place] # (Auto) 0.30 (0.00-0.90) K/UL Eos # (Auto) 0.05 (0.00-0.50) K/uL Baso # (Auto) 0.03 (0.00-0.30) K/uL Abs Immat Gran (auto) 0.05 (0.00-0.30) K/uL Imm/Tot Granulo (auto) 1.0 % VBG pH 7.350 (7.32-7.43) VBG pCO2 49 (40-50) mmHG VBG pO2 < 30.1 (25-47) mmHG VBG HCO3 27 (21-28) mmol/L Sodium 140 (135-149) mmol/L Potassium 5.0 (3.6-5.1) mmol/L Chloride 105 (96-114) mmol/L Carbon Dioxide 25 (20-32) mmol/L Anion Gap 10 (7-15) mEq/L BUN 86 H (7-30) mg/dL Creatinine 2.4 H (0.5-1.5) mg/dL Estimated Creat Clear 22.39 Estimated GFR 25 ml/min Glucose 120 H (60-115) mg/dL Lactate 1.2 (0.5-1.9) mmol/L Calcium 8.8 (8.4-10.6) mg/dL Total Bilirubin 0.4 (0.1-1.5) mg/dL Direct Bilirubin 0.4 (0.0-0.5) mg/dL AST 25 (12-35) U/L ALT 21 (4-50) U/L Alkaline Phosphatase 83 (40-150) U/L Troponin I 0.07 H* (0.01-0.04) ng/mL C-Reactive Protein 1.0 (0.5-1.0) mg/dL NT-Pro-B Natriuret Pep 73002 pg/mL Total Protein 6.5 (6.0-8.3) g/dL Albumin 3.8 (3.3-5.0) g/dL Imaging Data Chest x-ray: Attestation: I have reviewed the pertinent imaging results. Radiologist's impression: Patient: VONDA WEAVER Facility:?[facility] Patient ID:?[id number] Site Patient ID:?[id number]. Site :?[id number] Study:?XRay-Chest 1 VIEW PORTABLE-05/22/2024 6:51:14 PM Ordering Physician:Cesario Abdullahi Final Report: INDICATION: SOB, CHEST DISCOMFORT, CHF. (Sic) COMPARISON: 04/24/2024 TECHNIQUE: 1 view. FINDINGS: Rotated leftward. Medical Devices: None. Lung Volumes: Adequate inspiration. No significant atelectasis. Lungs: Upper lobe pulmonary venous diversion. Diffuse bilateral reticular opacities. Findings are consistent with pulmonary venous congestion and interstitial edema, respectively. Pleura and Pleural spaces: Small right pleural effusion. No pneumothorax. Mediastinum: Cardiomegaly. Bony Thorax and Soft Tissues: No significant interval findings. Chronic healed fracture deformities of the left posterior 4th, 5th and 6th ribs. IMPRESSION: Findings consistent with congestive heart failure described above. Dictated by Rey Cuellar MD @ 05/22/2024 7:40:43 PM (Electronic Signature) ECG Data Attestation: I personally reviewed and interpreted this ECG as follows: (Sinus tachycardia with first-degree AV block, 101 beats per minute. Right axis deviation, does have low voltage. Nonspecific ST segment changes, poor R-wave progression anterior precordial leads.) Discharge Plan Discharge Clinical Impression: Acute on chronic diastolic heart failure with preserved ejection fraction, Elevated troponin I level Patient Disposition: Admitted As Observation Prescriptions: No Action acetaminophen [Tylenol Arthritis Pain] 650 mg tablet extended release 650 mg PO Q12H PRN lidocaine 4 % adhesive patch,medicated 1 patch topical Q12H PRN furosemide 40 mg tablet 40 mg PO BID Qty: 90 3RF nystatin 100,000 unit/gram powder 1 applic topical TID Qty: 60 2RF fluconazole [Diflucan] 100 mg Tablet 100 mg PO Q24H 2 Days Qty: 2 0RF doxycycline hyclate 100 mg Tablet 100 mg PO BID 5 Days Qty: 10 0RF prednisone 20 mg tablet 20 mg PO DAILY 2 Days Qty: 2 0RF famotidine [Pepcid] 20 mg tablet 20 mg PO DAILY 2 Days Qty: 2 2RF (DME) Walker- 4 Wheels Misc See Rx Instructions .Route Qty: 1 0RF Rx Instructions: As directed simvastatin 20 mg tablet 20 mg PO HS Qty: 90 3RF doxazosin 8 mg tablet 8 mg PO HS Qty: 30 3RF potassium chloride 20 mEq tablet extended release 20 meq PO DAILY Qty: 90 3RF Eliquis 5 mg tablet 5 mg PO BID Qty: 60 3RF albuterol sulfate 90 mcg/actuation HFA aerosol inhaler 2 puff inhalation Q4H PRN (Reason: shortness of breath or wheezing) Qty: 8.5 2RF Follow Up/Referrals: Henok Weller MD [Primary Care Provider] -
--- NOTE | 2024-05-22 18:38 | CRLHL7_ITS ---
For Patients: As a result of the Cures Act, medical imaging exams and procedure reports are released immediately into your electronic medical record. You may view this report before your referring provider. If you have questions, please contact your health care provider. INDICATION: SOB, CHEST DISCOMFORT, CHF. (Sic) COMPARISON: 04/24/2024 TECHNIQUE: 1 view. FINDINGS: Rotated leftward. Medical Devices: None. Lung Volumes: Adequate inspiration. No significant atelectasis. Lungs: Upper lobe pulmonary venous diversion. Diffuse bilateral reticular opacities. Findings are consistent with pulmonary venous congestion and interstitial edema, respectively. Pleura and Pleural spaces: Small right pleural effusion. No pneumothorax. Mediastinum: Cardiomegaly. Bony Thorax and Soft Tissues: No significant interval findings. Chronic healed fracture deformities of the left posterior 4th, 5th and 6th ribs. IMPRESSION: Findings consistent with congestive heart failure described above. Dictated by Rey Cuellar MD @ 05/22/2024 7:40:43 PM (Electronically Signed)
--- OUTSIDE RECORDS SUMMARY | 2024-05-22 19:02 | XMS_ITS | Data Portability ---
Author Organization [place] - [facility] Address [address] [place] [id number] Care Team Providers Care Utility Specialist Name Role Phone CATA CHESTER Primary Care Provider [phone] Assessment Encounter Date Assessment Date Assessment LastModified by Organization Details LastModified Time 05/13/2024 05/13/2024 This visit was performed via Anipipo device with a total face to face time of 9 minutes. This patient is being seen today for a [facility] appointment after hospitalization. Reason for admission: Bilateral lower extremity edema, has history of heart failure, and shortness of breath I have reviewed the external medical records: Hospital discharge summary from [facility], on 04/25/24 to 05/09/24. Specifically, the data/test result/record I reviewed was: discharge papers. The following comorbid health conditions pertinent to this [facility] visit were discussed, diagnoses were added, and current status documented: Vital signs have been reviewed: As documented The patient has a follow up appointment with PCP on 05/16/2024 SSMILE High Risk area for hospital readmission *SYMPTOMS Does the patient have ongoing or worsening symptoms? Yes, the patient is at risk for readmission. *SKILLED NEEDS Does the patient have unaddressed skilled needs? Skilled services have not started but there is a plan in place - low risk.Pt states he has not spoken with home health as of yet. *MEDICATIONS Is the patient/caregiver able to describe current medication management strategy? Yes, low risk for readmission. Reconciliation and Management: Hard copy discharge medication list provided by patient was reviewed and reconciled during this encounter with patient's current medications. A face to face medication reconciliation was completed during today's visit. No changes were made to the patient's medication regimen today The patient understands how to take their new medications. The patient verbalized understanding of the dosage and timing of their medications and understands the need to take their medications as prescribed. I had the opportunity to answer any questions regarding their medications. *INFORMATION Does the patient/caregiver /MPOA have understanding of disease/discharge information/treat ment plan/red flag symptoms? Yes, low risk for readmission. *LINKED UP Does the patient understand the appropriate providers to follow up with: Yes, low risk for readmission. Does the patient have access to healthcare, food, social support? Yes, low risk for readmission. Resources available through [facility]. *ENGAGEMENT Is the patient/caregiver /MPOA engaged in the care plan? Yes, low risk for readmission. After reviewing records, medications, understanding for the plan of care, physical exam, and SSMILE Risk score, and it is determined the patient is safe to remain at home and is left in stable condition. Additional patient instructions: Call to schedule home health visit and attend your PCP appointment on Wednesday. Follow-up recommendations: Advised to monitor their symptoms closely including for signs of returning symptoms , to take their regular daily medications as prescribed, practice fall precautions, and keep their appointment(s) as scheduled on 05/16/2024 . The patient is advised to seek immediate evaluation with their PCP, [facility], or in the ER for new or worsening symptoms. The patient verbalizes understanding and agrees with the plan. Notes from the visit were sent to the patient's PCP. Time On Scene with Patient: 01:34:27 Not available 05/13/2024 19:27:08 Plan of Treatment Reminders Order Date Submit Date Provider Last Modified By Organization Details Last Modified Time Details Appointments None record ed. Lab None record ed. Referral None record ed. Procedures None record ed. Surgeries None record ed. Imaging None record ed. Medication Orders None record ed. Patient TargetsNo targets recorded. Patient Instructions Encounter Date Encounter Id Patient Instructions Last Modified By Organization Details Last Modified Time 05/13/2024 [id number] leg and ankle edema: care instructions [email or web address] Not available 05/13/2024 17:38:44 Leg and Ankle Edema: Care Instructions Your Care Instructions Swelling in the legs, ankles, and feet is called edema. It is common after you sit or stand for a while. Long plane flights or car rides often cause swelling in the legs and feet. You may also have swelling if you have to stand for long periods of time at your job. Problems with the veins in the legs (varicose veins) and changes in hormones can also cause swelling. Sometimes the swelling in the ankles and feet is caused by a more serious problem, such as heart failure, infection, blood clots, or liver or kidney disease. Follow-up care is a hansen part of your treatment and safety. Be sure to make and go to all appointments, and call your doctor if you are having problems. It's also a good idea to know your test results and keep a list of the medicines you take. How can you care for yourself at home? If your doctor gave you medicine, take it as prescribed. Call your doctor if you think you are having a problem with your medicine. Whenever you are resting, raise your legs up. Try to keep the swollen area higher than the level of your heart. Take breaks from standing or sitting in one position. Walk around to increase the blood flow in your lower legs. Move your feet and ankles often while you stand, or tighten and relax your leg muscles. Wear support stockings. Put them on in the morning, before swelling gets worse. Eat a balanced diet. Lose weight if you need to. Limit the amount of salt (sodium) in your diet. Salt holds fluid in the body and may increase swelling. When should you call for help? Call anytime you think you may need emergency care. For example, call if: You have symptoms of a blood clot in your lung (called a pulmonary embolism). These may include: Sudden chest pain. Trouble breathing. Coughing up blood. Call your doctor now or seek immediate medical care if: You have signs of a blood clot, such as: Pain in your calf, back of the knee, thigh, or groin. Redness and swelling in your leg or groin. You have symptoms of infection, such as: Increased pain, swelling, warmth, or redness. Red streaks or pus. A fever. Watch closely for changes in your health, and be sure to contact your doctor if: Your swelling is getting worse. You have new or worsening pain in your legs. You do not get better as expected. - YOU WERE SEEN TODAY FOR HOSPITAL DISCHARGE FOLLOW UP - CONTINUE YOUR MEDICATIONS PRESCRIBED - BE SURE TO FOLLOW UP WITH PRIMARY CARE AND SPECIALISTS SCHEDULED - MONITOR SYMPTOMS CLOSELY It was great to see you today! Thank you for letting [facility] follow up with you after your hospitalization today. If you are noticing a change in your symptoms between the hours of 8am and 9pm, and cannot follow up with your PCP please contact [facility] for re-evaluation. Please present to the nearest EMERGENCY ROOM if you are experiencing any of the following: - worsening pain - fever above 101.0F despite using Tylenol (acetaminophen) - shortness of breath - chest pain or pressure - any symptom or concern that requires immediate evaluation [email or web address] [phone] Not available 05/13/2024 17:38:44 Reason for Referral None Reported. Procedures Surgical History Date Name Laterality Status Provider Name and Address Organization Details Recorded Time 05/13/20 Medication Review completed Mikaela Adam, KISHA [address] ,[address], [place], [address], [place] [facility] 05/13/2024 17:34:59 procedure on femur completed Chaka Morfin [place] [facility] 05/13/2024 16:51:01 Imaging Results None recorded. Procedure Notes None recorded. Medical Equipment None Reported. Medications Name Sig Start Date Stop Date Status Note LastModified by Organization Details LastModified Time furosemide 40 mg tablet TAKE 1 TABLET BY MOUTH TWICE DAILY active Not Available Not Available No t Available hydrocodone 5 mg-acetamin ophen 325 mg tablet TAKE 1 TABLET BY MOUTH EVERY 8 HOURS NEEDED FOR PAIN 05/13 completed Not Available Not Available Not Available Nystop 100,000 unit/gram topical powder 1 APPLIC TOPICALLY THREE TIMES A DAY 05/13 completed Not Available Not Available Not Available prednisone 20 mg tablet TAKE 1 TABLET BY MOUTH TWICE DAILY active Not Available Not Available No t Available doxazosin 8 mg tablet TAKE 1 TABLET BY MOUTH AT BEDTIME active Not Available Not Available No t Available cephalexin 500 mg capsule TAKE 1 CAPSULE BY MOUTH TWICE DAILY FOR 5 DAYS 05/13 completed Not Available Not Available Not Available simvastatin 20 mg tablet TAKE 1 TABLET BY MOUTH AT BEDTIME active Not Available Not Available No t Available albuterol sulfate HFA 90 mcg/actuati on aerosol inhaler INHALE 2 PUFFS BY MOUTH EVERY 4 HOURS NEEDED FOR SHORTNESS OF BREATH OR WHEEZING active Not Available Not Available No t Available Eliquis 5 mg tablet TAKE 1 TABLET BY MOUTH TWICE DAILY active Not Available Not Available No t Available potassium chloride ER 20 mEq tablet,exte nded release TAKE 1 TABLET BY MOUTH DAILY active Not Available Not Available No t Available Vitals Date Recorded Body temperature Heart rate Respiratory rate Oxygen saturation Oxygen saturation in Arterial blood by Pulse oximetry Heart rate Systolic blood pressure Diastolic blood pressure Provider Name and Address Organization Details Last Updated DateTime 4 96 [degF] 106 /min 15 /min 98 % 98 % 104 /min 116 mm[Hg] 52 mm[Hg] Not Available [facility] 4 16:36:43 Social History Question Answer Notes LastModified by Organizat ion Details LastModified Time Tobacco Smoking Status Never Smoker Chaka Morfin sharyn [place] - [facility] 05/13/2024 16:48:08 Do You Have An Advance Directive? Yes [email or web address] Information n ot available 05/13/2024 What Is Your Relation To The Advocate? Son Information not available 05/13/2024 What Is Your Level Of Alcohol Consumption? Occasional [email or web address] Information not available 05/13/2024 Is Blood Transfusion Acceptable In An Emergency? Yes [email or web address] Information not available 05/13/2024 What Is Your Code Status? Full Code [email or web address] Information not available 05/13/2024 Do You Have A Directive To Physicians? Yes [email or web address] Information not available 05/13/2024 Within The Past 12 Months, Has It Happened That The Food You Bought Just Didn't Last And You Didn't Have Money To Get More. Never True Information not available 05/13/2024 Within The Past 12 Months, Have You Worried That Your Food Would Run Out Before You Got Money To Buy More. Never True [email or web address] Information n ot available 05/13/2024 Fall Risk: Do You Feel Unsteady When Standing Or Walking? Yes [email or web address] Information not available 05/13/2024 We Know That How And When People Interact With Friends And Family Can Be Very Different From Person To Person. How Often Do You Have The Opportunity To See Or Talk To People That You Care About And Feel Close To? (Ex: Talking To Friends On The Phone Or Visiting Friends Or Family Or Going To Shinto Or Club Meetings) More Than 3 Times A Week [email or web address] Information not available 05/13/2024 Excessive Alcohol Or Drug Use No [email or web address] Information not available 05/13/2024 Does This Patient Have A PCP? Yes [email or web address] Information not available 05/13/2024 Has The Patient Seen Their PCP In The Past 6 Months? Yes [email or web address] Information n ot available 05/13/2024 Is This Patient In Hospice? No [email or web address] Information not available 05/13/2024 ADL: Do You Need Help With Daily Activities Such As Bathing, Preparing Meals, Dressing, Or Cleaning? Yes (Z74.1) [email or web address] Information not available 05/13/2024 Social Support: Do You Feel Safe? No [email or web address] Information not available 05/13/2024 In The Past 12 Months, Has Lack Of Transportation Kept You From Medical Appointments? No Information not available 05/13/2024 In The Past 12 Months, Has Lack Of Transportation Kept You From Non-medical Needs? No [email or web address] Information n ot available 05/13/2024 We Know From Many Of Our Patients That Covering All Of Their Costs Can Be Difficult At Times. This Can Cause Stress And Impact Health. In The Past Year, Have You Been Unable To Get Any Of The Following When It Was Really Needed? No Information not available 05/13/2024 What Is Your Housing Situation Today? I Have Housing [email or web address] Information not available 05/13/2024 Would You Like Help Connecting To Resources? Not At This Time [email or web address] Information not available 05/13/2024 Do You Have A Medical Power Of Mission Commander? Yes [email or web address] Information not available 05/13/2024 Do You Have An Out Of Hospital DNR? No [email or web address] Information not available 05/13/2024 Do You Have A Patient Advocate? Yes [email or web address] Information no t available 05/13/2024 Do You Use Any Illicit Or Recreational Drugs? No [email or web address] Information not available 05/13/2024 Has Tobacco Cessation Counseling Been Provided? No [email or web address] Information not available 05/13/2024 Do You Or Have You Ever Used Any Other Forms Of Tobacco Or Nicotine? No [email or web address] Information not available 05/13/2024 Sex: Unknown Functional Status None recorded. Mental Status None recorded. Family History Nothing Reported. Medical History Condition Response Diabetes N Coronary Artery Disease N CHF Y Parkinson's Disease N Cancer N Stroke N Dementia N Asthma Y Hypothyroidism N Depression N COPD N High Cholesterol Y Rheumatoid Arthritis N Pulmonary Embolism N Hypertension N A-fib N Osteoporosis N Kidney Disease N Past Encounters Encounter ID Performer Location Encounter Start Date Encounter Closed Date Diagnosis/Indication Diagnosis SNOMED-CT Code Diagnosis ICD10 Code [id number] Mikaela Adam NP [facility] [place] [address] [place] [id number] 05/13/2024 16:19:21 05/13/2024 17:42:46 Bilateral lower limb edema 709857335 R60.0 Health Concerns Section Related Observation LastModified by Organization Detai ls LastModified Time None Recorded Concern Status LastModified by Organization Details LastModified Time None Recorded Advance Directives Directive Y: Payers Encounter Date Sequence Insurance Name Policy Number Policy Horvath Covered Member ID Horvath Member ID Guarantor Name 05/13/2024 1 [place] SECURE BLUE (MEDICARE REPLACEMENT HMO) Sergio Nichols [id number] Sergio Nichols Notes Date Note Type Note Provider Name and Address Organization Details Recorded Time 4 text/html This patient being seen for a [facility] appointment following hospitalization at:{{ [facility] #}}. Reason for admission: Bilateral lower extremity edema, has history of heart failure, and shortness of breathDate admitted:{{DATE 10/2023}}.Date discharged:{{DATE }}. While in the hospital, the patient had blood work done for leg that had infection.Newly prescribed medications: Furosemide, Eliquis, and Potassium Choloride Since discharge, the patients leg is much better but has trouble with some breathing. Mikaela Adam NP [address] [facility] [address] [facility] ,[address], [place], [address], [place] [facility] 05/13/2024 19:29:37
--- OUTSIDE RECORDS SUMMARY | 2024-05-22 19:02 | XMS_ITS | Clinical Summary ---
Author Organization [facility] Address [place], [place] [address] Care Team Providers Care Liner Helper Name Role Phone Henok Weller MD Primary Care Provider [phone] Allergies No known active allergies Medications Medication [...] Department Care Team Description 05/10/2024 8:30 AM [facility] [address] [address] Christelle Yip NP Transitional Care Visit (ENTERPRISE ACCOUNT MANAGER dc visit) 05/10/2024 Travel 05/09/2024 Orders Only [facility] Scanner 1 scan: (1-Ord) [facility], 05/09/2024 05/09/2024 Nurse Triage [address] [address] Christelle Yip NP Lab (BMP & glucose) 05/09/2024 Nurse Triage [address] [address] Christelle Yip, ENTERPRISE ACCOUNT MANAGER Weight (Tending up since admit 04/25 SOB with exertion, Lung's CL, 2+ pitting edema Bilt LE's and 1+ pitting edema left hand ) 05/05/2024 11:30 AM [facility] [address] [address] Elba Dias MD Transitional Care Visit (Initial Visit-MD) 05/05/2024 Orders Only [address] [address] Elba Dias MD <No scans attached> 05/04/2024 Orders Only [facility] Scanner 1 scan: (1-Ord) Yahaira [facility], MULTIPLE RESULTS, 05/04/2024 05/04/2024 Nurse Triage [address] [address] Christelle Yip, ENTERPRISE ACCOUNT MANAGER Abnormal Lab Results 05/02/2024 Orders Only [facility] Scanner 1 scan: (1-Ord) Yahaira [facility], MULTIPLE RESULTS, 05/02/2024 05/02/2024 Orders Only [facility] Scanner 1 scan: (1-Ord) Yahaira [facility], BMP, 05/02/2024 05/02/2024 Nurse Triage [address] [address] Christelle Yip, ENTERPRISE ACCOUNT MANAGER Abnormal Lab Results 05/01/2024 8:[address] [address] Christelle Yip NP Transitional Care Visit (ENTERPRISE ACCOUNT MANAGER follow up) 05/01/2024 Travel 04/27/2024 8:[address] [address] Christelle Yip NP Transitional Care Visit (ENTERPRISE ACCOUNT MANAGER initial visit) 04/27/2024 Travel 03/27/[address] [place] [address] Salomon Herzog MD Results 03/13/[address] [place] [address] Christelle Yip, ENTERPRISE ACCOUNT MANAGER Refill Request (Furosemide) 03/10/2024 3:00 PM CDT Orders Only [facility] [address] [place] [address] Lab, [place] 03/10/2024 Travel 03/09/2024 10:30 AM CDT Office Visit [facility] [address] [place] [address] Salomon Herzog MD 2024 Refill [facility] [address] [place] [address] Christelle Yip, ENTERPRISE ACCOUNT MANAGER Refill Request (Potassium Chloride) 03/01/2024 2:00 PM CDT Phone Office Visit [facility] [address] [facility] [address] [place] [address] Eric Stewart MD 03/01/2024 Travel from Last [...] Diagnosis Comments SCAN-LABORATORY REPORT 05/09/2024 12:00 AM JUNIOR ACCOUNT MANAGER SCAN-LABORATORY REPORT 05/04/2024 12:00 AM JUNIOR ACCOUNT MANAGER SCAN-LABORATORY REPORT 05/02/2024 12:00 AM JUNIOR ACCOUNT MANAGER SCAN-LABORATORY REPORT 05/02/2024 12:00 AM JUNIOR ACCOUNT MANAGER BLOOD CULTURE Routine 03/10/2024 2:58 PM CDT Psoas muscle abscess (HC) BLOOD CULTURE Routine 03/10/2024 2:50 PM CDT Psoas muscle abscess (HC) from Last 3 Months Results * SCAN-LABORATORY REPORT (05/09/2024 12:00 AM JUNIOR ACCOUNT MANAGER) Only the most recent of4 resultswithin the time period is included. Scanner OTHER * BLOOD CULTURE (03/10/2024 2:58 PM CDT) Only the most recent of2 resultswithin the time period is included. BLOOD CULTURE SEE NOTE [employer] Comment: CULTURE, BLOOD Micro Number: [id number] Test Status: Final Specimen Source: Blood, right arm Specimen Quality: Adequate Result: No growth after 5 days TRANSPORT MEDIA: Aerobic and anaerobic bottle received. Blood BLOOD SPECIMEN / Unknown 03/10/2024 2:58 PM CDT 03/10/2024 2:59 PM CDT Eric Stewart MD MICROBIOLOGY [facility] [address] [place] [address], [facility] [address] [place] [address] from Last 3 Months Advance Directives * [...] Preferences, Provider to review later Care Teams Liner Helper Relationship Specialty Start Date End Date Henok Weller MD [address] [place] [id number] PCP - General 11/16/12
--- OUTSIDE RECORDS SUMMARY | 2024-05-22 19:02 | XMS_ITS | Continuity of Care Document ---
Author Organization [place] [facility] Address [address] [place] [address] Care Team Providers Care Logging Specialist Name Role Phone CATA CHESTER Primary Care Provider [phone] Assessment Encounter Date Assessment Date Assessment LastModified by Organization Details LastModified Time 05/13/2024 05/13/2024 This visit was performed via Fluent Home device with a total face to face time of 9 minutes. This patient is being seen today for a [facility] appointment after hospitalization. Reason for admission: Bilateral lower extremity edema, has history of heart failure, and shortness of breath I have reviewed the external medical records: Hospital discharge summary from [facility], on 04/25/24 to 05/09/24. Specifically, the data/test [...] By Organization Details Last Modified Time 05/13/2024 [id number] leg and ankle edema: care instructions [email or web address] Not available 05/13/2024 17:38:44 Leg and Ankle [...] follow up with your PCP please contact [facility] for re-evaluation. Please present to the nearest EMERGENCY ROOM if you are experiencing any of the following: - worsening pain - fever above 101.0F despite using Tylenol (acetaminophen) - shortness of breath - chest pain or pressure - any symptom or concern that requires immediate evaluation [place] [id number] Not available 05/13/2024 17:38:44 Reason for Referral None Reported. Procedures Surgical History Date Name Laterality Status Provider Name and Address Organization Details Recorded Time 05/13/20 Medication Review completed Mikaela Adam, KISHA [address] ,[address], [place], [address], [place] [facility] 05/13/2024 17:34:59 procedure on femur [...] Do You Have An Advance Directive? Yes Information n ot available 05/13/2024 What Is Your Relation To The Advocate? Son [email or web address] Information not available 05/13/2024 What Is Your Level Of Alcohol Consumption? Occasional Information not available 05/13/2024 Is Blood Transfusion Acceptable In An Emergency? Yes [email or web address] Information not available 05/13/2024 What Is Your Code Status? Full Code [email or web address] Information not available 05/13/2024 Do You Have A Directive To Physicians? Yes [email or web address] Information not available 05/13/2024 Within The Past 12 Months, Has It Happened That The Food You Bought Just Didn't Last And You Didn't Have Money To Get More. Never True [email or web address] Information not available 05/13/2024 Within The Past 12 Months, Have You Worried That Your Food Would Run Out Before You Got Money To Buy More. Never True [email or web address] Information n ot available 05/13/2024 Fall Risk: Do You Feel Unsteady When Standing Or Walking? Yes [email or web address] Information not available 05/13/2024 We Know That How And When People Interact With Friends And Family Can Be Very Different From Person To Person. How Often Do You Have The Opportunity To See Or Talk To People That You Care About And Feel Close To? (Ex: Talking To Friends On The Phone Or Visiting Friends Or Family Or Going To Temple Or Club Meetings) More Than 3 Times A Week [email or web address] Information not available 05/13/2024 Excessive Alcohol Or Drug Use No [email or web address] Information not available 05/13/2024 Does This Patient Have A PCP? Yes [email or web address] Information not available 05/13/2024 Has The Patient Seen Their PCP In The Past 6 Months? Yes Information n ot available 05/13/2024 Is This Patient In Hospice? No [email or web address] Information not available 05/13/2024 ADL: Do You Need Help With Daily Activities Such As Bathing, Preparing Meals, Dressing, Or Cleaning? Yes (Z74.1) [email or web address] Information not available 05/13/2024 Social Support: Do You Feel Safe? No [email or web address] Information not available 05/13/2024 In The Past 12 Months, Has Lack Of Transportation Kept You From Medical Appointments? No [email or web address] Information not available 05/13/2024 In The Past 12 Months, Has Lack Of Transportation Kept You From Non-medical Needs? No [email or web address] Information n ot available 05/13/2024 We Know From Many Of Our Patients That Covering All Of Their Costs Can Be Difficult At Times. This Can Cause Stress And Impact Health. In The Past Year, Have You Been Unable To Get Any Of The Following When It Was Really Needed? No [email or web address] Information not available 05/13/2024 What Is Your Housing Situation Today? I Have Housing Information not available 05/13/2024 Would You Like Help Connecting To Resources? Not At This Time [email or web address] Information not available 05/13/2024 Do You Have A Medical Power Of Beer Merchant? Yes [email or web address] Information not available 05/13/2024 Do You Have An Out Of Hospital DNR? No [email or web address] Information not available 05/13/2024 Do You Have A Patient Advocate? Yes [email or web address] Information no t available 05/13/2024 Do You Use Any Illicit Or Recreational Drugs? No [email or web address] Information not available 05/13/2024 Has Tobacco Cessation Counseling Been Provided? No [email or web address] Information not available 05/13/2024 Do You Or Have You Ever Used Any Other Forms Of Tobacco Or Nicotine? No [email or web address] Information not available 05/13/2024 Sex: Unknown Functional Status None recorded. Mental Status None recorded. Family History Nothing Reported. Medical History Condition Response Coronary Artery Disease N Depression N COPD N Hypothyroidism N A-fib N Cancer N Stroke N High Cholesterol Y Rheumatoid Arthritis N Kidney Disease N Parkinson's Disease N Diabetes N CHF Y Dementia N Asthma Y Pulmonary Embolism N Hypertension N Osteoporosis N Past Encounters Encounter ID Performer Location Encounter Start Date Encounter Closed Date Diagnosis/Indication Diagnosis SNOMED-CT Code Diagnosis ICD10 Code [id number] Mikaela Adam NP [facility] [address] [place] [id number] 05/13/2024 16:19:21 05/13/2024 17:42:46 Bilateral lower limb edema 647900652 R60.0 Health Concerns Section Related Observation LastModified by Organization Detai ls LastModified Time None Recorded Concern Status LastModified by Organization Details LastModified Time None Recorded Payers Encounter Date Sequence Insurance Name Policy Number Policy [employer] Covered Member ID Horvath Member ID Guarantor Name 05/13/2024 1 [place]URE BLUE (MEDICARE REPLACEMENT HMO) Sergio Nichols [id number] Sergio Nichols Notes Date Note Type Note Provider Name and Address Organization Details Recorded Time 4 text/html This patient being seen for a [facility] appointment following hospitalization at:{{ [facility] #}}. Reason for admission: Bilateral lower extremity edema, has history of heart failure, and shortness of breathDate admitted:{{DATE 10/2023}}.Date discharged:{{DATE }}. While in the hospital, the patient had blood work done for leg that had infection.Newly prescribed medications: Furosemide, Eliquis, and Potassium Choloride Since discharge, the patients leg is much better but has trouble with some breathing. Mikaela Adam NP [address] ,[address], [place], [address], [place] [facility] 05/13/2024 19:29:37
[2024-05-22 19:04] LABS: Chloride* 105 mmol/L (96-114)
[2024-05-22 19:05] LABS: Albumin* 3.8 g/dL (3.3-5.0); Basophils Absolute Auto 0.03 K/uL (0.00-0.30); Basophils Percent Auto 0.6 % (0.0-3.0); Eosinophils Absolute Auto 0.05 K/uL (0.00-0.50); Hematocrit 33.8 % (37.0-53.0); Hemoglobin* 9.9 gm/dL (13.5-17.5); Immature Granulocytes Abs Auto 0.05 K/uL (0.00-0.30); Lymphocytes Percent Auto 10.8 % (20-44); Mean Corpuscular HGB Conc 29 gm/dL (32-36); Mean Corpuscular Hemoglobin 27 pg (26-34); Mean Corpuscular Volume 91 fL (80-100); Monocytes Percent Auto 5.8 % (0.0-11.0); Neutrophils Percent Auto 80.8 % (42.0-72.0); Platelet Count* 140 K/uL (140-440); RDW Coefficient of Variation % 17.4 % (11.5-15.5); Sodium* 140 mmol/L (135-149)
[2024-05-22 19:06] LABS: HCO3 VBG 27 mmol/L (21-28); Lactate* 1.2 mmol/L (0.5-1.9); PCO2 VBG 49 mmHG (40-50); PO2 VBG < 30.1 mmHG (25-47)
[2024-05-22 19:07] LABS: Creatinine* 2.4 mg/dL (0.5-1.5); Est. Creatinine Clearance* 22.39; Estimated Glomerular Filt Rate 25 ml/min
[2024-05-22 19:08] LABS: Alanine Aminotransferase* 21 U/L (4-50); Alkaline Phosphatase* 83 U/L (40-150); Anion Gap 10 mEq/L (7-15); Aspartate Amino Transferase* 25 U/L (12-35); Bilirubin Direct* 0.4 mg/dL (0.0-0.5); Bilirubin Total* 0.4 mg/dL (0.1-1.5); Blood Urea Nitrogen* 86 mg/dL (7-30); Carbon Dioxide* 25 mmol/L (20-32); Glucose* 120 mg/dL (60-115); Total Protein* 6.5 g/dL (6.0-8.3)
[2024-05-22 19:09] LABS: Calcium* 8.8 mg/dL (8.4-10.6)
[2024-05-22 19:12] LABS: Slide Review Reflex No
[2024-05-22 19:35] LABS: NT Pro B Type NatriureticPept* 54400 pg/mL; Troponin I* 0.07 ng/mL (0.01-0.04)
[2024-05-22] MEDS: FUROSEMIDE 10 MG/ML inj 40 MG IVP (20:22)
[2024-05-22 21:04] LABS: PCR FLU A Negative PCR FLU A (Negative); PCR FLU B Negative PCR FLU B (Negative); PCR RSV Negative PCR RSV (Negative); SARS PCR* Negative SARS-CoV-2 (Negative)
--- NOTE | 2024-05-22 21:43 | P.IMHP_ITS ---
Hospitalist- H&P: HPI History of Present Illness Date Seen: 05/22/24 Chief complaint: Heart Congestion Narrative: Sergio Nichols is a 89 year old male with past medical history of congestive heart failure with preserved ejection fraction common hyperlipidemia, history of DVT/PE, chronic venous insufficiency and suspected CKD who presents to the ED with increasing shortness of breath on exertion and bilateral swelling of his legs. In addition patient's weight has been increasing. He states that he was taking his medications at home but it does not work. At the ED, patient was hemodynamically stable having increased work of breathing. Chest x-ray showed pulmonary edema, troponin is chronically elevated, but downtrending, similarly his BNP is chronically elevated and is down trending. Patient got Lasix 40 IV at the ED. Review of Systems Status of ROS: Reports: 10 or more systems reviewed and unremarkable except as noted in History and below [facility] Medical History Intertriginous candidiasis ?B37.2 - Candidiasis of skin and nail (ICD-10) Dermatitis associated with moisture from urinary incontinence ?L25.8 - Unspecified contact dermatitis due to other agents (ICD-10) ?R32 - Unspecified urinary incontinence (ICD-10) Hypertensive heart disease ?I11.9 - Hypertensive heart disease without heart failure (ICD-10) Anemia ?D64.9 - Anemia, unspecified (ICD-10) Mitral annular calcification ?I34.81 - Nonrheumatic mitral (valve) annulus calcification (ICD-10) Mild aortic stenosis by prior echocardiogram ?I35.0 - Nonrheumatic aortic (valve) stenosis (ICD-10) Essential hypertension ?I10 - Essential (primary) hypertension (ICD-10) Pulmonary embolism ?I26.99 - Other pulmonary embolism without acute cor pulmonale (ICD-10) Diskitis ?M46.40 - Discitis, unspecified, site unspecified (ICD-10) 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 - Endocarditis, valve unspecified (ICD-10) NSTEMI (non-ST elevated myocardial infarction) ?I21.4 - Non-ST elevation (NSTEMI) myocardial infarction (ICD-10) SIRS (systemic inflammatory response syndrome) ?R65.10 - Systemic inflammatory response syndrome (SIRS) of non-infectious origin without acute organ dysfunction (ICD-10) Fever of unknown origin ?R50.9 - Fever, unspecified (ICD-10) Weakness ?R53.1 - Weakness (ICD-10) Sleep apnea, obstructive ?G47.33 - Obstructive sleep apnea (adult) (pediatric) (ICD-10) Skin cancer (06/10/09) ?C44.90 - Unspecified malignant neoplasm of skin, unspecified (ICD-10) Obesity with body mass index greater than 30 ?E66.9 - Obesity, unspecified (ICD-10) Deep vein thrombosis (DVT) of left lower extremity ?I82.402 - Acute embolism and thrombosis of unspecified deep veins of left lower extremity (ICD-10) Asthma (06/10/09) ?J45.909 - Unspecified asthma, uncomplicated (ICD-10) Hyperlipidemia ?E78.5 - Hyperlipidemia, unspecified (ICD-10) Surgical History History of hip surgery (04/21/21) ?Z98.890 - Other specified postprocedural states (ICD-10) Hx of tonsillectomy ?Z90.89 - Acquired absence of other organs (ICD-10) Family History Mother Breast cancer Coronary artery disease Father No problems noted. Paternal Grandfather Coronary artery disease Social History What is your current living situation?: I presently have a place to live Problems where you live: no known problems Problems where you live details: none In the past 12 months, utilities in danger of being shut off: no In the past 12 mos, have been you worried that your food would run out before you had money to buy more?: never true In the past 12 mos, the food you bought just didn't last and you didn't have money to buy more?: never true Highest level of school completed/degree received: some college, no degree Smoking Status: Never smoker Do you use any of these nicotine containing products: None Second hand tobacco smoke exposure: No How often do you have a drink containing alcohol: monthly or less How often do you have six or more drinks on one occasion: Never AUDIT-C Alcohol total score: 1 Non-prescribed substance use: denies use Caffeine: Yes How often does anyone, including family, friends and others, physically hurt you : never How often does anyone, including family, friends and others, insult or talk down to you: never How often does anyone, including family, friends and others, threaten you with harm: never How often does anyone, including family, friends and others, scream or curse at you: never service: No Meds Home Medications and Allergies Home Medications ?Medication ?Instructions ?Recorded ?Confirmed ?Type acetaminophen 650 mg 650 mg PO Q12H PRN 02/03/24 04/21/24 History tablet,extended release (Tylenol Arthritis Pain) lidocaine 4 % topical patch 1 patch topical Q12H PRN 02/03/24 04/21/24 History Home Medication Comments: Furosemide 40 mg p.o. b.i.d. Allergies Allergy/AdvReac Type Severity Reaction Status Date / Time house dust Allergy Verified 04/20/24 16:36 Exam Narrative: Exam Narrative: Physical exam GENERAL: Comfortable, no acute distress. HEAD AND NECK: Atraumatic, normocephalic CARDIOVASCULAR: RRR. Normal S1, S2. No murmurs. B/L LE edema. RESPIRATORY: Clear to auscultation B/L. Good air entry B/L. No wheezes or rhonchi. GASTROINTESTINAL: Obese, not tender to palpation. NEUROLOGY: Alert, awake, oriented X 3. Normal speech. No focal weakness. MSK: B/L LE edema. small Rt Ankle ulcer, no redness or warmth or discharge PSYCH: Normal mood, normal affect. Const: Vital Signs, click to edit/add: Vital Signs - 24 hr 05/22/24 18:04 05/22/24 18:32 05/22/24 19:01 Temperature 97.6 F Pulse Rate 100 Pulse Rate [Pulse Oximeter] 102 H Respiratory Rate 24 Blood Pressure 93/54 L Blood Pressure [Ri ght Upper Arm] 114/56 L Pulse Oximetry 97 96 98 Oxygen Delivery Me thod Room Air 05/22/24 19:02 05/22/24 19:15 05/22/24 19:30 Temperature Pulse Rate 104 H 100 95 Pulse Rate [Pulse Oximeter] Respiratory Rate Blood Pressure Blood Pressure [Ri ght Upper Arm] Pulse Oximetry 98 98 96 Oxygen Delivery Me thod 05/22/24 19:31 05/22/24 19:45 05/22/24 20:00 Temperature Pulse Rate 95 98 97 Pulse Rate [Pulse Oximeter] Respiratory Rate Blood Pressure 99/63 Blood Pressure [Ri ght Upper Arm] Pulse Oximetry 95 96 95 Oxygen Delivery Me thod 05/22/24 20:01 05/22/24 20:15 05/22/24 20:31 Temperature Pulse Rate 97 99 Pulse Rate [Pulse Oximeter] Respiratory Rate Blood Pressure 117/94 H 119/56 L Blood Pressure [Ri ght Upper Arm] Pulse Oximetry 95 96 [facility] 05/22/24 21:01 Temperature Pulse Rate Pulse Rate [Pulse Oximeter] Respiratory Rate Blood Pressure 99/51 L Blood Pressure [Ri ght Upper Arm] Pulse Oximetry [facility] - H&P: Result Labs Labs: Short CBC 05/22/24 Range/Units 18:39 WBC 5.00 (4.50-11.00) K/uL Hgb 9.9 L (13.5-17.5) gm/dL Hct 33.8 L (37.0-53.0) % Plt Count 140 (140-440) K/uL BMP 05/22/24 18:39 Sodium 140 Potassium 5.0 Chloride 105 Carbon Dioxide 25 BUN 86 H Creatinine 2.4 H Glucose 120 H Calcium 8.8 Cardiac Enzymes 05/22/24 Range/Units 18:39 Troponin I 0.07 H* (0.01-0.04) ng/mL Liver Function 05/22/24 Range/Units 18:39 Total Bilirubin 0.4 (0.1-1.5) mg/dL Direct Bilirubin 0.4 (0.0-0.5) mg/dL AST 25 (12-35) U/L ALT 21 (4-50) U/L Alkaline Phosphatase 83 (40-150) U/L Albumin 3.8 (3.3-5.0) g/dL ECG Attestation: I personally reviewed and interpreted this ECG as follows: ECG interpretation date: 05/22/24 Interpretation: Normal sinus rhythm with first-degree AV block. Imaging Echo: Attestation: I have reviewed the pertinent imaging results. Radiologist's impression: Transthoracic echocardiogram from 01/05/2024 demonstrated normal ejection fraction of 50-55% with aabi-by-cshkioyz aortic stenosis and mitral annular calcification. Chest x-ray: Radiologist's impression: COMPARISON: 04/24/2024 TECHNIQUE: 1 view. FINDINGS: Rotated leftward. Medical Devices: None. Lung Volumes: Adequate inspiration. No significant atelectasis. Lungs: Upper lobe pulmonary venous diversion. Diffuse bilateral reticular opacities. Findings are consistent with pulmonary venous congestion and interstitial edema, respectively. Pleura and Pleural spaces: Small right pleural effusion. No pneumothorax. Mediastinum: Cardiomegaly. Bony Thorax and Soft Tissues: No significant interval findings. Chronic healed fracture deformities of the left posterior 4th, 5th and 6th ribs. IMPRESSION: Findings consistent with congestive heart failure described above. Dictated by Rye Cuellar MD @ 05/22/2024 7:40:43 PM Assessment and Plan Assessment and plan (1) Acute on chronic diastolic heart failure with preserved ejection fraction: Problem comment: -Start IV diuresis with furosemide 60 IV BID -Strict I&Os, daily weights -BNP down trending -monitor labs, including potassium and magnesium plus creatinine and BUN and albumin -Considering repeat of his echocardiogram, it was last done on 01/05/2024 w/ NL EF -monitor troponin I and ECG - troponin is downtrending. ACS ruled out. Status: Acute (2) Acute kidney injury superimposed on chronic kidney disease: Problem comment: -differential diagnosis includes progression to chronic kidney disease versus ROBERTO on CKD versus cardiorenal syndrome. -will diurese the patient and monitor for improvement of his kidney function -ordered renal ultrasound to rule out chronic changes Status: Acute (3) Essential hypertension: Problem comment: -currently soft blood pressures Status: Acute (4) Mild aortic stenosis by prior echocardiogram: Status: Acute (5) Mitral annular calcification: Status: Acute (6) Intertriginous candidiasis: Problem comment: -S/p fluconazole 100 mg, 10-14 days course plus nystatin topically, but due to continuous irritation by urine patient is still having candidiasis. -will order miconazole or clotrimazole cream for now . Status: Inactive (7) Dermatitis associated with moisture from urinary incontinence: Problem comment: -given his urinary incontinence and associated dermatitis will collect urine for now -try to keep skin dry Status: Inactive Plan As above plus PT OT and social services manager to help with discharge plan. Total Time Spent Total Time Spent: Time spent: Today I spent 75 minutes seeing the patient, discussing the patient with ER staff, reviewing Expanse and EPIC notes/diagnostics, discussing the care plan with our care time that includes social work, PT/OT, pharmacy, RT, intermediate and documenting my impressions and plan in the medical record.
--- NOTE | 2024-05-22 22:40 | PC.NURSE ---
Pt allowed to use own inhaler per MD
[2024-05-23] VITALS (8 sets, daily range): BP systolic 99–122; BP diastolic 53–70; PULSE 91–101; RESP 16–20; TEMP 36.3–36.7; O2SAT 97–98
[2024-05-23] MEDS: ACETAMINOPHEN 650 MG TABLET ER PO (01:31)
[2024-05-23 06:37] LABS: Hematocrit 30.4 % (37.0-53.0); Hemoglobin* 9.2 gm/dL (13.5-17.5); Mean Corpuscular HGB Conc 30 gm/dL (32-36); Mean Corpuscular Hemoglobin 27 pg (26-34); Mean Corpuscular Volume 91 fL (80-100); Platelet Count* 123 K/uL (140-440); Red Blood Count 3.36 m/uL (4.30-5.90); White Blood Count* 4.04 K/uL (4.50-11.00)
[2024-05-23 06:48] LABS: Slide Review Reflex No
[2024-05-23 06:52] LABS: Chloride* 107 mmol/L (96-114); Potassium* 4.7 mmol/L (3.6-5.1); Sodium* 139 mmol/L (135-149)
[2024-05-23 06:54] LABS: Creatinine* 2.4 mg/dL (0.5-1.5); Est. Creatinine Clearance* 22.39; Estimated Glomerular Filt Rate 25 ml/min
[2024-05-23 06:55] LABS: Anion Gap 7 mEq/L (7-15); Blood Urea Nitrogen* 89 mg/dL (7-30); Calcium* 8.7 mg/dL (8.4-10.6); Carbon Dioxide* 25 mmol/L (20-32); Glucose* 89 mg/dL (60-115)
[2024-05-23 06:56] LABS: Magnesium* 2.4 mg/dL (1.5-2.6)
[2024-05-23 07:06] LABS: Troponin I* 0.21 ng/mL (0.01-0.04)
[2024-05-23] MEDS: FAMOTIDINE 20 MG TABLET PO (08:19)
[2024-05-23] MEDS: POTASSIUM CHLORIDE 10 MEQ CAPSULE ER 20 MEQ PO (08:19)
[2024-05-23] MEDS: FUROSEMIDE 20 MG TABLET 60 MG PO ×2 (08:19→15:34)
[2024-05-23] MEDS: SODIUM CHLORIDE 0.9 % (FLUSH) 10 ML SYRINGE 5 ML IVF ×2 (08:28→20:18)
[2024-05-23] MEDS: CLOTRIMAZOLE 1 % CREAM 1 APPLIC TOPICAL ×2 (08:28→20:18)
--- NOTE | 2024-05-23 10:00 | CRLHL7_ITS ---
For Patients: As a result of the Century Cures Act, medical imaging exams and procedure reports are released immediately into your electronic medical record. You may view this report before your referring provider. If you have questions, please contact your health care provider. INDICATION: Abnormal kft for few months, R/O CKD, any abnormality. TECHNIQUE: Ultrasound renal and bladder complete. White-scale and color Doppler sonographic images were acquired of the kidneys and urinary bladder. COMPARISON: None. FINDINGS: Right kidney: 10 cm. Normal echotexture and cortex. No suspicious masses, stones, or hydronephrosis. There is a 2.5 cm simple appearing cyst. Left kidney: Not visualized, likely due to overlying bowel gas. Bladder: Normal in caliber and appearance. Color Doppler images demonstrate bilateral ureteral jets. IMPRESSION: No evident significant abnormalities of the right kidney. The left kidney is not visualized. Dictated by Stephon Hernandez MD @ 05/23/2024 11:23:38 AM (Electronically Signed)
[2024-05-23] MEDS: APIXABAN 5 MG TABLET 2.5 MG PO ×2 (11:15→20:17)
--- NOTE | 2024-05-23 11:48 | NUTR.NU ---
RDN with diet education related to diet order. Patient admitted with congestive heart failure exacerbation. Patient was hospitalized 04/20/24 - 04/25/24 for the same diagnosis. Current diet order is Heart Healthy with 1500 mL fluid restriction. Patient received Heart Healthy diet education during his last hospitalization on 04/21/2024. RDN will not offer diet education at this time related to CHF due to patient already receiving diet education for this within 6 months. RDN will continue to monitor and follow-up prn.
[2024-05-23 12:08] LABS: Troponin I* 0.17 ng/mL (0.01-0.04)
--- NOTE | 2024-05-23 12:54 | P.IMPN_ITS ---
Progress Note: A&P Assessment and plan (1) Acute on chronic diastolic heart failure with preserved ejection fraction: Problem details: -Start IV diuresis with furosemide 60 IV BID, oral potassium supplement, fluid restriction 1500 mL -compression stockings -Strict I&Os, daily weights - down 1 kg thus far -BNP down trending 54,400 (previously 57609) -monitor labs, including potassium and magnesium (2.4) plus creatinine and BUN (>80) and albumin -CXR c/w CHF -repeat echocardiogram, it was last done on 01/05/2024 w/ NL EF - final results pending -monitor troponin I and ECG - troponin is downtrending (0.07 in ED, previously 0.08). ACS ruled out. On 05/23 troponin tripled to 0.21. No change in symptomatology, denying chest pain. Repeat EKG shows sinus rhythm with first- degree AV block with PACs. Discussed with patient - declines further aggressive workup other than trending troponins, does not want to be transferred. Repeat troponin at noon is 0.17. Status: Acute (2) Acute kidney injury superimposed on chronic kidney disease: Problem details: -creatinine 2.4, previously 1.7 which appears to be his baseline in the last 3 months -differential diagnosis includes progression to chronic kidney disease versus ROBERTO on CKD versus cardiorenal syndrome. -will diurese the patient and monitor for improvement of his kidney function -renally dose oral medications (adjusted apixiban dosing) -renal ultrasound shows normal echotexture and heart attacks of the right kidney, no suspicious masses stones or hydronephrosis. 2.5 cm simple appearing cyst. Left kidney is not well visualized in setting of overlying bowel gas. -continue to trend labs in setting of IV diuresis Status: Acute (3) Essential hypertension: Problem details: -currently soft blood pressures -home med - doxazosin Status: Acute (4) Mild aortic stenosis by prior echocardiogram: Problem details: -noted Status: Acute (5) Mitral annular calcification: Problem details: -noted Status: Acute (6) Intertriginous candidiasis: Problem details: -S/p fluconazole 100 mg, 10-14 days course plus nystatin topically, but due to continuous irritation by urine patient is still having candidiasis. -clotrimazole cream Status: Acute (7) Dermatitis associated with moisture from urinary incontinence: Problem details: -given his urinary incontinence and associated dermatitis will collect urine for now -try to keep skin dry Status: Acute Time Spent With Patient Total time spent: Total time spent caring for the patient today was 45 minutes. This includes time spent for the visit reviewing the chart, time spent during the visit, time spent after the visit and documentation and planning in coordination of care. Subjective Date Seen: 05/23/24 Interval history: Patient is seen sitting up in bed. Reports feeling pretty good. Denies headache or dizziness. Shortness of breath slowly improving. Has had increased urine output since starting IV diuresis. Discussed elevated troponin in setting of heart failure exacerbation. During hospitalization in November 2023 had an NSTEMI in setting of sepsis. Patient is okay if we trend his troponins but would like nothing more aggressive done, nor does he want to be transferred. Exam Narrative: Exam Narrative: PHYSICAL EXAM General: Pleasant, conversant, NAD HEENT: Normocephalic, atraumatic, sclera white, EOMI, oral mucosa moist Cardiovascular: RRR, S1S2. 3+ pitting edema Pulmonary: Coarse breath sounds throughout, mild dyspnea Abdominal: Soft, nondistended, NTTP Neurological: Alert, answering questions appropriately, cranial nerves intact, no focal findings Extremities: No gross joint deformity. AROMI. Neurovascularly intact Skin: Warm, dry. Const: Vital Signs, click to edit/add: Vital Signs - 24 hr 05/22/24 18:04 05/22/24 18:32 05/22/24 19:01 Temperature 97.6 F Pulse Rate 100 Pulse Rate [Pulse Oximeter] 102 H Pulse Rate [Right Radial] Respiratory Rate 24 Blood Pressure 93/54 L Blood Pressure [Le ft Arm] Blood Pressure [Ri ght Arm] Blood Pressure [Ri ght Upper Arm] 114/56 L Pulse Oximetry 97 96 98 Oxygen Delivery Me thod Room Air 05/22/24 19:02 05/22/24 19:15 05/22/24 19:30 Temperature Pulse Rate 104 H 100 95 Pulse Rate [Pulse Oximeter] Pulse Rate [Right Radial] Respiratory Rate Blood Pressure Blood Pressure [Le ft Arm] Blood Pressure [Ri ght Arm] Blood Pressure [Ri ght Upper Arm] Pulse Oximetry 98 98 96 Oxygen Delivery Me thod 05/22/24 19:31 05/22/24 19:45 05/22/24 20:00 Temperature Pulse Rate 95 98 97 Pulse Rate [Pulse Oximeter] Pulse Rate [Right Radial] Respiratory Rate Blood Pressure 99/63 Blood Pressure [Le ft Arm] Blood Pressure [Ri ght Arm] Blood Pressure [Ri ght Upper Arm] Pulse Oximetry 95 96 95 Oxygen Delivery Me thod 05/22/24 20:01 05/22/24 20:15 05/22/24 20:31 Temperature Pulse Rate 97 99 Pulse Rate [Pulse Oximeter] Pulse Rate [Right Radial] Respiratory Rate Blood Pressure 117/94 H 119/56 L Blood Pressure [Le ft Arm] Blood Pressure [Ri ght Arm] Blood Pressure [Ri ght Upper Arm] Pulse Oximetry 95 96 Oxygen Delivery Me thod 05/22/24 21:01 05/22/24 21:50 05/22/24 21:54 Temperature 97.9 F 97.9 F Pulse Rate Pulse Rate [Pulse Oximeter] Pulse Rate [Right Radial] 101 H 101 H Respiratory Rate 20 20 Blood Pressure 99/51 L Blood Pressure [Le ft Arm] 105/61 105/61 Blood Pressure [Ri ght Arm] Blood Pressure [Ri ght Upper Arm] Pulse Oximetry 99 Oxygen Delivery Ar thod Room Air Room Air 05/22/24 22:03 05/22/24 22:38 05/22/24 23:13 Temperature Pulse Rate 95 Pulse Rate [Pulse Oximeter] Pulse Rate [Right Radial] 101 H Respiratory Rate 20 20 Blood Pressure Blood Pressure [Le ft Arm] Blood Pressure [Ri ght Arm] Blood Pressure [Ri ght Upper Arm] Pulse Oximetry 99 Oxygen Delivery Ar thod Room Air 05/23/24 01:31 05/23/24 01:36 05/23/24 07:00 Temperature 97.9 F 97.9 F Pulse Rate Pulse Rate [Pulse Oximeter] Pulse Rate [Right Radial] 93 Respiratory Rate 20 20 Blood Pressure Blood Pressure [Le ft Arm] 99/53 L Blood Pressure [Ri ght Arm] Blood Pressure [Ri ght Upper Arm] Pulse Oximetry 98 Oxygen Delivery Me thod Room Air 05/23/24 07:00 05/23/24 07:00 05/23/24 11:00 Temperature Pulse Rate 91 Pulse Rate [Pulse Oximeter] Pulse Rate [Right Radial] 98 98 Respiratory Rate 20 16 Blood Pressure Blood Pressure [Le ft Arm] 112/70 Blood Pressure [Ri ght Arm] 117/55 L Blood Pressure [Ri ght Upper Arm] Pulse Oximetry 98 98 Oxygen Delivery Me thod Room Air Room Air Labs Labs: Laboratory Results - last 24 hr 05/22/24 05/22/24 05/22/24 18:39 19:00 19:05 WBC 5.00 RBC 3.70 L Hgb 9.9 L Hct 33.8 L MCV 91 MCH 27 MCHC 29 L RDW Coeff of Mica 17.4 H Plt Count 140 Neut % (Auto) 80.8 H Lymph % (Auto) 10.8 L Winston % (Auto) 5.8 Eos % (Auto) 1.0 Baso % (Auto) 0.6 Neut # (Auto) 4.00 Lymph # (Auto) 0.50 L Winston # (Auto) 0.30 Eos # (Auto) 0.05 Baso # (Auto) 0.03 Abs Immat Gran (auto) 0.05 Imm/Tot Granulo (auto) 1.0 VBG pH 7.350 VBG pCO2 49 VBG pO2 < 30.1 VBG HCO3 27 Sodium 140 Potassium 5.0 Chloride 105 Carbon Dioxide 25 Anion Gap 10 BUN 86 H Creatinine 2.4 H Estimated Creat Clear 22.39 Estimated GFR 25 Glucose 120 H Lactate 1.2 Calcium 8.8 Magnesium Total Bilirubin 0.4 Direct Bilirubin 0.4 AST 25 ALT 21 Alkaline Phosphatase 83 Troponin I 0.07 H* C-Reactive Protein 1.0 NT-Pro-B Natriuret Pep 80107 Total Protein 6.5 Albumin 3.8 SARS-CoV-2 (PCR) Negative SARS-CoV-2 Influenza Type A (PCR) Negative PCR FLU A Influenza Type B (PCR) Negative PCR FLU B RSV (PCR) Negative PCR RSV 05/23/24 05/23/24 05:46 11:24 WBC 4.04 L RBC 3.36 L Hgb 9.2 L Hct 30.4 L MCV 91 MCH 27 MCHC 30 L RDW Coeff of Mica Plt Count 123 L Neut % (Auto) Lymph % (Auto) Winston % (Auto) Eos % (Auto) Baso % (Auto) Neut # (Auto) Lymph # (Auto) Winston # (Auto) Eos # (Auto) Baso # (Auto) Abs Immat Gran (auto) Imm/Tot Granulo (auto) VBG pH VBG pCO2 VBG pO2 VBG HCO3 Sodium 139 Potassium 4.7 Chloride 107 Carbon Dioxide 25 Anion Gap 7 BUN 89 H Creatinine 2.4 H Estimated Creat Clear 22.39 Estimated GFR 25 Glucose 89 Lactate Calcium 8.7 Magnesium 2.4 Total Bilirubin Direct Bilirubin AST ALT Alkaline Phosphatase Troponin I 0.21 H* 0.17 H* C-Reactive Protein NT-Pro-B Natriuret Pep Total Protein Albumin SARS-CoV-2 (PCR) Influenza Type A (PCR) Influenza Type B (PCR) RSV (PCR)
--- NOTE | 2024-05-23 18:44 | PC.NURSE ---
Nursing Care Hours: [id number] Pt this shift calm and cooperative, alert and oriented. No c/o pain, or chest pain. Chronic SOB. Lab called with elevated troponin, new EKG done. VSS. TEDs applied bilat legs. Pitting edema up to thighs. Redness to groin and under abdomen. Area cleaned and dried, scheduled topical ointment applied and Intra dry in put in place. Pure wick patent. [employer] Occupational Therapist frequently checking for leaks. Up in chair for late breakfast, but in bed for dinner. Audible wheeze noted, pt used inhaler PRN, effective.
[2024-05-23] MEDS: SIMVASTATIN 20 MG TABLET PO (20:18)
[2024-05-23] MEDS: DOXAZOSIN 4 MG TABLET 8 MG PO (20:18)
[2024-05-24] VITALS (7 sets, daily range): BP systolic 105–132; BP diastolic 56–73; PULSE 86–102; RESP 18–24; TEMP 36.4–36.8; O2SAT 94–100
[2024-05-24] MEDS: ACETAMINOPHEN 650 MG TABLET ER PO (02:41)
--- NOTE | 2024-05-24 06:51 | PC.NURSE ---
Pt alert and oriented x3. Afebrile. Pt reports 3/10 pain in right hip, pain managed with PRN Tylenol. Pt's external catheter was changed once and is currently patent and draining. Pt is up A1/2 to commode. Pt had one large, soft, formed BM.
[2024-05-24 07:32] LABS: Hematocrit 31.8 % (37.0-53.0); Hemoglobin* 9.6 gm/dL (13.5-17.5); Mean Corpuscular HGB Conc 30 gm/dL (32-36); Mean Corpuscular Hemoglobin 27 pg (26-34); Mean Corpuscular Volume 90 fL (80-100); Platelet Count* 125 K/uL (140-440); Red Blood Count 3.53 m/uL (4.30-5.90); White Blood Count* 4.65 K/uL (4.50-11.00)
[2024-05-24 07:33] LABS: Chloride* 107 mmol/L (96-114); Potassium* 4.8 mmol/L (3.6-5.1); Sodium* 139 mmol/L (135-149)
[2024-05-24 07:36] LABS: Anion Gap 8 mEq/L (7-15); Carbon Dioxide* 24 mmol/L (20-32); Creatinine* 2.4 mg/dL (0.5-1.5); Est. Creatinine Clearance* 22.39; Estimated Glomerular Filt Rate 25 ml/min
[2024-05-24 07:37] LABS: Blood Urea Nitrogen* 95 mg/dL (7-30); Calcium* 8.5 mg/dL (8.4-10.6); Glucose* 91 mg/dL (60-115)
[2024-05-24 07:47] LABS: Slide Review Reflex No
--- NOTE | 2024-05-24 07:49 | P.IMPN_ITS ---
Progress Note: A&P Assessment and plan (1) Acute on chronic diastolic heart failure with preserved ejection fraction: Problem details: -Start IV diuresis with furosemide 60 IV BID, oral potassium supplement, fluid restriction 1500 mL -compression stockings -Strict I&Os, daily weights - down 1 kg thus far -BNP down trending 54,400 (previously 47128) -monitor labs, including potassium and magnesium (2.4) plus creatinine and BUN (>80) and albumin -CXR c/w CHF -repeated echocardiogram, it was last done on 01/05/2024 w/ NL EF -monitor troponin I and ECG - troponin is downtrending (0.07 in ED, previously 0.08). ACS ruled out. On 05/23 troponin tripled to 0.21. No change in symptomatology, denying chest pain. Repeat EKG shows sinus rhythm with first- degree AV block with PACs. Discussed with patient - declines further aggressive workup other than trending troponins, does not want to be transferred. Repeat troponin at noon is 0.17. 05/24: adding metolazone 2.5mg daily. Creatinine unchanged, est CrClr 22. Weight essentially unchanged -Suspect cardiorenal syndrome, poorly responding to current therapies Echocardiogram Limited Echocardiogram performed 1. Normal LV size, normal wall thickness, severely reduced global systolic function with an estimated EF of 25 - 30%. 2. Right ventricular cavity size is moderately enlarged, global systolic RV function is moderately reduced. 3. The aortic valve is calcified, mild to moderate stenosis and mild to moderate regurgitation. 4. The mitral valve is normal, moderate mitral regurgitation. 5. Moderate tricuspid regurgitation. 6. The inferior vena cava is dilated, respiratory size variation less than 50%, consistent with elevated right atrial pressure. 7. Elevated estimated pulmonary pressures by tricuspid regurgitation velocity and right atrial pressure (48 mmHg plus RAP). Comparison Compared to prior exam images and report of 01/05/24: Biventricular function is worse. TR/MR/AI is worse. RA and PASP is higher. Status: Acute (2) Acute kidney injury superimposed on chronic kidney disease: Problem details: -creatinine 2.4, previously 1.7 which appears to be his baseline in the last 3 months -differential diagnosis includes progression to chronic kidney disease versus ROBERTO on CKD versus cardiorenal syndrome - suspected -will diurese the patient and monitor for improvement of his kidney function -renally dose oral medications (adjusted apixiban dosing) -renal ultrasound shows normal echotexture and heart attacks of the right kidney, no suspicious masses stones or hydronephrosis. 2.5 cm simple appearing cyst. Left kidney is not well visualized in setting of overlying bowel gas. -continue to trend labs in setting of IV diuresis Status: Acute (3) Essential hypertension: Problem details: -currently soft blood pressures on admission - stabilized -home med - doxazosin Status: Acute (4) Mild aortic stenosis by prior echocardiogram: Problem details: -noted -appears to have worsened on repeat echo Status: Acute (5) Mitral annular calcification: Problem details: -noted Status: Acute (6) Intertriginous candidiasis: Problem details: -S/p fluconazole 100 mg, 10-14 days course plus nystatin topically, but due to continuous irritation by urine patient is still having candidiasis. -clotrimazole cream Status: Acute (7) Dermatitis associated with moisture from urinary incontinence: Problem details: -given his urinary incontinence and associated dermatitis will collect urine for now -try to keep skin dry Status: Acute (8) Need for case management social worker intervention: Problem details: -started a conversation regarding hospice with patient. By his choice, he will discuss with family and arrange for family conference during rounds or Wednesday this week -case management social worker for discussion of facility options versus home Status: Acute Time Spent With Patient Total time spent: Total time spent caring for the patient today was 45 minutes. This includes time spent for the visit reviewing the chart, time spent during the visit, time spent after the visit and documentation and planning in coordination of care. Subjective Date Seen: 05/24/24 Interval history: Patient is seen sitting up in chair this morning. Reports feeling fine. Breathing feels better. Still congested. Mild improvement in peripheral edema. No significant weight change or improvement in kidney function. Had a limited echocardiogram yesterday as previous was done 01/05/24. Unfortunately, significant changes have been noted. EF has decreased from 67% to 25-30%. TR/MR/AI is worse and RA and PASP is higher. Family is not present but we discussed hospice. He wants to think on it and contact family on his own rather than have me speak with them today. I have asked him to have his son, Jimmy, KEVEN/RYAN avaialble for a family conference or Wednesday Exam Narrative: Exam Narrative: PHYSICAL EXAM General: Pleasant, conversant, NAD Cardiovascular: RRR, S1S2. 2+ pitting edema Pulmonary: Coarse breath sounds remain throughout, mild dyspnea still present Neurological: Alert, answering questions appropriately, cranial nerves intact, no focal findings Extremities: No gross joint deformity. AROMI. Neurovascularly intact Skin: Warm, dry. Const: Vital Signs, click to edit/add: Vital Signs - 24 hr 05/23/24 11:00 05/23/24 15:00 05/23/24 15:00 Temperature Pulse Rate Pulse Rate [Right Radial] 98 98 98 Respiratory Rate 16 16 20 Blood Pressure [Le ft Arm] 114/69 Blood Pressure [Ri ght Arm] 117/55 L Pulse Oximetry 98 97 Oxygen Delivery Me thod Room Air Room Air 05/23/24 15:00 05/23/24 19:30 05/23/24 23:00 Temperature 97.3 F L Pulse Rate 91 91 Pulse Rate [Right Radial] 101 H Respiratory Rate 20 Blood Pressure [Le ft Arm] Blood Pressure [Ri ght Arm] 111/65 Pulse Oximetry 97 Oxygen Delivery Me thod Room Air 05/23/24 23:00 05/23/24 23:51 05/24/24 02:10 Temperature 98.1 F 97.6 F Pulse Rate Pulse Rate [Right Radial] 96 96 95 Respiratory Rate 18 20 Blood Pressure [Le ft Arm] 122/66 113/65 Blood Pressure [Ri ght Arm] Pulse Oximetry 97 100 Oxygen Delivery Me thod Room Air Room Air Labs Labs: Laboratory Results - last 24 hr 05/23/24 05/24/24 11:24 06:02 WBC 4.65 RBC 3.53 L Hgb 9.6 L Hct 31.8 L MCV 90 MCH 27 MCHC 30 L Plt Count 125 L Sodium 139 Potassium 4.8 Chloride 107 Carbon Dioxide 24 Anion Gap 8 BUN 95 H Creatinine 2.4 H Estimated Creat Clear 22.39 Estimated GFR 25 Glucose 91 Calcium 8.5 Troponin I 0.17 H*
[2024-05-24] MEDS: FUROSEMIDE 20 MG TABLET 60 MG PO ×2 (08:27→14:02)
[2024-05-24] MEDS: metOLazone 2.5 MG TABLET PO (08:30)
[2024-05-24] MEDS: FAMOTIDINE 20 MG TABLET PO (08:30)
[2024-05-24] MEDS: APIXABAN 5 MG TABLET 2.5 MG PO ×2 (08:30→20:09)
[2024-05-24] MEDS: CLOTRIMAZOLE 1 % CREAM 1 APPLIC TOPICAL ×2 (08:32→20:09)
[2024-05-24] MEDS: SODIUM CHLORIDE 0.9 % (FLUSH) 10 ML SYRINGE 5 ML IVF ×2 (08:32→20:09)
--- NOTE | 2024-05-24 14:31 | PC.NURSE ---
End of shift: Pt AxOx4, pleasant, and cooperative. Pt denies pain throughout the shift. Pt reported SOB upon exertion. Audible expiratory wheezing heard during exertion. Pt?s external catheter has remained in place and draining. Pt had an incontinent BM today in the chair. Pt is A1/2. Pt tolerating diet and fluid restriction well. Pt remained afebrile and resting comfortably with call light in reach. Family at bedside. ?
--- NOTE | 2024-05-24 15:44 | PC.SOCIAL ---
Addendum entered and electronically signed by MYRON Santillan Student [employer] 05/24/24 16:23: Social work international marketing specialist tried to meet with pt to give him an update, but pt was sleeping. Social work international marketing specialist gave placement updates to pt's nurse. Social work to follow up tomorrow. Original Note: Social work international marketing specialist met with pt, pt's son and hospitalist to discuss discharge options. Pt and pt's son are in agreement with opening hospice and looking for a SNF. Pt is requesting social work international marketing specialist look at availability at [facility], [facility] and [facility]. Pt's lives at [facility] ([facility] [place]) and opened with hospice a month ago. Social work international marketing specialist reached out to these facilities. [facility] has a shared room available possibly Wednesday or early next week. They work with [facility] hospice and [facility]. There would be a $7,000 down-pay and estimate of $450-$550 a day, depending on pt's needs. If pt qualifies for rehab, he could start under a medicare rehab stay and then transfer to hospice cares. [facility] has a shared room available with a $10,000 downpay and estimated $500-$600 a day. They will possibly have a private room available or Wednesday. The private room is an additional 11.5% of the daily cost. [facility] works with [place], [facility] and [facility]. Social work also left a voicemail with Meghana from [facility] in the [facility] unit. Meghana called back and said that there is not availability at [facility], but they might have availability at [facility] on and could do hospice care there. Social work international marketing specialist called Francia at [facility], and left a voicemail. Social work international marketing specialist updated pt's son, Ajay, with this information. He would like social work international marketing specialist to inquire about availability at [facility] and to wait to hear back from [facility] before making a decision. Pt and pt's son feel strongly about a private room. Social work international marketing specialist left a message with [facility] requesting bed availability. Social work international marketing specialist updated hospitalist on duty. Social work to follow up.
--- NOTE | 2024-05-24 18:17 | PC.NURSE ---
shift note: pt becomes sob with minimal activity. pt has audible insp/exp wheezing with exertion. bilat feet 3+ pitting edema with teds on. bilat l/e elevated. unable to palpate PP due to swelling. tele reading nsr. periwick changed after pericare. groin fold bright red and has foul smell
[2024-05-24] MEDS: SIMVASTATIN 20 MG TABLET PO (20:09)
[2024-05-24] MEDS: DOXAZOSIN 4 MG TABLET 8 MG PO (20:09)
[2024-05-25] VITALS (8 sets, daily range): BP systolic 101–122; BP diastolic 60–72; PULSE 89–102; RESP 18–24; TEMP 36.2–36.7; O2SAT 93–99
[2024-05-25] MEDS: ACETAMINOPHEN 650 MG TABLET ER PO ×2 (01:56→21:23)
[2024-05-25 06:46] LABS: Hematocrit 31.5 % (37.0-53.0); Hemoglobin* 9.4 gm/dL (13.5-17.5); Mean Corpuscular HGB Conc 30 gm/dL (32-36); Mean Corpuscular Hemoglobin 27 pg (26-34); Mean Corpuscular Volume 90 fL (80-100); Platelet Count* 109 K/uL (140-440); Red Blood Count 3.49 m/uL (4.30-5.90)
[2024-05-25 06:52] LABS: Slide Review Reflex No
[2024-05-25 07:08] LABS: Chloride* 108 mmol/L (96-114)
[2024-05-25 07:09] LABS: Potassium* 3.9 mmol/L (3.6-5.1); Sodium* 142 mmol/L (135-149)
[2024-05-25 07:11] LABS: Creatinine* 2.3 mg/dL (0.5-1.5); Est. Creatinine Clearance* 23.36; Estimated Glomerular Filt Rate 27 ml/min
[2024-05-25 07:12] LABS: Anion Gap 9 mEq/L (7-15); Blood Urea Nitrogen* 96 mg/dL (7-30); Calcium* 8.4 mg/dL (8.4-10.6); Carbon Dioxide* 25 mmol/L (20-32); Glucose* 99 mg/dL (60-115)
--- NOTE | 2024-05-25 07:36 | PC.NURSE ---
Pt is alert and oriented x3. Afebrile. Pt reports 1/10 generalized pain, managed with PRN Tylenol. Pt refused fluid restriction and wanted to have water With all this hospice talk, why even bother with the fluid restriction. I am so thirsty RN educated pt on fluid restriction, fluid retention, and CHF. Pt verbalized understanding but refused fluid restriction, pt had 200ml extra water, updated PA Sonal, orders given to discontinue fluid restriction. Pt is up A2 with walker and gait belt. Pt's external catheter is patent and draining.
[2024-05-25] MEDS: FUROSEMIDE 20 MG TABLET 60 MG PO ×2 (08:38→14:32)
[2024-05-25] MEDS: metOLazone 2.5 MG TABLET PO (09:41)
[2024-05-25] MEDS: CLOTRIMAZOLE 1 % CREAM 1 APPLIC TOPICAL ×2 (09:41→21:26)
[2024-05-25] MEDS: FAMOTIDINE 20 MG TABLET PO (09:43)
[2024-05-25] MEDS: APIXABAN 5 MG TABLET 2.5 MG PO ×2 (09:43→21:24)
[2024-05-25] MEDS: SODIUM CHLORIDE 0.9 % (FLUSH) 10 ML SYRINGE 5 ML IVF ×2 (09:44→21:24)
--- NOTE | 2024-05-25 11:11 | P.IMPN_ITS ---
Progress Note: A&P Assessment and plan (1) Acute on chronic diastolic heart failure with preserved ejection fraction: Problem details: -Start IV diuresis with furosemide 60 IV BID, oral potassium supplement, fluid restriction 1500 mL -compression stockings -Strict I&Os, daily weights - down 1 kg thus far -BNP down trending 54,400 (previously [id number]) -monitor labs, including potassium and magnesium (2.4) plus creatinine and BUN (>80) and albumin -CXR c/w CHF -repeated echocardiogram, it was last done on 01/05/2024 w/ NL EF -monitor troponin I and ECG - troponin is downtrending (0.07 in ED, previously 0.08). ACS ruled out. On 05/23 troponin tripled to 0.21. No change in symptomatology, denying chest pain. Repeat EKG shows sinus rhythm with first- degree AV block with PACs. Discussed with patient - declines further aggressive workup other than trending troponins, does not want to be transferred. Repeat troponin at noon is 0.17. 05/24: adding metolazone 2.5mg daily. Creatinine unchanged, est CrClr 22. Weight essentially unchanged -Suspect cardiorenal syndrome, poorly responding to current therapies 05/25: Continue IV and oral diuresis, weight unchanged, net balance -1390 though unsure how accurate this may be, creatinine 2.3 Echocardiogram Limited Echocardiogram performed 1. Normal LV size, normal wall thickness, severely reduced global systolic function with an estimated EF of 25 - 30%. 2. Right ventricular cavity size is moderately enlarged, global systolic RV function is moderately reduced. 3. The aortic valve is calcified, mild to moderate stenosis and mild to moderate regurgitation. 4. The mitral valve is normal, moderate mitral regurgitation. 5. Moderate tricuspid regurgitation. 6. The inferior vena cava is dilated, respiratory size variation less than 50%, consistent with elevated right atrial pressure. 7. Elevated estimated pulmonary pressures by tricuspid regurgitation velocity and right atrial pressure (48 mmHg plus RAP). Comparison Compared to prior exam images and report of 01/05/24: Biventricular function is worse. TR/MR/AI is worse. RA and PASP is higher. Status: Acute (2) Acute kidney injury superimposed on chronic kidney disease: Problem details: -creatinine 2.4, previously 1.7 which appears to be his baseline in the last 3 months -differential diagnosis includes progression to chronic kidney disease versus ROBERTO on CKD versus cardiorenal syndrome - suspected -will diurese the patient and monitor for improvement of his kidney function -renally dose oral medications (adjusted apixiban dosing) -renal ultrasound shows normal echotexture and heart attacks of the right kidney, no suspicious masses stones or hydronephrosis. 2.5 cm simple appearing cyst. Left kidney is not well visualized in setting of overlying bowel gas. -continue to trend labs in setting of IV diuresis 05/25: Creatinine 2.3 Status: Acute (3) Essential hypertension: Problem details: -currently soft blood pressures on admission - stabilized -home med - doxazosin Status: Acute (4) Mild aortic stenosis by prior echocardiogram: Problem details: -noted -appears to have worsened on repeat echo Status: Acute (5) Mitral annular calcification: Problem details: -noted Status: Acute (6) Intertriginous candidiasis: Problem details: -S/p fluconazole 100 mg, 10-14 days course plus nystatin topically, but due to continuous irritation by urine patient is still having candidiasis. -clotrimazole cream Status: Acute (7) Dermatitis associated with moisture from urinary incontinence: Problem details: -given his urinary incontinence and associated dermatitis will collect urine for now -try to keep skin dry Status: Acute (8) Need for social media community manager intervention: Problem details: -started a conversation regarding hospice with patient. By his choice, he will discuss with family and arrange for family conference during rounds or Wednesday this week -family conference 05/24 with son, Jimmy, and Tiki, social media community manager. Plan for ongoing diuresis, therapy, awaiting bed placement with ongoing therapies and hospice evaluation Status: Acute Time Spent With Patient Total time spent: Total time spent caring for the patient today was 45 minutes. This includes time spent for the visit reviewing the chart, time spent during the visit, time spent after the visit and documentation and planning in coordination of care. Subjective Date Seen: 05/25/24 Interval history: Patient is seen sitting up in a chair this morning. Enjoying breakfast. Feeling well. While he still appears dyspneic, though improved, his wheezing has quieted. Therapy tells me he is an assist of 1 when he takes his time, requiring more assistance if he is hurried. Patient is motivated to continue with therapies. We were able to have a family conference with his son, KEVEN Marquez/RYAN yesterday afternoon along with social media community manager. Patient and son are on board for transfer to facility for ongoing rehabilitation and consideration for hospice. Plan will be to continue with diuresis, therapies, and discharge when bed becomes available. Exam Narrative: Exam Narrative: PHYSICAL EXAM General: Pleasant, conversant, NAD Cardiovascular: RRR, S1S2. 2+ pitting edema Pulmonary: Coarse breath sounds remain throughout, expiratory wheezes, less audible now without ausculation, mild dyspnea still present Neurological: Alert, answering questions appropriately, cranial nerves intact, no focal findings Extremities: No gross joint deformity. AROMI. Neurovascularly intact Skin: Warm, dry. Const: Vital Signs, click to edit/add: Vital Signs - 24 hr 05/24/24 15:00 05/24/24 15:00 05/24/24 15:26 Temperature 97.8 F Pulse Rate 97 Pulse Rate [Pulse Oximeter] Pulse Rate [Right Radial] 93 102 H Respiratory Rate 18 24 Blood Pressure [Le ft Arm] Blood Pressure [Ri ght Arm] 132/73 Pulse Oximetry 94 Oxygen Delivery Me thod Room Air 05/24/24 20:00 05/24/24 23:22 05/25/24 00:22 Temperature 97.6 F 98.2 F Pulse Rate Pulse Rate [Pulse Oximeter] 99 97 96 Pulse Rate [Right Radial] Respiratory Rate 22 22 22 Blood Pressure [Le ft Arm] 117/65 110/63 Blood Pressure [Ri ght Arm] Pulse Oximetry 98 100 Oxygen Delivery Me thod Room Air Room Air 05/25/24 02:47 05/25/24 07:00 05/25/24 07:43 Temperature 97.5 F L 97.8 F Pulse Rate Pulse Rate [Pulse Oximeter] 98 91 91 Pulse Rate [Right Radial] Respiratory Rate 22 24 24 Blood Pressure [Le ft Arm] 104/72 Blood Pressure [Ri ght Arm] 107/61 Pulse Oximetry 98 96 Oxygen Delivery Me thod Room Air Room Air Labs Labs: Laboratory Results - last 24 hr 05/25/24 06:02 WBC 4.20 L RBC 3.49 L Hgb 9.4 L Hct 31.5 L MCV 90 MCH 27 MCHC 30 L Plt Count 109 L Sodium 142 Potassium 3.9 Chloride 108 Carbon Dioxide 25 Anion Gap 9 BUN 96 H Creatinine 2.3 H Estimated Creat Clear 23.36 Estimated GFR 27 Glucose 99 Calcium 8.4
--- NOTE | 2024-05-25 11:23 | PC.SOCIAL ---
Addendum entered and electronically signed by MYRON Santillan Student Workforce Management Manager 05/25/24 16:31: Pt has been accepted to a bed at [facility] in [facility] on Wednesday. Pt would stay there until a bed is available in the enhanced assisted living and then move over there (~3 weeks). The rent is around $2800 month, with added charges for services. Pt and pt's son have both been updated. Pt's son will come to hospital around 12:00 tomorrow to meet with pt and social work r d internship to decide on a plan. Francia will bring by a pamphlet with all the costs tomorrow morning. Social work to follow up as needed. Original Note: Discharge planning: [facility] does not have any LTC bed availability. Social work r d internship updated pt on discharge options. Pt would like to hear back from [facility] before making a decision. Francia, from [facility], will come to the hospital early afternoon to evaluate and meet with pt. Social work r d internship updated pt's son. Social work to follow up. Francia: [phone]
--- NOTE | 2024-05-25 20:17 | PC.NURSE ---
shift note: pt afeb. Pt having increase insp/exp wheezing with min. activity. LS with crkls bibasilar. pt maintains sats >92% on RA. RR=22-26/min. pitting edema waist to feet bilat. bilat fee with 3+ pitting edema. bilat teds placed. No PP felt bilat feet but extremities warm to touch. outer lower abd folds red. Yeny care provided frequently due to incont and skin redness. Periwick replaced x2 but continued to come off. Pt denies pain. IV intact.
[2024-05-25] MEDS: DOXAZOSIN 4 MG TABLET 8 MG PO (21:23)
[2024-05-25] MEDS: SIMVASTATIN 20 MG TABLET PO (21:24)
[2024-05-26 03:00] VITALS: BP 97/52; PULSE 92; RESP 18; TEMP 36.4; O2SAT 94
--- NOTE | 2024-05-26 05:34 | PC.NURSE ---
Shift Note: Shift unremarkable. Pt denies pain, VSS. +2 LE edema present, pt has been diligent tolerating LE elevation in both his bed and chair. Urge incontinence present, but pt is also able to utilize the urinal in bed.
[2024-05-26 06:42] LABS: Hematocrit 31.1 % (37.0-53.0); Hemoglobin* 9.5 gm/dL (13.5-17.5); Mean Corpuscular HGB Conc 31 gm/dL (32-36); Mean Corpuscular Hemoglobin 28 pg (26-34); Mean Corpuscular Volume 91 fL (80-100); Platelet Count* 112 K/uL (140-440); Red Blood Count 3.42 m/uL (4.30-5.90); White Blood Count* 4.74 K/uL (4.50-11.00)
[2024-05-26 07:00] LABS: Chloride* 107 mmol/L (96-114); Potassium* 3.6 mmol/L (3.6-5.1); Sodium* 143 mmol/L (135-149)
[2024-05-26 07:01] LABS: Slide Review Reflex No
[2024-05-26 07:03] LABS: Blood Urea Nitrogen* 91 mg/dL (7-30); Calcium* 8.4 mg/dL (8.4-10.6); Creatinine* 2.1 mg/dL (0.5-1.5); Est. Creatinine Clearance* 25.59; Estimated Glomerular Filt Rate 30 ml/min; Glucose* 98 mg/dL (60-115)
[2024-05-26 07:19] LABS: Anion Gap 7 mEq/L (7-15); Carbon Dioxide* 29 mmol/L (20-32)
[2024-05-26] MEDS: FUROSEMIDE 20 MG TABLET 60 MG PO ×2 (07:54→14:49)
[2024-05-26] MEDS: metOLazone 2.5 MG TABLET PO (09:42)
[2024-05-26] MEDS: FAMOTIDINE 20 MG TABLET PO (09:43)
[2024-05-26] MEDS: APIXABAN 5 MG TABLET 2.5 MG PO ×2 (09:43→20:21)
[2024-05-26] MEDS: CLOTRIMAZOLE 1 % CREAM 1 APPLIC TOPICAL ×2 (09:43→20:22)
[2024-05-26] MEDS: SODIUM CHLORIDE 0.9 % (FLUSH) 10 ML SYRINGE 5 ML IVF ×2 (09:43→20:22)
[2024-05-26 11:00] VITALS: BP 104/59; PULSE 97; RESP 18; TEMP 36.8; O2SAT 98
--- NOTE | 2024-05-26 11:17 | P.IMPN_ITS ---
Progress Note: A&P Assessment and plan (1) Acute on chronic diastolic heart failure with preserved ejection fraction: Problem details: -Start IV diuresis with furosemide 60 IV BID, oral potassium supplement, fluid restriction 1500 mL -compression stockings -Strict I&Os, daily weights - down 1 kg thus far -BNP down trending 54,400 (previously [id number]) -monitor labs, including potassium and magnesium (2.4) plus creatinine and BUN (>80) and albumin -CXR c/w CHF -repeated echocardiogram, it was last done on 01/05/2024 w/ NL EF -monitor troponin I and ECG - troponin is downtrending (0.07 in ED, previously 0.08). ACS ruled out. On 05/23 troponin tripled to 0.21. No change in symptomatology, denying chest pain. Repeat EKG shows sinus rhythm with first- degree AV block with PACs. Discussed with patient - declines further aggressive workup other than trending troponins, does not want to be transferred. Repeat troponin at noon is 0.17. 05/24: adding metolazone 2.5mg daily. Creatinine unchanged, est CrClr 22. Weight essentially unchanged -Suspect cardiorenal syndrome, poorly responding to current therapies 05/25: Continue IV and oral diuresis, weight unchanged, net balance -1390 though unsure how accurate this may be, creatinine 2.3 05/26: Continues on IV and oral diuresis, awaiting placement with hospice evaluation. Not comfort cares at this time. Weight is down 2 kg from admission. Creatinine has improved to 2.1. Working with therapies to improve strength and mobility with goal to travel by private vehicle Echocardiogram (05/23) Limited Echocardiogram performed 1. Normal LV size, normal wall thickness, severely reduced global systolic function with an estimated EF of 25 - 30%. 2. Right ventricular cavity size is moderately enlarged, global systolic RV function is moderately reduced. 3. The aortic valve is calcified, mild to moderate stenosis and mild to moderate regurgitation. 4. The mitral valve is normal, moderate mitral regurgitation. 5. Moderate tricuspid regurgitation. 6. The inferior vena cava is dilated, respiratory size variation less than 50%, consistent with elevated right atrial pressure. 7. Elevated estimated pulmonary pressures by tricuspid regurgitation velocity and right atrial pressure (48 mmHg plus RAP). Comparison Compared to prior exam images and report of 01/05/24: Biventricular function is worse. TR/MR/AI is worse. RA and PASP is higher. Status: Acute (2) Acute kidney injury superimposed on chronic kidney disease: Problem details: -creatinine 2.4, previously 1.7 which appears to be his baseline in the last 3 months -differential diagnosis includes progression to chronic kidney disease versus ROBERTO on CKD versus cardiorenal syndrome - suspected -will diurese the patient and monitor for improvement of his kidney function -renally dose oral medications (adjusted apixiban dosing) -renal ultrasound shows normal echotexture and heart attacks of the right kidney, no suspicious masses stones or hydronephrosis. 2.5 cm simple appearing cyst. Left kidney is not well visualized in setting of overlying bowel gas Creatinine trending down 2.3 ->2.1 on 05/26. Will forego further lab draws, awaiting placement and hospice evaluation, unless as needed Status: Acute (3) Essential hypertension: Problem details: -currently soft blood pressures on admission - stabilized -home med - doxazosin Status: Acute (4) Mild aortic stenosis by prior echocardiogram: Problem details: -noted -appears to have worsened on repeat echo Status: Acute (5) Mitral annular calcification: Problem details: -noted Status: Acute (6) Intertriginous candidiasis: Problem details: -S/p fluconazole 100 mg, 10-14 days course plus nystatin topically, but due to continuous irritation by urine patient is still having candidiasis. -clotrimazole cream Status: Acute (7) Dermatitis associated with moisture from urinary incontinence: Problem details: -given his urinary incontinence and associated dermatitis will collect urine for now -try to keep skin dry Status: Acute (8) Need for social media coordinator intervention: Problem details: -started a conversation regarding hospice with patient. By his choice, he will discuss with family and arrange for family conference during rounds or Wednesday this week -family conference 05/24 with son, Jimmy, and Tiki, social media coordinator. Plan for ongoing diuresis, therapy, awaiting bed placement with ongoing therapies and hospice evaluation 05/26: Possibility for [facility] on 05/29. nutrition services manager working with family to determine needs, possible other placement for weekend. Patient medically stable for placement, awaiting hospice evaluation Status: Acute Plan nutrition services manager assisting with placement plans. Appropriately medically stable for discharge. Awaiting hospice evaluation. Time Spent With Patient Total time spent: Total time spent caring for the patient today was 45 minutes. This includes time spent for the visit reviewing the chart, time spent during the visit, time spent after the visit and documentation and planning in coordination of care. Subjective Date Seen: 05/26/24 Interval history: Patient is seen sitting up in a chair this morning. Continues to feel well. Dyspnea still noted, conversing without difficulty. Denies headache or dizziness. Denies chest pain. Tolerating orals without nausea vomiting. Awaiting placement for further hospice evaluation. Has been working with therapies to increase strength with goal to travel via private vehicle. Exam Narrative: Exam Narrative: PHYSICAL EXAM General: Pleasant, conversant, NAD Cardiovascular: RRR, S1S2. 2+ pitting edema Pulmonary: Coarse breath sounds remain throughout, expiratory wheezes, less audible now without ausculation, mild dyspnea still present Neurological: Alert, answering questions appropriately, cranial nerves intact, no focal findings Extremities: No gross joint deformity. AROMI. Neurovascularly intact Skin: Warm, dry. Const: Vital Signs, click to edit/add: Vital Signs - 24 hr 05/25/24 15:00 05/25/24 20:51 05/25/24 23:00 Temperature 97.8 F 98.1 F 97.1 F L Pulse Rate [Pulse Oximeter] 97 102 H 93 Respiratory Rate 22 20 18 Blood Pressure [Le ft Arm] 105/63 Blood Pressure [Ri ght Arm] 117/71 101/61 Pulse Oximetry 96 93 94 Oxygen Delivery Me thod Room Air Room Air Room Air 05/25/24 23:00 05/26/24 03:00 Temperature 97.5 F L Pulse Rate [Pulse Oximeter] 93 92 Respiratory Rate 18 18 Blood Pressure [Le ft Arm] Blood Pressure [Ri ght Arm] 97/52 L Pulse Oximetry 94 Oxygen Delivery Me thod Room Air Labs Labs: Laboratory Results - last 24 hr 05/26/24 05:56 WBC 4.74 RBC 3.42 L Hgb 9.5 L Hct 31.1 L MCV 91 MCH 28 MCHC 31 L Plt Count 112 L Sodium 143 Potassium 3.6 Chloride 107 Carbon Dioxide 29 Anion Gap 7 BUN 91 H Creatinine 2.1 H Estimated Creat Clear 25.59 Estimated GFR 30 Glucose 98 Calcium 8.4
--- NOTE | 2024-05-26 16:17 | PC.SOCIAL ---
Discharge planning: Pt will go to [facility] on Wednesday. [facility] van will cone picker at 10:00. Pt and pt's sons are pleased with the plan. Pt will move to [facility] when there is a bed available. Social work copywriting intern confirmed the D/C plan with Francia, at [facility]. Pt's family would like to use [facility] for hospice cares. Social work copywriting intern faxed notes to [place] [facility] and they have accepted pt. Hospice phone number: [phone], fax: [phone]. Social work to follow up on Wednesday.
--- NOTE | 2024-05-26 17:28 | PC.NURSE ---
Shift Summary: patient pleasant and cooperative. Up with 2 assist, walker and gait belt. Incontinent as well as using urinal. Tolerating regular diet. Denies pain, nausea or SOB. Groin red, cleansed and cream applied.
[2024-05-26] MEDS: DOXAZOSIN 4 MG TABLET 8 MG PO (20:21)
[2024-05-26] MEDS: SIMVASTATIN 20 MG TABLET PO (20:21)
[2024-05-26 23:00] VITALS: PULSE 97; RESP 19
[2024-05-27] MEDS: ACETAMINOPHEN 650 MG TABLET ER PO ×2 (04:25→20:45)
--- NOTE | 2024-05-27 06:19 | PC.NURSE ---
End of shift report [id number]: Pleasant and cooperative with cares. Alert and oriented x 4, hard of hearing. Generalized pain reported, PRN tylenol effective for discomfort. Incontinent of urine but also able to utilize urinal with assistance. Breathing even, SOB with exertion. Audible crackles with expiratory wheezing heard on auscultation. BLE edema 2+ pitting, requested SUNG stockings off but allowed staff to elevate LE. Transfers with assist x 2, able to ambulate small distance with walker and gait belt.
--- NOTE | 2024-05-27 07:50 | P.IMPN_ITS ---
Progress Note: A&P Assessment and plan (1) Acute on chronic diastolic heart failure with preserved ejection fraction: Problem details: On admission -Start IV diuresis with furosemide 60 IV BID, oral potassium supplement, fluid restriction 1500 mL -compression stockings -Strict I&Os, daily weights - down 1 kg thus far -BNP down trending 54,400 (previously 64333) -monitor labs, including potassium and magnesium (2.4) plus creatinine and BUN (>80) and albumin -CXR c/w CHF -repeated echocardiogram, it was last done on 01/05/2024 w/ NL EF -monitor troponin I and ECG - troponin is downtrending (0.07 in ED, previously 0.08). ACS ruled out. On 05/23 troponin tripled to 0.21. No change in symptomatology, denying chest pain. Repeat EKG shows sinus rhythm with first-degree AV block with PACs. Discussed with patient - declines further aggressive workup other than trending troponins, does not want to be transferred. Repeat troponin at noon is 0.17. 05/24: adding metolazone 2.5mg daily. Creatinine unchanged, est CrClr 22. Weight essentially unchanged -Suspect cardiorenal syndrome, poorly responding to current therapies 05/25: Continue IV and oral diuresis, weight unchanged, net balance -1390 though unsure how accurate this may be, creatinine 2.3 05/26: Continues on IV and oral diuresis, awaiting placement with hospice evaluation. Not comfort cares at this time. Weight is down 2 kg from admission. Creatinine has improved to 2.1. Working with therapies to improve strength and mobility with goal to travel by private vehicle 05/27: Transitioned to oral diuresis with furosemide and continue metolazone daily, may go to 3 times a week after few more days of intense diuresis. Improved dyspnea. LE edema unchanged. We discussed end-stage heart failure and cardiorenal syndrome. Discussed that he is a candidate for hospice and patient is agreeable with focus on comfort and quality of life. Echocardiogram (05/23) Limited Echocardiogram performed 1. Normal LV size, normal wall thickness, severely reduced global systolic function with an estimated EF of 25 - 30%. 2. Right ventricular cavity size is moderately enlarged, global systolic RV function is moderately reduced. 3. The aortic valve is calcified, mild to moderate stenosis and mild to moderate regurgitation. 4. The mitral valve is normal, moderate mitral regurgitation. 5. Moderate tricuspid regurgitation. 6. The inferior vena cava is dilated, respiratory size variation less than 50%, consistent with elevated right atrial pressure. 7. Elevated estimated pulmonary pressures by tricuspid regurgitation velocity and right atrial pressure (48 mmHg plus RAP). Comparison Compared to prior exam images and report of 01/05/24: Biventricular function is worse. TR/MR/AI is worse. RA and PASP is higher. Status: Acute (2) Acute kidney injury superimposed on chronic kidney disease: Problem details: -creatinine 2.4, previously 1.7 which appears to be his baseline in the last 3 m [facility] -differential diagnosis includes progression to chronic kidney disease versus ROBERTO on CKD versus cardiorenal syndrome - suspected -will diurese the patient and monitor for improvement of his kidney function -renally dose oral medications (adjusted apixiban dosing) -renal ultrasound shows normal echotexture and heart attacks of the right kidney, no suspicious masses stones or hydronephrosis. 2.5 cm simple appearing cyst. Left kidney is not well visualized in setting of overlying bowel gas Creatinine trending down 2.3 ->2.1 on 05/26. Will forego further lab draws, awaiting placement and hospice evaluation, unless as needed Status: Acute (3) Essential hypertension: Problem details: -currently soft blood pressures on admission - stabilized -home med - doxazosin Status: Chronic (4) Mild aortic stenosis by prior echocardiogram: Problem details: -noted -appears to have worsened on repeat echo Status: Acute (5) Mitral annular calcification: Problem details: -noted Status: Acute (6) Intertriginous candidiasis: Problem details: -S/p fluconazole 100 mg, 10-14 days course plus nystatin topically, but due to continuous irritation by urine patient is still having candidiasis. -clotrimazole cream Status: Acute (7) Dermatitis associated with moisture from urinary incontinence: Problem details: -given his urinary incontinence and associated dermatitis will collect urine for now -try to keep skin dry Status: Acute (8) Need for psychosocial rehabilitation counselor intervention: Problem details: -started a conversation regarding hospice with patient. By his choice, he will discuss with family and arrange for family conference during rounds or Wednesday this week -family conference 05/24 with son, Jimmy, and Tiki, psychosocial rehabilitation counselor. Plan for ongoing diuresis, therapy, awaiting bed placement with ongoing therapies and hospice evaluation 05/26: Possibility for [facility] on 05/29. creative services writer working with family to determine needs, possible other placement for weekend. Patient medically stable for placement, awaiting hospice evaluation Status: Acute Plan creative services writer assisting with placement plans. Appropriately medically stable for discharge. Awaiting hospice evaluation. Plan: Enter see [facility] Wednesday with [place] hospice peer Time Spent With Patient Total time spent: Total time spent caring for the patient today was 45 minutes. This includes time spent for the visit reviewing the chart, time spent during the visit, time spent after the visit and documentation and planning in coordination of care. Subjective Time Seen by Provider: 07:50 Date Seen: 05/27/24 Interval history: Sergio is feeling well. He notes some improvement in dyspnea. He says he is sad to have to go to a SNF because he will miss living [place] and taking care of his yard. Exam Narrative: Exam Narrative: General: No acute distress. Awake, alert, oriented x3. No pallor. No jaundice. Oropharynx: Clear. Mucous membranes moist. Cardiovascular: Regular rate and rhythm. No murmurs, gallops, or rubs. Respiratory: No respiratory distress. Coarse breath sounds throughout. No wheezes. Fine bibasilar crackles. Abdomen: Bowel sounds present. Soft, nondistended, nontender. Extremities: 2+ tense bilateral lower extremity edema. Const: Vital Signs, click to edit/add: Vital Signs - 24 hr 05/26/24 11:00 05/26/24 23:00 Temperature 98.2 F Pulse Rate [Pulse Oximeter] 97 97 Respiratory Rate 18 19 Blood Pressure [Ri ght Arm] 104/59 L Pulse Oximetry 98 Oxygen Delivery Me thod Room Air
[2024-05-27] MEDS: metOLazone 2.5 MG TABLET PO (09:13)
[2024-05-27] MEDS: APIXABAN 5 MG TABLET 2.5 MG PO ×2 (09:13→20:45)
[2024-05-27] MEDS: FAMOTIDINE 20 MG TABLET PO (09:13)
[2024-05-27] MEDS: CLOTRIMAZOLE 1 % CREAM 1 APPLIC TOPICAL ×2 (09:14→20:45)
[2024-05-27] MEDS: FUROSEMIDE 20 MG TABLET 60 MG PO ×2 (09:16→13:57)
[2024-05-27] MEDS: SODIUM CHLORIDE 0.9 % (FLUSH) 10 ML SYRINGE 5 ML IVF ×2 (09:18→20:46)
[2024-05-27 09:52] VITALS: BP 104/54; PULSE 96; RESP 20; TEMP 36.7; O2SAT 97
--- NOTE | 2024-05-27 17:13 | PC.NURSE ---
Shift Summary: Patient pleasant and cooperative. Up with two assist, walker and gait belt to BSC/recliner. Up in chair for meals. Continues to be incontinent. C/o knee discomfort following standing to void, applied aqua-k pad with relief. Offered tylenol however patient stated he wanted to wait until bed time.
[2024-05-27] MEDS: DOXAZOSIN 4 MG TABLET 8 MG PO (20:44)
[2024-05-27] MEDS: SIMVASTATIN 20 MG TABLET PO (20:46)
[2024-05-27] MEDS: HYDROmorphone 0.5 mg/0.5 ml inj IVP (21:30)
[2024-05-27 22:49] VITALS: PULSE 96; RESP 20
[2024-05-28] MEDS: HYDROmorphone 0.5 mg/0.5 ml inj IVP ×2 (00:28→04:58)
--- NOTE | 2024-05-28 06:37 | PC.NURSE ---
End of shift report [id number]: Alert and oriented x 4. Patient having increased SOB at rest, reports that unless he is sitting completely still that he is having difficulty breathing. Periods of tachypnea with respiration ranging from 20-30. Expiratory wheezing with fine crackles on auscultation. Intermittent, non productive cough. At 2030 patient taking HS medications and became short of breath after taking 2 pills and needed 2 minutes to recover in order to continue taking PO medications. MD updated on increased at rest and tachypnea. New order for PRN dilaudid for dyspnea or pain. PRN dilaudid administered throughout the shift with patient reporting moderate relief of SOB for up to 2 hours and that medication has also helped with left knee pain. Incontinent of copious amounts of pale yellow urine, patient does have minimal urge to void and utilizing brief. Transfers with assist x 2 with gait belt and walker, able to take 4 steps to transition from bed to chair. Patient becomes dyspneic with exertion.
[2024-05-28 07:28] VITALS: RESP 22
[2024-05-28] MEDS: metOLazone 2.5 MG TABLET PO (08:15)
[2024-05-28] MEDS: FUROSEMIDE 20 MG TABLET 60 MG PO ×2 (08:15→14:18)
[2024-05-28] MEDS: FAMOTIDINE 20 MG TABLET PO (08:16)
[2024-05-28] MEDS: SODIUM CHLORIDE 0.9 % (FLUSH) 10 ML SYRINGE 5 ML IVF ×2 (08:16→20:39)
[2024-05-28] MEDS: APIXABAN 5 MG TABLET 2.5 MG PO ×2 (08:16→20:41)
[2024-05-28] MEDS: CLOTRIMAZOLE 1 % CREAM 1 APPLIC TOPICAL ×2 (10:10→20:39)
[2024-05-28 11:00] VITALS: BP 105/50; PULSE 98; RESP 20; TEMP 36.7; O2SAT 93
--- NOTE | 2024-05-28 12:05 | P.IMPN_ITS ---
Progress Note: A&P Assessment and plan (1) Acute on chronic diastolic heart failure with preserved ejection fraction: Problem details: On admission -Start IV diuresis with furosemide 60 IV BID, oral potassium supplement, fluid restriction 1500 mL -compression stockings -Strict I&Os, daily weights - down 1 kg thus far -BNP down trending 54,400 (previously 52239) -monitor labs, including potassium and magnesium (2.4) plus creatinine and BUN (>80) and albumin -CXR c/w CHF -repeated echocardiogram, it was last done on 01/05/2024 w/ NL EF -monitor troponin I and ECG - troponin is downtrending (0.07 in ED, previously 0.08). ACS ruled out. On 05/23 troponin tripled to 0.21. No change in symptomatology, denying chest pain. Repeat EKG shows sinus rhythm with first-degree AV block with PACs. Discussed with patient - declines further aggressive workup other than trending troponins, does not want to be transferred. Repeat troponin at noon is 0.17. 05/24: adding metolazone 2.5mg daily. Creatinine unchanged, est CrClr 22. Weight essentially unchanged -Suspect cardiorenal syndrome, poorly responding to current therapies 05/25: Continue IV and oral diuresis, weight unchanged, net balance -1390 though unsure how accurate this may be, creatinine 2.3 05/26: Continues on IV and oral diuresis, awaiting placement with hospice evaluation. Not comfort cares at this time. Weight is down 2 kg from admission. Creatinine has improved to 2.1. Working with therapies to improve strength and mobility with goal to travel by private vehicle 05/27: Transitioned to oral diuresis with furosemide and continue metolazone daily, may go to 3 times a week after few more days of intense diuresis. Improved dyspnea. LE edema unchanged. We discussed end-stage heart failure and cardiorenal syndrome. Discussed that he is a candidate for hospice and patient is agreeable with focus on comfort and quality of life. 05/28: LE edema improving. NYHA class 4 (end stage HF) - treat dyspnea with prn morphine. I started low dose, may need to be increased. Decrease metolazone to MWF. Echocardiogram (05/23) Limited Echocardiogram performed 1. Normal LV size, normal wall thickness, severely reduced global systolic function with an estimated EF of 25 - 30%. 2. Right ventricular cavity size is moderately enlarged, global systolic RV function is moderately reduced. 3. The aortic valve is calcified, mild to moderate stenosis and mild to moderate regurgitation. 4. The mitral valve is normal, moderate mitral regurgitation. 5. Moderate tricuspid regurgitation. 6. The inferior vena cava is dilated, respiratory size variation less than 50%, consistent with elevated right atrial pressure. 7. Elevated estimated pulmonary pressures by tricuspid regurgitation velocity and right atrial pressure (48 mmHg plus RAP). Comparison Compared to prior exam images and report of 01/05/24: Biventricular function is worse. TR/MR/AI is worse. RA and PASP is higher. Status: Acute (2) Acute kidney injury superimposed on chronic kidney disease: Problem details: -creatinine 2.4, previously 1.7 which appears to be his baseline in the last 3 months -differential diagnosis includes progression to chronic kidney disease versus ROBERTO on CKD versus cardiorenal syndrome - suspected -will diurese the patient and monitor for improvement of his kidney function -renally dose oral medications (adjusted apixiban dosing) -renal ultrasound shows normal echotexture and heart attacks of the right kidney, no suspicious masses stones or hydronephrosis. 2.5 cm simple appearing cyst. Left kidney is not well visualized in setting of overlying bowel gas Creatinine trending down 2.3 ->2.1 on 05/26. Will forego further lab draws, awaiting placement and hospice evaluation, unless as needed Status: Acute (3) Essential hypertension: Problem details: -currently soft blood pressures on admission - stabilized -home med - doxazosin Status: Chronic (4) Mild aortic stenosis by prior echocardiogram: Problem details: -noted -appears to have worsened on repeat echo Status: Acute (5) Mitral annular calcification: Problem details: -noted Status: Acute (6) Intertriginous candidiasis: Problem details: -S/p fluconazole 100 mg, 10-14 days course plus nystatin topically, but due to continuous irritation by urine patient is still having candidiasis. -clotrimazole cream Status: Acute (7) Dermatitis associated with moisture from urinary incontinence: Problem details: -given his urinary incontinence and associated dermatitis will collect urine for now -try to keep skin dry Status: Acute (8) Need for social media assistant intervention: Problem details: -started a conversation regarding hospice with patient. By his choice, he will discuss with family and arrange for family conference during rounds or Wednesday this week -family conference 05/24 with son, Jimmy, and Tiki, social media assistant. Plan for ongoing diuresis, therapy, awaiting bed placement with ongoing therapies and hospice evaluation 05/26: Possibility for [facility] on 05/29. special services supervisor working with family to determine needs, possible other placement for weekend. Patient medically stable for placement, awaiting hospice evaluation Status: Acute Plan special services supervisor assisting with placement plans. Appropriately medically stable for discharge. Awaiting hospice evaluation. Plan: Enter see [facility] Wednesday with [place] hospice Subjective Time Seen by Provider: 08:40 Date Seen: 05/28/24 Interval history: Sergio had some dyspnea overnight for which he was given some dilaudid. He says it worked moderately well. He thinks his legs are less swollen today and he is otherwise well. Exam Narrative: Exam Narrative: General: No acute distress. Awake, alert, oriented. No pallor. No jaundice. Oropharynx: Clear. Mucous membranes moist. Cardiovascular: Regular rate and rhythm. No murmurs, gallops, or rubs. Respiratory: No respiratory distress. Coarse breath sounds throughout. No wheezes or crackles. Abdomen: Bowel sounds present. Soft, nondistended, nontender. Extremities: 1-2+ tense bilateral lower extremity edema. Const: Vital Signs, click to edit/add: Vital Signs - 24 hr 05/27/24 22:49 05/28/24 07:28 05/28/24 11:00 Temperature 98.1 F Pulse Rate [Pulse Oximeter] 96 98 Respiratory Rate 20 22 20 Blood Pressure [Ri ght Arm] 105/50 L Pulse Oximetry 93 Oxygen Delivery Me thod Room Air
--- NOTE | 2024-05-28 14:22 | PC.NURSE ---
Shift Summary: patient pleasant and cooperative. Up with one assist, walker and gait belt, pivot from recliner to bed/BSC. Tolerating regular diet well. Has pain in left knee when standing however has denied need for medication at this time.
[2024-05-28 15:00] VITALS: PULSE 98; RESP 20
[2024-05-28] MEDS: SIMVASTATIN 20 MG TABLET PO (20:40)
[2024-05-28] MEDS: DOXAZOSIN 4 MG TABLET 8 MG PO (20:40)
[2024-05-28] MEDS: MORPHINE 10 MG/0.5 ML ORAL SOLN 2 MG PO (20:40)
[2024-05-28] MEDS: ACETAMINOPHEN 650 MG TABLET ER PO (20:41)
[2024-05-28 22:37] VITALS: PULSE 98; RESP 20
[2024-05-29] MEDS: MORPHINE 10 MG/0.5 ML ORAL SOLN 2 MG PO (02:33)
--- NOTE | 2024-05-29 06:17 | PC.NURSE ---
End of shift report [id number]: Alert and oriented x 4. Pain to left knee managed with compression stockings, elevation and PRN medications. Incontinent of urine this shift, does feel urge to void but is unable to urinate in urinal but insert and brief saturated.
[2024-05-29 08:33] VITALS: PULSE 98; RESP 20
[2024-05-29] MEDS: metOLazone 2.5 MG TABLET PO (08:51)
[2024-05-29] MEDS: FUROSEMIDE 20 MG TABLET 60 MG PO (08:51)
[2024-05-29] MEDS: FAMOTIDINE 20 MG TABLET PO (08:52)
[2024-05-29] MEDS: APIXABAN 5 MG TABLET 2.5 MG PO (08:52)
[2024-05-29] MEDS: CLOTRIMAZOLE 1 % CREAM 1 APPLIC TOPICAL (08:52)
--- NOTE | 2024-05-29 09:18 | PM.DS1 ---
DS: Providers Provider Time Seen by Provider: 09:20 Date Seen: 05/29/24 Date of admission: 05/23/24 07:32 Primary care physician: Henok Weller MD Admitting Clinician: Vandana Chiang MD Consults: 05/22/24 21:39 Consult to Occupational Therapy [CONS] Routine Comment: Reason(s) for OT Consult:: Evaluate and Treat Any Restrictions?:: No Restrictions Consult to Physical Therapy [CONS] Routine Comment: Reason(s) for PT Consult:: Evaluate and Treat Any Restrictions?:: No Restrictions Consult to Retail Sales Advisor [CONS] Routine Comment: Reason for Consult:: Discharge Planning Needs Attending Physician on discharge: Maryjane Phillips MD Date of Discharge: 05/29/24 DS: Diagnosis Discharge Diagnosis (1) Acute on chronic diastolic heart failure with preserved ejection fraction: Status: Acute Problem details: On admission -Start IV diuresis with furosemide 60 IV BID, oral potassium supplement, fluid restriction 1500 mL -compression stockings -Strict I&Os, daily weights - down 1 kg thus far -BNP down trending 54,400 (previously [id number]) -monitor labs, including potassium and magnesium (2.4) plus creatinine and BUN (>80) and albumin -CXR c/w CHF -repeated echocardiogram, it was last done on 01/05/2024 w/ NL EF -monitor troponin I and ECG - troponin is downtrending (0.07 in ED, previously 0.08). ACS ruled out. On 05/23 troponin tripled to 0.21. No change in symptomatology, denying chest pain. Repeat EKG shows sinus rhythm with first-degree AV block with PACs. Discussed with patient - declines further aggressive workup other than trending troponins, does not want to be transferred. Repeat troponin at noon is 0.17. 05/24: adding metolazone 2.5mg daily. Creatinine unchanged, est CrClr 22. Weight essentially unchanged -Suspect cardiorenal syndrome, poorly responding to current therapies 05/25: Continue IV and oral diuresis, weight unchanged, net balance -1390 though unsure how accurate this may be, creatinine 2.3 05/26: Continues on IV and oral diuresis, awaiting placement with hospice evaluation. Not comfort cares at this time. Weight is down 2 kg from admission. Creatinine has improved to 2.1. Working with therapies to improve strength and mobility with goal to travel by private vehicle 05/27: Transitioned to oral diuresis with furosemide and continue metolazone daily, may go to 3 times a week after few more days of intense diuresis. Improved dyspnea. LE edema unchanged. We discussed end-stage heart failure and cardiorenal syndrome. Discussed that he is a candidate for hospice and patient is agreeable with focus on comfort and quality of life. 05/28: LE edema improving. NYHA class 4 (end stage HF) - treat dyspnea with prn morphine. I started low dose, may need to be increased. Decrease metolazone to MWF. 05/29: D/c to hospice at [facility] today. Echocardiogram (05/23) Limited Echocardiogram performed 1. Normal LV size, normal wall thickness, severely reduced global systolic function with an estimated EF of 25 - 30%. 2. Right ventricular cavity size is moderately enlarged, global systolic RV function is moderately reduced. 3. The aortic valve is calcified, mild to moderate stenosis and mild to moderate regurgitation. 4. The mitral valve is normal, moderate mitral regurgitation. 5. Moderate tricuspid regurgitation. 6. The inferior vena cava is dilated, respiratory size variation less than 50%, consistent with elevated right atrial pressure. 7. Elevated estimated pulmonary pressures by tricuspid regurgitation velocity and right atrial pressure (48 mmHg plus RAP). Comparison Compared to prior exam images and report of 01/05/24: Biventricular function is worse. TR/MR/AI is worse. RA and PASP is higher. (2) Acute kidney injury superimposed on chronic kidney disease: Status: Acute Problem details: -creatinine 2.4, previously 1.7 which appears to be his baseline in the last 3 months -differential diagnosis includes progression to chronic kidney disease versus ROBERTO on CKD versus cardiorenal syndrome - suspected -will diurese the patient and monitor for improvement of his kidney function -renally dose oral medications (adjusted apixiban dosing) -renal ultrasound shows normal echotexture and heart attacks of the right kidney, no suspicious masses stones or hydronephrosis. 2.5 cm simple appearing cyst. Left kidney is not well visualized in setting of overlying bowel gas Creatinine trending down 2.3 ->2.1 on 05/26. Will forego further lab draws, awaiting placement and hospice evaluation, unless as needed (3) Essential hypertension: Status: Chronic Problem details: -currently soft blood pressures on admission - stabilized -home med - doxazosin (4) Mild aortic stenosis by prior echocardiogram: Status: Acute Problem details: -noted -appears to have worsened on repeat echo (5) Mitral annular calcification: Status: Acute Problem details: -noted (6) Intertriginous candidiasis: Status: Acute Problem details: -S/p fluconazole 100 mg, 10-14 days course plus nystatin topically, but due to continuous irritation by urine patient is still having candidiasis. -clotrimazole cream (7) Dermatitis associated with moisture from urinary incontinence: Status: Acute Problem details: -given his urinary incontinence and associated dermatitis will collect urine for now -try to keep skin dry (8) Need for director of social services intervention: Status: Acute Problem details: -started a conversation regarding hospice with patient. By his choice, he will discuss with family and arrange for family conference during rounds or Wednesday this week -family conference 05/24 with son, Jimmy, and Tiki, director of social services. Plan for ongoing diuresis, therapy, awaiting bed placement with ongoing therapies and hospice evaluation 05/26: Possibility for [facility] on 05/29. marine services technician working with family to determine needs, possible other placement for weekend. Patient medically stable for placement, awaiting hospice evaluation DS: Summary Hospital Course Hospital Course: Per H&P: Sergio Nichols is a 89 year old male with past medical history of congestive heart failure with preserved ejection fraction common hyperlipidemia, history of DVT/PE, chronic venous insufficiency and suspected CKD who presents to the ED with increasing shortness of breath on exertion and bilateral swelling of his legs. In addition patient's weight has been increasing. He states that he was taking his medications at home but it does not work. At the ED, patient was hemodynamically stable having increased work of breathing. Chest x-ray showed pulmonary edema, troponin is chronically elevated, but downtrending, similarly his BNP is chronically elevated and is down trending. Patient got Lasix 40 IV at the ED. Multiple discussions were had with the patient throughout the hospital stay regarding his goals of care. He did not want anything aggressive. With the results of a limited echocardiogram that showed significant changes including a marked decrease in the ejection fraction, discussions about hospice took place and the decision was made for the patient to go on hospice to [facility], where his is currently residing. Diuresis continued to try to optimize his breathing for comfort. No further laboratory investigation was done per patient's wishes for comfort cares and when a clinical picture of stability was reached, I decreased the frequency of metolazone and added morphine as needed for dyspnea. The patient is in good spirits and stable condition for discharge to [facility] on hospice. Time Spent with Patient Time attestation: Total time spent providing and/or coordinating discharge services: Today I spent 35 minutes discharging the patient. Greater than 50% included discussing care with the team, reviewing data, medication reconciliation. Exam Narrative: Exam Narrative: General: No acute distress. Awake, alert, oriented. No pallor. No jaundice. Oropharynx: Clear. Mucous membranes moist. Cardiovascular: Regular rate and rhythm. No murmurs, gallops, or rubs. Respiratory: No respiratory distress. Coarse breath sounds throughout. No wheezes or crackles. Abdomen: Bowel sounds present. Soft, nondistended, nontender. Extremities: 1-2+ tense bilateral lower extremity edema. Const: Vital Signs, click to edit/add: Vital Signs - 24 hr 05/28/24 11:00 05/28/24 15:00 05/28/24 22:37 Temperature 98.1 F Pulse Rate [Pulse Oximeter] 98 98 98 Respiratory Rate 20 20 20 Blood Pressure [Ri ght Arm] 105/50 L Pulse Oximetry 93 Oxygen Delivery Me thod Room Air 05/29/24 08:33 Temperature Pulse Rate [Pulse Oximeter] 98 Respiratory Rate 20 Blood Pressure [Ri ght Arm] Pulse Oximetry Oxygen Delivery Me thod DS: Data Data Completed and Pending Completed studies during hospitalization: 05/22/2024 EKG: Sinus tachycardia with first-degree AV block, rightward axis, low-voltage QRS, cannot rule out anterior infarct, age undetermined, 101 beats per minute. 05/23/2024 echocardiogram: Normal LV size, normal wall thickness, severely reduced global systolic function with an estimated EF of 25-30%. Right ventricular cavity size is moderately enlarged, global systolic RV function is moderately reduced. The aortic valve is calcified, mild to moderate stenosis and [id number] regurgitation. The mitral valve is normal, moderate mitral regurgitation. Moderate tricuspid regurgitation. The inferior vena cava is dilated, respiratory size variation less than 50%, consistent with elevated right atrial pressure. Elevated estimated pulmonary pressures by tricuspid regurgitation velocity and right atrial pressure (48 mm Hg plus RAP). 05/23/2024 EKG: Sinus rhythm with first-degree AV block with premature atrial complexes, rightward axis, low-voltage QRS. Ordering Physician: Kaylen Rodríguez M.D. Date of Service: 05/22/24 Procedure(s): XR chest 1V portable Accession Number(s): [id number] cc: Henok Weller M.D.; Kyalen Rodríguez M.D.~ For Patients: As a result of the Cures Act, medical imaging exams and procedure reports are released immediately into your electronic medical record. You may view this report before your referring provider. If you have questions, please contact your health care provider. INDICATION: SOB, CHEST DISCOMFORT, CHF. (Sic) COMPARISON: 04/24/2024 TECHNIQUE: 1 view. FINDINGS: Rotated leftward. Medical Devices: None. Lung Volumes: Adequate inspiration. No significant atelectasis. Lungs: Upper lobe pulmonary venous diversion. Diffuse bilateral reticular opacities. Findings are consistent with pulmonary venous congestion and interstitial edema, respectively. Pleura and Pleural spaces: Small right pleural effusion. No pneumothorax. Mediastinum: Cardiomegaly. Bony Thorax and Soft Tissues: No significant interval findings. Chronic healed fracture deformities of the left posterior 4th, 5th and 6th ribs. IMPRESSION: Findings consistent with congestive heart failure described above. Dictated by Rey Cuellar MD @ 05/22/2024 7:40:43 PM (Electronically Signed) Ordering Physician: Vandana Chiang MD Date of Service: 05/23/24 Procedure(s): US renal bladder Accession Number(s): [id number] cc: Vandana Chiang MD; Henok Weller M.D.~ For Patients: As a result of the Cures Act, medical imaging exams and procedure reports are released immediately into your electronic medical record. You may view this report before your referring provider. If you have questions, please contact your health care provider. INDICATION: Abnormal kft for few months, R/O CKD, any abnormality. TECHNIQUE: Ultrasound renal and bladder complete. White-scale and color Doppler sonographic images were acquired of the kidneys and urinary bladder. COMPARISON: None. FINDINGS: Right kidney: 10 cm. Normal echotexture and cortex. No suspicious masses, stones, or hydronephrosis. There is a 2.5 cm simple appearing cyst. Left kidney: Not visualized, likely due to overlying bowel gas. Bladder: Normal in caliber and appearance. Color Doppler images demonstrate bilateral ureteral jets. IMPRESSION: No evident significant abnormalities of the right kidney. The left kidney is not visualized. Dictated by Stephon Hernnadez MD @ 05/23/2024 11:23:38 AM (Electronically Signed) Discharge Plan Discharge Disposition: [facility] Date of Admission: 05/23/24 07:32 Attending Provider on Discharge: Maryjane Phillips Primary Care Provider: Henok Weller Anticipated Discharge Date/Time: 05/29/24 10:00 Discharge Medications: New Eliquis 5 mg Tablet 2.5 mg PO BID Qty: 30 0RF furosemide 40 mg tablet 60 mg PO BID@,16 Qty: 90 0RF metolazone 2.5 mg Tablet 2.5 mg PO MoWeFr@0800 Qty: 15 0RF morphine concentrate 100 mg/5 mL (20 mg/mL) solution 5 mg PO Q3H Qty: 30 0RF Continued acetaminophen [Tylenol Arthritis Pain] 650 mg tablet extended release 650 mg PO Q12H PRN lidocaine 4 % adhesive patch,medicated 1 patch topical Q12H PRN nystatin 100,000 unit/gram powder 1 applic topical TID Qty: 60 2RF (DME) Walker- 4 Wheels [facility] See Rx Instructions .Route Qty: 1 0RF Rx Instructions: As directed simvastatin 20 mg tablet 20 mg PO HS Qty: 90 3RF doxazosin 8 mg tablet 8 mg PO HS Qty: 30 3RF potassium chloride 20 mEq tablet extended release 20 meq PO DAILY Qty: 90 3RF albuterol sulfate 90 mcg/actuation HFA aerosol inhaler 2 puff inhalation Q4H PRN (Reason: shortness of breath or wheezing) Qty: 8.5 2RF Discontinued furosemide 40 mg tablet 40 mg PO BID Qty: 90 3RF Eliquis 5 mg tablet 5 mg PO BID Qty: 60 3RF Discharge Orders: Discharge Order (Routine); Ordered 05/29/24 Ordered By: Maryjane Phillips Activity Level: Up with assist Discharge Diet: Regular Follow Up Appointments: Henok Weller MD [Primary Care Provider] - Forms: [facility] Info Instructions Admit to: SNF Discharge Potential: Poor Length of Stay: >90 days Can use facility standing orders?: Yes Code Status: DNR/DNI TEDs: N/A Rehab Potential: Poor Oxygen: No Urinary Catheter: No Hospice Evaluate and Admit: yes Orders are good >30 days: No Signature: Maryjane Phillips MD
--- NOTE | 2024-05-29 10:39 | PC.SOCIAL ---
Discharge planning: Social work management internship faxed D/C summary and orders to [facility], fax number: [phone]. Social work management internship also secure emailed D/C summary and orders to [place] at [facility] [place], [email or web address]. Social work management internship brought medicare rights form to pt and discussed it with him. Pt discharging to [facility] today via [facility] van.
--- NOTE | 2024-05-29 10:54 | PC.NURSE ---
Nursing Care Hours: [id number] Pt this shift calm and cooperative, alert and oriented. No c/o pain or SOB. VSS, on room air. Ax1 with walker and gait belt, assisted with urinal. Low u/o. Pitting edema up to thighs. TEDs on, confirmed no creases. IV removed for discharge. Assisted with getting dressed. [facility] transfer at 1030, forms signed.
== END 2024-05-29 10:29 | disposition hospice, inpatient (51) | DRG 291 ==
LOC: ED 20:40 → MEDSURG 21:17
PROVIDERS: Physician Assistant; Admitting Provider Student in an Organized Health Care Education/Training Program; Emergency Provider Family Medicine; PCP Internal Medicine; Visit Provider Student in an Organized Health Care Education/Training Program
DX: I13.0 Hypertensive heart and chronic kidney disease with heart failure and stage 1 through stage 4 chronic kidney disease, or unspecified chronic kidney disease (principal); I50.33 Acute on chronic diastolic (congestive) heart failure; N18.4 Chronic kidney disease, stage 4 (severe); N17.9 Acute kidney failure, unspecified; I50.84 End stage heart failure; R79.89 Other specified abnormal findings of blood chemistry; E66.9 Obesity, unspecified; G47.33 Obstructive sleep apnea (adult) (pediatric); L24.A2 Irritant contact dermatitis due to fecal, urinary or dual incontinence; B37.2 Candidiasis of skin and nail; I44.0 Atrioventricular block, first degree; Z79.01 Long term (current) use of anticoagulants; I35.0 Nonrheumatic aortic (valve) stenosis; I34.81 Nonrheumatic mitral (valve) annulus calcification; J45.909 Unspecified asthma, uncomplicated; Z86.711 Personal history of pulmonary embolism; Z86.718 Personal history of other venous thrombosis and embolism; Z85.828 Personal history of other malignant neoplasm of skin; E78.5 Hyperlipidemia, unspecified; I36.1 Nonrheumatic tricuspid (valve) insufficiency
CPT/HCPCS: 36415; 71045; 76770; 80048; 80053; 82248; 82803; 83605; 83735; 83880; 84484; 85025; 85027; 86140; 87631; 93005; 93308; 93321; 93325; 94761; 97162; 97165; 97530; 97535; 99284; 99285; G0378; A9270; J1171; J1940